=== PATIENT | female | born 1950 | race Caucasian/White ===

== ENCOUNTER → 2016-08-12 | Outpatient (CLI) | payer OTHER, MEDICARE ==
[~2016-08-12] MED LIST: ACET-1138 PO; ADAL40KI; ADVIN25/60 INH; ALBU1AER9 INH; ASPEC325 PO; BECL0.3A INH; CHOL20007 PO; FEXO1TAB49 PO; FLECTOR PATCH TOP; FOLI1TAB7 PO; FRRG PO; GABA-112 PO; HYDR200T5 PO; HYDR25TA5 PO; IPRASOL4 INH; LEVO200T PO; LEVO25TA PO; LISI40TA PO; MELOXICAM PO; MEPO1INJ; METHOTREXATE; MILN50TA PO; MOME50SP5; MULT-506 PO; OLOP0.1S2 OP; PRED-301 PO; SERT-234 PO; SINUS PO; TIOT1AER2 INH; TRAM-10 PO
== END | disposition home or self-care (01) ==
LOC: C.LAB 10:37
PROVIDERS: ATTEND Internal Medicine Endocrinology, Diabetes & Metabolism
DX: E03.9 Hypothyroidism, unspecified (principal)

== ENCOUNTER → 2016-12-19 | Outpatient (CLI) | payer OTHER, MEDICARE ==
[~2016-12-19] MED LIST changes: -ADAL40KI; -BECL0.3A INH; -LEVO25TA PO; -MEPO1INJ; -METHOTREXATE; -MOME50SP5; -SINUS PO
[2016-12-19 12:11] LABS: BASO % 0.2 %; BASO ABS # 0.01 K/uL (0-0.2); COMPLETE YES; EOS % 1.9 %; HEMATOCRIT 39.4 % (37-47); IG% 0.2 %; LYMPH % 32.1 %; LYMPH ABS # 1.56 K/uL (1.2-3.4); MEAN CELL VOLUME 102.6 fL (80-100); MEAN CORPUSCULAR HEMOGLOBIN 32.6 pg (25-34); MEAN CORPUSCULAR HGB CONC 31.7 g/dl (32-36); MEAN PLATELET VOLUME 10.1 fL (7.4-10.4); MONO % 16.9 %; NEUT % 48.7 %; PLATELET COUNT 187 K/uL (130-400); RED BLOOD COUNT 3.84 M/uL (4.2-5.4); WHITE BLOOD COUNT 4.86 K/uL (4.8-10.8)
[2016-12-19 12:23] LABS: ALT/SGPT 19 U/L (12-78); BLOOD UREA NITROGEN 26 mg/dl (7-18); BUN/CREATININE RATIO 23.5 (10-20); CARBON DIOXIDE 28 mmol/L (21-32); CHLORIDE 108 mmol/L (98-107); CHOLESTEROL 221 mg/dl (0-200); GLUCOSE 74 mg/dl (70-99); SODIUM 143 mmol/L (136-145)
[2016-12-19 12:26] LABS: ALB/GLOB RATIO 1.1 (0.9-2); ALKALINE PHOSPHATASE 75 U/L (45-117); AST/SGOT 15 U/L (15-37); CHOLESTEROL/HDL RATIO 2.8; HDL CHOLESTEROL 79 mg/dl; LDL CHOLESTEROL CALCULATED 121 mg/dl; TRIGLYCERIDES 103 mg/dl (0-150); VERY LOW DENSITY LIPOPROT CALC 21 mg/dl
--- NOTE | 2016-12-30 14:16 | CODING QUERY MEDICAL NECESSITY ---
CQSUPPORTING DIAGNOSIS NEEDED A supporting diagnosis is required for the test/procedure performed on this patient in order for us to be reimbursed by the patient's insurance. Please provide a supporting diagnosis for the following test/procedure listed below next to the test name along with your signature. *If there is no additional diagnosis for this patient that would support the following test/procedure please document that below next to the test/procedure. Test(s)/Procedure(s) that require a supporting diagnosis: DOS 12/19/16 VITAMIN D TEST Provider Signature: Date: Thank you Savanna Rocha Health Information Management Once completed, please kindly fax back to [phone] For questions please call [phone]
== END | disposition home or self-care (01) ==
LOC: C.LABBFT 08:54
PROVIDERS: ATTEND Internal Medicine
DX: M06.9 Rheumatoid arthritis, unspecified (principal); Z13.6 Encounter for screening for cardiovascular disorders; I10 Essential (primary) hypertension

== ENCOUNTER → 2017-02-27 | Outpatient (CLI) | payer OTHER, MEDICARE ==
--- NOTE | 2017-02-27 10:28 | DIAGNOSTIC IMAGING REPORT ---
R LOWER EXT JOINT WITHOUT CLINICAL HISTORY: 66 years-old Female presenting with RT HIP PAIN,R/O AVASCULAR NECROSIS. TECHNIQUE: Multisequence, multiplanar MR imaging of the right hip was performed without the use of intravenous contrast. IV contrast: None. COMPARISON: None. FINDINGS: Localizer images: Unremarkable. No bone marrow edema. Normal marrow signal intensity. No evidence of osteonecrosis. Hip joints congruent. No significant effusion. Labrum grossly intact. T2 hyperintensity along the tendinous insertion of the right gluteus medius-minimus complex as well as more proximally at the tendinous junction. Trace fluid in the right trochanteric bursa. Sacroiliac joints and pubic symphysis congruent. Sciatic nerves normal. Moderate fatty atrophy of the gluteus raudel muscles bilaterally. Mild fatty atrophy of the gluteus minimus and medius muscles bilaterally. Large midline ventral hernia containing small and large bowel. No bowel obstruction. No visualized lymphadenopathy in the pelvis. IMPRESSION: 1. Findings suggestive of tendinopathy at the insertion of the right gluteus medius-minimus complex with associated muscle strain at the myotendinous junction. 2. Chronic atrophy of the gluteus muscles bilaterally. Electronically signed by: Julio Cesar Kauffman M.D. 02/27/2017 10:27 AM Dictated Date/Time: 02/27/2017 8:53 AM
== END | disposition home or self-care (01) ==
LOC: C.MRIBC 07:30
PROVIDERS: ATTEND Orthopaedic Surgery Sports Medicine
DX: M25.551 Pain in right hip (principal)

== ENCOUNTER 2018-09-08 15:37 | Inpatient (IN) ==
[2018-09-08] MEDS ORDERED: IMIPENEM/CILASTATIN SODIUM 1,000 MG in DEXTROSE 5% 250 ML IV STA (16:24)
--- NOTE | 2018-09-08 16:52 | XRay Report ---
XR chest 1V portable CLINICAL HISTORY: 67 years-old Female presenting with Dyspnea. TECHNIQUE: Portable upright AP view of the chest was obtained. COMPARISON: CTA chest and chest x-ray from 09/06/2018. FINDINGS: Right upper extremity PICC terminates at the superior cavoatrial junction Atherosclerosis of the aort ic arch. Cardiopericardial silhouette remains enlarged. Bandlike opacity and ill-defined lucency in t he right lung base as on prior exam. Persistent obscuration of the left hemidiaphragm. Suspected trac e bilateral pleural effusions. No pneumothorax. Degenerative changes of the thoracic spine. Upper abd omen normal. IMPRESSION: 1. No significant change in bilateral basilar infiltrates and trace bilateral pleural effusions. 2. Cardiopericardial silhouette enlargement secondary to underlying cardiomegaly and pericardial eff usion. Electronically signed by: Julio Cesar Kauffman M.D. 09/08/2018 4:50 PM
[2018-09-08 16:53] LABS: Basophils # (auto) 0.01 K/uL (0-0.2); Basophils % (auto) 0.2 %; Eosinophils # (auto) 0.04 K/uL (0-0.5); Eosinophils % (auto) 0.8 %; Hematocrit (blood only) 27.9 % (37-47); Hemoglobin 8.9 g/dL (12.0-16.0); Immature Granulocytes # (auto) 0.01 K/uL (0.00-0.02); Immature Granulocytes % (auto) 0.2 %; Lymphocytes # (auto) 0.96 K/uL (1.2-3.4); Lymphocytes % (auto) 19.7 %; Mean Corpuscular Hgb Conc 31.9 g/dL (32-36); Mean Corpuscular Volume 99.6 fL (80-100); Mean Platelet Volume 9.3 fL (7.4-10.4); Monocytes # (auto) 0.82 K/uL (0.11-0.59); Monocytes % (auto) 16.8 %; Neutrophils # (auto) 3.04 K/uL (1.4-6.5); Neutrophils % (auto) 62.3 %; Platelet Count 238 K/uL (130-400); RDW Coefficient of Variation 14.5 % (11.5-14.5); RDW Standard Deviation 51.7 fL (36.4-46.3); White Blood Count 4.88 K/uL (4.8-10.8)
[2018-09-08 17:03] LABS: INR 1.4 (0.9-1.1); Partial Thromboplastin Ratio 1.3; Partial Thromboplastin Time 35.4 Seconds (21.0-31.0); Prothrombin Time 13.9 Seconds (9.0-12.0)
[2018-09-08 17:16] LABS: RBC Morphology Unremarkable
[2018-09-08 17:22] LABS: Albumin Level 2.1 gm/dl (3.4-5.0); BUN Creatinine Ratio 11.5 (10-20); Calcium 8.3 mg/dl (8.5-10.1); Creatinine Clr Calc Pharmacy 88.4 ml/min; Est GFR (African American) 108.5; Est GFR (Non-African American) 93.6; Potassium 3.3 mmol/L (3.5-5.1)
[2018-09-08 17:25] LABS: Albumin Globulin Ratio 0.7 (0.9-2); Bilirubin,Total 0.4 mg/dl (0.2-1); Globulin 3.2 gm/dl (2.5-4.0); Total Protein 5.3 gm/dl (6.4-8.2)
[2018-09-08] MEDS ORDERED: POTASSIUM CHLORIDE 20 MEQ/15 ML UDC PO STA (18:01)
[2018-09-08] MEDS ORDERED: SODIUM CHLORIDE 0.9% 500 ML IV SCH (18:45)
[2018-09-08 18:48] LABS: Magnesium 1.6 mg/dl (1.8-2.4); Troponin I 0.045 ng/ml (0-0.045)
--- NOTE | 2018-09-08 19:31 | History & Physical Report ---
Date of Service September 08, 2018 Assessment & Plan (1) Pericardial effusion: As noted on ECHO Pt seen by Dr. Peterson in the office Recs for IVF and CT surg c/s Uncertain etiology Lyme pending Pt is on xarelto for recent dx PE/DVT, will not hold given dx was 06/12/2018 (2) PNA (pneumonia): Noted on CXR Imipenem started in the ED, will continue (3) Hypokalemia: Replace and monitor (4) Anemia: Monitor (5) Acute pulmonary embolism: Xarelto (6) Rheumatoid arthritis: continue home meds (7) Psoriatic arthritis: continue home meds (8) Hypertension: continue home meds (9) Hypothyroidism: continue home meds (10) Degenerative joint disease: continue home meds (11) Fibromyalgia: continue home meds (12) DVT prophylaxis: Xarelto History of Present Illness Primary Care Provider: Trace Noyola MD 67 y/o F c/o worsening CRESPO. This has been an ongoing issue for the last several days and getting worse. She also noted LE swelling on Friday night which was worse on Friday. Pt was seen in the ED on Friday and found to have a pericardial effusion. It was suggested that she be admitted at that time, however pt stated she preferred to f/u as outpt for this. Pt was seen by cardiology today and had an ECHO which showed worsening effusion. No prior hx of pericardial effusion. No chest pain. Not SOB at rest when sitting, but has SOB with lying flat. Has been tolerating PO without issue. Pt denies fever, abd pain, n/v/c/d, LE pain. Pt was a recent admission to [facility] in June for DVT/PE. She is currently on xa relto and compliant with this. CTA on 09/06 was neg for PE. Allergies Allergy/AdvReac Type Severity Reaction Status Date / Time pollen extracts Allergy Intermediate ASTHMA Verified 09/08/18 16:42 ATTACKS salsalate Allergy Unknown UNKNOWN Verified 09/08/18 16:42 blue dye AdvReac Intermediate SEVERE Verified 09/08/18 16:42 VOMITING doxycycline AdvReac Intermediate VOMITING, Verified 09/08/18 16:42 IMBALANCE duloxetine AdvReac Intermediate SEVERE Verified 09/08/18 16:42 VOMITING leflunomide AdvReac Intermediate SEVERE Verified 09/08/18 16:42 VOMITING tetracycline AdvReac Intermediate CONFUSION,LIGHT Verified 09/08/18 16:42 HEADED, DIZZINESS cefuroxime AdvReac Mild UNCONTROLLED Verified 09/08/18 16:42 DIARRHEA celecoxib AdvReac Mild VOMITING Verified 09/08/18 16:42 clarithromycin AdvReac Mild VOMITING Verified 09/08/18 16:42 pregabalin AdvReac Mild HEADACHE, Verified 09/08/18 16:42 VOMITING Home Medications Home Medications Medication Instructions Recorded Confirmed Type Kiesha-D 24 Hour 1 tab PO QAM PRN 06/09/18 09/08/18 History Qvar RediHaler 2 puff INHALATION BID 06/09/18 09/08/18 History Savella 50 mg PO DAILY 06/09/18 09/08/18 History albuterol sulfate [ProAir HFA] 2 puff INHALATION QID PRN 06/09/18 09/08/18 History cholecalciferol (vitamin D3) 2,000 unit PO DAILY 06/09/18 09/08/18 History [Vitamin D3] fluticasone propion-salmeterol 1 inh INHALATION BID 06/09/18 09/08/18 History [Advair Diskus] folic acid 1 mg PO DAILY 06/09/18 09/08/18 History gabapentin 100 mg PO HS 06/09/18 09/08/18 History hydroxychloroquine 200 mg PO BID 06/09/18 09/08/18 History ipratropium-albuterol 3 ml INHALATION DIRECTED PRN 06/09/18 09/08/18 History levothyroxine [Synthroid] 25 mcg PO DAILY 06/09/18 09/08/18 History mometasone [Nasonex] 2 spray INTRANASAL DAILY PRN 06/09/18 09/08/18 History multivitamin 1 tab PO DAILY 06/09/18 09/08/18 History olopatadine [Patanol] 1 - 2 drp OPHTHALMIC (EYE) 06/09/18 09/08/18 History DIRECTED sertraline 150 mg PO DAILY 06/09/18 09/08/18 History tramadol 100 mg PO QID PRN 06/09/18 09/08/18 History codeine-guaifenesin [Cheratussin 10 ml PO Q6H PRN #120 ml 01/13/19 04/09/19 Rx AC] rivaroxaban [Xarelto] 20 mg PO DAILY #30 tab 06/14/18 09/08/18 Rx tramadol [Ultram] 50 mg PO Q4H PRN #60 tab 06/14/18 09/08/18 Rx Past Med/Surg History Medical History Asthma Fibromyalgia No chronic problems Pneumonia Rheumatoid arthritis Surgical History History of arthroscopy History of section History of gastric bypass History of herniorrhaphy Family History Grandfather (Maternal) Coronary heart disease [place] Grandfather (Paternal) Coronary heart disease [place] Other No significant family history Social History Preferred Language: Amharic Beliefs That Will Affect Care: None Current Living Situation: Spouse Feels Safe at Home: Yes Smoking Status: Never smoker Hx Alcohol Use: No Hx Substance Use: No Review of Systems Pertinent positives and negatives reviewed in HPI--all others negative Physical Exam Vital Signs (Past 24 Hours): Last Vital Signs Temp 37.0 C 09/08/18 15:41 Pulse 88 09/08/18 18:00 Resp 21 09/08/18 18:00 BP 153/109 H 09/08/18 17:30 Pulse Ox 96 09/08/18 18:00 Constitutional: WD/WN, vitals as above Eyes: normal visual [place] by confrontation and + anicteric sclerae Neck: normal visual inspection and trachea midline Respiratory: normal respiratory effort; no respiratory distress Auscultation: + crackles; no wheezes Cardiovascular: Rate/Rhythm: regular rate and regular rhythm Gastrointestinal (Abdomen): Inspection/Auscultation: abdomen not distended Percussion/Palpation: abdomen soft; abdomen nontender Musculoskeletal: Head/Neck/Chest: normocephalic and head atraumatic b/l 2+ LE edema, peripheral pulses intact Skin: no rashes, warm and dry Neurologic: awake; not confused Speech / Cognition: normal speech Psychiatric: A+Ox3, euthymic affect Results & Data Diagnostic Findings CXR: b/l PNA CT chest: 1. No convincing evidence of acute pulmonary emboli. 2. Findings suggest pulmonary arterial hypertension with elevated right heart pressures in the setting of cardiomegaly. 3. Interval development of a moderate pericardial effusion. Correlate clinically to exclude right heart strain. 4. Interval worsening of cavitary changes in the dependent portions of the right lower lobe likely representing evolving necrosis, either from prior infarct or necrotizing pneumonia. 5. Interval development of patchy predominant groundglass opacities in the upper lobes and left lower lobe concerning for an infectious or inflammatory process. Pulmonary hemorrhage is considered less likely. The should be followed to resolution. 6. Persistent trace bilateral pleural effusions. ECG Rhythm: normal sinus Code Status & VTE Plan Code Status Full code VTE Prophylaxis Plan VTE Prophylaxis will be ordered: Yes
[2018-09-08] MEDS ORDERED: ACETAMINOPHEN 325 MG TAB PO PRN (20:26)
[2018-09-08] MEDS ORDERED: ONDANSETRON INJ 2 MG/ML 2 ML VIAL IV PRN (20:26)
[2018-09-08] MEDS ORDERED: MAGNESIUM HYDROXIDE SUSP 30 ML UDC PO PRN (20:26)
[2018-09-08] MEDS ORDERED: FEXOFENADINE 60MG/PSEUDOEPHEDRINE 120MG TAB PO PRN (20:26)
[2018-09-08] MEDS ORDERED: GUAIFENESIN/CODEINE 100MG/10MG 5ML UDC PO PRN (20:26)
[2018-09-08] MEDS ORDERED: TRAMADOL HCL 50 MG TABLET PO PRN ×2 (20:26→20:42)
[2018-09-08] MEDS ORDERED: ALBUTEROL HFA 8 GM INHALER INH PRN (20:26)
[2018-09-08] MEDS ORDERED: FLUTICASONE PROPIONATE NA SPR 16 GM BTL PRN (20:26)
[2018-09-08] MEDS: NSS + 20MEQ KCL 20 MEQ/1,000 ML BAG IV SCH (21:07)
[2018-09-08] MEDS: FLUTICASONE/SALMETEROL 250/50 (ADVAIR) 14 PUFF/1 INHALER INH SCH (21:10)
[2018-09-08] MEDS: GABAPENTIN 100 MG CAP PO SCH (21:11)
[2018-09-08] MEDS: HYDROXYCHLOROQUINE SULFATE 200 MG TAB PO SCH (21:11)
[2018-09-08] MEDS: BECLOMETHASONE DIP HFA 80 MCG 8.7G INH INH SCH (21:12)
[2018-09-08] MEDS ORDERED: Nursing to Pharmacy Communication ONE ×2 (21:58→22:00)
[2018-09-08] MEDS ORDERED: GABAPENTIN 100 MG CAP PO STA (22:19)
[2018-09-08 22:32] LABS: Lyme Ab IgG w/WB Rflx Negative (Negative); Lyme Ab IgM w/WB Rflx Negative (Negative)
[2018-09-08] MEDS: TIOTROPIUM BROMIDE 5 PUFF/90 MCG INH INH SCH (22:47)
--- NOTE | 2018-09-08 23:28 | Emergency Department Note ---
Entered by Geovanny Luna acting as a scribe for Jean Paul Theodore MD History of Present Illness General Chief complaint: Abnormal Labs/Diagnostic Testing Stated complaint: FLUID AROUND HEART, ABNORMAL ECHO Time Seen by Provider: 09/08/18 16:04 Source: patient History of Present Illness Onset (ago): week(s) 3 Location: chest (lungs) Pain Consistency: + other (persistent) Quality: + other (exertional shortness of breath) Exacerbated By: + other (exertion) Associated symptoms: no chest pain and no nausea/vomiting The patient is a 67 year old white female with a history of DVT, PE, HTN, hypothyroidism, fibromyalgia, and RA who presents to the Emergency Room with complaints of persistent exertional shortness of breath for the past three weeks. Per medical records, the patient is currently on Meropenem for cavitary pneumonia. The patient was offered admission two days ago after CTA of the chest showing pericardial effusion, but she declined. The patient reports that she was evaluated by Dr. Peterson [facility] prior to arrival and was sent for an echo, which per nurses showed an EF of 25-20% and fluid around the heart. She notes that this was the first time she has ever been evaluated by cardiology. The patient reports that she is only short of breath when walking, and this has not become worse or better over the past few weeks. She states that she also has a cough productive of yellow/clear phlegm and leg swelling for the past five days. The patient denies chest pain, nausea/vomiting, trauma, recent chest procedures, history of cancer, or history of smoking. She notes that she receives Meropenem infusions every 8 hours at home, and today she missed her 16:00 dose. Home Medications Home Medications Medication Instructions Recorded Confirmed Type Kiesha-D 24 Hour 1 tab PO QAM PRN 06/09/18 09/08/18 History Qvar RediHaler 2 puff INHALATION BID 06/09/18 09/08/18 History Savella 50 mg PO DAILY 06/09/18 09/08/18 History albuterol sulfate [ProAir HFA] 2 puff INHALATION QID PRN 06/09/18 09/08/18 History cholecalciferol (vitamin D3) 2,000 unit PO DAILY 06/09/18 09/08/18 History [Vitamin D3] fluticasone propion-salmeterol 1 inh INHALATION BID 06/09/18 09/08/18 History [Advair Diskus] folic acid 1 mg PO DAILY 06/09/18 09/08/18 History gabapentin 100 mg PO HS 06/09/18 09/08/18 History hydroxychloroquine 200 mg PO BID 06/09/18 09/08/18 History ipratropium-albuterol 3 ml INHALATION DIRECTED PRN 06/09/18 09/08/18 History mometasone [Nasonex] 2 spray INTRANASAL DAILY PRN 06/09/18 09/08/18 History multivitamin 1 tab PO DAILY 06/09/18 09/08/18 History olopatadine [Patanol] 1 - 2 drp OPHTHALMIC (EYE) 06/09/18 09/08/18 History DIRECTED sertraline 150 mg PO DAILY 06/09/18 09/08/18 History tramadol 100 mg PO QID PRN 06/09/18 09/08/18 History codeine-guaifenesin [Cheratussin 10 ml PO Q6H PRN #120 ml 06/14/18 09/08/18 Rx AC] rivaroxaban [Xarelto] 20 mg PO DAILY #30 tab 06/14/18 09/08/18 Rx tramadol [Ultram] 50 mg PO Q4H PRN #60 tab 06/14/18 09/08/18 Rx levothyroxine [Synthroid] 200 mcg PO SUSA@0630 09/08/18 09/08/18 History levothyroxine [Synthroid] 225 mcg PO [id number]@0630 09/08/18 09/08/18 History Allergies Allergy/AdvReac Type Severity Reaction Status Date / Time pollen extracts Allergy Intermediate ASTHMA Verified 09/08/18 16:42 ATTACKS salsalate Allergy Unknown UNKNOWN Verified 09/08/18 16:42 blue dye AdvReac Intermediate SEVERE Verified 09/08/18 16:42 VOMITING doxycycline AdvReac Intermediate VOMITING, Verified 09/08/18 16:42 IMBALANCE duloxetine AdvReac Intermediate SEVERE Verified 09/08/18 16:42 VOMITING leflunomide AdvReac Intermediate SEVERE Verified 09/08/18 16:42 VOMITING tetracycline AdvReac Intermediate CONFUSION,LIGHT Verified 09/08/18 16:42 HEADED, DIZZINESS cefuroxime AdvReac Mild UNCONTROLLED Verified 09/08/18 16:42 DIARRHEA celecoxib AdvReac Mild VOMITING Verified 09/08/18 16:42 clarithromycin AdvReac Mild VOMITING Verified 09/08/18 16:42 pregabalin AdvReac Mild HEADACHE, Verified 09/08/18 16:42 VOMITING Past Med/Surg History Medical History DVT (deep venous thrombosis) Hypothyroid Obesity Pericardial effusion Pneumonia Pulmonary embolism Asthma Fibromyalgia No chronic problems Pneumonia Rheumatoid arthritis Surgical History History of arthroscopy History of section History of gastric bypass History of herniorrhaphy Family History Grandfather (Maternal) Coronary heart disease [place] Grandfather (Paternal) Coronary heart disease [place] Other No significant family history Social History Preferred Language: Indonesian Communication Ability: Effective Beliefs That Will Affect Care: None Current Living Situation: Spouse Other Information That Helps Us Care for You: No Feels Safe at Home: No Safety Concerns: Feels Safe At This Time Smoking Status: Never smoker Hx Alcohol Use: Yes Hx Substance Use: No Review of Systems See HPI for pertinent positives & negatives. and A total of 10 systems reviewed and were otherwise negative Physical Exam Vital Signs Vital Signs - 24 hr 09/08/18 15:41 09/08/18 16:35 09/08/18 17:01 Temperature 37.0 C Temperature Source Oral Sepsis Recent Fever Within 48 Hours No Sepsis New/Unexplained Change in Mental Status No Sepsis Action Taken by Nursing No Action Required Pulse Rate 94 H 88 Pulse Rate [Apical] Pulse Rate from SpO2 Sensor 87 Pulse Rhythm Regular Pulse Rhythm [Apical] Pulse Strength Normal Pulse Strength [Apical] Respiratory Rate 22 15 Respiratory Effort / Characteristics Non-Labored Respiratory Depth Normal Respiratory Pattern Regular Blood Pressure 123/83 Blood Pressure [Left Arm] Blood Pressure Mean 96 131 Blood Pressure Mean [Left Arm] Blood Pressure Position Sitting Blood Pressure Position [Left Arm] Pulse Oximetry 93 92 94 Oxygen Delivery Method Room Air Nasal Cannula Oxygen Flow Rate 2 09/08/18 17:30 09/08/18 18:00 09/08/18 19:37 Temperature Temperature Source Sepsis Recent Fever Within 48 Hours Sepsis New/Unexplained Change in Mental Status Sepsis Action Taken by Nursing Pulse Rate 87 88 Pulse Rate [Apical] 95 H Pulse Rate from SpO2 Sensor 87 87 Pulse Rhythm Pulse Rhythm [Apical] Pulse Strength Pulse Strength [Apical] Respiratory Rate 23 21 18 Respiratory Effort / Characteristics Respiratory Depth Respiratory Pattern Blood Pressure 153/109 H Blood Pressure [Left Arm] 122/99 Blood Pressure Mean 123 Blood Pressure Mean [Left Arm] 106 Blood Pressure Position Blood Pressure Position [Left Arm] Pulse Oximetry 95 96 98 Oxygen Delivery Method Nasal Cannula Oxygen Flow Rate 2 09/08/18 20:26 09/08/18 20:27 09/09/18 00:00 Temperature 36.9 C 36.9 C Temperature Source Oral Oral Sepsis Recent Fever Within 48 Hours Sepsis New/Unexplained Change in Mental Status Sepsis Action Taken by Nursing Pulse Rate 96 H 63 Pulse Rate [Apical] 97 H 85 Pulse Rate from SpO2 Sensor Pulse Rhythm Pulse Rhythm [Apical] Regular Pulse Strength Pulse Strength [Apical] Normal Respiratory Rate Respiratory Effort / Characteristics SOB on Exertion Non-Labored Spontaneous Respiratory Depth Normal Normal Respiratory Pattern Regular Regular Blood Pressure Blood Pressure [Left Arm] 126/96 128/80 Blood Pressure Mean Blood Pressure Mean [Left Arm] 106 96 Blood Pressure Position Blood Pressure Position [Left Arm] Lying Lying Pulse Oximetry 93 97 Oxygen Delivery Method Nasal Cannula Nasal Cannula Oxygen Flow Rate 2 09/09/18 04:58 09/09/18 07:01 09/09/18 08:00 Temperature 37.4 C 37.0 C Temperature Source Oral Oral Sepsis Recent Fever Within 48 Hours Sepsis New/Unexplained Change in Mental Status Sepsis Action Taken by Nursing Pulse Rate Pulse Rate [Apical] 87 84 Pulse Rate from SpO2 Sensor Pulse Rhythm Pulse Rhythm [Apical] Pulse Strength Pulse Strength [Apical] Respiratory Rate 20 19 Respiratory Effort / Characteristics Non-Labored Spontaneous Respiratory Depth Normal Respiratory Pattern Regular Blood Pressure Blood Pressure [Left Arm] 123/72 114/73 Blood Pressure Mean Blood Pressure Mean [Left Arm] 89 86 Blood Pressure Position Blood Pressure Position [Left Arm] Lying Lying Pulse Oximetry 98 97 Oxygen Delivery Method Nasal Cannula Nasal Cannula Nasal Cannula Oxygen Flow Rate 2 2 2 09/09/18 08:47 09/09/18 13:10 Temperature 37 C 36.0 C L Temperature Source Oral Temporal Artery Scan Sepsis Recent Fever Within 48 Hours Sepsis New/Unexplained Change in Mental Status Sepsis Action Taken by Nursing Pulse Rate Pulse Rate [Apical] 87 81 Pulse Rate from SpO2 Sensor Pulse Rhythm Pulse Rhythm [Apical] Regular Regular Pulse Strength Pulse Strength [Apical] Normal Respiratory Rate 20 18 Respiratory Effort / Characteristics Non-Labored Accessory Muscle Use Non-Labored Spontaneous Respiratory Depth Normal Normal Respiratory Pattern Regular Regular Blood Pressure Blood Pressure [Left Arm] 95/81 L 126/79 Blood Pressure Mean Blood Pressure Mean [Left Arm] 85 94 Blood Pressure Position Blood Pressure Position [Left Arm] Sitting Lying Pulse Oximetry 98 95 Oxygen Delivery Method Nasal Cannula Oxymask Oxygen Flow Rate 2 10 GENERAL: Well appearing, well nourished, NAD, non-toxic, wearing glasses. EYE EXAM: Normal conjunctiva. PERRL, no anisocoria and EOM's grossly intact w/o pain. OROPHARYNX: Moist MM. NECK: Supple, no nuchal rigidity, no adenopathy, non-tender. No signs of meningismus. LUNGS: Clear to auscultation. Normal chest wall mechanics. HEART: NSR, no MRG. ABDOMEN: Abdomen soft, non-tender, normo-active bowel sounds, no masses, no rebound or guarding. BACK: No CVA TTP. SKIN: No rashes and no bruising. UPPER EXTREMITIES: Upper extremities are grossly normal. PICC line in the right upper extremity is clean, dry and intact with soft compartments. LOWER EXTREMITIES: 3+ to 4+ bilateral edema. No calf pain. NEURO EXAM: A and O x3. GCS 15. Moves all 4 extremities on command w/o issue. Course 1615: The patient was evaluated in room C11B, and a complete history and physical examination were performed. 1818: I consulted Dr. Tuttle [facility] Hospitalist. The patient will be reev aluated for hospitalization. 1840: I spoke to the patient and updated her on the current plan. I also spoke to Dr. Tuttle again about the patient. Consultations Consultation #1: I consulted Dr. Tuttle [facility] Hospitalist. The patient will be reevaluated for hospitalization. Time: 18:18 Administered Medications Beclomethasone Dipropionate (Qvar 80mcg) 2 puffs INH BID ALEJANDRA Stop: 10/08/18 20:59 Last Admin: 09/08/18 21:12 Dose: Not Given Documented by: [id number] Fentanyl Citrate (Fentanyl Citrate) 25 mcg IV Q5M PRN PRN Reason: PACU Use Only-Pain Stop: 09/09/18 15:06 Last Admin: 09/09/18 13:41 Dose: 25 mcg Documented by: [id number] Admin: 09/09/18 13:36 Dose: 25 mcg Documented by: [id number] Admin: 09/09/18 13:26 Dose: 25 mcg Documented by: [id number] Gabapentin (Neurontin) 100 mg PO HS ALEJANDRA Stop: 10/08/18 20:59 Last Admin: 09/08/18 21:11 Dose: 100 mg Documented by: [id number] Hydroxychloroquine Sulfate (Plaquenil) 200 mg PO BID ALEJANDRA Stop: 10/08/18 20:59 Last Admin: 09/08/18 21:11 Dose: 200 mg Documented by: [id number] Imipenem/Cilastatin Sodium 500 (mg/ Dextrose) 110 mls @ 100 mls/hr IV Q6H ALEJANDRA; Protocol Stop: 09/15/18 17:59 Last Infusion: 09/09/18 07:03 Dose: 0 mls/hr Documented by: [id number] Admin: 09/09/18 05:50 Dose: 100 mls/hr Documented by: [id number] Infusion: 09/09/18 01:24 Dose: 0 mls/hr Documented by: [id number] Admin: 09/08/18 23:43 Dose: 100 mls/hr Documented by: [id number] Potassium Chloride/Sodium Chloride (Normal Saline W/20 Meq Kcl) 20 meq in 1,000 mls @ 80 mls/hr IV .[id number] ALEJANDRA Stop: 10/08/18 20:44 Last Admin: 09/08/18 21:07 Dose: 80 mls/hr Documented by: [id number] Cefazolin Sodium (Ancef 2000mg) 2,000 mg in 15 mls @ 3.75 mls/min IV ONCE ALEJANDRA Stop: 09/09/18 18:00 Last Admin: 09/09/18 10:01 Dose: 3.75 mls/min Documented by: [id number] Levothyroxine Sodium (Synthroid) 225 mcg PO MoTuWeThFr@0630 ALEJANDRA Stop: 10/09/18 06:29 Last Admin: 09/09/18 05:50 Dose: Not Given Documented by: [id number] Miscellaneous (Order Awaiting Action) 1 ea N/A QS ALEJANDRA Stop: 10/09/18 00:00 Last Admin: 09/09/18 09:00 Dose: Not Given Documented by: [id number] Admin: 09/08/18 23:44 Dose: Not Given Documented by: [id number] Miscellaneous (Order Awaiting Action) 1 ea N/A QS [facility] Stop: 10/09/18 00:00 Last Admin: 09/09/18 09:01 Dose: Not Given Documented by: [id number] Admin: 09/08/18 23:44 Dose: Not Given Documented by: [id number] Fluticasone/Salmeterol (Advair Diskus 250/50) 1 puffs INH BID [facility] Stop: 10/08/18 20:59 Last Admin: 09/08/18 21:10 Dose: 1 puffs Documented by: [id number] Tiotropium [place] (Spiriva) 1 puffs INH BID [facility] Stop: 10/08/18 22:14 Last Admin: 09/08/18 22:47 Dose: 1 puffs Documented by: [id number] Tramadol HCl (Ultram) 100 mg PO QID PRN PRN Reason: Pain Stop: 10/08/18 20:41 Last Admin: 09/08/18 22:45 Dose: 100 mg Documented by: [id number] Discontinued Medications Bupivacaine HCl (Marcaine 0.5% Mpf) Confirm Administered Dose 30 ml .ROUTE .STK- MED ONE Stop: 09/09/18 09:04 Last Admin: 09/09/18 12:32 Dose: 30 ml Documented by: [id number] Bupivacaine Liposome (Exparel) Confirm Administered Dose 266 mg .ROUTE .STK-MED ONE Stop: 09/09/18 09:04 Last Admin: 09/09/18 12:31 Dose: 266 mg Documented by: [id number] Gabapentin (Neurontin) 100 mg PO NOW STA Stop: 09/08/18 22:20 Last Admin: 09/08/18 22:46 Dose: 100 mg Documented by: [id number] Imipenem/Cilastatin Sodium 1, (000 mg/ Dextrose) 270 mls @ 250 mls/hr IV NOW STA Stop: 09/08/18 17:28 Last Infusion: 09/08/18 18:53 Dose: 0 mls/hr Documented by: [id number] Admin: 09/08/18 17:55 Dose: 250 mls/hr Documented by: [id number] Potassium Chloride (Aida Ciel Elix) 40 meq PO NOW STA Stop: 09/08/18 18:02 Last Admin: 09/08/18 18:12 Dose: 40 meq Documented by: [id number] Sodium Chloride (Sodium Chloride 0.9% Pf) Confirm Administered Dose 250 ml .ROUTE .STK-MED ONE Stop: 09/09/18 09:04 Last Admin: 09/09/18 12:32 Dose: 250 ml Documented by: [id number] Medical Decision Making Medical Records Attestation: I reviewed the patient's medical records. Home Medications Current Medication List: was personally reviewed by me Laboratory Data Attestation: I reviewed the patient's lab results. Result diagrams: 09/09/18 02:18 09/09/18 02:18 Lab Results 09/08/18 09/08/18 09/08/18 Range/Units 16:35 16:35 16:35 WBC 4.88 (4.8-10.8) K/uL RBC 2.80 L (4.2-5.4) M/uL Hgb 8.9 L (12.0-16.0) g/dL Hct 27.9 L (37-47) % MCV 99.6 (80-100) fL MCH 31.8 (25-34) pg MCHC 31.9 L (32-36) g/dL RDW Std Deviation 51.7 H (36.4-46.3) fL RDW Coeff of Charmaine 14.5 (11.5-14.5) % Plt Count 238 (130-400) K/uL MPV 9.3 (7.4-10.4) fL Immature Gran % (Auto) 0.2 % Neut % (Auto) 62.3 % Lymph % (Auto) 19.7 % Rowan % (Auto) 16.8 % Eos % (Auto) 0.8 % Baso % (Auto) 0.2 % Immature Gran # (Auto) 0.01 (0.00-0.02) K/uL Neut # (Auto) 3.04 (1.4-6.5) K/uL Lymph # (Auto) 0.96 L (1.2-3.4) K/uL Rowan # (Auto) 0.82 H (0.11-0.59) K/uL Eos # (Auto) 0.04 (0-0.5) K/uL Baso # (Auto) 0.01 (0-0.2) K/uL RBC Morphology Unremarkable PT 13.9 H (9.0-12.0) Seconds INR 1.4 H (0.9-1.1) APTT 35.4 H (21.0-31.0) Seconds PTT Ratio 1.3 Sodium 140 (136-145) mmol/L Potassium 3.3 L (3.5-5.1) mmol/L Chloride 106 (98-107) mmol/L Carbon Dioxide 28 (21-32) mmol/L Anion Gap 7.0 (3-11) BUN 7 (7-18) mg/dl Creatinine 0.64 (0.6-1.2) mg/dl Est Cr Clr Drug Dosing 88.4 ml/min Est GFR ( Amer) 108.5 Est GFR (Non-Af Amer) 93.6 BUN/Creatinine Ratio 11.5 (10-20) Glucose 72 (70-99) mg/dl Calcium 8.3 L (8.5-10.1) mg/dl Magnesium (1.8-2.4) mg/dl Total Bilirubin 0.4 (0.2-1) mg/dl AST 23 (15-37) U/L ALT 12 (12-78) U/L Alkaline Phosphatase 87 (45-117) U/L Troponin I (0-0.045) ng/ml Total Protein 5.3 L (6.4-8.2) gm/dl Albumin 2.1 L (3.4-5.0) gm/dl Globulin 3.2 (2.5-4.0) gm/dl Albumin/Globulin Ratio 0.7 L (0.9-2) Urine Color Urine Appearance (Clear) Urine pH (4.5-7.5) Ur Specific Drifting (1.000-1.030) Urine Protein (Negative) Urine Glucose (UA) (Negative) Urine Ketones (Negative) Urine Blood (Negative) Urine Nitrite (Negative) Urine Bilirubin (Negative) Urine Urobilinogen (Negative) Ur Leukocyte Esterase (Negative) Urine WBC (Auto) (0-5) /hpf Urine RBC (Auto) (0-4) /hpf U Hyaline Cast (Auto) (0-5) /lpf U Epithel Cells (Auto) (0-5) /lpf Urine Bacteria (Auto) (Negative) Lyme Disease IgG Ab (Negative) Lyme Disease IgM Ab (Negative) Blood Type Antibody Screen Crossmatch 04/09/19 04/09/19 04/09/19 Range/Units 16:35 20:49 20:49 WBC (4.8-10.8) K/uL RBC (4.2-5.4) M/uL Hgb (12.0-16.0) g/dL Hct (37-47) % MCV (80-100) fL MCH (25-34) pg MCHC (32-36) g/dL RDW Std Deviation (36.4-46.3) fL RDW Coeff of Charmaine (11.5-14.5) % Plt Count (130-400) K/uL MPV (7.4-10.4) fL Immature Gran % (Auto) % Neut % (Auto) % Lymph % (Auto) % Rowan % (Auto) % Eos % (Auto) % Baso % (Auto) % Immature Gran # (Auto) (0.00-0.02) K/uL Neut # (Auto) (1.4-6.5) K/uL Lymph # (Auto) (1.2-3.4) K/uL Rowan # (Auto) (0.11-0.59) K/uL Eos # (Auto) (0-0.5) K/uL Baso # (Auto) (0-0.2) K/uL RBC Morphology PT (9.0-12.0) Seconds INR (0.9-1.1) APTT (21.0-31.0) Seconds PTT Ratio Sodium (136-145) mmol/L Potassium (3.5-5.1) mmol/L Chloride (98-107) mmol/L Carbon Dioxide (21-32) mmol/L Anion Gap (3-11) BUN (7-18) mg/dl Creatinine (0.6-1.2) mg/dl Est Cr Clr Drug Dosing ml/min Est GFR ( Amer) Est GFR (Non-Af Amer) BUN/Creatinine Ratio (10-20) Glucose (70-99) mg/dl Calcium (8.5-10.1) mg/dl Magnesium 1.6 L (1.8-2.4) mg/dl Total Bilirubin (0.2-1) mg/dl AST (15-37) U/L ALT (12-78) U/L Alkaline Phosphatase (45-117) U/L Troponin I 0.045 0.043 (0-0.045) ng/ml Total Protein (6.4-8.2) gm/dl Albumin (3.4-5.0) gm/dl Globulin (2.5-4.0) gm/dl Albumin/Globulin Ratio (0.9-2) Urine Color Urine Appearance (Clear) Urine pH (4.5-7.5) Ur Specific Drifting (1.000-1.030) Urine Protein (Negative) Urine Glucose (UA) (Negative) Urine Ketones (Negative) Urine Blood (Negative) Urine Nitrite (Negative) Urine Bilirubin (Negative) Urine Urobilinogen (Negative) Ur Leukocyte Esterase (Negative) Urine WBC (Auto) (0-5) /hpf Urine RBC (Auto) (0-4) /hpf U Hyaline Cast (Auto) (0-5) /lpf U Epithel Cells (Auto) (0-5) /lpf Urine Bacteria (Auto) (Negative) Lyme Disease IgG Ab Negative (Negative) Lyme Disease IgM Ab Negative (Negative) Blood Type Antibody Screen Crossmatch 09/09/18 09/09/18 09/09/18 Range/Units 02:18 02:18 05:50 WBC 3.65 L (4.8-10.8) K/uL RBC 2.79 L (4.2-5.4) M/uL Hgb 8.7 L (12.0-16.0) g/dL Hct 27.6 L (37-47) % MCV 98.9 (80-100) fL MCH 31.2 (25-34) pg MCHC 31.5 L (32-36) g/dL RDW Std Deviation 52.6 H (36.4-46.3) fL RDW Coeff of Charmaine 14.6 H (11.5-14.5) % Plt Count 232 (130-400) K/uL MPV 9.3 (7.4-10.4) fL Immature Gran % (Auto) 0.0 % Neut % (Auto) 60.4 % Lymph % (Auto) 23.3 % Rowan % (Auto) 15.3 % Eos % (Auto) 0.5 % Baso % (Auto) 0.5 % Immature Gran # (Auto) 0.00 (0.00-0.02) K/uL Neut # (Auto) 2.20 (1.4-6.5) K/uL Lymph # (Auto) 0.85 L (1.2-3.4) K/uL Rowan # (Auto) 0.56 (0.11-0.59) K/uL Eos # (Auto) 0.02 (0-0.5) K/uL Baso # (Auto) 0.02 (0-0.2) K/uL RBC Morphology Unremarkable PT (9.0-12.0) Seconds INR (0.9-1.1) APTT (21.0-31.0) Seconds PTT Ratio Sodium 139 (136-145) mmol/L Potassium 4.0 D (3.5-5.1) mmol/L Chloride 106 (98-107) mmol/L Carbon Dioxide 30 (21-32) mmol/L Anion Gap 3.0 (3-11) BUN 7 (7-18) mg/dl Creatinine 0.62 (0.6-1.2) mg/dl Est Cr Clr Drug Dosing 92.7 ml/min Est GFR ( Amer) 109.7 Est GFR (Non-Af Amer) 94.6 BUN/Creatinine Ratio 10.9 (10-20) Glucose 78 (70-99) mg/dl Calcium 8.0 L (8.5-10.1) mg/dl Magnesium (1.8-2.4) mg/dl Total Bilirubin (0.2-1) mg/dl AST (15-37) U/L ALT (12-78) U/L Alkaline Phosphatase (45-117) U/L Troponin I 0.036 (0-0.045) ng/ml Total Protein (6.4-8.2) gm/dl Albumin (3.4-5.0) gm/dl Globulin (2.5-4.0) gm/dl Albumin/Globulin Ratio (0.9-2) Urine Color [place] Urine Appearance Turbid H (Clear) Urine pH 5.0 (4.5-7.5) Ur Specific Drifting 1.029 (1.000-1.030) Urine Protein Trace H (Negative) Urine Glucose (UA) Negative (Negative) Urine Ketones 1+ H (Negative) Urine Blood Negative (Negative) Urine Nitrite Positive H (Negative) Urine Bilirubin Negative (Negative) Urine Urobilinogen Negative (Negative) Ur Leukocyte Esterase 1+ H (Negative) Urine WBC (Auto) 1-5 (0-5) /hpf Urine RBC (Auto) 0-4 (0-4) /hpf U Hyaline Cast (Auto) 5-10 H (0-5) /lpf U Epithel Cells (Auto) >30 H (0-5) /lpf Urine Bacteria (Auto) Negative (Negative) Lyme Disease IgG Ab (Negative) Lyme Disease IgM Ab (Negative) Blood Type Antibody Screen Crossmatch 09/09/18 Range/Units 09:01 WBC (4.8-10.8) K/uL RBC (4.2-5.4) M/uL Hgb (12.0-16.0) g/dL Hct (37-47) % MCV (80-100) fL MCH (25-34) pg MCHC (32-36) g/dL RDW Std Deviation (36.4-46.3) fL RDW Coeff of Charmaine (11.5-14.5) % Plt Count (130-400) K/uL MPV (7.4-10.4) fL Immature Gran % (Auto) % Neut % (Auto) % Lymph % (Auto) % Rowan % (Auto) % Eos % (Auto) % Baso % (Auto) % Immature Gran # (Auto) (0.00-0.02) K/uL Neut # (Auto) (1.4-6.5) K/uL Lymph # (Auto) (1.2-3.4) K/uL Rowan # (Auto) (0.11-0.59) K/uL Eos # (Auto) (0-0.5) K/uL Baso # (Auto) (0-0.2) K/uL RBC Morphology PT (9.0-12.0) Seconds INR (0.9-1.1) APTT (21.0-31.0) Seconds PTT Ratio Sodium (136-145) mmol/L Potassium (3.5-5.1) mmol/L Chloride (98-107) mmol/L Carbon Dioxide (21-32) mmol/L Anion Gap (3-11) BUN (7-18) mg/dl Creatinine (0.6-1.2) mg/dl Est Cr Clr Drug Dosing ml/min Est GFR ( Amer) Est GFR (Non-Af Amer) BUN/Creatinine Ratio (10-20) Glucose (70-99) mg/dl Calcium (8.5-10.1) mg/dl Magnesium (1.8-2.4) mg/dl Total Bilirubin (0.2-1) mg/dl AST (15-37) U/L ALT (12-78) U/L Alkaline Phosphatase (45-117) U/L Troponin I (0-0.045) ng/ml Total Protein (6.4-8.2) gm/dl Albumin (3.4-5.0) gm/dl Globulin (2.5-4.0) gm/dl Albumin/Globulin Ratio (0.9-2) Urine Color Urine Appearance (Clear) Urine pH (4.5-7.5) Ur Specific Drifting (1.000-1.030) Urine Protein (Negative) Urine Glucose (UA) (Negative) Urine Ketones (Negative) Urine Blood (Negative) Urine Nitrite (Negative) Urine Bilirubin (Negative) Urine Urobilinogen (Negative) Ur Leukocyte Esterase (Negative) Urine WBC (Auto) (0-5) /hpf Urine RBC (Auto) (0-4) /hpf U Hyaline Cast (Auto) (0-5) /lpf U Epithel Cells (Auto) (0-5) /lpf Urine Bacteria (Auto) (Negative) Lyme Disease IgG Ab (Negative) Lyme Disease IgM Ab (Negative) Blood Type O Positive Antibody Screen NEGATIVE Crossmatch See Detail Imaging Data Radiologist's Impression: Radiology results as stated below per my review and the radiologist's interpretation: XR chest 1V portable CLINICAL HISTORY: 67 years-old Female presenting with Dyspnea. TECHNIQUE: Portable upright AP view of the chest was obtained. COMPARISON: CTA chest and chest x-ray from 09/06/2018. FINDINGS: Right upper extremity PICC terminates at the superior cavoatrial junction Atherosclerosis of the aortic arch. Cardiopericardial silhouette remains enlarged. Bandlike opacity and ill-defined lucency in the right lung base as on prior exam. Persistent obscuration of the left hemidiaphragm. Suspected trace bilateral pleural effusions. No pneumothorax. Degenerative changes of the thoracic spine. Upper abdomen normal. IMPRESSION: 1. No significant change in bilateral basilar infiltrates and trace bilateral pleural effusions. 2. Cardiopericardial silhouette enlargement secondary to underlying cardiomegal y and pericardial effusion. Electronically signed by: Julio Cesar Kauffman M.D. 09/08/2018 4:50 PM ECG Data Attestation: I personally reviewed and interpreted this ECG as follows: Indication: SOB/dyspnea Rate (beats per minute): 87 Rhythm: sinus rhythm Findings: + other (normal intervals; right axis deviation) and + T-wave inversion (inferior); no ST depression and no ST elevation Blood Pressure Blood Pressure Findings: Elevated blood pressure Blood Pressure Disposition: further management by hospitalist [facility] Narrative Prior records/ancillary studies reviewed. Triage nursing notes reviewed. The patient is a 67 year old white female with a history of DVT, PE, HTN, hypothyroidism, fibromyalgia, and RA who presents to the Emergency Room with complaints of persistent exertional shortness of breath for the past three weeks. Per medical records, the patient is currently on Meropenem for cavitary pneumonia. The patient was offered admission two days ago after CTA of the chest showing pericardial effusion, but she declined. Differential diagnosis: Etiologies such as infections, reactive airway disease, pneumonia, pneumothorax, COPD, CHF, cardiac ischemia, pulmonary embolism, musculoskeletal, gastrointestinal, as well as others were entertained. Patient was seen and evaluated the bedside. The patient had been referred from the shade hanger who just performed an echocardiogram. There was concern for moderate pericardial effusion but without tamponade. Apparently the patient did have an EF of 20-25%. The patient is undergoing meropenem therapy for cavitary pneumonia. The patient has complaints of shortness of breath as well as some worsening lower extremity edema. Her shortness of breath has been fairly chroni c and unchanged for some time. Patient is not requiring any oxygen at this time. Patient did have blood work completed I did ask the charge nurse to try and obtain the note from today's visit the patient was recently seen and diagnosed with a pericardial effusion. Patient does not have a cancer history. Patient's blood work is fairly unremarkable. Patient is clinically stable anemia. Patient has normal kidney function. Patient's troponin is not elevated. Patient did have a repeat chest film and EKG. I did speak with the on-call hospitalist who agreed to further evaluate treat the patient. I was able to obtain the outpatient cardiology notes that did recommend a thoracic surgery consult as well as continued IV fluids to help maintain intravascular volume to avoid cardiac tamponade. I did give the note to the hospitalist for the review also. Patient was subsequently admitted to the medicine service. Impression & Plan Pericardial effusion, Shortness of breath, Pneumonia Critical Care Time I have personally spent greater than 45 minutes of critical care time in direct management of this patient. This includes bedside care, interpretation of diagnostic studies, and testing, discussion with consultants, patient, and family members, and other require inpatient management activities. This 45 minutes is in excess of all separately billable procedures. Critical Care Time: Yes Total Critical Care Time: 45 Discharge Plan Visit Data *Final* Discharge Date/Time: 09/08/18 19:54 Chief Complaint: Abnormal Labs/Diagnostic Testing Stated Complaint: FLUID AROUND HEART, ABNORMAL ECHO ED Provider: Jean Paul Theodore Discharge Problem: Pericardial effusion, Shortness of breath, Pneumonia Patient Disposition: Admitted As Inpatient Discharge Instructions Interventions: ED Discharge Assessment Last Done: 09/08/18 19:54 The scribe's documentation has been prepared under my direction and personally reviewed by me in its entirety. I confirm that the note above accurately reflects all work, treatment, procedures, and medical decision making performed by me.
[2018-09-08] MEDS: IMIPENEM/CILASTATIN SODIUM 500 MG in DEXTROSE 5% 100 ML IV SCH (23:43)
[2018-09-09] MEDS ORDERED: Nursing to Pharmacy Communication ONE (00:07)
[2018-09-09 02:32] LABS: Basophils # (auto) 0.02 K/uL (0-0.2); Basophils % (auto) 0.5 %; Eosinophils # (auto) 0.02 K/uL (0-0.5); Eosinophils % (auto) 0.5 %; Hematocrit (blood only) 27.6 % (37-47); Hemoglobin 8.7 g/dL (12.0-16.0); Lymphocytes # (auto) 0.85 K/uL (1.2-3.4); Lymphocytes % (auto) 23.3 %; Mean Corpuscular Hgb Conc 31.5 g/dL (32-36); Mean Corpuscular Volume 98.9 fL (80-100); Mean Platelet Volume 9.3 fL (7.4-10.4); Monocytes # (auto) 0.56 K/uL (0.11-0.59); Monocytes % (auto) 15.3 %; Neutrophils % (auto) 60.4 %; Platelet Count 232 K/uL (130-400); RDW Coefficient of Variation 14.6 % (11.5-14.5); RDW Standard Deviation 52.6 fL (36.4-46.3); Red Blood Count 2.79 M/uL (4.2-5.4); White Blood Count 3.65 K/uL (4.8-10.8)
[2018-09-09 02:54] LABS: BUN Creatinine Ratio 10.9 (10-20); Creatinine Clr Calc Pharmacy 92.7 ml/min; Est GFR (African American) 109.7; Est GFR (Non-African American) 94.6; RBC Morphology Unremarkable; Troponin I 0.036 ng/ml (0-0.045)
[2018-09-09] MEDS: LEVOTHYROXINE SODIUM 75 MCG TABLET PO SCH (05:50)
[2018-09-09] MEDS: IMIPENEM/CILASTATIN SODIUM 500 MG in DEXTROSE 5% 100 ML IV SCH ×4 (05:50→23:47)
[2018-09-09] MEDS ORDERED: LEVOTHYROXINE SODIUM 25 MCG TABLET PO SCH (06:30)
[2018-09-09] MEDS ORDERED: LEVOTHYROXINE SODIUM 75 MCG TABLET PO SCH (06:30)
--- NOTE | 2018-09-09 08:25 | Consultation ---
Date of Consultation September 09, 2018 Assessment & Plan (1) Effusion, pericardium: -plan for RVATS with pericardial window -fluid and pericardium will be sent for appropriate analysis (2) Cavitary pneumonia: -pt. is followed by Dr. Lopez: -Dr. Cedeno has been in contact with Dr. Lopez and they plan on performing a wedge biopsy of her right cavitary lesion at the time of pericardial window--specimens will be sent for appropriate analysis History of Present Illness Reason for Consultation: Pericardial Window Attending Physician: Rob Witt History of Present Illness 67 year old female presented to ED last night due to worsening CRESPO. She was seen in ED on 09/06/18 and was noted to have a pericardial effusion. She preferred outpatient evaluation, however over the past several days she noted worsening CERSPO, LE edema, as well as orthopnea. She denies CP or SOB at rest. Currently no fevers, shakes, chills. No hemoptysis or weight loss. Allergies Allergy/AdvReac Type Severity Reaction Status Date / Time pollen extracts Allergy Intermediate ASTHMA Verified 09/08/18 16:42 ATTACKS salsalate Allergy Unknown UNKNOWN Verified 09/08/18 16:42 blue dye AdvReac Intermediate SEVERE Verified 09/08/18 16:42 VOMITING doxycycline AdvReac Intermediate VOMITING, Verified 09/08/18 16:42 IMBALANCE duloxetine AdvReac Intermediate SEVERE Verified 09/08/18 16:42 VOMITING leflunomide AdvReac Intermediate SEVERE Verified 09/08/18 16:42 VOMITING tetracycline AdvReac Intermediate CONFUSION,LIGHT Verified 09/08/18 16:42 HEADED, DIZZINESS cefuroxime AdvReac Mild UNCONTROLLED Verified 09/08/18 16:42 DIARRHEA celecoxib AdvReac Mild VOMITING Verified 09/08/18 16:42 clarithromycin AdvReac Mild VOMITING Verified 09/08/18 16:42 pregabalin AdvReac Mild HEADACHE, Verified 09/08/18 16:42 VOMITING Home Medications Home Medications Medication Instructions Recorded Confirmed Type Kiesha-D 24 Hour 1 tab PO QAM PRN 06/09/18 09/08/18 History Qvar RediHaler 2 puff INHALATION BID 06/09/18 09/08/18 History Savella 50 mg PO DAILY 06/09/18 09/08/18 History albuterol sulfate [ProAir HFA] 2 puff INHALATION QID PRN 06/09/18 09/08/18 History cholecalciferol (vitamin D3) 2,000 unit PO DAILY 06/09/18 09/08/18 History [Vitamin D3] fluticasone propion-salmeterol 1 inh INHALATION BID 06/09/18 09/08/18 History [Advair Diskus] folic acid 1 mg PO DAILY 06/09/18 09/08/18 History gabapentin 100 mg PO HS 06/09/18 09/08/18 History hydroxychloroquine 200 mg PO BID 06/09/18 09/08/18 History ipratropium-albuterol 3 ml INHALATION DIRECTED PRN 06/09/18 09/08/18 History mometasone [Nasonex] 2 spray INTRANASAL DAILY PRN 06/09/18 09/08/18 History multivitamin 1 tab PO DAILY 06/09/18 09/08/18 History olopatadine [Patanol] 1 - 2 drp OPHTHALMIC (EYE) 06/09/18 09/08/18 History DIRECTED sertraline 150 mg PO DAILY 06/09/18 09/08/18 History tramadol 100 mg PO QID PRN 06/09/18 09/08/18 History codeine-guaifenesin [Cheratussin 10 ml PO Q6H PRN #120 ml 06/14/18 09/08/18 Rx AC] rivaroxaban [Xarelto] 20 mg PO DAILY #30 tab 06/14/18 09/08/18 Rx tramadol [Ultram] 50 mg PO Q4H PRN #60 tab 06/14/18 09/08/18 Rx levothyroxine [Synthroid] 200 mcg PO SUSA@0630 09/08/18 09/08/18 History levothyroxine [Synthroid] 225 mcg PO MOTUWETHFR@0630 09/08/18 09/08/18 History Patient History Medical History Asthma Fibromyalgia No chronic problems Pneumonia Rheumatoid arthritis Surgical History History of arthroscopy History of section History of gastric bypass History of herniorrhaphy Family History Grandfather (Maternal) Coronary heart disease [place] Grandfather (Paternal) Coronary heart disease [place] Other No significant family history Social History Preferred Language: Japanese Communication Ability: Effective Beliefs That Will Affect Care: None Current Living Situation: Spouse Other Information That Helps Us Care for You: No Feels Safe at Home: No Safety Concerns: Feels Safe At This Time Smoking Status: Never smoker Hx Alcohol Use: Yes Hx Substance Use: No Review of Systems Constitutional: no fever, no chills and no sweats Eyes: no diplopia Ear, Nose, Mouth, Throat: no ear pain and no tinnitus Respiratory: + dyspnea on exertion Cardiovascular: + orthopnea and + edema; no chest pain with activity and no dyspnea at rest Gastrointestinal: no abdominal pain, no nausea and no vomiting Genitourinary (Female): no dysuria Musculoskeletal: no back pain Integumentary: no rash Neurologic: no falls and no numbness Psychiatric: no depression Endocrine: no fatigue Hematologic / Lymphatic: no easy bruising and no night sweats Allergy / Immunological: no lip swelling Physical Exam Vital Signs (Past 24 Hours): Last Vital Signs Temp 37.0 C 09/09/18 07:01 Pulse 84 09/09/18 07:01 Resp 19 09/09/18 07:01 BP 114/73 09/09/18 07:01 Pulse Ox 97 09/09/18 07:01 Constitutional: well developed and well nourished; no acute distress Eyes: PERRL, conjunctivae normal, anicteric sclerae corrective lenses noted ENMT: external ear and nose normal, oropharynx normal Ears: no hearing impairment and no external ear abnormality Neck: normal visual inspection and trachea midline Respiratory: normal respiratory effort; no respiratory distress and no labored breathing slight decrease of BS noted at bases Cardiovascular: Rate/Rhythm: regular rate and regular rhythm Gastrointestinal (Abdomen): Inspection/Auscultation: abdomen normal to inspection Musculoskeletal: no gross orthopaedic abnormalities noted Skin: normal turgor Neurologic: pt. able to move all extremities and follow commands Psychiatric: normal mood and affect
[2018-09-09] MEDS ORDERED: fentaNYL citrate 100 MCG/2 ML VIAL ONE ×2 (08:27)
[2018-09-09] MEDS ORDERED: MIDAZOLAM HCL 1 MG/ML 2ML VIAL ONE (08:27)
--- NOTE | 2018-09-09 08:40 | Post Operative Brief Note ---
Immediate Post Op Note v1 Date of Surgery September 09, 2018 Pre & Post Diagnosis Operation Date: 09/09/18 08:50 <No data on this case meets the specified criteria> Procedure Operation Date: 09/09/18 08:50 <No data on this case meets the specified criteria> Surgeon Modesto Cedeno MD, FACS Audiovisual Equipment Operator Lorelei Godfrey Clinical Credit Authorizer 3 Estimated Blood Loss 2 Findings Consistent with Post-Op Diagnosis
--- NOTE | 2018-09-09 08:48 | History & Physical Bridge Note ---
Date of Service September 09, 2018 History & Physical Bridge Note I have had a long talk with the patient. I also called Dr. Damian Lopez from [facility] who has been following this patient for last few weeks. Patient has a cavitary lesion in her right lower lobe. There may be a pleural process involved. He has performed a bronchoscopy and has grown out Pseudomonas from this area. There was some mild decrease in size of this cavitary lesion with parenteral antibiotics initially however this has plateaued. Dr. Lopez felt that a wedge resection for biopsy should be offered. We discussed this in detail. I have explained to the patient that she is at risk of a air leak etc. however there are 2 different issues here which may be related. One is the fact that the patient has a hemodynamically significant pericardial effusion which we will address with a pericardial window via a right thoracoscopy. The other is his right lower lobe process. We will perform a wedge resection both for therapy and for diagnosis. The patient is agreeable.
--- NOTE | 2018-09-09 08:53 | Anesthesiology Consultation ---
Date of Service September 09, 2018 Assessment & Plan NPO Date Last Intake of Fluids: 09/09/18 Time Last Intake of Fluids: 23:00 Date Last Intake of Solids: 09/08/18 Time Last Intake of Solids: 16:00 History Surgery Operation Date: 09/09/18 08:50 Proposed Procedures p Right Thoracoscopy with Pericardial Window - Modesto Cedeno MD, FACS Height/Weight Height: 5 ft 1 in Weight: 90.8 kg Allergies Allergy/AdvReac Type Severity Reaction Status Date / Time pollen extracts Allergy Intermediate ASTHMA Verified 09/08/18 16:42 ATTACKS salsalate Allergy Unknown UNKNOWN Verified 09/08/18 16:42 blue dye AdvReac Intermediate SEVERE Verified 09/08/18 16:42 VOMITING doxycycline AdvReac Intermediate VOMITING, Verified 09/08/18 16:42 IMBALANCE duloxetine AdvReac Intermediate SEVERE Verified 09/08/18 16:42 VOMITING leflunomide AdvReac Intermediate SEVERE Verified 09/08/18 16:42 VOMITING tetracycline AdvReac Intermediate CONFUSION,LIGHT Verified 09/08/18 16:42 HEADED, DIZZINESS cefuroxime AdvReac Mild UNCONTROLLED Verified 09/08/18 16:42 DIARRHEA celecoxib AdvReac Mild VOMITING Verified 09/08/18 16:42 clarithromycin AdvReac Mild VOMITING Verified 09/08/18 16:42 pregabalin AdvReac Mild HEADACHE, Verified 09/08/18 16:42 VOMITING Medications Home Medications Medication Instructions Recorded Confirmed Last Taken Kiesha-D 24 Hour 1 tab PO QAM PRN 06/09/18 09/08/18 Unknown Qvar RediHaler 2 puff INHALATION BID 06/09/18 09/08/18 Unknown Savella 50 mg PO DAILY 06/09/18 09/08/18 Unknown albuterol sulfate [ProAir HFA] 2 puff INHALATION QID PRN 06/09/18 09/08/18 Unknown cholecalciferol (vitamin D3) 2,000 unit PO DAILY 06/09/18 09/08/18 Unknown [Vitamin D3] fluticasone propion-salmeterol 1 inh INHALATION BID 06/09/18 09/08/18 Unknown [Advair Diskus] folic acid 1 mg PO DAILY 06/09/18 09/08/18 Unknown gabapentin 100 mg PO HS 06/09/18 09/08/18 Unknown hydroxychloroquine 200 mg PO BID 06/09/18 09/08/18 Unknown ipratropium-albuterol 3 ml INHALATION DIRECTED PRN 06/09/18 09/08/18 Unknown mometasone [Nasonex] 2 spray INTRANASAL DAILY PRN 06/09/18 09/08/18 Unknown multivitamin 1 tab PO DAILY 06/09/18 09/08/18 Unknown olopatadine [Patanol] 1 - 2 drp OPHTHALMIC (EYE) 06/09/18 09/08/18 Unknown DIRECTED sertraline 150 mg PO DAILY 06/09/18 09/08/18 Unknown tramadol 100 mg PO QID PRN 06/09/18 09/08/18 Unknown codeine-guaifenesin [Cheratussin 10 ml PO Q6H PRN #120 ml 06/14/18 09/08/18 Unknown AC] rivaroxaban [Xarelto] 20 mg PO DAILY #30 tab 06/14/18 09/08/18 Unknown tramadol [Ultram] 50 mg PO Q4H PRN #60 tab 06/14/18 09/08/18 Unknown levothyroxine [Synthroid] 200 mcg PO SUSA@0630 09/08/18 09/08/18 Unknown levothyroxine [Synthroid] 225 mcg PO MOTUWETHFR@0630 09/08/18 09/08/18 Unknown Active Medications Generic Name Dose Route Start Last Admin Trade Name Freq PRN Reason Stop Dose Admin Beclomethasone Dipropionate 2 puffs 09/08/18 21:00 09/08/18 21:12 Qvar 80mcg INH 10/08/18 20:59 Not Given BID ALEJANDRA Gabapentin 100 mg 09/08/18 21:00 09/08/18 21:11 Neurontin PO 10/08/18 20:59 100 mg HS ALEJANDRA Administration Hydroxychloroquine Sulfate 200 mg 09/08/18 21:00 09/08/18 21:11 Plaquenil PO 10/08/18 20:59 200 mg BID ALEJANDRA Administration Imipenem/Cilastatin Sodium 500 110 mls @ 100 mls/hr 09/09/18 00:00 09/09/18 07:03 mg/ Dextrose IV 09/15/18 17:59 Infused Q6H ALEJANDRA Infusion Protocol Potassium Chloride/Sodium Chloride 20 meq in 1,000 mls @ 80 mls/hr 09/08/18 20:45 09/08/18 21:07 Normal Saline W/20 Meq Kcl IV 10/08/18 20:44 80 mls/hr .[id number] ALEJANDRA Administration Levothyroxine Sodium 225 mcg 09/09/18 06:30 09/09/18 05:50 Synthroid PO 10/09/18 06:29 Not Given MoTuWeThFr@0630 ALEJANDRA Miscellaneous 1 ea 09/09/18 00:00 09/09/18 09:00 Order Awaiting Action N/A 10/09/18 00:00 Not Given QS ALEJANDRA Miscellaneous 1 ea 09/09/18 00:00 09/09/18 09:01 Order Awaiting Action N/A 10/09/18 00:00 Not Given QS ALEJANDRA Fluticasone/Salmeterol 1 puffs 09/08/18 21:00 09/08/18 21:10 Advair Diskus 250/50 INH 10/08/18 20:59 1 puffs BID ALEJANDRA Administration Tiotropium Melvin 1 puffs 09/08/18 22:15 09/08/18 22:47 Spiriva INH 10/08/18 22:14 1 puffs BID ALEJANDRA Administration Tramadol HCl 100 mg 09/08/18 20:42 09/08/18 22:45 Ultram PO 10/08/18 20:41 100 mg QID PRN Administration Pain Past Medical History Medical History DVT (deep venous thrombosis) Hypothyroid Obesity Pericardial effusion Pneumonia Pulmonary embolism Asthma Fibromyalgia No chronic problems Pneumonia Rheumatoid arthritis Past Family History Family History Grandfather (Maternal) Coronary heart disease [place] Grandfather (Paternal) Coronary heart disease [place] Other No significant family history Past Surgical History Surgical History History of arthroscopy History of section History of gastric bypass History of herniorrhaphy Social History Smoking Status: Never smoker Hx Alcohol Use: Yes alcohol intake frequency: holidays/special occasions only Hx Substance Use: No Physical Exam Vital Signs Last Vital Signs Temp 37 C 09/09/18 08:47 Pulse 87 09/09/18 08:47 Resp 20 09/09/18 08:47 BP 95/81 L 09/09/18 08:47 Pulse Ox 98 04/10/19 08:47 Testing Electrocardiogram Date: 09/08/18 Findings: + NSR @ (87) low voltage QRS, possible anterior [place] Chest X-Ray Date: 09/08/18 XR chest 1V portable CLINICAL HISTORY: 67 years-old Female presenting with Dyspnea. TECHNIQUE: Portable upright AP view of the chest was obtained. COMPARISON: CTA chest and chest x-ray from 09/06/2018. FINDINGS: Right upper extremity PICC terminates at the superior cavoatrial junction Atherosclerosis of the aortic arch. Cardiopericardial silhouette remains enlarged. Bandlike opacity and ill-defined lucency in the right lung base as on prior exam. Persistent obscuration of the left hemidiaphragm. Suspected trace bilateral pleural effusions. No pneumothorax. Degenerative changes of the thoracic spine. Upper abdomen normal. IMPRESSION: 1. No significant change in bilateral basilar infiltrates and trace bilateral pleural effusions. 2. Cardiopericardial silhouette enlargement secondary to underlying car diomegaly and pericardial effusion. Electronically signed by: Julio Cesar Kauffman M.D. 09/08/2018 4:50 PM Echocardiogram Date: 09/08/18 EF: 35-40 LV Function: dysfunctional Other Findings: + pertinent finding (moderate pericardial effusion, incomplete collapse R atrium/ventricle, no tamponade) Valvular Disease: + no significant valvular disease and + pertinent finding Laboratory Results 09/09/18 02:18 09/09/18 02:18 PT 13.9 Seconds (9.0-12.0) H 09/08/18 16:35 INR 1.4 (0.9-1.1) H 09/08/18 16:35 APTT 35.4 Seconds (21.0-31.0) H 09/08/18 16:35
[2018-09-09] MEDS ORDERED: SODIUM CHLORIDE 0.9% 250 ML IV PRN (08:55)
[2018-09-09] MEDS ORDERED: SODIUM CHLORIDE 0.9% PF 50 ML VIAL ONE (09:03)
[2018-09-09] MEDS ORDERED: BUPIVACAINE LIPOSOME 1.3% 266 MG/20 ML VIAL ONE (09:03)
[2018-09-09] MEDS ORDERED: BUPIVACAINE 0.5 % 5 MG/1 ML MPF 30ML VIAL ONE (09:03)
[2018-09-09] MEDS ORDERED: CEFAZOLIN 250 MG/ML 1 GM VIAL ONE (10:00)
[2018-09-09] MEDS ORDERED: ATROPINE SULFATE 0.1 MG/ML 10ML SYR IV PRN (10:06)
[2018-09-09] MEDS ORDERED: ePHEDrine sulfate 50 MG/ML AMP IV PRN (10:06)
[2018-09-09] MEDS ORDERED: ONDANSETRON INJ 2 MG/ML 2 ML VIAL IV PRN (10:06)
[2018-09-09] MEDS ORDERED: HYDROmorphone INJ 1 MG/ML SYRINGE IV PRN (10:06)
[2018-09-09] MEDS ORDERED: PHENYLEPHRINE 100MCG/ML 5ML SYR IV PRN (10:06)
[2018-09-09] MEDS ORDERED: LABETALOL HCL IV 5 MG/ML 20ML IV PRN (10:06)
[2018-09-09] MEDS ORDERED: CEFAZOLIN 2000MG 2,000 MG/15 ML SYR IV SCH (10:45)
[2018-09-09 10:56] LABS: Appearance Urine Turbid (Clear); Bacteria Urine Automated Negative (Negative); Blood Urine Negative (Negative); Color Urine Orange; Epithelial Cell Urine Auto >30 /lpf (0-5); Glucose Urine UA Negative (Negative); Ketones Urine 1+ (Negative); Leukocyte Esterase Urine 1+ (Negative); Nitrite Urine Positive (Negative); Protein Urine Trace (Negative); RBC Urine Automated 0-4 /hpf (0-4); Specific Gravity Urine 1.029 (1.000-1.030); Urobilinogen Urine Negative (Negative)
[2018-09-09 10:59] LABS: Bilirubin Urine Negative (Negative); Ictotest Urine Negative (Negative)
[2018-09-09] MEDS ORDERED: ONDANSETRON INJ 2 MG/ML 2 ML VIAL ONE (11:18)
[2018-09-09] MEDS ORDERED: LIDOCAINE HCL 2% 2 ML VIAL/AMP(20MG/ML) INFIL ONE (11:18)
[2018-09-09] MEDS ORDERED: NEOSTIGMINE METHYLSULFATE 5 MG/5 ML SYR ONE (11:18)
[2018-09-09] MEDS ORDERED: PHENYLEPHRINE 100MCG/ML 5ML SYR ONE (11:18)
[2018-09-09] MEDS ORDERED: ePHEDrine sulfate 50 MG/ML SYR ONE (11:18)
[2018-09-09] MEDS ORDERED: DEXAMETHASONE SOD INJ 4 MG/ML VIAL ONE (11:18)
[2018-09-09] MEDS ORDERED: GLYCOPYRROLATE 0.2 MG/ML VIAL ONE (11:18)
[2018-09-09] MEDS ORDERED: PHENYLEPHRINE HCL 10 MG/ML VIAL ONE (11:45)
[2018-09-09] MEDS ORDERED: ROCURONIUM BROMIDE 10 MG/ML 5 ML VIAL ONE (12:21)
--- NOTE | 2018-09-09 12:36 | Post Operative Brief Note ---
Immediate Post Op Note v1 Date of Surgery September 09, 2018 Pre & Post Diagnosis Operation Date: 09/09/18 08:50 Pre-Op Diagnosis: PERICARDIAL EFFUSION Post-Op Diagnosis: PERICARDIAL EFFUSION Procedure Operation Date: 09/09/18 08:50 Actual Procedures p Right Thoracoscopy with Pericardial Window, Right limited pleurectomy with wed ge resection right lower lobe - Modesto Cedeno MD, FACS Surgeon Modesto Cedeno MD, FACS Stencil Inspector Colt Godfrey Clinical Necktie Stitcher 3 Estimated Blood Loss 150 Findings Consistent with Post-Op Diagnosis Drains Chest Tube and Weston Catheter
[2018-09-09] MEDS ORDERED: SUGAMMADEX SODIUM 200 MG/2 ML VIAL IV ONE (12:58)
[2018-09-09] MEDS ORDERED: METOCLOPRAMIDE HCL INJ 5 MG/ML 2 ML VIAL IV ONE (13:00)
--- NOTE | 2018-09-09 13:24 | XRay Report ---
XR chest 1V portable HISTORY: 67 years-old Female pericardial window follow-up study in a patient with recent thoracic zamora rgery COMPARISON: Chest radiograph 09/08/2018 TECHNIQUE: Portable AP view of the chest FINDINGS: Cardiac silhouette is enlarged, unchanged. Stable positioning of the right-sided PICC. Moderate subcu taneous emphysema about the lateral right chest wall. Right-sided chest tube is noted with distal tip terminating adjacent to the right lung apex. No definite pneumothorax identified. Hypoinflated lungs with bibasilar opacities. No large pleural effusion. Ill-defined linear lucency noted about the righ t lung base. Degenerative changes of the shoulders and spine. IMPRESSION: 1. Right-sided chest tube terminates adjacent to the right lung apex. No definite postsurgical pneumo thorax identified. 2. Ill-defined linear lucency of the right lung base may be projectional. If there is concern for pne umoperitoneum, upright view of the abdomen should be considered. 3. Hypoinflation with bibasilar densities suggestive of atelectasis. The above report was generated using voice recognition software. It may contain grammatical, syntax o r spelling errors. Electronically signed by: Robert Guillermo M.D. 09/09/2018 1:23 PM
[2018-09-09] MEDS: fentaNYL citrate 100 MCG/2 ML VIAL IV PRN ×3 (13:26→13:41)
[2018-09-09] MEDS: NSS + 20MEQ KCL 20 MEQ/1,000 ML BAG IV SCH (14:07)
--- NOTE | 2018-09-09 14:07 | Anesthesiology Progress Note ---
Date of Service September 09, 2018 Anesthesia Post Procedure Vital Signs Vital Signs: Temp Pulse Pulse Resp BP BP Pulse Ox 09/09/18 13:10 36.0 C L 81 18 126/79 95 09/09/18 08:47 37 C 87 20 95/81 L 98 09/09/18 07:01 37.0 C 84 19 114/73 97 09/09/18 04:58 37.4 C 87 20 123/72 98 09/09/18 00:00 36.9 C 63 85 128/80 97 09/08/18 20:27 36.9 C 97 H 126/96 93 09/08/18 20:26 96 H 09/08/18 19:37 95 H 18 122/99 98 09/08/18 18:00 88 21 96 09/08/18 17:30 87 23 153/109 H 95 09/08/18 17:01 88 15 94 09/08/18 16:35 92 09/08/18 15:41 37.0 C 94 H 22 123/83 93 Notes Mental Status: alert / awake / arousable Patient Amnestic to Procedure: Yes Nausea / Vomiting: adequately controlled Pain: adequately controlled Airway Patency, RR, SpO2: stable & adequate BP & HR: stable & adequate Hydration State: stable & adequate Anesthetic Complications: no major complications apparent and Pt Satisfied with anesthetic care Notes: The patient had a starting hgb of 8.7. During the procedure, she was noted to be hypotensive requiring multiple doses of pressor and lost 150 ml of blood. She was given one unit PRBC which improved her blood pressure. The patient was extubated after neostigmine reversal by the INSTRUMENT REPAIRER. Immediately upon extubation she was noted to have shallow breathing with SpO2 90 on 10 L oxygen by facemask. Due to concern for residual paralysis, she was given sugammadex 200 mg IV. The patient's breathing improved and SpO2 simin to 93 on the 10 L FM. She was transferred to PACU where her vitals have been stable. She will go to ICU for overnight monitoring. Dr. Vang was given report.
--- NOTE | 2018-09-09 14:13 | Anesthesiology Progress Note ---
Date of Service September 09, 2018 Anesthesia Post Procedure Vital Signs Vital Signs: Temp Pulse Pulse Resp BP BP Pulse Ox 09/09/18 14:05 36.5 C 95 09/09/18 14:01 86 15 105/58 L 97 09/09/18 14:00 85 19 95 09/09/18 13:56 84 23 114/72 95 09/09/18 13:55 83 19 96 09/09/18 13:51 84 17 121/72 94 09/09/18 13:50 84 19 92 09/09/18 13:46 83 17 122/73 94 09/09/18 13:45 83 17 94 09/09/18 13:41 82 18 120/69 95 09/09/18 13:40 82 19 95 09/09/18 13:35 81 19 117/77 95 09/09/18 13:31 81 25 H 120/64 96 09/09/18 13:30 80 20 95 09/09/18 13:26 96 H 21 127/68 97 09/09/18 13:25 81 21 96 09/09/18 13:21 80 18 121/65 96 09/09/18 13:20 82 17 96 09/09/18 13:16 81 22 128/73 96 09/09/18 13:15 82 21 95 09/09/18 13:12 84 17 126/79 94 09/09/18 13:10 36.0 C L 81 18 126/79 95 09/09/18 08:47 37 C 87 20 95/81 L 98 09/09/18 07:01 37.0 C 84 19 114/73 97 09/09/18 04:58 37.4 C 87 20 123/72 98 09/09/18 00:00 36.9 C 63 85 128/80 97 09/08/18 20:27 36.9 C 97 H 126/96 93 09/08/18 20:26 96 H 09/08/18 19:37 95 H 18 122/99 98 09/08/18 18:00 88 21 96 09/08/18 17:30 87 23 153/109 H 95 09/08/18 17:01 88 15 94 09/08/18 16:35 92 09/08/18 15:41 37.0 C 94 H 22 123/83 93 Pain Intensity Right Chest: Pain Intensity: 3 Notes Mental Status: alert / awake / arousable Patient Amnestic to Procedure: Yes Nausea / Vomiting: adequately controlled Pain: adequately controlled Airway Patency, RR, SpO2: stable & adequate BP & HR: stable & adequate Hydration State: stable & adequate Anesthetic Complications: no major complications apparent and Pt Satisfied with anesthetic care Notes: The patient had a starting hgb of 8.7. During the procedure, she was noted to be hypotensive requiring multiple doses of pressor and lost 150 ml of blood. She was given one unit PRBC which improved her blood pressure. The patient was extubated after neostigmine reversal by the PRODUCTION PLANNING SUPERVISOR. Immediately upon extubation she was noted to have shallow breathing with SpO2 90 on 10 L oxygen by facemask. Due to concern for residual paralysis, she was given sugammadex 200 mg IV. The patient's breathing improved and SpO2 simin to 93 on the 10 L FM. She was transferred to PACU where her vitals have been stable. She will go to ICU for overnight monitoring. Dr. Vang was given report.
[2018-09-09] MEDS ORDERED: MoRPHine SULFATE 2 MG/ML CARP IV PRN (14:46)
--- NOTE | 2018-09-09 15:09 | Infectious Disease Consult ---
Date of Consultation September 09, 2018 Assessment & Plan (1) Effusion, pericardium: continue abx, follow cultures, will check IGRA as well. History of Present Illness Attending Physician: Rob Witt pt admitted with increasing SOB. Was recently in ER on 09/06, found to have pericardial effusion on ct chest, also with cavitary lesions since 06/12/18, felt to be due to pulm infarct/PE. Admission was suggested, pt refused, had followup with cardio in office this week, echo done, effusion noted, admitted to hospital, underwent pericardial window and lung biopsy, chest tube placement this morning, had post op sob and prolonged PACU stay, now in ICU. mask in place, states breathing more comfortable. denies pain but states throbbing at chest tube site. Denies f/c at home, no cough, no cp, but increased cough/sob/ goff. no wt loss, no hemoptysis. H/o RA. on anticoagulation for previous PE. Routine, fungal, afb cultures pending. ct in ER revealed b/l infiltrates, pt started on Imipenem, tolerating well. ID consulted for abx approval. wbc 3.6, lyme screen negative cultures all pending. previous sputum culture from Jun negative. currently states mouth is dry, breathing stable. no abd pain, no n/v/d. lethargic but answers questions. family at bedside. Allergies Allergy/AdvReac Type Severity Reaction Status Date / Time pollen extracts Allergy Intermediate ASTHMA Verified 09/08/18 16:42 ATTACKS salsalate Allergy Unknown UNKNOWN Verified 09/08/18 16:42 blue dye AdvReac Intermediate SEVERE Verified 09/08/18 16:42 VOMITING doxycycline AdvReac Intermediate VOMITING, Verified 09/08/18 16:42 IMBALANCE duloxetine AdvReac Intermediate SEVERE Verified 09/08/18 16:42 VOMITING leflunomide AdvReac Intermediate SEVERE Verified 09/08/18 16:42 VOMITING tetracycline AdvReac Intermediate CONFUSION,LIGHT Verified 09/08/18 16:42 HEADED, DIZZINESS cefuroxime AdvReac Mild UNCONTROLLED Verified 09/08/18 16:42 DIARRHEA celecoxib AdvReac Mild VOMITING Verified 09/08/18 16:42 clarithromycin AdvReac Mild VOMITING Verified 09/08/18 16:42 pregabalin AdvReac Mild HEADACHE, Verified 09/08/18 16:42 VOMITING Home Medications Home Medications Medication Instructions Recorded Confirmed Type Kiesha-D 24 Hour 1 tab PO QAM PRN 06/09/18 09/08/18 History Qvar RediHaler 2 puff INHALATION BID 06/09/18 09/08/18 History Savella 50 mg PO DAILY 06/09/18 09/08/18 History albuterol sulfate [ProAir HFA] 2 puff INHALATION QID PRN 06/09/18 09/08/18 History cholecalciferol (vitamin D3) 2,000 unit PO DAILY 06/09/18 09/08/18 History [Vitamin D3] fluticasone propion-salmeterol 1 inh INHALATION BID 06/09/18 09/08/18 History [Advair Diskus] folic acid 1 mg PO DAILY 06/09/18 09/08/18 History gabapentin 100 mg PO HS 06/09/18 09/08/18 History hydroxychloroquine 200 mg PO BID 06/09/18 09/08/18 History ipratropium-albuterol 3 ml INHALATION DIRECTED PRN 06/09/18 09/08/18 History mometasone [Nasonex] 2 spray INTRANASAL DAILY PRN 06/09/18 09/08/18 History multivitamin 1 tab PO DAILY 06/09/18 09/08/18 History olopatadine [Patanol] 1 - 2 drp OPHTHALMIC (EYE) 06/09/18 09/08/18 History DIRECTED sertraline 150 mg PO DAILY 06/09/18 09/08/18 History tramadol 100 mg PO QID PRN 06/09/18 09/08/18 History codeine-guaifenesin [Cheratussin 10 ml PO Q6H PRN #120 ml 06/14/18 09/08/18 Rx AC] rivaroxaban [Xarelto] 20 mg PO DAILY #30 tab 06/14/18 09/08/18 Rx tramadol [Ultram] 50 mg PO Q4H PRN #60 tab 06/14/18 09/08/18 Rx levothyroxine [Synthroid] 200 mcg PO SUSA@0630 09/08/18 09/08/18 History levothyroxine [Synthroid] 225 mcg PO MOTUWETHFR@0630 09/08/18 09/08/18 History Patient History Medical History DVT (deep venous thrombosis) Hypothyroid Obesity Pericardial effusion Pneumonia Pulmonary embolism Asthma Fibromyalgia No chronic problems Pneumonia Rheumatoid arthritis Surgical History History of arthroscopy History of section History of gastric bypass History of herniorrhaphy Family History Grandfather (Maternal) Coronary heart disease [place] Grandfather (Paternal) Coronary heart disease [place] Other No significant family history Social History Preferred Language: Bahamian Communication Ability: Effective Beliefs That Will Affect Care: None Current Living Situation: Spouse Other Information That Helps Us Care for You: No Feels Safe at Home: No Safety Concerns: Feels Safe At This Time Smoking Status: Never smoker Hx Alcohol Use: Yes Hx Substance Use: No Review of Systems all remaining ros reviewed and are negative Physical Exam 2 Vital Signs (Past 24 Hours): Last Vital Signs Temp 36.4 C L 09/09/18 14:48 Pulse 88 09/09/18 14:48 Resp 20 09/09/18 14:48 BP 117/51 L 09/09/18 14:48 Pulse Ox 96 09/09/18 14:48 Constitutional: WD/WN, vitals as above Eyes: PERRL, conjunctivae normal, anicteric sclerae ENMT: external ear and nose normal, oropharynx normal Neck: normal visual inspection Respiratory: Auscultation: + diminished lung sounds; no rhonchi and no wheezes chest tube in place, blood tinged drainage, decreased breath sounds. Cardiovascular: RRR, no murmur, no edema Gastrointestinal (Abdomen): normal bowel sounds, soft, nontender, no hep atosplenomegaly Musculoskeletal: no cyanosis or clubbing, extremities motor strength 5/5 Skin: no rashes, warm and dry Psychiatric: A+Ox3, euthymic affect
[2018-09-09] MEDS: D5W AND 1/2NSS 1,000 ML IV SCH (15:53)
[2018-09-09] MEDS: ACETAMINOPHEN 1,000 MG/100 ML VIAL IV SCH ×2 (15:56→23:46)
[2018-09-09] MEDS: METOCLOPRAMIDE HCL INJ 5 MG/ML 2 ML VIAL IV SCH ×2 (15:58→23:46)
[2018-09-09] MEDS ORDERED: RIVAROXABAN 20 MG TAB PO SCH (16:30)
[2018-09-09] MEDS: FLUTICASONE/SALMETEROL 250/50 (ADVAIR) 14 PUFF/1 INHALER INH SCH ×2 (16:56→20:44)
[2018-09-09] MEDS: ATORVASTATIN 10 MG TAB PO SCH (16:58)
[2018-09-09] MEDS: BECLOMETHASONE DIP HFA 80 MCG 8.7G INH INH SCH ×2 (16:59→20:44)
[2018-09-09] MEDS: MULTIVITAMIN TAB PO SCH (17:00)
[2018-09-09] MEDS: CHOLECALCIFEROL 1,000 UNITS TAB PO SCH (17:00)
[2018-09-09] MEDS: SERTRALINE HCL 100 MG TABLET PO SCH (17:01)
[2018-09-09] MEDS: HYDROXYCHLOROQUINE SULFATE 200 MG TAB PO SCH ×2 (17:03→20:47)
[2018-09-09] MEDS: TIOTROPIUM BROMIDE 5 PUFF/90 MCG INH INH SCH ×2 (17:03→20:48)
[2018-09-09] MEDS: FOLIC ACID 1 MG TAB PO SCH (17:05)
--- NOTE | 2018-09-09 17:58 | Cardiology Progress Note ---
Date of Service September 09, 2018 Assessment & Plan (1) Pericardial effusion: She underwent pericardial window earlier today. Await evaluation of fluid and pericardium. This was discussed with patient and her . Etiology uncertain at this time. Can repeat limited echo to document improvement in pericardial effusion. (2) Cardiomyopathy: She has wall motion abnormalities as per Dr. Peterson's assessment of outpatient echo. With reduced LV systolic function and wall motion abnormalities, this would raise the concern for possible underlying CAD. Cannot rule out cardiomyopathy from other etiology such as acute illness, or other etiology. With her cavitary lung lesion and other ongoing issues, she is quite ill and therefore would not recommend ischemic evaluation at this time. She had been on lisinopril as an outpatient in the past but it was discontinued secondary to significant hypotension. She is currently mildly hypotensive. If her blood pressure will tolerate in the future, would recommend low-dose beta- beckie in the form of carvedilol or metoprolol succinate and also lisinopril. Unfortunately, her blood pressure will not likely tolerate these medications now. It is difficult to know her volume status. For now, would recommend even fluid balance to mildly negative fluid balance if blood pressure tolerates. (3) Edema: She has edema but difficult to know her true intravascular volume status. Edema could be secondary to hypoalbuminemia (albumin 2.1). Now that she has undergone pericardial window, would try to maintain even to slightly negative fluid balance. (4) Cavitary pneumonia: As per Infectious Disease, primary service, and critical care team. (5) Acute pulmonary embolism: She was diagnosed with left lower extremityDVT and PE in June of 2018. Anticoagulation as per primary service. (6) Anemia: Workup as per primary service. Disposition: She does appear to be quite ill. Guarded prognosis overall however clinically stable at the moment. Please call with any other questions or concerns from a cardiac perspective. In the future, when she is discharged, she should follow up with Dr. Peterson. Subjective Full cardiology consultation was done yesterday by Dr. Peterson in the outpatient setting. His note has been scanned into hospital electronic records. Please see his full consultation for details of her cardiology history. She underwent pericardial window today by Dr. Cedeno. She also underwent wedge biopsy of her lung lesion. She denies shortness of breath but she is using supplemental oxygen via mask. She denies chest pain, syncope, near- syncope, palpitations. She has had lower extremity edema, which continues. She is very sleepy. Her is present at the bedside and did have questions regarding pericardial window and electrolytes. Review of systems: As above. Physical Exam Vital Signs (Past 24 Hours): Last Vital Signs Temp 37.0 C 09/09/18 16:00 Pulse 85 09/09/18 17:19 Resp 20 09/09/18 14:48 BP 94/59 L 09/09/18 17:01 Pulse Ox 96 09/09/18 17:01 Physical Exam: Gen.: No acute distress. Somnolent but easily arousable and able to converse. HEENT: Anicteric sclera. Neck: No JVD. Cardiac: Regular. Normal S1-S2. No murmurs, rubs, or gallops. Pulmonary: Decreased breath sounds at the bases. Abdomen: Soft, nontender, nondistended, with normoactive bowel sounds. No bruits noted. Extremities: 2+ bilateral lower extremity edema to the knees. No cyanosis. Results & Data Laboratory Results Laboratory Results - last 24 hr 09/08/18 09/08/18 09/08/18 16:35 20:49 20:49 WBC RBC Hgb Hct MCV MCH MCHC RDW Std Deviation RDW Coeff of Charmaine Plt Count MPV Immature Gran % (Auto) Neut % (Auto) Lymph % (Auto) [place] % (Auto) Eos % (Auto) Baso % (Auto) Immature Gran # (Auto) Neut # (Auto) Lymph # (Auto) [place] # (Auto) Eos # (Auto) Baso # (Auto) RBC Morphology Sodium Potassium Chloride Carbon Dioxide Anion Gap BUN Creatinine Est Cr Clr Drug Dosing Est GFR ( Amer) Est GFR (Non-Af Amer) BUN/Creatinine Ratio Glucose POC Glucose Calcium Magnesium 1.6 L Troponin I 0.045 0.043 Urine Color Urine Appearance Urine pH Ur Specific [place] Urine Protein Urine Glucose (UA) Urine Ketones Urine Blood Urine Nitrite Urine Bilirubin Urine Urobilinogen Ur Leukocyte Esterase Urine WBC (Auto) Urine RBC (Auto) U Hyaline Cast (Auto) U Epithel Cells (Auto) Urine Bacteria (Auto) Nasal Screen MRSA (PCR) Lyme Disease IgG Ab Negative Lyme Disease IgM Ab Negative Blood Type Antibody Screen Crossmatch 09/09/18 09/09/18 09/09/18 02:18 02:18 05:50 WBC 3.65 L RBC 2.79 L Hgb 8.7 L Hct 27.6 L MCV 98.9 MCH 31.2 MCHC 31.5 L RDW Std Deviation 52.6 H RDW Coeff of Charmaine 14.6 H Plt Count 232 MPV 9.3 Immature Gran % (Auto) 0.0 Neut % (Auto) 60.4 Lymph % (Auto) 23.3 [place] % (Auto) 15.3 Eos % (Auto) 0.5 Baso % (Auto) 0.5 Immature Gran # (Auto) 0.00 Neut # (Auto) 2.20 Lymph # (Auto) 0.85 L [place] # (Auto) 0.56 Eos # (Auto) 0.02 Baso # (Auto) 0.02 RBC Morphology Unremarkable Sodium 139 Potassium 4.0 D Chloride 106 Carbon Dioxide 30 Anion Gap 3.0 BUN 7 Creatinine 0.62 Est Cr Clr Drug Dosing 92.7 Est GFR ( Amer) 109.7 Est GFR (Non-Af Amer) 94.6 BUN/Creatinine Ratio 10.9 Glucose 78 POC Glucose Calcium 8.0 L Magnesium Troponin I 0.036 Urine Color [place] Urine Appearance Turbid H Urine pH 5.0 Ur Specific [place] 1.029 Urine Protein Trace H Urine Glucose (UA) Negative Urine Ketones 1+ H Urine Blood Negative Urine Nitrite Positive H Urine Bilirubin Negative Urine Urobilinogen Negative Ur Leukocyte Esterase 1+ H Urine WBC (Auto) 1-5 Urine RBC (Auto) 0-4 U Hyaline Cast (Auto) 5-10 H U Epithel Cells (Auto) >30 H Urine Bacteria (Auto) Negative Nasal Screen MRSA (PCR) Lyme Disease IgG Ab Lyme Disease IgM Ab Blood Type Antibody Screen Crossmatch 09/09/18 09/09/18 09/09/18 09:01 14:45 15:48 WBC RBC Hgb Hct MCV MCH MCHC RDW Std Deviation RDW Coeff of Charmaine Plt Count MPV Immature Gran % (Auto) Neut % (Auto) Lymph % (Auto) [place] % (Auto) Eos % (Auto) Baso % (Auto) Immature Gran # (Auto) Neut # (Auto) Lymph # (Auto) [place] # (Auto) Eos # (Auto) Baso # (Auto) RBC Morphology Sodium Potassium Chloride Carbon Dioxide Anion Gap BUN Creatinine Est Cr Clr Drug Dosing Est GFR ( Amer) Est GFR (Non-Af Amer) BUN/Creatinine Ratio Glucose POC Glucose 105 H Calcium Magnesium Troponin I Urine Color Urine Appearance Urine pH Ur Specific [place] Urine Protein Urine Glucose (UA) Urine Ketones Urine Blood Urine Nitrite Urine Bilirubin Urine Urobilinogen Ur Leukocyte Esterase Urine WBC (Auto) Urine RBC (Auto) U Hyaline Cast (Auto) U Epithel Cells (Auto) Urine Bacteria (Auto) Nasal Screen MRSA (PCR) Negative Lyme Disease IgG Ab Lyme Disease IgM Ab Blood Type O Positive Antibody Screen NEGATIVE Crossmatch See Detail Diagnostic Findings Telemetry personally reviewed: Sinus rhythm. ECG 09/08/2018 personally reviewed: Sinus rhythm 87 bpm. Possible anterior infarct. Inferior T-wave inversion. Outpatient echo 09/08/[address] Peterson Assessment: Moderate pericardial effusion with incomplete collapse of right atrium and right ventricle. Estimated LV EF 35-40%. Apico- septal and apical akinesis. No significant valvular abnormalities noted. Dilated IVC with reduced inspiratory collapse. Echo 07/31/2018 at [facility] reported LV EF of 50-55% with normal wall motion and small pericardial effusion. Medications Administered Current Inpatient Medications Albuterol (Ventolin Hfa) 2 puffs INH QID PRN PRN Reason: sob Albuterol (Duoneb) 3 ml INH Q6H PRN PRN Reason: sob Stop: 10/08/18 20:25 Atorvastatin Calcium (Lipitor) 10 mg PO QAM [facility] Stop: 10/09/18 08:59 Last Admin: 09/09/18 16:58 Dose: 10 mg Documented by: Beclomethasone Dipropionate (Qvar 80mcg) 2 puffs INH BID ALEJANDRA Stop: 10/08/18 20:59 Last Admin: 09/09/18 16:59 Dose: Not Given Documented by: Docusate Sodium (Colace) 100 mg PO BID [facility] Stop: 10/09/18 20:59 Fexofenadine HCl/Pseudoephedrine (Kiesha-D 12 Hr) 1 tab PO QAM PRN PRN Reason: ALLERGY SYMPTOMS Fluticasone Propionate (Flonase) 2 sprays NA DAILY PRN PRN Reason: dryness Folic Acid (Folvite) 1 mg PO DAILY [facility] Stop: 10/09/18 08:59 Last Admin: 09/09/18 17:05 Dose: 1 mg Documented by: Gabapentin (Neurontin) 100 mg PO HS ALEJANDRA Stop: 10/08/18 20:59 Last Admin: 09/08/18 21:11 Dose: 100 mg Documented by: Guaifenesin/Codeine Phosphate (Robitussin-Ac Sugar Free) 10 ml PO Q6H PRN PRN Reason: cough Stop: 10/08/18 20:25 Heparin Sodium (Beef Lung) (Heparin Sod 10 Unit/Ml Flush) 5 ml FLUSH PRN PRN PRN Reason: Flush Stop: 10/08/18 23:33 Hydroxychloroquine Sulfate (Plaquenil) 200 mg PO BID ALEJANDRA Stop: 10/08/18 20:59 Last Admin: 09/09/18 17:03 Dose: 200 mg Documented by: Imipenem/Cilastatin Sodium 500 (mg/ Dextrose) 110 mls @ 100 mls/hr IV Q6H [facility]; Protocol Stop: 09/15/18 17:59 Last Infusion: 09/09/18 17:00 Dose: Infused Documented by: Sodium Chloride (Nss) 250 mls @ 15 mls/hr IV .[id number] PRN PRN Reason: For Transfusion Stop: 10/09/18 08:54 Cefazolin Sodium (Ancef 2000mg) 2,000 mg in 15 mls @ 3.75 mls/min IV ONCE ALEJANDRA Stop: 09/09/18 18:00 Last Admin: 09/09/18 10:01 Dose: 3.75 mls/min Documented by: Acetaminophen (Ofirmev) 1,000 mg in 100 mls @ 400 mls/hr IV Q8H [facility] Stop: 10/09/18 14:45 Last Infusion: 09/09/18 16:11 Dose: Infused Documented by: Dextrose/Sodium Chloride (D5w And 1/2nss) 1,000 mls @ 100 mls/hr IV .Q10H ALEJANDRA Stop: 10/09/18 14:45 Last Infusion: 09/09/18 17:00 Dose: 100 mls/hr Documented by: Levothyroxine Sodium (Synthroid) 200 mcg PO SuSa@0630 [facility] Stop: 10/12/18 06:29 Levothyroxine Sodium (Synthroid) 225 mcg PO MoTuWeThFr@0630 [facility] Stop: 10/09/18 06:29 Last Admin: 09/09/18 05:50 Dose: Not Given Documented by: Magnesium Hydroxide (Milk Of Magnesia) 30 ml PO Q12H PRN PRN Reason: Constipation Stop: 10/08/18 20:25 Metoclopramide HCl (Reglan) 10 mg IV Q8H ALEJANDRA Stop: 09/10/18 07:01 Last Admin: 09/09/18 15:58 Dose: 10 mg Documented by: Miscellaneous (Order Awaiting Action) 1 ea N/A QS ALEJANDRA Stop: 10/09/18 00:00 Last Admin: 09/09/18 17:04 Dose: Not Given Documented by: Miscellaneous (Order Awaiting Action) 1 ea N/A QS ALEJANDRA Stop: 10/09/18 00:00 Last Admin: 09/09/18 17:04 Dose: Not Given Documented by: Morphine Sulfate (Morphine Sulfate) 1 - 2 mg IV Q1H PRN PRN Reason: Pain Stop: 09/23/18 14:45 Multivitamins (Multivitamin Tab) 1 tab PO DAILY ALEJANDRA Stop: 10/09/18 08:59 Last Admin: 09/09/18 17:00 Dose: 1 tab Documented by: Ondansetron HCl (Zofran) 4 mg IV Q6H PRN PRN Reason: Nausea Stop: 10/08/18 20:25 Oxycodone HCl (Roxicodone Immediate Rel) 5 mg PO Q6H PRN PRN Reason: Pain Stop: 09/23/18 14:45 Fluticasone/Salmeterol (Advair Diskus 250/50) 1 puffs INH BID ALEJANDRA Stop: 10/08/18 20:59 Last Admin: 09/09/18 16:56 Dose: Not Given Documented by: Sertraline HCl (Zoloft) 150 mg PO DAILY ALEJANDRA Stop: 10/09/18 08:59 Last Admin: 09/09/18 17:01 Dose: 150 mg Documented by: Tiotropium [place] (Spiriva) 1 puffs INH BID ALEJANDRA Stop: 10/08/18 22:14 Last Admin: 09/09/18 17:03 Dose: Not Given Documented by: Vitamin D (Vitamin D3) 2,000 units PO DAILY ALEJANDRA Stop: 10/09/18 08:59 Last Admin: 09/09/18 17:00 Dose: 2,000 units Documented by:
[2018-09-09] MEDS: DOCUSATE SODIUM 100 MG CAP PO SCH (20:46)
[2018-09-09] MEDS: GABAPENTIN 100 MG CAP PO SCH (20:47)
--- NOTE | 2018-09-09 21:13 | Critical Care Consultation ---
Date of Consultation September 09, 2018 Assessment & Plan (1) Effusion, pericardium: Reason Critically Ill: 67-year-old female right lower lobe lung cavity lesion/pericardial effusion, now presents postop for right thoracoscopy with pericardial window right colectomy with wedge resection of right lower lobe and chest tube insertion. Neuro CAM ICU: Negative Pain/fibromyalgia: Continue Tylenol, gabapentin, oxygen Cardiac Cardiomyopathy/pericardial effusion: Status post pericardial window, chest tube insertion -Secondary from right lower lobe cavity lesion/pneumonia, see management below -Pericardial fluid cultures and AFB pending -Follow-up echo -Chest tube management per thoracic surgery -Monitor on telemetry -Follow cardiology recs Respiratory Cavity lesionstatus post right lower lobe lung wedge resection and biopsy -Was following a lung specialist in [place], reportedly grew Pseudomonas -On Primaxin, ID following appreciate recommendations -Lung cultures pending, Gram stain negative -Weaning oxygen as tolerated -Encourage early ambulation, pulmonary toileting Asthmacontinue routine nebs and breathing treatment -Weaning oxygen as tolerated, currently on 5 L nasal cannula -Continue Kiesha and Nasonex PEdiagnosed in June, on Xarelto -Currently holding anticoagulation recent surgery, will continue when appropriate GI Heart healthy diet Colace RENAL/LYTES D5 half-normal saline at 100 mL/h Routine BMPs, maximize electrolytes Creatinine stable [place], strict I's and O's ENDO ICU hyperglycemic protocol, no history diabetes Hypothyroidism, continue home dose Synthroid HEME AnemiaH&H stable, continue home dose folic acid ID - ID consult, primaxin LINES/IV ACCESS PICC, chest tube, Weston, A-line DVT PROPHYLAXIS SCDs, holding anticoagulation for surgery, will continue when appropriate (2) Cardiomyopathy: (3) Pneumonia: (4) Left leg DVT: (5) Acute pulmonary embolism: (6) Rheumatoid arthritis: (7) Hypothyroidism: (8) Fibromyalgia: Supervising Physician Co-Signing Physician Notes I have personally evaluated and examined this patient. I agree with assessment and plan of Mike SIFUENTES. History of Present Illness Attending Physician: Rob Witt History of Present Illness Ms. Cleary is a 67-year-old female with past medical history significant for asthma, obesity, RA, DVT/PE (June 20, on Xarelto), and right lower lobe cavitary lesion/PNA with resultant pericardial effusion. Patient was following lung specialist in [place] of which reportedly grew Pseudomonas and was being treated. Patient presented to ED last week with increased shortness of breath for prior few days lower extremity swelling, was found to have pericardial effusion. Patient refused to be admitted and followed up as outpatient cardiology yesterday which she was found to have worsening of pericardial effusion and directly admitted. Thoracics consulted and patient underwent right thoracoscopy with pericardial window, right pleurectomy and wedge resection of lower lobe today, of which she now presents to the ICU postoperatively at her experiencing increased shortness of breath postop prolonged PACU recovery. Presentation to the ICU patient appears drowsy but easily arousable and comfortable at rest on 5 L facemask, only complaint of mild substernal chest pain 4/10. Patient denies syncope/dizziness, palpitations, shortness of breath, wheezing, or other sources of pain. Right chest tube has moderate serosanguineous output. Patient remains hemodynamically stable at this time, will continue to monitor overnight in ICU. Allergies Allergy/AdvReac Type Severity Reaction Status Date / Time pollen extracts Allergy Intermediate ASTHMA Verified 09/08/18 16:42 ATTACKS salsalate Allergy Unknown UNKNOWN Verified 09/08/18 16:42 blue dye AdvReac Intermediate SEVERE Verified 09/08/18 16:42 VOMITING doxycycline AdvReac Intermediate VOMITING, Verified 09/08/18 16:42 IMBALANCE duloxetine AdvReac Intermediate SEVERE Verified 09/08/18 16:42 VOMITING leflunomide AdvReac Intermediate SEVERE Verified 09/08/18 16:42 VOMITING tetracycline AdvReac Intermediate CONFUSION,LIGHT Verified 09/08/18 16:42 HEADED, DIZZINESS cefuroxime AdvReac Mild UNCONTROLLED Verified 09/08/18 16:42 DIARRHEA celecoxib AdvReac Mild VOMITING Verified 09/08/18 16:42 clarithromycin AdvReac Mild VOMITING Verified 09/08/18 16:42 pregabalin AdvReac Mild HEADACHE, Verified 09/08/18 16:42 VOMITING Home Medications Home Medications Medication Instructions Recorded Confirmed Type Kiesha-D 24 Hour 1 tab PO QAM PRN 06/09/18 09/08/18 History Qvar RediHaler 2 puff INHALATION BID 06/09/18 09/08/18 History Savella 50 mg PO DAILY 06/09/18 09/08/18 History albuterol sulfate [ProAir HFA] 2 puff INHALATION QID PRN 06/09/18 09/08/18 History cholecalciferol (vitamin D3) 2,000 unit PO DAILY 06/09/18 09/08/18 History [Vitamin D3] fluticasone propion-salmeterol 1 inh INHALATION BID 06/09/18 09/08/18 History [Advair Diskus] folic acid 1 mg PO DAILY 06/09/18 09/08/18 History gabapentin 100 mg PO HS 06/09/18 09/08/18 History hydroxychloroquine 200 mg PO BID 06/09/18 09/08/18 History ipratropium-albuterol 3 ml INHALATION DIRECTED PRN 06/09/18 09/08/18 History mometasone [Nasonex] 2 spray INTRANASAL DAILY PRN 06/09/18 09/08/18 History multivitamin 1 tab PO DAILY 06/09/18 09/08/18 History olopatadine [Patanol] 1 - 2 drp OPHTHALMIC (EYE) 06/09/18 09/08/18 History DIRECTED sertraline 150 mg PO DAILY 06/09/18 09/08/18 History tramadol 100 mg PO QID PRN 06/09/18 09/08/18 History codeine-guaifenesin [Cheratussin 10 ml PO Q6H PRN #120 ml 06/14/18 09/08/18 Rx AC] rivaroxaban [Xarelto] 20 mg PO DAILY #30 tab 06/14/18 09/08/18 Rx tramadol [Ultram] 50 mg PO Q4H PRN #60 tab 06/14/18 09/08/18 Rx levothyroxine [Synthroid] 200 mcg PO SUSA@0630 09/08/18 09/08/18 History levothyroxine [Synthroid] 225 mcg PO MOTUWETHFR@0630 09/08/18 09/08/18 History Patient History Medical History DVT (deep venous thrombosis) Hypothyroid Obesity Pericardial effusion Pneumonia Pulmonary embolism Asthma Fibromyalgia No chronic problems Pneumonia Rheumatoid arthritis Surgical History History of arthroscopy History of section History of gastric bypass History of herniorrhaphy Family History Grandfather (Maternal) Coronary heart disease NM Grandfather (Paternal) Coronary heart disease NM Other No significant family history Social History Communication Ability: Effective Beliefs That Will Affect Care: None marital status: Current Living Situation: Spouse Other Information That Helps Us Care for You: No Feels Safe at Home: No Safety Concerns: Feels Safe At This Time Smoking Status: Never smoker Hx Alcohol Use: Yes Hx Substance Use: No Review of Systems 12 system ROS negative except for as described in HPI. See above Physical Exam Vital Signs (Past 24 Hours): Last Vital Signs Temp 37.0 C 09/09/18 16:00 Pulse 73 09/09/18 18:30 Resp 20 09/09/18 14:48 BP 94/59 L 09/09/18 17:01 Pulse Ox 99 09/09/18 18:30 Constitutional: WD/WN, vitals as above + morbidly obese and comfortable Eyes: PERRL, conjunctivae normal, anicteric sclerae ENMT: external ear and nose normal, oropharynx normal Neck: trachea midline, no thyromegaly Respiratory: normal respiratory effort and symmetric chest movement Lungs clear to auscultation bilaterally with slight diminished breath sounds in left upper and lower lobes. Chest tube patent with moderate serosanguineous output. Cardiovascular: Rate/Rhythm: regular rate and regular rhythm Muffled heart sounds possibly due to body habitus, no JVD, good peripheral perfusion, peripheral pulses +2 bilaterally and pedal and radial Gastrointestinal (Abdomen): Abdomen obese, nontender, bowel sounds auscultated in all 4 quadrant Neurologic: Patient drowsy but alert and oriented x4, symmetrical movement and strength, normal articulation, PERRLA Genitourinary: Weston inserted Results & Data Laboratory Results Laboratory Results - last 24 hr 09/08/18 09/09/18 09/09/18 20:49 02:18 02:18 WBC 3.65 L RBC 2.79 L Hgb 8.7 L Hct 27.6 L MCV 98.9 MCH 31.2 MCHC 31.5 L RDW Std Deviation 52.6 H RDW Coeff of Charmaine 14.6 H Plt Count 232 MPV 9.3 Immature Gran % (Auto) 0.0 Neut % (Auto) 60.4 Lymph % (Auto) 23.3 [place] % (Auto) 15.3 Eos % (Auto) 0.5 Baso % (Auto) 0.5 Immature Gran # (Auto) 0.00 Neut # (Auto) 2.20 Lymph # (Auto) 0.85 L [place] # (Auto) 0.56 Eos # (Auto) 0.02 Baso # (Auto) 0.02 RBC Morphology Unremarkable Sodium 139 Potassium 4.0 D Chloride 106 Carbon Dioxide 30 Anion Gap 3.0 BUN 7 Creatinine 0.62 Est Cr Clr Drug Dosing 92.7 Est GFR ( Amer) 109.7 Est GFR (Non-Af Amer) 94.6 BUN/Creatinine Ratio 10.9 Glucose 78 POC Glucose Calcium 8.0 L Troponin I 0.036 Urine Color Urine Appearance Urine pH Ur Specific [place] Urine Protein Urine Glucose (UA) Urine Ketones Urine Blood Urine Nitrite Urine Bilirubin Urine Urobilinogen Ur Leukocyte Esterase Urine WBC (Auto) Urine RBC (Auto) U Hyaline Cast (Auto) U Epithel Cells (Auto) Urine Bacteria (Auto) Nasal Screen MRSA (PCR) Lyme Disease IgG Ab Negative Lyme Disease IgM Ab Negative Blood Type Antibody Screen Crossmatch 09/09/18 09/09/18 09/09/18 05:50 09:01 14:45 WBC RBC Hgb Hct MCV MCH MCHC RDW Std Deviation RDW Coeff of Charmaine Plt Count MPV Immature Gran % (Auto) Neut % (Auto) Lymph % (Auto) [place] % (Auto) Eos % (Auto) Baso % (Auto) Immature Gran # (Auto) Neut # (Auto) Lymph # (Auto) [place] # (Auto) Eos # (Auto) Baso # (Auto) RBC Morphology Sodium Potassium Chloride Carbon Dioxide Anion Gap BUN Creatinine Est Cr Clr Drug Dosing Est GFR ( Amer) Est GFR (Non-Af Amer) BUN/Creatinine Ratio Glucose POC Glucose Calcium Troponin I Urine Color [place] Urine Appearance Turbid H Urine pH 5.0 Ur Specific [place] 1.029 Urine Protein Trace H Urine Glucose (UA) Negative Urine Ketones 1+ H Urine Blood Negative Urine Nitrite Positive H Urine Bilirubin Negative Urine Urobilinogen Negative Ur Leukocyte Esterase 1+ H Urine WBC (Auto) 1-5 Urine RBC (Auto) 0-4 U Hyaline Cast (Auto) 5-10 H U Epithel Cells (Auto) >30 H Urine Bacteria (Auto) Negative Nasal Screen MRSA (PCR) Negative Lyme Disease IgG Ab Lyme Disease IgM Ab Blood Type O Positive Antibody Screen NEGATIVE Crossmatch See Detail 09/09/18 09/09/18 15:48 20:41 WBC RBC Hgb Hct MCV MCH MCHC RDW Std Deviation RDW Coeff of Charmaine Plt Count MPV Immature Gran % (Auto) Neut % (Auto) Lymph % (Auto) [place] % (Auto) Eos % (Auto) Baso % (Auto) Immature Gran # (Auto) Neut # (Auto) Lymph # (Auto) [place] # (Auto) Eos # (Auto) Baso # (Auto) RBC Morphology Sodium Potassium Chloride Carbon Dioxide Anion Gap BUN Creatinine Est Cr Clr Drug Dosing Est GFR ( Amer) Est GFR (Non-Af Amer) BUN/Creatinine Ratio Glucose POC Glucose 105 H 122 H Calcium Troponin I Urine Color Urine Appearance Urine pH Ur Specific [place] Urine Protein Urine Glucose (UA) Urine Ketones Urine Blood Urine Nitrite Urine Bilirubin Urine Urobilinogen Ur Leukocyte Esterase Urine WBC (Auto) Urine RBC (Auto) U Hyaline Cast (Auto) U Epithel Cells (Auto) Urine Bacteria (Auto) Nasal Screen MRSA (PCR) Lyme Disease IgG Ab Lyme Disease IgM Ab Blood Type Antibody Screen Crossmatch Medications Administered Home Medications Kiesha-D 24 Hour 1 tab PO QAM PRN 06/09/18 [History Confirmed 09/08/18] Qvar RediHaler 2 puff INHALATION BID 06/09/18 [History Confirmed 09/08/18] Savella 50 mg PO DAILY 06/09/18 [History Confirmed 09/08/18] albuterol sulfate [ProAir HFA] 2 puff INHALATION QID PRN 06/09/18 [History Confirmed 09/08/18] cholecalciferol (vitamin D3) [Vitamin D3] 2,000 unit PO DAILY 06/09/18 [History Confirmed 09/08/18] fluticasone propion-salmeterol [Advair Diskus] 1 inh INHALATION BID 06/09/18 [History Confirmed 09/08/18] folic acid 1 mg PO DAILY 06/09/18 [History Confirmed 09/08/18] gabapentin 100 mg PO HS 06/09/18 [History Confirmed 09/08/18] hydroxychloroquine 200 mg PO BID 06/09/18 [History Confirmed 09/08/18] ipratropium-albuterol 3 ml INHALATION DIRECTED PRN 06/09/18 [History Confirmed 09/08/18] mometasone [Nasonex] 2 spray INTRANASAL DAILY PRN 06/09/18 [History Confirmed 09/08/18] multivitamin 1 tab PO DAILY 06/09/18 [History Confirmed 09/08/18] olopatadine [Patanol] 1 - 2 drp OPHTHALMIC (EYE) DIRECTED 06/09/18 [History Confirmed 09/08/18] sertraline 150 mg PO DAILY 06/09/18 [History Confirmed 09/08/18] tramadol 100 mg PO QID PRN 06/09/18 [History Confirmed 09/08/18] codeine-guaifenesin [Cheratussin AC] 10 ml PO Q6H PRN #120 ml 06/14/18 [Rx Confirmed 09/08/18] rivaroxaban [Xarelto] 20 mg PO DAILY #30 tab 06/14/18 [Rx Confirmed 09/08/18] tramadol [Ultram] 50 mg PO Q4H PRN #60 tab 06/14/18 [Rx Confirmed 09/08/18] levothyroxine [Synthroid] 200 mcg PO SUSA@0630 09/08/18 [History Confirmed 09/08/18] levothyroxine [Synthroid] 225 mcg PO MOTUWETHFR@0630 09/08/18 [History Confirmed 09/08/18] Active Medications Albuterol (Ventolin Hfa) 2 puffs INH QID PRN PRN Reason: sob Albuterol (Duoneb) 3 ml INH Q6H PRN PRN Reason: sob Stop: 10/08/18 20:25 Atorvastatin Calcium (Lipitor) 10 mg PO QAM ALEJANDRA Stop: 10/09/18 08:59 Last Admin: 09/09/18 16:58 Dose: 10 mg Documented by: Beclomethasone Dipropionate (Qvar 80mcg) 2 puffs INH BID ALEJANDRA Stop: 10/08/18 20:59 Last Admin: 09/09/18 20:44 Dose: 2 puffs Documented by: Docusate Sodium (Colace) 100 mg PO BID ALEJANDRA Stop: 10/09/18 20:59 Last Admin: 09/09/18 20:46 Dose: 100 mg Documented by: Fexofenadine HCl/Pseudoephedrine (Kiesha-D 12 Hr) 1 tab PO QAM PRN PRN Reason: ALLERGY SYMPTOMS Fluticasone Propionate (Flonase) 2 sprays NA DAILY PRN PRN Reason: dryness Folic Acid (Folvite) 1 mg PO DAILY [facility] Stop: 10/09/18 08:59 Last Admin: 09/09/18 17:05 Dose: 1 mg Documented by: Gabapentin (Neurontin) 100 mg PO HS ALEJANDRA Stop: 10/08/18 20:59 Last Admin: 09/09/18 20:47 Dose: 100 mg Documented by: Guaifenesin/Codeine Phosphate (Robitussin-Ac Sugar Free) 10 ml PO Q6H PRN PRN Reason: cough Stop: 10/08/18 20:25 Heparin Sodium (Beef Lung) (Heparin Sod 10 Unit/Ml Flush) 5 ml FLUSH PRN PRN PRN Reason: Flush Stop: 10/08/18 23:33 Hydroxychloroquine Sulfate (Plaquenil) 200 mg PO BID [facility] Stop: 10/08/18 20:59 Last Admin: 09/09/18 20:47 Dose: 200 mg Documented by: Imipenem/Cilastatin Sodium 500 (mg/ Dextrose) 110 mls @ 100 mls/hr IV Q6H [facility]; Protocol Stop: 09/15/18 17:59 Last Admin: 09/09/18 20:37 Dose: 100 mls/hr Documented by: Sodium Chloride (Nss) 250 mls @ 15 mls/hr IV .[id number] PRN PRN Reason: For Transfusion Stop: 10/09/18 08:54 Acetaminophen (Ofirmev) 1,000 mg in 100 mls @ 400 mls/hr IV Q8H ALEJANDRA Stop: 10/09/18 14:45 Last Infusion: 09/09/18 16:11 Dose: Infused Documented by: Dextrose/Sodium Chloride (D5w And 1/2nss) 1,000 mls @ 100 mls/hr IV .Q10H ALEJANDRA Stop: 10/09/18 14:45 Last Infusion: 09/09/18 20:37 Dose: 0 mls/hr Documented by: Levothyroxine Sodium (Synthroid) 200 mcg PO SuSa@0630 [facility] Stop: 10/12/18 06:29 Levothyroxine Sodium (Synthroid) 225 mcg PO MoTuWeThFr@0630 [facility] Stop: 10/09/18 06:29 Last Admin: 09/09/18 05:50 Dose: Not Given Documented by: Magnesium Hydroxide (Milk Of Magnesia) 30 ml PO Q12H PRN PRN Reason: Constipation Stop: 10/08/18 20:25 Metoclopramide HCl (Reglan) 10 mg IV Q8H ALEJANDRA Stop: 09/10/18 07:01 Last Admin: 09/09/18 15:58 Dose: 10 mg Documented by: Miscellaneous (Order Awaiting Action) 1 ea N/A QS ALEJANDRA Stop: 10/09/18 00:00 Last Admin: 09/09/18 17:04 Dose: Not Given Documented by: Miscellaneous (Order Awaiting Action) 1 ea N/A QS ALEJANDRA Stop: 10/09/18 00:00 Last Admin: 09/09/18 17:04 Dose: Not Given Documented by: Morphine Sulfate (Morphine Sulfate) 1 - 2 mg IV Q1H PRN PRN Reason: Pain Stop: 09/23/18 14:45 Multivitamins (Multivitamin Tab) 1 tab PO DAILY ALEJANDRA Stop: 10/09/18 08:59 Last Admin: 09/09/18 17:00 Dose: 1 tab Documented by: Ondansetron HCl (Zofran) 4 mg IV Q6H PRN PRN Reason: Nausea Stop: 10/08/18 20:25 Oxycodone HCl (Roxicodone Immediate Rel) 5 mg PO Q6H PRN PRN Reason: Pain Stop: 09/23/18 14:45 Fluticasone/Salmeterol (Advair Diskus 250/50) 1 puffs INH BID ALEJANDRA Stop: 10/08/18 20:59 Last Admin: 09/09/18 20:44 Dose: 1 puffs Documented by: Sertraline HCl (Zoloft) 150 mg PO DAILY ALEJANDRA Stop: 10/09/18 08:59 Last Admin: 09/09/18 17:01 Dose: 150 mg Documented by: Tiotropium [place] (Spiriva) 1 puffs INH BID ALEJANDRA Stop: 10/08/18 22:14 Last Admin: 09/09/18 20:48 Dose: 1 puffs Documented by: Vitamin D (Vitamin D3) 2,000 units PO DAILY ALEJANDRA Stop: 10/09/18 08:59 Last Admin: 09/09/18 17:00 Dose: 2,000 units Documented by: (1) Pneumonia Laterality: unspecified laterality Lung location: unspecified part of lung Pneumonia type: due to unspecified organism Qualified Code(s): J18.9 - Pneumonia, unspecified organism
--- NOTE | 2018-09-09 22:14 | Hospitalist Progress Note ---
Date of Service September 09, 2018 Assessment & Plan (1) Pericardial effusion: As noted on ECHO Pt seen by Dr. Peterson in the office Recs for IVF and CT surg c/s Uncertain etiology Lyme pending: first step is indeterminate, awaiting rule in. Pt is on xarelto for recent dx PE/DVT, will not hold given dx was 06/12/2018. Patient underwent pericardial window today on 410. (2) PNA (pneumonia): Noted on CXR Imipenem started in the ED, will continue Appreciate ID input. (3) Hypokalemia: Replaced and monitor (4) Anemia: Monitor (5) Acute pulmonary embolism: Xarelto (6) Rheumatoid arthritis: continue home meds (7) Psoriatic arthritis: continue home meds (8) Hypertension: continue home meds (9) Hypothyroidism: continue home meds (10) Degenerative joint disease: continue home meds (11) Fibromyalgia: continue home meds (12) DVT prophylaxis: Xarelto Spent 35 minutes in management of patient. This included discussion with consultants. Subjective Patient does not provide much history today. She states today was a busy day with the pericardial window procedure having been performed earlier today. Her is at bedside. Patient states main complaint is the pain from the procedure. Patient does not complain of signifcant SOB today. Physical Exam Vital Signs (Past 24 Hours): Last Vital Signs Temp 36.9 C 09/09/18 21:15 Pulse 71 09/09/18 21:01 Resp 20 09/09/18 14:48 BP 92/58 L 09/09/18 21:01 Pulse Ox 97 09/09/18 21:01 Physical Exam: Constitutional: WD/WN, vitals as above Eyes: normal visual [place] by confrontation and + anicteric sclerae Neck: normal visual inspection and trachea midline Respiratory: normal respiratory effort; no respiratory distress Auscultation: + crackles; no wheezes Cardiovascular: Rate/Rhythm: regular rate and regular rhythm Gastrointestinal (Abdomen): Inspection/Auscultation: abdomen not distended Percussion/Palpation: abdomen soft; abdomen nontender Musculoskeletal: Head/Neck/Chest: normocephalic and head atraumatic b/l 2+ LE edema, peripheral pulses intact Skin: no rashes, warm and dry Neurologic: awake; not confused Speech / Cognition: normal speech Psychiatric: A+Ox3, euthymic affect
--- NOTE | 2018-09-09 22:34 | Operative Report ---
DATE OF OPERATION: 09/09/2018 PREOPERATIVE DIAGNOSES: 1. Hemodynamically significant pericardial effusion. 2. Subacute process in the right lower lobe with apparent abscess which is localized empyema. POSTOPERATIVE DIAGNOSES: 1. Hemodynamically significant pericardial effusion. 2. Subacute process in the right lower lobe with apparent abscess which is localized empyema. PROCEDURE: 1. Right thoracoscopy with limited pleurectomy and wedge resection of right lower lobe process. 2. Lysis of adhesions. 3. Pericardial window. 4. Biopsy of pericardial and pleural implants. SURGEON: Modesto Cedeno MD [employer] E[employer]MENT TENDER: MAGY Rayo and Kamilla prado new order clerk 3. ANESTHESIA: General anesthesia with endotracheal intubation with a double lumen tube. INDICATIONS FOR PROCEDURES AND FINDINGS: Savanna Cleary is a 67-year-old female who I just met this morning; however, she has been followed for the last few months by Dr. Damian Lopez from [facility]. She has a process in her right lower lobe. It should be noted that the patient is on immunosuppressants for her arthritic conditions. She was found to have a significant pericardial effusion. I evaluated her and Dr. Peterson felt that she needed a pericardial window and I agreed. The other issue was this right pleural process. I felt that a lysis of adhesions and a wedge resection of this area be helpful for diagnosis and treatment. It should be noted again that this patient is immunocompromised. On 09/09/2018 the patient underwent an uncomplicated right thoracoscopy. I had to put a total of 4 ports in. There were three 5-mm ports and a single 12 mm port placed. We took down the adhesions bluntly and sharply with a cotton-tipped applicator as well as a Harmonic scalpel. We encountered this abscess and an inflammatory process grossly in the right lower lobe against the posterior lateral chest wall. It was actually closer to the diaphragm than I thought it would be. We took down these adhesions and obviously it was abnormal tissue. I wedged out a generous piece of the lung and sent this off for frozen. I also biopsied some what appeared to be unusual pericardial fat and pleural implants; however, the frozen section of all these did not indicate surgery, although the biopsy of the lung had some squamous cells of unclear origin. I also performed a pericardial window without difficulty. This appeared to be benign with almost clear fluid with a light yellow appearance and the pericardium was glistening. I performed a generous pericardial window. I also biopsied some implants along the pericardial fat and the pleura. She tolerated it well. We did do a wedge resection of this mass the basilar segment of the right lower lobe. She tolerated it well and was extubated in the room. PROCEDURE: The patient brought to operating room and placed in supine position. General anesthesia induced and endotracheal intubation was performed with double lumen tube. The patient was taken to the left lateral decubitus position, right chest prepped and draped in usual sterile fashion. After appropriate timeout was called and antibiotics given. I used a total of 3 ports. There were 2 placed posteriorly and 1 placed anteriorly, they were 5 mm ports. There were adhesions, we were able to get her Kitner in with a 5 mm 30 degree scope to takedown most of these adhesions, although in the right lateral base and near the diaphragm. It was quite hard. I took this down sharply using a Harmonic scalpel as well as bluntly. I did place a 12 mm port more inferiorly above the diaphragm. Through these 4 ports, we were able to work our way around and take down all of the adhesions. It should be noted that her fissures were fairly complete. There were adhesions between the lung and the pericardium we took this down. I did a limited pleurectomy in the area of this mass and also did a limited decortication off of the lower lobe and handed all this tissue off. I then wedged out a sizable segment of this affected area, delivered it off in an Endobag. We had no bleeding and no air leak. I completely freed up the entire lung and I was quite pleased with its appearance. We did use the Aquamantys to control bleeding along the chest wall. I sent this off for culture, we saw no organisms on the Gram stain, although it certainly looked infected. I irrigated out the chest, there was no active bleeding and we cleaned out most of the material we had seen including the limited pleurectomy and decortication in the lung biopsy. I then placed a small hole in the pericardium and there was a large amount of fluid. There was probably 500 mL, which is a bit surprising. We made a generous window and delivered not only pericardial fat that had what appeared to be implants in them, but also a good segment of the pericardium. Pericardium was glistening and there were no adhesions. We suctioned out the pericardium completely. There were a couple of implants on the pleural surface on the chest wall which we removed and delivered off the field. Frozen section showed no evidence of malignancy, although it looked odd. We irrigated out the chest and did not really see much of an air leak. A 24-Congolese chest tube was placed in the inferior tube site, a 12 mm site, and directed towards the apex. It was held in place with heavy silk suture. We also performed a block. We mixed 266 mg of Exparel with 30 mL of 0.5% Marcaine and 250 mL normal saline injected each of the 4 port sites and in addition injected each of the interspaces from the 2nd through the 11th rib. After the chest tube had been sutured in place all ports were removed and 4-0 Monocryl was used in running subcuticular fashion to approximate the wound edges. We really did not have an air leak. Blood loss was negligible. She tolerated it well, was transported to the postanesthesia care unit in stable condition. We are going to watch her in the ICU tonight. I attest to the content of the Intraoperative Record and any orders documented therein. Any exceptions are noted below. JACQUES
[2018-09-10] MEDS: D5W AND 1/2NSS 1,000 ML IV SCH (02:40)
[2018-09-10 04:51] LABS: Basophils # (auto) 0.02 K/uL (0-0.2); Basophils % (auto) 0.3 %; Eosinophils # (auto) 0.01 K/uL (0-0.5); Eosinophils % (auto) 0.2 %; Hemoglobin 8.8 g/dL (12.0-16.0); Immature Granulocytes # (auto) 0.02 K/uL (0.00-0.02); Immature Granulocytes % (auto) 0.3 %; Lymphocytes # (auto) 0.77 K/uL (1.2-3.4); Lymphocytes % (auto) 11.6 %; Mean Corpuscular Hgb Conc 31.4 g/dL (32-36); Mean Corpuscular Volume 96.6 fL (80-100); Mean Platelet Volume 9.5 fL (7.4-10.4); Monocytes # (auto) 0.63 K/uL (0.11-0.59); Monocytes % (auto) 9.5 %; Neutrophils # (auto) 5.16 K/uL (1.4-6.5); Neutrophils % (auto) 78.1 %; Platelet Count 219 K/uL (130-400); RDW Coefficient of Variation 15.9 % (11.5-14.5); RDW Standard Deviation 55.9 fL (36.4-46.3); White Blood Count 6.61 K/uL (4.8-10.8)
[2018-09-10 05:13] LABS: BUN Creatinine Ratio 14.8 (10-20); Calcium 7.4 mg/dl (8.5-10.1); Creatinine Clr Calc Pharmacy 93.1 ml/min; Est GFR (African American) 109.5; Est GFR (Non-African American) 94.5; Potassium 4.4 mmol/L (3.5-5.1)
--- NOTE | 2018-09-10 07:03 | Critical Care Progress Note ---
Date of Service September 10, 2018 Assessment & Plan (1) Effusion, pericardium: Reason Critically Ill: 67-year-old female with hx right lower lobe lung cavity lesion/pericardial effusion, now presents postop for right thoracoscopy with pericardial window, right colectomy, wedge resection of right lower lobe and chest tube insertion. Pmhx significant for DVT, PE, HTN, hypothyroidism, fibromyalgia, and RA Neuro CAM ICU: Negative Pain/fibromyalgia: Continue Tylenol, gabapentin, oxygen Cardiac Cardiomyopathy/pericardial effusion: Status post pericardial window, chest tube insertion -Pericardial fluid cultures and AFB stain negative -Chest tube management per thoracic surgery -Monitor on telemetry -Follow cardiology recs -09/10 ECHO low-normal systolic function EF 50-55%, LVH, Large portion of RV wall that is akinetic, no pericardial effusion Respiratory S/P right lower lobe lung wedge resection, resection of cavitation, and biopsy -previous cx from [place] +ve for Pseudomonas -On Primaxin, ID following appreciate recommendations -Satting 93% on nc, prn o2 as needed to maintain sats >92% -Encourage early ambulation, pulmonary toileting Low Risk For TB -Prior Cavitary lesion noted on CT from June 2018 -Resected yesterday in surgery, AFB smear negative, TB usually inhabits upper, not lower lobes, pt has minimal exposure risk -tb quantiferon admin as this is the gold standard, unlikely to be positive Asthmacontinue routine nebs and breathing treatment -Weaning oxygen as tolerated, currently on 5 L nasal cannula -Continue Kiesha and Nasonex PEdiagnosed in June, on Xarelto -resume per primary team GI Heart healthy diet Colace RENAL/LYTES Routine BMPs, deborah- concerns at present Creatinine stable [place], strict I's and O's ENDO ICU hyperglycemic protocol, no history diabetes Hypothyroidism, continue home dose Synthroid HEME AnemiaH&H stable, continue home dose folic acid ID - ID consult, primaxin see respiratory above L YUE/IV ACCESS PICC, chest tube, [place], A-line DVT PROPHYLAXIS SCDs, resume rivaroxaban per primary team dispo: tx out of ICU today Thank you for allowing us to be part of this patient's care. Please refer to Dr. Vang's documentation for any further recommendations. (2) Cardiomyopathy: (3) Pneumonia: (4) Left leg DVT: (5) Acute pulmonary embolism: (6) Rheumatoid arthritis: (7) Hypothyroidism: (8) Fibromyalgia: Supervising Physician Co-Signing Physician Notes Dr. Clark was resident physician during care of patient. I separately evaluated patient for garner portions of the history and the exam. I was present during the critical portion of medical decision making, and I discussed the case with the resident. I generally agree with the findings and plan. Patient was discussed in multidisciplinary rounds, I discussed the patient with Dr. Cedeno. The cavitary lesion is not of major concern and she does not have major risk factors for TB. She is not in respiratory isolation because of this previously the culture grew out Pseudomonas. Acid-fast stains are negative at this time stable for downgrade out of the ICU. Subjective pt lying in bed this morning in NAD . No complaints overnight notes some pain at surgical site. PT tolerated breakfast, okay UOP per cath, stooling, and sleeping. pt recovering well no complaints at present. Physical Exam Vital Signs (Past 24 Hours): Last Vital Signs Temp 36.8 C 09/10/18 04:00 Pulse 78 09/10/18 04:00 Resp 20 09/09/18 14:48 BP 113/60 09/10/18 04:00 Pulse Ox 97 09/10/18 04:00 Physical Exam: Gen:WD/WN overweight pt in NAD EYES: PERRLA/EOMI Neck: Trache midline, normal to visual inspection, negative JVD Chest: Chest tube sero sang output, CTAB/l, diminished breath sounds L>R CV: RRR, did not appreciate any mrg, Nl S1 S2, good cap refill GI: Soft, Nontender, Nondistended, Nl BS Ext: moves all extremities, 2+ pedal edema Psych: AAOx3 cooperative Results & Data Laboratory Results 09/10/18 04:41 09/10/18 04:41 09/10/18 09/10/18 09/09/18 Range/Units 04:41 04:41 20:41 WBC 6.61 (4.8-10.8) K/uL RBC 2.90 L (4.2-5.4) M/uL Hgb 8.8 L (12.0-16.0) g/dL Hct 28.0 L (37-47) % MCV 96.6 (80-100) fL MCH 30.3 (25-34) pg MCHC 31.4 L (32-36) g/dL RDW Std Deviation 55.9 H (36.4-46.3) fL RDW Coeff of Charmaine 15.9 H (11.5-14.5) % Plt Count 219 (130-400) K/uL MPV 9.5 (7.4-10.4) fL Immature Gran % (Auto) 0.3 % Neut % (Auto) 78.1 % Lymph % (Auto) 11.6 % [place] % (Auto) 9.5 % Eos % (Auto) 0.2 % Baso % (Auto) 0.3 % Immature Gran # (Auto) 0.02 (0.00-0.02) K/uL Neut # (Auto) 5.16 (1.4-6.5) K/uL Lymph # (Auto) 0.77 L (1.2-3.4) K/uL [place] # (Auto) 0.63 H (0.11-0.59) K/uL Eos # (Auto) 0.01 (0-0.5) K/uL Baso # (Auto) 0.02 (0-0.2) K/uL Sodium 137 (136-145) mmol/L Potassium 4.4 (3.5-5.1) mmol/L Chloride 106 (98-107) mmol/L Carbon Dioxide 28 (21-32) mmol/L Anion Gap 3.0 (3-11) BUN 9 (7-18) mg/dl Creatinine 0.61 (0.6-1.2) mg/dl Est Cr Clr Drug Dosing 93.1 ml/min Est GFR ( Amer) 109.5 Est GFR (Non-Af Amer) 94.5 BUN/Creatinine Ratio 14.8 (10-20) Glucose 121 H (70-99) mg/dl POC Glucose 122 H (70-99) Calcium 7.4 L (8.5-10.1) mg/dl Nasal Screen MRSA (PCR) (Negative) TB Test (QFT) Gold Plus TB Test (QFT) Nil TB Test Mitogen - Nil TB Test Ag - Nil 1 TB Test Ag - Nil 2 Blood Type Antibody Screen Crossmatch 09/09/18 09/09/18 09/09/18 Range/Units 15:48 15:46 14:45 WBC (4.8-10.8) K/uL RBC (4.2-5.4) M/uL Hgb (12.0-16.0) g/dL Hct (37-47) % MCV (80-100) fL MCH (25-34) pg MCHC (32-36) g/dL RDW Std Deviation (36.4-46.3) fL RDW Coeff of Charmaine (11.5-14.5) % Plt Count (130-400) K/uL MPV (7.4-10.4) fL Immature Gran % (Auto) % Neut % (Auto) % Lymph % (Auto) % [place] % (Auto) % Eos % (Auto) % Baso % (Auto) % Immature Gran # (Auto) (0.00-0.02) K/uL Neut # (Auto) (1.4-6.5) K/uL Lymph # (Auto) (1.2-3.4) K/uL [place] # (Auto) (0.11-0.59) K/uL Eos # (Auto) (0-0.5) K/uL Baso # (Auto) (0-0.2) K/uL Sodium (136-145) mmol/L Potassium (3.5-5.1) mmol/L Chloride (98-107) mmol/L Carbon Dioxide (21-32) mmol/L Anion Gap (3-11) BUN (7-18) mg/dl Creatinine (0.6-1.2) mg/dl Est Cr Clr Drug Dosing ml/min Est GFR ( Amer) Est GFR (Non-Af Amer) BUN/Creatinine Ratio (10-20) Glucose (70-99) mg/dl POC Glucose 105 H (70-99) Calcium (8.5-10.1) mg/dl Nasal Screen MRSA (PCR) Negative (Negative) TB Test (QFT) Gold Plus Pending TB Test (QFT) Nil Pending TB Test Mitogen - Nil Pending TB Test Ag - Nil 1 Pending TB Test Ag - Nil 2 Pending Blood Type Antibody Screen Crossmatch 09/09/18 Range/Units 09:01 WBC (4.8-10.8) K/uL RBC (4.2-5.4) M/uL Hgb (12.0-16.0) g/dL Hct (37-47) % MCV (80-100) fL MCH (25-34) pg MCHC (32-36) g/dL RDW Std Deviation (36.4-46.3) fL RDW Coeff of Charmaine (11.5-14.5) % Plt Count (130-400) K/uL MPV (7.4-10.4) fL Immature Gran % (Auto) % Neut % (Auto) % Lymph % (Auto) % [place] % (Auto) % Eos % (Auto) % Baso % (Auto) % Immature Gran # (Auto) (0.00-0.02) K/uL Neut # (Auto) (1.4-6.5) K/uL Lymph # (Auto) (1.2-3.4) K/uL [place] # (Auto) (0.11-0.59) K/uL Eos # (Auto) (0-0.5) K/uL Baso # (Auto) (0-0.2) K/uL Sodium (136-145) mmol/L Potassium (3.5-5.1) mmol/L Chloride (98-107) mmol/L Carbon Dioxide (21-32) mmol/L Anion Gap (3-11) BUN (7-18) mg/dl Creatinine (0.6-1.2) mg/dl Est Cr Clr Drug Dosing ml/min Est GFR ( Amer) Est GFR (Non-Af Amer) BUN/Creatinine Ratio (10-20) Glucose (70-99) mg/dl POC Glucose (70-99) Calcium (8.5-10.1) mg/dl Nasal Screen MRSA (PCR) (Negative) TB Test (QFT) Gold Plus TB Test (QFT) Nil TB Test Mitogen - Nil TB Test Ag - Nil 1 TB Test Ag - Nil 2 Blood Type O Positive Antibody Screen NEGATIVE Crossmatch See Detail Medications Administered Current Inpatient Medications Acetaminophen (Tylenol) 650 mg PO Q6H ALEJANDRA Stop: 10/10/18 08:59 Last Admin: 09/10/18 09:00 Dose: Not Given Documented by: Albuterol (Ventolin Hfa) 2 puffs INH QID PRN PRN Reason: sob Albuterol (Duoneb) 3 ml INH Q6H PRN PRN Reason: sob Stop: 10/08/18 20:25 Atorvastatin Calcium (Lipitor) 10 mg PO QAM ALEJANDRA Stop: 10/09/18 08:59 Last Admin: 09/10/18 07:44 Dose: 10 mg Documented by: Beclomethasone Dipropionate (Qvar 80mcg) 2 puffs INH BID ALEJANDRA Stop: 10/08/18 20:59 Last Admin: 09/10/18 07:46 Dose: 2 puffs Documented by: Docusate Sodium (Colace) 100 mg PO BID ALEJANDRA Stop: 10/09/18 20:59 Last Admin: 09/10/18 07:43 Dose: 100 mg Documented by: Fexofenadine HCl/Pseudoephedrine (Kiesha-D 12 Hr) 1 tab PO QAM PRN PRN Reason: ALLERGY SYMPTOMS Fluticasone Propionate (Flonase) 2 sprays NA DAILY PRN PRN Reason: dryness Folic Acid (Folvite) 1 mg PO DAILY ALEJANDRA Stop: 10/09/18 08:59 Last Admin: 09/10/18 07:43 Dose: 1 mg Documented by: Gabapentin (Neurontin) 100 mg PO HS [facility] Stop: 10/08/18 20:59 Last Admin: 09/09/18 20:47 Dose: 100 mg Documented by: Guaifenesin/Codeine Phosphate (Robitussin-Ac Sugar Free) 10 ml PO Q6H PRN PRN Reason: cough Stop: 10/08/18 20:25 Heparin Sodium (Beef Lung) (Heparin Sod 10 Unit/Ml Flush) 5 ml FLUSH PRN PRN PRN Reason: Flush Stop: 10/08/18 23:33 Hydroxychloroquine Sulfate (Plaquenil) 200 mg PO BID ALEJANDRA Stop: 10/08/18 20:59 Last Admin: 09/10/18 07:45 Dose: 200 mg Documented by: Imipenem/Cilastatin Sodium 500 (mg/ Dextrose) 110 mls @ 100 mls/hr IV Q6H [facility]; Protocol Stop: 09/15/18 17:59 Last Infusion: 09/10/18 08:47 Dose: Infused Documented by: Sodium Chloride (Nss) 250 mls @ 15 mls/hr IV .[id number] PRN PRN Reason: For Transfusion Stop: 10/09/18 08:54 Levothyroxine Sodium (Synthroid) 200 mcg PO SuSa@0630 [facility] Stop: 10/12/18 06:29 Levothyroxine Sodium (Synthroid) 225 mcg PO MoTuWeThFr@0630 [facility] Stop: 10/09/18 06:29 Last Admin: 09/10/18 07:10 Dose: 225 mcg Documented by: Magnesium Hydroxide (Milk Of Magnesia) 30 ml PO Q12H PRN PRN Reason: Constipation Stop: 10/08/18 20:25 Miscellaneous (Order Awaiting Action) 1 ea N/A QS ALEJANDRA Stop: 10/09/18 00:00 Last Admin: 09/10/18 07:46 Dose: Not Given Documented by: Miscellaneous (Order Awaiting Action) 1 ea N/A QS [facility] Stop: 10/09/18 00:00 Last Admin: 09/10/18 07:46 Dose: Not Given Documented by: Morphine Sulfate (Morphine Sulfate) 1 - 2 mg IV Q1H PRN PRN Reason: Pain Stop: 09/23/18 14:45 Multivitamins (Multivitamin Tab) 1 tab PO DAILY ALEJANDRA Stop: 10/09/18 08:59 Last Admin: 09/10/18 07:44 Dose: 1 tab Documented by: Nystatin (Mycostatin) 1 appln EXT Q12 ALEJANDRA Stop: 10/10/18 08:59 Ondansetron HCl (Zofran) 4 mg IV Q6H PRN PRN Reason: Nausea Stop: 10/08/18 20:25 Oxycodone HCl (Roxicodone Immediate Rel) 5 mg PO Q6H PRN PRN Reason: Pain Stop: 09/23/18 14:45 Fluticasone/Salmeterol (Advair Diskus 250/50) 1 puffs INH BID ALEJANDRA Stop: 10/08/18 20:59 Last Admin: 09/10/18 07:42 Dose: 1 puffs Documented by: Sertraline HCl (Zoloft) 150 mg PO DAILY [facility] Stop: 10/09/18 08:59 Last Admin: 09/10/18 07:45 Dose: 150 mg Documented by: Tiotropium [place] (Spiriva) 1 puffs INH BID [facility] Stop: 10/08/18 22:14 Last Admin: 09/10/18 07:45 Dose: 1 puffs Documented by: Vitamin D (Vitamin D3) 2,000 units PO DAILY [facility] Stop: 10/09/18 08:59 Last Admin: 09/10/18 07:44 Dose: 2,000 units Documented by: Resident Activity Tracking Resident Involvement: Resident Care Provided Care Provided: Adult Hospital Medicine (ICU) (1) Pneumonia Laterality: unspecified laterality Lung location: unspecified part of lung Pneumonia type: due to unspecified organism Qualified Code(s): J18.9 - Pneumonia, unspecified organism
[2018-09-10] MEDS: LEVOTHYROXINE SODIUM 75 MCG TABLET PO SCH (07:10)
--- NOTE | 2018-09-10 07:13 | XRay Report ---
XR chest 1V portable HISTORY: 68 years-old Female pericardial window follow-up study in a patient with recent thoracic zamora rgery COMPARISON: Chest radiograph 09/09/2018 TECHNIQUE: Portable AP view of the chest FINDINGS: Cardiomediastinal and hilar silhouettes appear unchanged. Stable positioning of the right-sided PICC. Right-sided chest tube appears to have been retracted slightly, distal tip now adjacent to the later al aspect of the right upper lung. Decreased subcutaneous emphysema about the lateral right chest wal l. There is no definite pneumothorax identified. Pulmonary vascular congestion with persistent bibasi lar opacities and probable trace pleural effusions. Degenerative changes of the shoulders and spine. No evidence of pneumoperitoneum. IMPRESSION: 1. Right-sided chest tube has been slightly retracted, distal tip now adjacent to lateral aspect of t he right upper lung. 2. No pneumothorax identified. 3. Persistent bibasilar densities suggestive of probable atelectasis. The above report was generated using voice recognition software. It may contain grammatical, syntax o r spelling errors. Electronically signed by: Robert Guillermo M.D. 09/10/2018 7:12 AM
[2018-09-10] MEDS: ACETAMINOPHEN 1,000 MG/100 ML VIAL IV SCH (07:37)
[2018-09-10] MEDS: IMIPENEM/CILASTATIN SODIUM 500 MG in DEXTROSE 5% 100 ML IV SCH ×4 (07:41→23:45)
[2018-09-10] MEDS: METOCLOPRAMIDE HCL INJ 5 MG/ML 2 ML VIAL IV SCH (07:42)
[2018-09-10] MEDS: FLUTICASONE/SALMETEROL 250/50 (ADVAIR) 14 PUFF/1 INHALER INH SCH ×2 (07:42→20:26)
[2018-09-10] MEDS: FOLIC ACID 1 MG TAB PO SCH (07:43)
[2018-09-10] MEDS: DOCUSATE SODIUM 100 MG CAP PO SCH ×2 (07:43→20:20)
[2018-09-10] MEDS: MULTIVITAMIN TAB PO SCH (07:44)
[2018-09-10] MEDS: ATORVASTATIN 10 MG TAB PO SCH (07:44)
[2018-09-10] MEDS: CHOLECALCIFEROL 1,000 UNITS TAB PO SCH (07:44)
[2018-09-10] MEDS: SERTRALINE HCL 100 MG TABLET PO SCH (07:45)
[2018-09-10] MEDS: HYDROXYCHLOROQUINE SULFATE 200 MG TAB PO SCH ×2 (07:45→20:21)
[2018-09-10] MEDS: TIOTROPIUM BROMIDE 5 PUFF/90 MCG INH INH SCH ×2 (07:45→20:25)
[2018-09-10] MEDS: BECLOMETHASONE DIP HFA 80 MCG 8.7G INH INH SCH ×2 (07:46→20:26)
[2018-09-10] MEDS: ACETAMINOPHEN 325 MG TAB PO SCH ×3 (09:00→20:21)
--- NOTE | 2018-09-10 11:58 | Cardiology Progress Note ---
Date of Service September 10, 2018 Assessment & Plan (1) Pericardial effusion: She underwent pericardial window earlier yesterday, and echocardiogram this morning showed no pericardial effusion. (2) Cardiomyopathy: She had reduced LV systolic function and wall motion abnormalities on outpatient echo. Echo today showed low normal LV systolic function with an EF of 50-55%. The distal portions of the ventricle and apex were not well seen, therefore, wall motion abnormalities could not be excluded in these areas, but otherwise there were no obvious wall motion abnormalities. Will continue to monitor and likely repeat an echo at some point in the future as an outpatient, once she has recovered from her acute illness. No medication changes at this time. It is difficult to know her volume status. For now, would recommend even fluid balance to mildly negative fluid balance if blood pressure tolerates. (3) Edema: She has edema but difficult to know her true intravascular volume status. Edema could be secondary to hypoalbuminemia (albumin 2.1). Now that she has undergone pericardial window, would try to maintain even to slightly negative fluid balance. (4) Cavitary pneumonia: As per Infectious Disease, primary service, and critical care team. (5) Acute pulmonary embolism: Left lower extremity DVT and PE diagnosed in June of 2018; this is likely the reason for her mildy reduced RV systolic function on echo. Anticoagulation as per primary service. (6) Anemia: As per primary service. Disposition: Will continue to follow. In the future, when she is discharged, she should follow up with Dr. Peterson. Subjective Patient states that she his sore in the location of her right chest tube. She denies chest discomfort. She did note some shortness of breath when lying down last evening, but she currently denies shortness of breath sitting upright. She believes that she may have less lower extremity edema. She denies palpitations, lightheadedness, or presyncope. She denies abnormal bleeding such as melena, hem atochezia, or hematuria. She underwent an echocardiogram earlier today which demonstrated normal LV size with grossly normal LV systolic function. EF estimated at 50-55%. The distal portions of the left ventricle and apex were not well seen, therefore, wall motion abnormalities could not be excluded in these areas. Her RV was mildly dilated with visually mildly reduced RV systolic function. There was no obvious pericardial effusion noted. Pleural effusion was noted. Physical Exam Vital Signs (Past 24 Hours): Last Vital Signs Temp 36.5 C 09/10/18 10:42 Pulse 85 09/10/18 10:42 Resp 16 09/10/18 10:42 BP 108/73 09/10/18 10:42 Pulse Ox 93 09/10/18 10:42 Constitutional: Alert, oriented, in no acute distress HEENT: Head is atraumatic and normocephalic. EOMs intact. Sclera anicteric. Face is symmetric. No perioral cyanosis. Mucous membranes moist. Neck: Supple, no JVD Pulmonary: Normal respiratory effort, decreased breath sounds at bases Cardiac: Regular rate and rhythm, normal S1 and S2, no gallops, no rubs, no murmurs Extremities: 1+ lower extremity edema bilaterally. No clubbing or cyanosis. Pulses intact Abdomen: Normal bowel sounds, soft, non-tender, no abdominal mass palpated Skin: Pale appearing. No rash or skin lesions Neurological: Oriented to person, place, and time
[2018-09-10] MEDS: NYSTATIN POWDER 15GM BTL EXT SCH ×2 (12:38→20:20)
--- NOTE | 2018-09-10 13:21 | Infectious Disease Progress Nt ---
Date of Service September 10, 2018 Assessment & Plan (1) Effusion, pericardium: continue imipenem for now, await final sensitivities pt reportedly following with pulm in [place] for treatment of pseduomonas lung infection prior to admission. will likely require prolonged course of abx Subjective pt transferred from ICU. Lung and fluid routine cultures both growing probable pseudomonas species, final pending. tolerating abx, remains on Imipenem. Fungal and AFB cultures pending, smears negative. afebrile. wbc 6. UA negative, repeat cxr with chest tube in place and atelectaisis. Physical Exam Vital Signs (Past 24 Hours): Last Vital Signs Temp 36.5 C 09/10/18 10:42 Pulse 85 09/10/18 10:42 Resp 16 09/10/18 10:42 BP 108/73 09/10/18 10:42 Pulse Ox 93 09/10/18 10:42 Results & Data Laboratory Results Microbiology 09/09/18 11:57 Pericardial Fluid Gram Stain - Final 09/09/18 11:57 Pericardial Fluid Aerobic and Anaerobic Culture - Preliminary Probable Pseudomonas species 09/09/18 10:40 Lung,Right Gram Stain - Final 09/09/18 10:40 Lung,Right Aerobic and Anaerobic Culture - Preliminary Probable Pseudomonas species 09/09/18 10:40 Lung,Right Fungal Smear - Final 09/09/18 10:40 Lung,Right Acid Fast Bacilli Smear - Final 09/09/18 11:57 Tissue,Undefined Fungal Smear - Final
[2018-09-10] MEDS: OXYCODONE HCL IR 5 MG TAB (IMMEDIATE RELEASE) PO PRN (13:42)
--- NOTE | 2018-09-10 16:36 | Progress Note ---
DATE: 09/10/2018 Ms. Cleary was seen today 1 day after we performed a pericardial window with a lung wedge resection. The patient had what appears to be a rather benign-appearing pericardial effusion, but the pericardial fluid surprisingly is growing out pseudomonas species. In addition, her right lung has a pseudomonas species. I discussed this case again with Dr. Damian Lopez, the patient's benefits representative and this pleural process appears to be getting a bit smaller. The cytology of the pericardial effusion just showed reactive mesothelial cells with scattered inflammation, we saw no evidence of malignancy thus far. She really has not drained much today, but she drained a fair amount last night. We are going to keep her chest tube in overnight. Hemoglobin really did not change much overnight. She does not have an elevated white count this morning. I thought her x-ray showed hypoventilation, but quite frankly I think it looks a bit better. ASSESSMENT AND PLAN: Postoperative day #1, status post right thoracoscopy with creation of pericardial window and wedge resection with limited decortication and pleurectomy, right lower lobe. This appears to be inflammatory and infectious. My personal feeling is that the pseudomonas coming from the pericardial fluid may have been contaminated from her chest. It did not appear to have any signs of infection grossly and the pericardium was intact. At any rate, we will follow this up with a CT scan in the next few days to make sure that we had adequately drained the pericardium and had no fluid collections which need to be drained. We will probably pull her chest tube tomorrow.
[2018-09-10] MEDS: ALBUT/IPRATROP 3MG/0.5MG NEB 3 ML VIAL INH PRN (18:58)
[2018-09-10] MEDS: GABAPENTIN 100 MG CAP PO SCH (20:20)
--- NOTE | 2018-09-10 22:35 | Hospitalist Progress Note ---
Date of Service September 10, 2018 Assessment & Plan (1) Effusion, pericardium: As noted on ECHO Pt seen by Dr. Peterson in the office Recs for IVF and CT surg c/s Uncertain etiology Lyme is negative Pt is on xarelto for recent dx PE/DVT, will not hold given dx was 06/12/2018. Patient underwent pericardial window on 09-09. Echo shows no signs of pericardial effusion today on 09-10; EF 50-55%, RV is akinetic (2) Cardiomyopathy: Ischemic workup cannot be done as patient is ill with cavitations. will continue antibiotic as above. Recommend mildly negative fluid balance. (3) Pneumonia: Noted on CXR Imipenem started in the ED, will continue Appreciate ID input. (4) Left leg DVT: (5) Acute pulmonary embolism: Xarelto (6) Rheumatoid arthritis: continue home meds (7) Hypothyroidism: continue home meds (8) Fibromyalgia: continue home meds Spent 25 minutes in management of patient. Subjective Patient reports having SOB at rest at time of examination. Patient is requesting a breathing treatment. Patient denies nausea, vomiting, diarrhea. Physical Exam Vital Signs (Past 24 Hours): Last Vital Signs Temp 36.6 C 09/10/18 15:22 Pulse 89 09/10/18 18:59 Resp 18 09/10/18 18:59 BP 102/72 09/10/18 15:22 Pulse Ox 89 L 09/10/18 18:59 Physical Exam: Constitutional: WD/WN, vitals as above Eyes: normal visual stanton by confrontation and + anicteric sclerae Neck: normal visual inspection and trachea midline Respiratory: normal respiratory effort; no respiratory distress Auscultation: + bilateral wheezing Cardiovascular: Rate/Rhythm: regular rate and regular rhythm Gastrointestinal (Abdomen): Inspection/Auscultation: abdomen not distended Percussion/Palpation: abdomen soft; abdomen nontender Musculoskeletal: Head/Neck/Chest: normocephalic and head atraumatic b/l 2+ LE edema, peripheral pulses intact Skin: no rashes, warm and dry Neurologic: awake; not confused Speech / Cognition: normal speech Psychiatric: A+Ox3, euthymic affect (1) Pneumonia Laterality: unspecified laterality Lung location: unspecified part of lung Pneumonia type: due to unspecified organism Qualified Code(s): J18.9 - Pneumonia, unspecified organism
[2018-09-11] MEDS: ACETAMINOPHEN 325 MG TAB PO SCH ×4 (02:35→21:56)
[2018-09-11] MEDS ORDERED: SODIUM CHLORIDE 0.9% 500 ML IV ONE (02:45)
--- NOTE | 2018-09-11 03:49 | Progress Note ---
Date of Service September 11, 2018 Assessment & Plan (1) SVT (supraventricular tachycardia): Called to assess patientnurse noticed that her heart rate was between 100-130, she was concerned that it was irregular S: She states that she was sleeping and the nurse woke her up to see if she was okay. But otherwise she is not having any new symptoms. She denies chest pain, palpitations.Patient states that at baseline she has some shortness of breath. O: Tachycardic, regular rate Reviewed EKG showed narrow complex tachycardia, SVT with a rate between 110 120 A: SVT in the setting of acute illness P: Transfer the patient to telemetry, give the patient a 500 cc bolus. When I called back the nurse the patient's heart rates were in the 80s. We will put in a follow-up EKG for 7 AM. Physical Exam Vital Signs (Past 24 Hours): Last Vital Signs Temp 36.9 C 09/10/18 23:25 Pulse 110 H 09/11/18 01:00 Resp 14 09/10/18 23:25 BP 124/71 09/11/18 01:00 Pulse Ox 93 09/10/18 23:25
[2018-09-11] MEDS: IMIPENEM/CILASTATIN SODIUM 500 MG in DEXTROSE 5% 100 ML IV SCH (05:45)
[2018-09-11] MEDS: LEVOTHYROXINE SODIUM 75 MCG TABLET PO SCH (05:46)
[2018-09-11 06:46] LABS: Quantiferon Mitogen-NIL 0.74 IU/ML; Quantiferon NIL 0.02 IU/ML; Quantiferon TB Gold Plus NEGATIVE (NEGATIVE); Quantiferon TB1-NIL 0.02 IU/ML; Quantiferon TB2-NIL 0.01 IU/ML
--- NOTE | 2018-09-11 07:01 | XRay Report ---
XR chest 1V portable HISTORY: 68 years-old Female pericardial effusion follow-up study in a patient with history of peric ardial effusion COMPARISON: Chest radiograph 09/10/2018 TECHNIQUE: Portable AP view of the chest FINDINGS: Right-sided chest tube is in stable positioning. Stable positioning of the right-sided PICC. Subcutan eous emphysema about the lateral right chest wall. No definitive pneumothorax identified. Suggestion of bilateral pleural effusions. Mixed opacities throughout the right lung with right lung volume loss . Left basilar densities persist. Unchanged enlargement about the cardiac silhouette. Degenerative ch anges of the shoulders and spine. IMPRESSION: 1. Stable positioning of the right-sided chest tube. No definite pneumothorax identified. 2. Persistent enlargement of the cardiac silhouette. 3. Progressed mixed opacities about the right lung. 4. Suggestion of small bilateral pleural effusions. The above report was generated using voice recognition software. It may contain grammatical, syntax o r spelling errors. Electronically signed by: Robert Guillermo M.D. 09/11/2018 6:59 AM
[2018-09-11] MEDS: FLUTICASONE/SALMETEROL 250/50 (ADVAIR) 14 PUFF/1 INHALER INH SCH ×2 (07:51→21:53)
[2018-09-11] MEDS: BECLOMETHASONE DIP HFA 80 MCG 8.7G INH INH SCH (07:52)
[2018-09-11] MEDS: CHOLECALCIFEROL 1,000 UNITS TAB PO SCH (07:52)
[2018-09-11] MEDS: SERTRALINE HCL 100 MG TABLET PO SCH (07:52)
[2018-09-11] MEDS: MULTIVITAMIN TAB PO SCH (07:52)
--- NOTE | 2018-09-11 07:52 | XRay Report ---
XR chest 1V portable HISTORY: 68 years-old Female tube removal status post removal of right-sided chest tube COMPARISON: Chest radiograph of same day at 09/11/2018 TECHNIQUE: Portable AP view of the chest FINDINGS: Status post removal of the right-sided chest tube. Minimal subcutaneous emphysema about the right lat eral chest wall. No pneumothorax identified. Cardiac mediastinal and hilar silhouettes are unchanged. Mixed opacities throughout the right lung with unchanged right volume loss, unchanged. Suggestion of small bilateral pleural effusions. Degenerative changes of the shoulders and spine. No overt pulmona ry edema. Slightly improved aeration of the bilateral lungs from study earlier today. IMPRESSION: Status post removal of the right-sided chest tube. No pneumothorax identified. The above report was generated using voice recognition software. It may contain grammatical, syntax o r spelling errors. Electronically signed by: Robert Guillermo M.D. 09/11/2018 7:51 AM
[2018-09-11] MEDS: DOCUSATE SODIUM 100 MG CAP PO SCH ×2 (07:53→21:56)
[2018-09-11] MEDS: NYSTATIN POWDER 15GM BTL EXT SCH ×2 (07:53→21:54)
[2018-09-11] MEDS: ATORVASTATIN 10 MG TAB PO SCH (07:53)
[2018-09-11] MEDS: FOLIC ACID 1 MG TAB PO SCH (07:54)
[2018-09-11] MEDS: TIOTROPIUM BROMIDE 5 PUFF/90 MCG INH INH SCH ×2 (07:54→21:53)
[2018-09-11] MEDS: HYDROXYCHLOROQUINE SULFATE 200 MG TAB PO SCH ×2 (07:54→21:52)
--- NOTE | 2018-09-11 09:17 | Infectious Disease Progress Nt ---
Date of Service September 11, 2018 Assessment & Plan (1) Effusion, pericardium: will change to zosyn based on sensititives. no po options available for treatment, will need min 21 days IV abx. AFB and fungal smear negative Subjective pt sitting up in bed. chest tube removed. dressing intact. OR cultures from lung tissue and pericardial fluid growing Pseudomonas, resistant to Imipenem. 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 unclear duration. Unclear if previous pseudomonas cultures were carbapenem sensitive. Denies f/c. States she remains with some sob but overall improved. tolerating abx. no n/v/d/abd pain. no cp, wheeze. all remaining ros reviewed and are negative Physical Exam Vital Signs (Past 24 Hours): Last Vital Signs Temp 36.7 C 09/11/18 07:02 Pulse 98 H 09/11/18 07:02 Resp 24 09/11/18 07:02 BP 124/86 09/11/18 07:02 Pulse Ox 90 09/11/18 07:02 Constitutional: WD/WN, vitals as above Eyes: PERRL, conjunctivae normal, anicteric sclerae ENMT: external ear and nose normal, oropharynx normal Neck: normal visual inspection Respiratory: Auscultation: + diminished lung sounds; no rhonchi and no wheezes Cardiovascular: RRR, no murmur, no edema Gastrointestinal (Abdomen): normal bowel sounds, soft, nontender, no hepatosplenomegaly Musculoskeletal: no cyanosis or clubbing, extremities motor strength 5/5 Skin: no rashes, warm and dry Psychiatric: A+Ox3, euthymic affect Results & Data Laboratory Results Microbiology 09/09/18 11:57 Pericardial Fluid Acid Fast Bacilli Smear - Final 09/09/18 11:57 Pericardial Fluid Gram Stain - Final 09/09/18 11:57 Pericardial Fluid Aerobic and Anaerobic Culture - Preliminary Pseudomonas aeruginosa 09/09/18 10:40 Lung,Right Gram Stain - Final 09/09/18 10:40 Lung,Right Aerobic and Anaerobic Culture - Preliminary Pseudomonas aeruginosa 09/09/18 10:40 Lung,Right Fungal Smear - Final 09/09/18 10:40 Lung,Right Acid Fast Bacilli Smear - Final 09/09/18 11:57 Tissue,Undefined Fungal Smear - Final
[2018-09-11] MEDS ORDERED: PIPERACILL/TAZOBAC CONSULT ACTIVE PRN (09:19)
[2018-09-11] MEDS ORDERED: PIPERACILLIN/TAZOBACTAM 3.375 GM in DEXTROSE 5% 100 ML IV SCH (09:30)
[2018-09-11] MEDS ORDERED: PIPERACILLIN/TAZOBACTAM 4.5 GM in DEXTROSE 5% 100 ML IV ONE (11:00)
[2018-09-11] MEDS: ALBUT/IPRATROP 3MG/0.5MG NEB 3 ML VIAL INH PRN ×2 (11:07→18:51)
[2018-09-11] MEDS ORDERED: Nursing to Pharmacy Communication ONE ×2 (11:53→16:23)
--- NOTE | 2018-09-11 13:03 | Cardiology Progress Note ---
Date of Service September 11, 2018 Assessment & Plan (1) Pericardial effusion: She underwent pericardial window on 09/09/18, and follow-up echocardiogram yesterday showed no pericardial effusion. (2) Cardiomyopathy: She had reduced LV systolic function and wall motion abnormalities on outpatient echo. Echo yesterday showed low normal LV systolic function with an EF of 50-55%. The distal portions of the ventricle and apex were not well seen, therefore, wall motion abnormalities could not be excluded in these areas, but otherwise there were no obvious wall motion abnormalities. Will continue to monitor and likely repeat an echo at some point in the future as an outpatient, once she has recovered from her acute illness. It is difficult to know her volume status, but she does have shortness of breath as well as hand/pedal edema. Will therefore administer a dose of IV Lasix as she will likely feel better if she is on the pulp drier side. (3) Edema: She has edema but difficult to know her true intravascular volume status. Edema could be secondary to hypoalbuminemia (albumin 2.1) vs CHF. Will administer a dose of IV Lasix for diuresis. (4) Cavitary pneumonia: As per Infectious Disease. (5) Acute pulmonary embolism: Left lower extremity DVT and PE diagnosed in June of 2018; this is likely the reason for her mildy reduced RV systolic function on echo. Anticoagulation as per primary service. (6) Atrial arrhythmia: She was noted to have an atrial arrhythmia last evening on ECG. She was not on telemetry monitoring at the time. Repeat ECG showed sinus rhythm, and she has maintained sinus rhythm since being back on telemetry. Recommend continuing to monitor on telemetry during admission, and she could perhaps undergo a monitor in the outpatient setting for further evaluation. Would not make any medication adjustments at this time. Patient discussed with Dr. Rivas. Supervising Physician Co-Signing Physician Notes Patient seen and examined on 09/11/2018. Her breathing has improved but is not yet back to baseline. She feels much better than she did last night. She was short of breath acutely. She notes improved breathing after diuretic therapy this morning. She has diuresed a net negative approximately 2 L thus far. She denies angina. She did have an episode of tachy arrhythmia overnight. When reviewing ECG, it appears to be atrial fibrillation with rapid ventricular response. It was reportedly short- lived that she was not on telemetry at that time. She was then in sinus rhythm on repeat ECG. ECGs were reviewed. Exam notable for: Neck: Thick neck Cardiac: Regular with ectopy. No murmur. Lungs: Decreased breath sounds At the right base, otherwise clear Extremities: 1+ bilateral lower extremity edema. No cyanosis ASSESSMENT/PLAN: 1. Paroxysmal atrial fibrillation: Atrial arrhythmia appears to be atrial fibrillation but there was artifact on ECG. There is no obvious P-wave. This could be postoperative atrial fibrillation. She is already on anticoagulation therapy. Now that her blood pressure has improved, consider low-dose beta- beckie. Will start low-dose metoprolol tomorrow morning. 2. pericardial effusion: She is status post pericardial window on 09/09/2018. 3. Edema: Edema could be secondary to hypoalbuminemia. It is difficult to know her intravascular volume but her breathing has improved with diuresis today. Monitor renal function and electrolytes. Consider another dose of intravenous Lasix tomorrow, if indicated. 4. Cardiomyopathy: LV systolic function appears improved. Follow-up as an outpatient. 5. Disposition: I will be away from the hospital for the next 2 days. Please call on-call supervisor grading, Dr. Longo, for questions or concerns. Subjective Patient states that she was moved up to the 3rd floor yesterday, but she became acutely short of breath last night. She was therefore moved down to the 2nd floor. She states that she has been given some breathing treatments with improvement, but she continues to feel mildly short of breath currently. She also notes swelling of her hands. She denies chest pain or palpitations. She denies syncope or presyncope. Physical Exam Vital Signs (Past 24 Hours): Last Vital Signs Temp 36.5 C 09/11/18 10:58 Pulse 86 09/11/18 11:08 Resp 18 09/11/18 11:08 BP 109/57 L 09/11/18 10:58 Pulse Ox 97 09/11/18 11:08 Constitutional: Alert, oriented, in no acute distress HEENT: Head is atraumatic and normocephalic. EOMs intact. Sclera anicteric. Face is symmetric. No perioral cyanosis. Mucous membranes moist. Neck: Supple, no appreciable JVD Pulmonary: Normal respiratory effort, bilateral wheezing Cardiac: Regular rate and rhythm, normal S1 and S2, no gallops, no rubs, no murmurs Extremities: 1+ lower extremity edema bilaterally and 1+ edema of the hands. No clubbing or cyanosis. Pulses intact Abdomen: Normal bowel sounds, soft, non-tender, no abdominal mass palpated Skin: Normal skin color, turgor, and pigmentation, no rash, no skin lesions Neurological: Oriented to person, place, and time
[2018-09-11] MEDS ORDERED: FUROSEMIDE 20 MG in SYRINGE 0 ML IV ONE (14:00)
[2018-09-11] MEDS: MAGNESIUM OXIDE 400 MG TAB PO SCH ×2 (14:23→21:51)
[2018-09-11] MEDS: PIPERACILLIN/TAZOBACTAM 4.5 GM in DEXTROSE 5% 100 ML IV SCH ×2 (16:03→23:52)
[2018-09-11] MEDS ORDERED: FLUTICASONE/SALMETEROL 250/50 (ADVAIR) 14 PUFF/1 INHALER INH SCH (21:00)
--- NOTE | 2018-09-11 21:42 | Progress Note ---
DATE: 09/11/2018 Ms. Cleary was seen today. She feels better having the chest tube out, but she still states that her breathing "is not what it should be." She has been ambulating, however. She has also been sitting up in the chair. She is on 3 liters with 97% saturation. She has a few rhonchi in her lungs. She has been making very good urine. The pathology on this particular patient was interesting. I went over this with Dr. Julio Cesar Hernandez today. It appears that her pulmonary embolism that she suffered in June has resulted in an infarct that became infected with pseudomonas. I have discussed this with her independent beauty consultant, Dr. Damian Lopez, from [facility]. We are going to continue to follow along, but I think at this point, I was pleased with her x-ray. She will need a CT scan down the road in the future in the next month or so, but I would not do anything different now except continue treating with her antimicrobials.
[2018-09-11] MEDS: GABAPENTIN 100 MG CAP PO SCH (21:52)
--- NOTE | 2018-09-11 22:43 | Hospitalist Progress Note ---
Date of Service September 11, 2018 Assessment & Plan (1) Effusion, pericardium: As noted on ECHO Pt seen by Dr. Peterson in the office Recs for IVF and CT surg c/s Uncertain etiology Lyme is negative Pt is on xarelto for recent dx PE/DVT, will not hold given dx was 06/12/2018. Patient underwent pericardial window on 09-09. Echo shows no signs of pericardial effusion on 09-10; EF 50-55%, RV is akinetic As per thoracic surgery: her P/E likely resulted in a pulmonary infarct which led to a pseudomans infection. Infectious disease has been consulted: Patient requires 21 days worth of antibiotics. Patient has a PICC line. (2) Cardiomyopathy: Ischemic workup cannot be done as patient is ill with cavitations. will continue antibiotic as above. Recommend mildly negative fluid balance. (3) Pneumonia: Noted on CXR Imipenem started in the ED, will continue Appreciate ID input. (4) Left leg DVT: (5) Acute pulmonary embolism: Xarelto (6) Rheumatoid arthritis: continue home meds (7) Hypothyroidism: continue home meds (8) Eosinophilic asthma: Restarted advairm tiotropium, albuterol INH. (9) Fibromyalgia: continue home meds Spent 35 minutes in management of patient. Subjective Patient reports breathing better but she states her breathing has not returned to her baseline. Patient denies fever, chills, nausea, vomiting. Updated . Physical Exam Vital Signs (Past 24 Hours): Last Vital Signs Temp 36.6 C 09/11/18 19:40 Pulse 80 09/11/18 19:40 Resp 18 09/11/18 19:40 BP 123/70 09/11/18 19:40 Pulse Ox 92 09/11/18 19:40 Physical Exam: Constitutional: WD/WN, vitals as above Eyes: normal visual stanton by confrontation and + anicteric sclerae Neck: normal visual inspection and trachea midline Respiratory: normal respiratory effort; no respiratory distress Auscultation: decreased wheezing Cardiovascular: Rate/Rhythm: regular rate and regular rhythm Gastrointestinal (Abdomen): Inspection/Auscultation: abdomen not distended Percussion/Palpation: abdomen soft; abdomen nontender Musculoskeletal: Head/Neck/Chest: normocephalic and head atraumatic b/l 2+ LE edema, peripheral pulses intact Skin: no rashes, warm and dry Neurologic: awake; not confused Speech / Cognition: normal speech Psychiatric: A+Ox3, euthymic affect (1) Pneumonia Laterality: unspecified laterality Lung location: unspecified part of lung Pneumonia type: due to unspecified organism Qualified Code(s): J18.9 - Pneumonia, unspecified organism
--- NOTE | 2018-09-12 02:22 | Progress Note ---
Date of Service September 12, 2018 Approximately 2 am Received a page from the bedside nurse stating that the patient went into A. fib. Apparently the patient was in A. fib briefly earlier this evening, spontaneously converted to normal sinus rhythm, however returned to A. fib with RVR with rates as high as 150s. Saw patient at bedside. She is resting comfortably. She stated that she had no chest pain, shortness of breath, and could not feel her heart going this fast. She had no particular acute concerns. Vitals as below with exception of her heart rate being in the 130's on the butcher or smallgoods maker. +S1S2 irregular irregular tachycardia. CTA (B). EKG noted afib rate 143 without evidence of acute ischemia. Patient is presently in A. fib with RVR on the monitor. Hemodynamic stable otherwise and asymptomatic. - We will start on a Cardizem bolus and drip overnight. - From brief review of the record, patient was scheduled to start metoprolol suad orr morning. If her A. fib is controlled with the Cardizem, could likely stop the Cardizem and give her that metoprolol in the a.m. However, will defer official plan to her day team as well as cardiology. Robert Lobato, PGY2 Overnight call Physical Exam Vital Signs (Past 24 Hours): Last Vital Signs Temp 36.9 C 09/12/18 00:00 Pulse 96 H 09/12/18 00:00 Resp 22 09/12/18 00:00 BP 128/68 09/12/18 00:00 Pulse Ox 91 09/12/18 00:00
[2018-09-12] MEDS: dilTIAZem HCl 5 MG/ML 5 ML VIAL IV STA ×2 (02:24→02:49)
[2018-09-12] MEDS ORDERED: dilTIAZem HCl 125 MG in DEXTROSE 5% 100 ML IV SCH (02:30)
[2018-09-12] MEDS ORDERED: METOPROLOL SUCC 25MG EXT REL TAB PO STA (02:50)
[2018-09-12] MEDS: ACETAMINOPHEN 325 MG TAB PO SCH ×4 (03:09→21:20)
[2018-09-12] MEDS: LEVOTHYROXINE SODIUM 200 MCG TABLET PO SCH (05:55)
[2018-09-12] MEDS: FLUTICASONE/SALMETEROL 250/50 (ADVAIR) 14 PUFF/1 INHALER INH SCH ×2 (08:08→21:19)
[2018-09-12] MEDS: PIPERACILLIN/TAZOBACTAM 4.5 GM in DEXTROSE 5% 100 ML IV SCH ×3 (08:08→23:27)
[2018-09-12] MEDS: MAGNESIUM OXIDE 400 MG TAB PO SCH ×2 (08:09→21:20)
[2018-09-12] MEDS: SERTRALINE HCL 100 MG TABLET PO SCH (08:09)
[2018-09-12] MEDS: CHOLECALCIFEROL 1,000 UNITS TAB PO SCH (08:09)
[2018-09-12] MEDS: FOLIC ACID 1 MG TAB PO SCH (08:09)
[2018-09-12] MEDS: MULTIVITAMIN TAB PO SCH (08:09)
[2018-09-12] MEDS: HYDROXYCHLOROQUINE SULFATE 200 MG TAB PO SCH ×2 (08:09→21:20)
[2018-09-12] MEDS: ATORVASTATIN 10 MG TAB PO SCH (08:09)
[2018-09-12] MEDS: NYSTATIN POWDER 15GM BTL EXT SCH ×2 (08:10→21:21)
[2018-09-12] MEDS ORDERED: METOPROLOL TARTRATE 25 MG TAB PO SCH (09:00)
[2018-09-12 09:07] LABS: Hematocrit (blood only) 28.7 % (37-47); Hemoglobin 9.1 g/dL (12.0-16.0); Mean Corpuscular Hgb Conc 31.7 g/dL (32-36); Mean Corpuscular Volume 96.3 fL (80-100); Mean Platelet Volume 9.3 fL (7.4-10.4); Platelet Count 226 K/uL (130-400); RDW Coefficient of Variation 15.1 % (11.5-14.5); RDW Standard Deviation 53.4 fL (36.4-46.3); Red Blood Count 2.98 M/uL (4.2-5.4); White Blood Count 7.89 K/uL (4.8-10.8)
[2018-09-12] MEDS: DOCUSATE SODIUM 100 MG CAP PO SCH ×2 (09:21→21:19)
[2018-09-12] MEDS: TIOTROPIUM BROMIDE 5 PUFF/90 MCG INH INH SCH ×2 (09:21→21:21)
[2018-09-12 09:28] LABS: BUN Creatinine Ratio 20.6 (10-20); Calcium 8.3 mg/dl (8.5-10.1); Creatinine Clr Calc Pharmacy 113.5 ml/min; Est GFR (African American) 110.7; Est GFR (Non-African American) 95.5; Magnesium 1.7 mg/dl (1.8-2.4); Phosphorus 3.8 mg/dl (2.5-4.9); Potassium 3.7 mmol/L (3.5-5.1)
[2018-09-12] MEDS: RIVAROXABAN 20 MG TAB PO SCH (11:24)
[2018-09-12] MEDS: ALBUT/IPRATROP 3MG/0.5MG NEB 3 ML VIAL INH PRN ×2 (11:46→19:24)
--- NOTE | 2018-09-12 15:07 | Surgery Progress Note ---
Date of Service September 12, 2018 Assessment & Plan (1) Effusion, pericardium: -pt. is s/p RVATS with excision of right lung abscess and pericardial window -lung abscess noted to be pulmonary infarct -cultures have grown Pseudomonas sensitive to selected antibiotics -encourge coughing, deep breathing, and mobilization -ok to resume xarelto Subjective Pt. denies CP. She does not SOB at times. No shakes, or chills. No N/V. Physical Exam Vital Signs (Past 24 Hours): Last Vital Signs Temp 36.8 C 09/12/18 11:53 Pulse 83 09/12/18 11:53 Resp 18 09/12/18 11:53 BP 128/84 09/12/18 11:53 Pulse Ox 97 09/12/18 11:53 Constitutional: no acute distress Respiratory: no respiratory distress and no labored breathing BS are decreased at bases; no wheezing noted
[2018-09-12] MEDS: GABAPENTIN 100 MG CAP PO SCH (21:19)
[2018-09-12] MEDS: METOPROLOL TARTRATE 25 MG TAB PO SCH (21:20)
[2018-09-12] MEDS ORDERED: GABAPENTIN 100 MG CAP PO STA (21:43)
--- NOTE | 2018-09-12 22:37 | Hospitalist Progress Note ---
Date of Service September 12, 2018 Assessment & Plan (1) Effusion, pericardium: As noted on ECHO Pt seen by Dr. Peterson in the office Recs for IVF and CT surg c/s Uncertain etiology Lyme is negative Pt is on xarelto for recent dx PE/DVT, will not hold given dx was 06/12/2018. Patient underwent pericardial window on 09-09. Echo shows no signs of pericardial effusion on 09-10; EF 50-55%, RV is akinetic As per thoracic surgery: her P/E likely resulted in a pulmonary infarct which led to a pseudomans infection. Infectious disease has been consulted: Patient requires 21 days worth of antibiotics. Patient has a PICC line. Patient on zosyn, October 01 will be final day of treatment as previous antibiotics were resistant to the treatment patient was getting initially. had been providing imipenem at home for patient. However due to zosyn, may need either a pump at home. Will need to discuss with pharmacy if patient can have fast infusion or not. And d/w case management in regards to getting an IV pump. (2) Cardiomyopathy: Ischemic workup cannot be done as patient is ill with cavitations. will continue antibiotic as above. Recommend mildly negative fluid balance. (3) Pneumonia: Noted on CXR Imipenem started in the ED, will continue Appreciate ID input. (4) Left leg DVT: (5) Acute pulmonary embolism: Xarelto (6) Rheumatoid arthritis: continue home meds (7) Hypothyroidism: continue home meds (8) Eosinophilic asthma: Restarted advairm tiotropium, albuterol INH. (9) Fibromyalgia: continue home meds Spent 25 minutes in management of patient. Subjective Patient reports breathing much better today. She reports she also has been coughing up brown phlegm. She feels this has been helping her breath. She still does not feel like she is close to baseline. D/W nurse, she has been ambulating well in the room. was interested in possibly having Physical therapy reeval patient to confirm if she can go home for home health. Review of Systems All systems reviewed & are unremarkable except as noted in HPI & below Physical Exam Vital Signs (Past 24 Hours): Last Vital Signs Temp 36.9 C 09/12/18 19:15 Pulse 107 H 09/12/18 21:35 Resp 18 09/12/18 19:24 BP 124/86 09/12/18 21:35 Pulse Ox 94 09/12/18 19:24 Physical Exam: Constitutional: WD/WN, vitals as above Eyes: normal visual stanton by confrontation and + anicteric sclerae Neck: normal visual inspection and trachea midline Respiratory: normal respiratory effort; no respiratory distress Auscultation: mild rhonchi Cardiovascular: Rate/Rhythm: regular rate and regular rhythm Gastrointestinal (Abdomen): Inspection/Auscultation: abdomen not distended Percussion/Palpation: abdomen soft; abdomen nontender Musculoskeletal: Head/Neck/Chest: normocephalic and head atraumatic b/l 2+ LE edema, peripheral pulses intact Skin: no rashes, warm and dry Neurologic: awake; not confused Speech / Cognition: normal speech Psychiatric: A+Ox3, euthymic affect (1) Pneumonia Laterality: unspecified laterality Lung location: unspecified part of lung Pneumonia type: due to unspecified organism Qualified Code(s): J18.9 - Pneumonia, unspecified organism
[2018-09-13] MEDS: ACETAMINOPHEN 325 MG TAB PO SCH ×4 (04:19→21:33)
[2018-09-13] MEDS: LEVOTHYROXINE SODIUM 200 MCG TABLET PO SCH (06:00)
[2018-09-13 06:56] LABS: Creatinine Clr Calc Pharmacy 110.3 ml/min; Est GFR (African American) 116.1; Est GFR (Non-African American) 100.2
--- NOTE | 2018-09-13 07:45 | Surgery Progress Note ---
Date of Service September 13, 2018 Assessment & Plan (1) Effusion, pericardium: -pt. 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 notes fatigue and SOB at times. She has had limited mobility since her hospitalization. Physical Exam Vital Signs (Past 24 Hours): Last Vital Signs Temp 36.7 C 09/13/18 04:29 Pulse 65 09/13/18 04:29 Resp 20 09/13/18 04:29 BP 135/76 09/13/18 04:29 Pulse Ox 94 09/13/18 04:29 Physical Exam: All incisions are C/D/I Constitutional: well developed and well nourished; no acute distress Respiratory: normal respiratory effort; no respiratory distress and no labored breathing BS are decreased at bases Cardiovascular: Rate/Rhythm: regular rate and regular rhythm Skin: normal turgor
[2018-09-13] MEDS: FLUTICASONE/SALMETEROL 250/50 (ADVAIR) 14 PUFF/1 INHALER INH SCH ×2 (08:00→21:33)
[2018-09-13] MEDS: HYDROXYCHLOROQUINE SULFATE 200 MG TAB PO SCH ×2 (08:01→21:33)
[2018-09-13] MEDS: FOLIC ACID 1 MG TAB PO SCH (08:01)
[2018-09-13] MEDS: CHOLECALCIFEROL 1,000 UNITS TAB PO SCH (08:01)
[2018-09-13] MEDS: METOPROLOL TARTRATE 25 MG TAB PO SCH ×2 (08:04→21:35)
[2018-09-13] MEDS: MULTIVITAMIN TAB PO SCH (08:05)
[2018-09-13] MEDS: SERTRALINE HCL 100 MG TABLET PO SCH (08:05)
[2018-09-13] MEDS: MAGNESIUM OXIDE 400 MG TAB PO SCH ×2 (08:05→21:34)
[2018-09-13] MEDS: ATORVASTATIN 10 MG TAB PO SCH (08:06)
[2018-09-13] MEDS: DOCUSATE SODIUM 100 MG CAP PO SCH ×2 (08:06→21:35)
[2018-09-13] MEDS: TIOTROPIUM BROMIDE 5 PUFF/90 MCG INH INH SCH ×2 (08:07→21:35)
[2018-09-13] MEDS: NYSTATIN POWDER 15GM BTL EXT SCH ×2 (08:08→21:35)
[2018-09-13] MEDS: PIPERACILLIN/TAZOBACTAM 4.5 GM in DEXTROSE 5% 100 ML IV SCH ×3 (08:09→16:29)
[2018-09-13] MEDS: ALBUT/IPRATROP 3MG/0.5MG NEB 3 ML VIAL INH PRN ×2 (08:09→19:21)
--- NOTE | 2018-09-13 15:26 | Hospitalist Progress Note ---
Date of Service September 13, 2018 Assessment & Plan (1) Effusion, pericardium: As noted on ECHO Patient underwent pericardial window on 09-09 repeat echo shows no signs of pericardial effusion on 09-10; EF 50-55%, RV is akinetic As per thoracic surgery: her P/E likely resulted in a pulmonary infarct which led to a pseudomonas infection. Infectious disease has been consulted: Patient requires 21 days worth of antibiotics. Patient has a PICC line. Patient on zosyn, October 01 will be final day of treatment as previous antibiotics were resistant to the treatment patient was getting initially. had been providing imipenem at home for patient. However due to zosyn, may need either a pump at home. Will need to discuss with pharmacy if patient can have fast infusion or not. And d/w case management in regards to getting an IV pump. discussed possibly going to rehab with patient, she refuses to consider (2) Cardiomyopathy: Ischemic workup cannot be done as patient is ill with cavitations. will continue antibiotic as above. Recommend mildly negative fluid balance. (3) Pseudomonas pneumonia: Noted on CXR Imipenem started in the ED, will continue Appreciate ID input. (4) Pneumonia: (5) Left leg DVT: continue on Xarelto (6) Acute pulmonary embolism: Xarelto, this was diagnosed in June 2018 was considered unprovoked caused pulmonary infarct (7) Rheumatoid arthritis: continue home meds (8) Hypothyroidism: continue home meds (9) Eosinophilic asthma: Restarted advair tiotropium, albuterol INH. no wheezing on exam, no distress follows with [employer] [facility] in [place] (10) Fibromyalgia: continue home meds will discuss plans for home nursing tomorrow with CM will continue to assess with PT/OT Subjective visited with patient shortly after she ambulated in the hallway she made it about 30 feet and had to turn around she felt very weak and very short of breath at rest she says her breathing is fine, cough is minimal no chest pain appetite is intact discussed possibility of her needing rehab, she refuses to consider it, says she will go home with her reviewed labs reviewed chart Review of Systems All systems reviewed & are unremarkable except as noted in HPI & below Constitutional: + fatigue and + weakness Respiratory: + cough and + dyspnea on exertion Cardiovascular: no chest pain and no edema Physical Exam Vital Signs (Past 24 Hours): Last Vital Signs Temp 36.8 C 04/14/19 11:52 Pulse 63 09/13/18 11:52 Resp 18 09/13/18 11:52 BP 123/75 09/13/18 11:52 Pulse Ox 98 09/13/18 11:52 Constitutional: WD/WN, vitals as above Eyes: PERRL, conjunctivae normal, anicteric sclerae ENMT: external ear and nose normal, oropharynx normal Neck: trachea midline, no thyromegaly Respiratory: normal respiratory effort and + cough; no respiratory distress Auscultation: + diminished lung sounds (bases); no crackles, no rhonchi and no wheezes Cardiovascular: RRR, no murmur, no edema Gastrointestinal (Abdomen): normal bowel sounds, soft, nontender, no hepatosplenomegaly Musculoskeletal: no cyanosis or clubbing, extremities motor strength 5/5 Skin: no rashes, warm and dry Neurologic: patellar DTR's 2+ bilat, sensation intact and PERRL, EOMI, accommodation nl, no face palsy, no dysarthria Psychiatric: A+Ox3, euthymic affect Lymphatic: no cervical or axillary lymphadenopathy Results & Data Laboratory Results Laboratory Results - last 24 hr 09/13/18 05:56 Creatinine 0.51 L Est Cr Clr Drug Dosing 110.3 Est GFR ( Amer) 116.1 Est GFR (Non-Af Amer) 100.2 Medications Administered Current Inpatient Medications Acetaminophen (Tylenol) 650 mg PO Q6H [facility] Stop: 10/10/18 08:59 Last Admin: 09/13/18 08:02 Dose: 650 mg Documented by: Albuterol (Ventolin Hfa) 2 puffs INH QID PRN PRN Reason: sob Albuterol (Duoneb) 3 ml INH Q6H PRN PRN Reason: sob Stop: 10/08/18 20:25 Last Admin: 09/13/18 08:09 Dose: 3 ml Documented by: Atorvastatin Calcium (Lipitor) 10 mg PO QAM [facility] Stop: 10/09/18 08:59 Last Admin: 09/13/18 08:06 Dose: 10 mg Documented by: Docusate Sodium (Colace) 100 mg PO BID [facility] Stop: 10/09/18 20:59 Last Admin: 09/13/18 08:06 Dose: 100 mg Documented by: Fexofenadine HCl/Pseudoephedrine (Kiesha-D 12 Hr) 1 tab PO QAM PRN PRN Reason: ALLERGY SYMPTOMS Fluticasone Propionate (Flonase) 2 sprays NA DAILY PRN PRN Reason: dryness Folic Acid (Folvite) 1 mg PO DAILY [facility] Stop: 10/09/18 08:59 Last Admin: 09/13/18 08:01 Dose: 1 mg Documented by: Gabapentin (Neurontin) 100 mg PO HS [facility] Stop: 10/08/18 20:59 Last Admin: 09/12/18 21:19 Dose: 100 mg Documented by: Guaifenesin/Codeine Phosphate (Robitussin-Ac Sugar Free) 10 ml PO Q6H PRN PRN Reason: cough Stop: 10/08/18 20:25 Heparin Sodium (Beef Lung) (Heparin Sod 10 Unit/Ml Flush) 5 ml FLUSH PRN PRN PRN Reason: Flush Stop: 10/08/18 23:33 Last Admin: 09/13/18 06:00 Dose: 5 ml Documented by: Hydroxychloroquine Sulfate (Plaquenil) 200 mg PO BID [facility] Stop: 10/08/18 20:59 Last Admin: 09/13/18 08:01 Dose: 200 mg Documented by: Sodium Chloride (Nss) 250 mls @ 15 mls/hr IV .[id number] PRN PRN Reason: For Transfusion Stop: 10/09/18 08:54 Piperacillin Sod/Tazobactam (Sod 4.5 gm/ Dextrose) 120 mls @ 30 mls/hr IV Q8H [facility]; Protocol Stop: 10/02/18 15:59 Last Admin: 09/13/18 09:20 Dose: 30 mls/hr Documented by: Diltiazem HCl 125 mg/ Dextrose 125 mls @ 5 mls/hr IV .Q24H [facility]; Protocol Stop: 10/12/18 02:29 Last Admin: 09/12/18 02:49 Dose: Not Given Documented by: Levothyroxine Sodium (Synthroid) 200 mcg PO SuSa@0630 [facility] Stop: 10/12/18 06:29 Last Admin: 09/13/18 06:00 Dose: 200 mcg Documented by: Levothyroxine Sodium (Synthroid) 225 mcg PO MoTuWeThFr@0630 [facility] Stop: 10/09/18 06:29 Last Admin: 09/11/18 05:46 Dose: 225 mcg Documented by: Magnesium Hydroxide (Milk Of Magnesia) 30 ml PO Q12H PRN PRN Reason: Constipation Stop: 10/08/18 20:25 Magnesium Oxide (Mag-Ox) 400 mg PO BID [facility] Stop: 10/11/18 12:44 Last Admin: 09/13/18 08:05 Dose: 400 mg Documented by: Metoprolol Tartrate (Lopressor) 25 mg PO BID [facility] Stop: 10/12/18 20:59 Last Admin: 09/13/18 08:04 Dose: 25 mg Documented by: Miscellaneous Information (Consult) 1 ea N/A UD PRN PRN Reason: Consult Stop: 10/11/18 09:18 Morphine Sulfate (Morphine Sulfate) 1 - 2 mg IV Q1H PRN PRN Reason: Pain Stop: 09/23/18 14:45 Multivitamins (Multivitamin Tab) 1 tab PO DAILY [facility] Stop: 10/09/18 08:59 Last Admin: 09/13/18 08:05 Dose: 1 tab Documented by: Nystatin (Mycostatin) 1 appln EXT Q12 [facility] Stop: 10/10/18 08:59 Last Admin: 09/13/18 08:08 Dose: 1 appln Documented by: Ondansetron HCl (Zofran) 4 mg IV Q6H PRN PRN Reason: Nausea Stop: 10/08/18 20:25 Oxycodone HCl (Roxicodone Immediate Rel) 5 mg PO Q6H PRN PRN Reason: Pain Stop: 09/23/18 14:45 Last Admin: 09/10/18 13:42 Dose: 5 mg Documented by: Rivaroxaban (Xarelto) 20 mg PO QDD [facility] Stop: 10/12/18 09:26 Last Admin: 09/12/18 11:24 Dose: 20 mg Documented by: Fluticasone/Salmeterol (Advair Diskus 250/50) 1 puffs INH BID [facility] Stop: 10/11/18 20:59 Last Admin: 09/13/18 08:00 Dose: 1 puffs Documented by: Sertraline HCl (Zoloft) 150 mg PO DAILY [facility] Stop: 10/09/18 08:59 Last Admin: 09/13/18 08:05 Dose: 150 mg Documented by: Tiotropium [place] (Spiriva) 1 puffs INH BID [facility] Stop: 10/08/18 22:14 Last Admin: 09/13/18 08:07 Dose: 1 puffs Documented by: Vitamin D (Vitamin D3) 2,000 units PO DAILY [facility] Stop: 10/09/18 08:59 Last Admin: 09/13/18 08:01 Dose: 2,000 units Documented by: (1) Pneumonia Laterality: unspecified laterality Lung location: unspecified part of lung Pneumonia type: due to unspecified organism Qualified Code(s): J18.9 - Pneumonia, unspecified organism
[2018-09-13] MEDS: RIVAROXABAN 20 MG TAB PO SCH (16:28)
[2018-09-13] MEDS ORDERED: GABAPENTIN 100 MG CAP PO SCH (21:00)
[2018-09-13] MEDS: OXYCODONE HCL IR 5 MG TAB (IMMEDIATE RELEASE) PO PRN (21:32)
[2018-09-14] MEDS: PIPERACILLIN/TAZOBACTAM 4.5 GM in DEXTROSE 5% 100 ML IV SCH ×3 (00:20→16:01)
[2018-09-14] MEDS: ACETAMINOPHEN 325 MG TAB PO SCH ×3 (04:39→16:01)
[2018-09-14] MEDS: LEVOTHYROXINE SODIUM 75 MCG TABLET PO SCH (06:34)
[2018-09-14 06:58] LABS: Basophils # (auto) 0.01 K/uL (0-0.2); Basophils % (auto) 0.2 %; Eosinophils # (auto) 0.07 K/uL (0-0.5); Eosinophils % (auto) 1.3 %; Hematocrit (blood only) 27.4 % (37-47); Hemoglobin 8.8 g/dL (12.0-16.0); Immature Granulocytes # (auto) 0.01 K/uL (0.00-0.02); Immature Granulocytes % (auto) 0.2 %; Lymphocytes # (auto) 1.07 K/uL (1.2-3.4); Lymphocytes % (auto) 19.4 %; Mean Corpuscular Hgb Conc 32.1 g/dL (32-36); Mean Corpuscular Volume 95.5 fL (80-100); Mean Platelet Volume 9.7 fL (7.4-10.4); Monocytes # (auto) 0.71 K/uL (0.11-0.59); Monocytes % (auto) 12.9 %; Neutrophils # (auto) 3.65 K/uL (1.4-6.5); Platelet Count 223 K/uL (130-400); RDW Coefficient of Variation 14.8 % (11.5-14.5); RDW Standard Deviation 51.7 fL (36.4-46.3); Red Blood Count 2.87 M/uL (4.2-5.4); White Blood Count 5.52 K/uL (4.8-10.8)
[2018-09-14 07:15] LABS: BUN Creatinine Ratio 24.2 (10-20); Calcium 8.2 mg/dl (8.5-10.1); Creatinine Clr Calc Pharmacy 110.1 ml/min; Est GFR (African American) 116.1; Est GFR (Non-African American) 100.2; Potassium 3.7 mmol/L (3.5-5.1)
[2018-09-14] MEDS: FLUTICASONE/SALMETEROL 250/50 (ADVAIR) 14 PUFF/1 INHALER INH SCH (07:57)
[2018-09-14] MEDS: ATORVASTATIN 10 MG TAB PO SCH (07:57)
[2018-09-14] MEDS: CHOLECALCIFEROL 1,000 UNITS TAB PO SCH (07:58)
[2018-09-14] MEDS: TIOTROPIUM BROMIDE 5 PUFF/90 MCG INH INH SCH (07:58)
[2018-09-14] MEDS: FOLIC ACID 1 MG TAB PO SCH (07:59)
[2018-09-14] MEDS: HYDROXYCHLOROQUINE SULFATE 200 MG TAB PO SCH (07:59)
[2018-09-14] MEDS: METOPROLOL TARTRATE 25 MG TAB PO SCH (07:59)
[2018-09-14] MEDS: MAGNESIUM OXIDE 400 MG TAB PO SCH (07:59)
[2018-09-14] MEDS: MULTIVITAMIN TAB PO SCH (07:59)
[2018-09-14] MEDS: SERTRALINE HCL 100 MG TABLET PO SCH (07:59)
[2018-09-14] MEDS: DOCUSATE SODIUM 100 MG CAP PO SCH (08:00)
[2018-09-14] MEDS: NYSTATIN POWDER 15GM BTL EXT SCH (08:00)
--- NOTE | 2018-09-14 10:56 | Progress Note ---
DATE: 09/14/2018 Ms. Cleary was seen today. She "wants to go home." She is still on oxygen. Her sats are very good and she still has some rhonchi and some mild wheezing, but is moving air better and all of her incisions are clean. I would like to take a chest x-ray on her and then we will make a decision about followup. My feeling is she can probably be discharged. She is going to require antibiotics. We will see her back in the office in 2 weeks with an x-ray when she leaves. I believe we can sign off.
--- NOTE | 2018-09-14 15:25 | Discharge Summary ---
Date of Service September 14, 2018 Admission HPI Per Admitting Provider 67 y/o F c/o worsening CRESPO. This has been an ongoing issue for the last several days and getting worse. She also noted LE swelling on Friday night which was worse on Friday. Pt was seen in the ED on Friday and found to have a pericardial effusion. It was suggested that she be admitted at that time, however pt stated she preferred to f/u as outpt for this. Pt was seen by cardiology today and had an ECHO which showed worsening effusion. No prior hx of pericardial effusion. No chest pain. Not SOB at rest when sitting, but has SOB with lying flat. Has been tolerating PO without issue. Pt denies fever, abd pain, n/v/c/d, LE pain. Pt was a recent admission to [facility] in June for DVT/PE. She is currently on xarelto and compliant with this. CTA on 09/06 was neg for PE. Admission Exam Per Admitting Provider Constitutional: WD/WN, vitals as above Eyes: normal visual [place] by confrontation and + anicteric sclerae Neck: normal visual inspection and trachea midline Respiratory: normal respiratory effort; no respiratory distress Auscultation: + crackles; no wheezes Cardiovascular: Rate/Rhythm: regular rate and regular rhythm Gastrointestinal (Abdomen): Inspection/Auscultation: abdomen not distended Percussion/Palpation: abdomen soft; abdomen nontender Musculoskeletal: Head/Neck/Chest: normocephalic and head atraumatic b/l 2+ LE edema, peripheral pulses intact Skin: no rashes, warm and dry Neurologic: awake; not confused Speech / Cognition: normal speech Psychiatric: A+Ox3, euthymic affect Principal Diagnosis Pericardial effusion Discharge Exam Constitutional WD/WN, vitals as above Eyes PERRL, conjunctivae normal, anicteric sclerae ENMT external ear and nose normal, oropharynx normal Neck trachea midline, no thyromegaly Respiratory normal respiratory effort and + cough; no respiratory distress Auscultation: + diminished lung sounds (bases); no crackles, no rhonchi and no wheezes Cardiovascular RRR, no murmur, no edema Gastrointestinal (Abdomen) normal bowel sounds, soft, nontender, no hepatosplenomegaly Musculoskeletal no cyanosis or clubbing, extremities motor strength 5/5 Skin no rashes, warm and dry Neurologic patellar DTR's 2+ bilat, sensation intact and PERRL, EOMI, accommodation nl, no face palsy, no dysarthria Psychiatric A+Ox3, euthymic affect Lymphatic no cervical or axillary lymphadenopathy Discharge Data Allergies Allergy/AdvReac Type Severity Reaction Status Date / Time pollen extracts Allergy Intermediate ASTHMA Verified 09/08/18 16:42 ATTACKS salsalate Allergy Unknown UNKNOWN Verified 09/08/18 16:42 blue dye AdvReac Intermediate SEVERE Verified 09/08/18 16:42 VOMITING doxycycline AdvReac Intermediate VOMITING, Verified 09/08/18 16:42 IMBALANCE duloxetine AdvReac Intermediate SEVERE Verified 09/08/18 16:42 VOMITING leflunomide AdvReac Intermediate SEVERE Verified 09/08/18 16:42 VOMITING tetracycline AdvReac Intermediate CONFUSION,LIGHT Verified 09/08/18 16:42 HEADED, DIZZINESS cefuroxime AdvReac Mild UNCONTROLLED Verified 09/08/18 16:42 DIARRHEA celecoxib AdvReac Mild VOMITING Verified 09/08/18 16:42 clarithromycin AdvReac Mild VOMITING Verified 09/08/18 16:42 pregabalin AdvReac Mild HEADACHE, Verified 09/08/18 16:42 VOMITING Consultations 09/08/18 18:21 ED Decision to Admit Stat 09/08/18 20:26 Consult Cardiology Routine Consult Case Management - Discharge Planning Routine Consult Thoracic Surgery Stat 09/08/18 21:09 Consult Infectious Diseases Routine 09/09/18 14:46 Consult Pad Machine Offbearer Routine Procedures Performed Operation Date: 09/09/18 08:50 Actual Procedures p Right Thoracoscopy with Pericardial Window, Right Decortication(Right) - Modesto Cedeno MD, FACS Hospital Course (1) Acute respiratory failure with hypoxia: due to pneumonia and s/p VATS with resection of infarcted lung still requiring oxygen d/c to home on oxygen, hopefully with time she will be weaned off (2) Effusion, pericardium: As noted on ECHO Patient underwent pericardial window on 09-09 repeat echo shows no signs of pericardial effusion on 09-10; EF 50-55%, RV is akinetic patient will follow up with Dr. Peterson as well as Dr. Cedeno (3) Cardiomyopathy: Ischemic workup cannot be done as patient is ill with cavitations. will continue antibiotic as above. Recommend mildly negative fluid balance. continue on metoprolol that was started while inpatient (4) Pseudomonas pneumonia: As per thoracic surgery: her P/E likely resulted in a pulmonary infarct which led to a pseudomonas infection. Infectious disease has been consulted: Patient requires 21 days worth of antibiotics. Patient has a PICC line. Patient on zosyn, October 01 will be final day of treatment as previous antibiotics were resistant to the treatment patient was getting initially. d/c to home on Zosyn 4.5gm IV q8 x 16 more days no fever, WBC normal, minimal cough at time of discharge follow up with ID in a few weeks (5) Left leg DVT: continue on Xarelto (6) Acute pulmonary embolism: Xarelto, this was diagnosed in June 2018 was considered unprovoked caused pulmonary infarct (7) Rheumatoid arthritis: continue home meds (8) Hypothyroidism: continue home meds (9) Eosinophilic asthma: Restarted advair tiotropium, albuterol INH. no wheezing on exam, no distress follows with substance abuse specialist in [place] (10) Fibromyalgia: continue home meds Total Time Total Time Spent Total Time Spent (In Minutes): 40 minutes Total Time Includes: Examination of the Patient, Discharge Planning, Medication Reconciliation, Communication With Other Providers (coordinating plan with casework specialist) and Other (updated at the bedside) Discharge Plan Discharge Items Patient Disposition: Home - Home Health Services Reason For Visit: PERICARDIAL EFFUSION Discharge Diagnosis: Pericardial effusion, status post pericardial window Right lower lobe pulmonary infarct Right lower lobe pseudomonas pneumonia Condition: Good Discharge Goals: Improve disease control and Improve function Activity: Per 'Additional Instructions' section Lifting: Gradually increase as tolerated Bathing: Keep incision dry Exercise/Sports: Gradually increase as tolerated Non-emergency contact: Primary Care Provider and Surgeon Call non-emergency contact if: you have any medication questions, your symptoms worsen, your pain is not controlled and you have a fever Follow-up/Referrals: Scottie Noyola MD [Primary Care Provider] - Diet: Regular Addtl Provider Instructions: Medications: - ZOSYN: IV antibiotic, take every 8 hours for the next 16 days, last day would be 10/01/18 - OXYCODONE: take every 6 hours as needed for pain - METOPROLOL: started for cardiomyopathy, take 25mg twice a day, your heart rate and blood pressure have been well controlled - ATORVASTATIN: started for cholesterol, take daily - NYSTATIN: continue to use powder twice a day under skin folds Right lower lobe pulmonary infarct with associated pseudomonas infection/pneumonia treated resection of infarct infectious disease recommends 21 total days of Zosyn IV for infection, last day will be October 01, 2018 continue on oxygen as prescribed continue to stay active, hopeful that with time you will require less oxygen as lungs expand follow up with Dr. Lutz, infectious disease, in 2 weeks Pericardial effusion: window placed by thoracic surgery follow up with Dr. Cedeno in 2 weeks, his office should contact you Cardiomyopathy: recommend follow up with Dr. Peterson in the office in 2-3 weeks continue on metoprolol volume status is acceptable currently, no signs of acute heart failure Prescriptions: New oxycodone 5 mg Tablet 5 mg PO Q6H PRN (Reason: pain) 14 Days Qty: 30 RF: 0 piperacillin-tazobactam [Zosyn] 4.5 gram recon soln 4.5 gm IV Q8H 16 Days RF: 0 atorvastatin 10 mg Tablet 10 mg PO QAM 30 Days Qty: 30 RF: 1 nystatin [Nystop] 100,000 unit/gram Powder 1 applic EXT Q12 14 Days Qty: 1 RF: 3 metoprolol tartrate 25 mg Tablet 25 mg PO BID 30 Days Qty: 60 RF: 1 Continued fluticasone propion-salmeterol [Advair Diskus] 250-50 mcg/dose Blister With Device 1 inh INHALATION BID RF: 0 albuterol sulfate [ProAir HFA] 90 mcg/actuation Hfa Aerosol Inhaler 2 puff INHALATION QID PRN (Reason: sob) RF: 0 Qvar RediHaler 80 mcg/actuation Hfa Aerosol Breath Activated 2 puff INHALATION BID RF: 0 olopatadine [Patanol] 0.1 % Drops 1 - 2 drp OPHTHALMIC (EYE) DIRECTED RF: 0 mometasone [Nasonex] 50 mcg/actuation [place],Non-Aerosol 2 spray INTRANASAL DAILY PRN (Reason: dryness) RF: 0 Kiesha-D 24 Hour 180-240 mg Tablet Extended Release 24 Hr 1 tab PO QAM PRN (Reason: Allergy Symptoms) RF: 0 ipratropium-albuterol 0.5 mg-3 mg(2.5 mg base)/3 mL Solution For Nebulization 3 ml INHALATION DIRECTED PRN (Reason: sob) RF: 0 sertraline 100 mg Tablet 150 mg PO DAILY RF: 0 tramadol 100 mg Tablet Extended Release 24 Hr 100 mg PO QID PRN (Reason: Pain) RF: 0 folic acid 1 mg Tablet 1 mg PO DAILY RF: 0 hydroxychloroquine 200 mg Tablet 200 mg PO BID RF: 0 Savella 50 mg Tablet 50 mg PO DAILY RF: 0 gabapentin 100 mg Capsule 100 mg PO HS RF: 0 multivitamin Tablet 1 tab PO DAILY RF: 0 cholecalciferol (vitamin D3) [Vitamin D3] 2,000 unit Tablet 2,000 unit PO DAILY RF: 0 codeine-guaifenesin [Cheratussin AC] 10-100 mg/5 mL Liquid 10 ml PO Q6H PRN (Reason: cough) Qty: 120 RF: 0 Xarelto 20 mg tablet 20 mg PO DAILY Qty: 30 RF: 3 tramadol [Ultram] 50 mg tablet 50 mg PO Q4H PRN (Reason: pain) Qty: 60 RF: 0 levothyroxine [Synthroid] 75 mcg Tablet 225 mcg PO MOTUWETHFR@0630 RF: 0 levothyroxine [Synthroid] 200 mcg Tablet 200 mcg PO SUSA@0630 RF: 0 Stand-Alone Forms: [facility] Orders: Discharge Order (Routine); Ordered 09/14/18 Ordered By: Misha Valladares Admission Data Admit Date/Time: 09/08/18 19:17 Attending Provider: Misha Valladares Admit Provider: Aleida Tuttle Primary Care Provider: Scottie Noyola Other Providers: Aleida Tuttle ; Modesto Cedeno ; Vinnie Peterson Jr ; Tapan Ramírez ; Linden Vang ; Home,Nursing Agency Service: Telemetry
[2018-09-14 15:46] VITALS: BP 124/81; TEMP 98.2; O2SAT 91
[2018-09-14] MEDS: RIVAROXABAN 20 MG TAB PO SCH (16:01)
[2018-09-14 18:51] VITALS: PULSE 107
[2018-09-14 21:03] LABS: Cdiff Antigen Positive; Cdiff Toxin A+B Negative Cdiff Toxin (Negative)
== END 2018-09-14 19:13 | disposition home health service (06) | DRG 270 ==
LOC: ED 15:37 → 2E 19:17 → SUATTDRO 19:17 → 2E 19:54 → 1E 09-09 12:38 → 3W 09-10 08:07 → 2E 09-11 02:44
DX: J15.1 Pneumonia due to Pseudomonas; Z16.29 Resistance to other single specified antibiotic; Z79.899 Other long term (current) drug therapy; M79.7 Fibromyalgia; J98.4 Other disorders of lung; Z91.048 Other nonmedicinal substance allergy status; E87.6 Hypokalemia; Z88.8 Allergy status to other drugs, medicaments and biological substances; E66.9 Obesity, unspecified; Z86.718 Personal history of other venous thrombosis and embolism; I26.90 Septic pulmonary embolism without acute cor pulmonale; I48.0 Paroxysmal atrial fibrillation; I47.1 Supraventricular tachycardia; L40.50 Arthropathic psoriasis, unspecified; J86.9 Pyothorax without fistula; B96.5 Pseudomonas (aeruginosa) (mallei) (pseudomallei) as the cause of diseases classified elsewhere; I31.8 Other specified diseases of pericardium; I10 Essential (primary) hypertension; Z82.49 Family history of ischemic heart disease and other diseases of the circulatory system; J96.01 Acute respiratory failure with hypoxia; I31.3 Pericardial effusion (noninflammatory); Z88.1 Allergy status to other antibiotic agents; J82 Pulmonary eosinophilia, not elsewhere classified; I42.9 Cardiomyopathy, unspecified; Z86.711 Personal history of pulmonary embolism; I95.9 Hypotension, unspecified; Z51.81 Encounter for therapeutic drug level monitoring; E03.9 Hypothyroidism, unspecified; Z45.2 Encounter for adjustment and management of vascular access device; B95.2 Enterococcus as the cause of diseases classified elsewhere; Z68.37 Body mass index [BMI] 37.0-37.9, adult; N39.0 Urinary tract infection, site not specified; Z79.01 Long term (current) use of anticoagulants; M06.9 Rheumatoid arthritis, unspecified

== ENCOUNTER 2018-09-17 10:35 | Inpatient (IN) ==
[2018-09-17] MEDS ORDERED: ALBUT/IPRATROP 3MG/0.5MG NEB 3 ML VIAL ONE (10:49)
--- NOTE | 2018-09-17 11:05 | Emergency Department Note ---
Entered by Elzbieta Butler acting as a scribe for Dane Shelton DO History of Present Illness General Chief complaint: Shortness of Breath/Dyspnea Stated complaint: sob Source: patient and EMS History of Present Illness Onset (ago): day(s) 2 Location: chest Pain Consistency: + other (persistent) Quality: + other (shortness of breath) Associated symptoms: no chest pain The patient is a 68 year old female that is presenting to the Emergency Room with complaints of persistent shortness of breath that has worsened over the past two days. The patient reports that she had surgery 8 days ago for a pericardial window and a pneumonectomy and was discharged 2 days ago. She states that she was fine when she returned home but then was unable to stand on her own. She notes that the surgical incisions were all on her back with no incisions on her chest. The patients O2 Sat was at 57% on room air upon arrival. The EMS notes that it was in the 70% range when they arrived at her [facility]. The patient states that she still takes Xarelto but did not take any of her medications except Synthroid this morning. She denies having anything to eat. She states she does not have any chest pain. Home Medications Home Medications Medication Instructions Recorded Confirmed Type Kiesha-D 24 Hour 1 tab PO QAM PRN 06/09/18 09/17/18 History albuterol sulfate [ProAir HFA] 2 puff INHALATION QID PRN 06/09/18 09/17/18 Histo ry cholecalciferol (vitamin D3) 2,000 unit PO DAILY 06/09/18 09/17/18 History [Vitamin D3] fluticasone propion-salmeterol 1 inh INHALATION BID 06/09/18 09/17/18 History [Advair Diskus] folic acid 1 mg PO DAILY 06/09/18 09/17/18 History gabapentin 100 mg PO HS PRN 06/09/18 09/17/18 History hydroxychloroquine 200 mg PO BID 06/09/18 09/17/18 History ipratropium-albuterol 3 ml INHALATION DIRECTED PRN 06/09/18 09/17/18 History mometasone [Nasonex] 2 spray INTRANASAL DAILY PRN 06/09/18 09/17/18 History multivitamin 1 tab PO DAILY 06/09/18 09/17/18 History sertraline 150 mg PO DAILY 06/09/18 09/17/18 History tramadol 50 - 100 mg PO QID 06/09/18 09/17/18 History Xarelto 20 mg PO DAILY #30 tab 06/14/18 09/17/18 Rx levothyroxine [Synthroid] 200 mcg PO SUSA@0630 09/08/18 09/17/18 History levothyroxine [Synthroid] 225 mcg PO MOTUWETHFR@0630 09/08/18 09/17/18 History piperacillin-tazobactam [Zosyn] 4.5 gm IV Q8H 16 Days ea 09/14/18 09/17/18 Rx acetaminophen [Tylenol] 325 mg PO QID PRN 09/17/18 09/17/18 History atorvastatin 10 mg PO HS 09/17/18 09/17/18 History ferrous sulfate [iron] 325 mg PO DAILY 09/17/18 09/17/18 History meloxicam 7.5 mg PO DAILY 09/17/18 09/17/18 History Allergies Allergy/AdvReac Type Severity Reaction Status Date / Time pollen extracts Allergy Intermediate ASTHMA Verified 09/17/18 11:43 ATTACKS salsalate Allergy Unknown UNKNOWN Verified 09/17/18 11:43 blue dye AdvReac Intermediate SEVERE Verified 09/17/18 11:43 VOMITING doxycycline AdvReac Intermediate VOMITING, Verified 09/17/18 11:43 IMBALANCE duloxetine AdvReac Intermediate SEVERE Verified 09/17/18 11:43 VOMITING leflunomide AdvReac Intermediate SEVERE Verified 09/17/18 11:43 VOMITING tetracycline AdvReac Intermediate CONFUSION,LIGHT Verified 09/17/18 11:43 HEADED, DIZZINESS cefuroxime AdvReac Mild UNCONTROLLED Verified 09/17/18 11:43 DIARRHEA celecoxib AdvReac Mild VOMITING Verified 09/17/18 11:43 clarithromycin AdvReac Mild VOMITING Verified 09/17/18 11:43 pregabalin AdvReac Mild HEADACHE, Verified 09/17/18 11:43 VOMITING Past Med/Surg History Medical History Asthma DVT (deep venous thrombosis) Fibromyalgia Hypothyroid No chronic problems Obesity Pericardial effusion Pneumonia Pneumonia Pulmonary embolism Rheumatoid arthritis Surgical History History of arthroscopy History of section History of gastric bypass History of herniorrhaphy Family History Grandfather (Maternal) Coronary heart disease [place] Grandfather (Paternal) Coronary heart disease [place] Other No significant family history Social History Preferred Language: Serbian Communication Ability: Effective Beliefs That Will Affect Care: None marital status: Current Living Situation: Spouse Feels Safe at Home: Yes Smoking Status: Never smoker Second Hand Exposure: No Hx Alcohol Use: Yes Hx Substance Use: No Review of Systems See HPI for pertinent positives & negatives. and A total of 10 systems reviewed and were otherwise negative Physical Exam Vital Signs Vital Signs - 24 hr 09/17/18 10:49 09/17/18 10:58 09/17/18 10:59 Temperature 36.8 C Temperature Source Oral Sepsis Recent Fever Within 48 Hours No Sepsis New/Unexplained Change in Mental Status No Sepsis Action Taken by Nursing No Action Required Pulse Rate 62 Pulse Rate [Apical] 58 L Pulse Rate from SpO2 Sensor Respiratory Rate 28 H 24 Respiratory Effort / Characteristics Respiratory Depth Respiratory Pattern Blood Pressure 120/73 Blood Pressure [Left Arm] 158/87 H Blood Pressure Mean 88 Blood Pressure Mean [Left Arm] 110 Pulse Oximetry 68 L 98 98 Oxygen Delivery Method Oxymask Nebulizer Nebulizer Oxygen Flow Rate 0 8 Fraction of Inspired Oxygen 09/17/18 11:01 09/17/18 11:09 09/17/18 11:10 Temperature Temperature Source Sepsis Recent Fever Within 48 Hours Sepsis New/Unexplained Change in Mental Status Sepsis Action Taken by Nursing Pulse Rate 58 L 59 L Pulse Rate [Apical] 59 L Pulse Rate from SpO2 Sensor 59 L Respiratory Rate 22 21 21 Respiratory Effort / Characteristics Spontaneous Spontaneous Respiratory Depth Shallow Respiratory Pattern Regular Blood Pressure 161/98 H Blood Pressure [Left Arm] Blood Pressure Mean 119 Blood Pressure Mean [Left Arm] Pulse Oximetry 98 99 99 Oxygen Delivery Method BiPAP Oxygen Flow Rate Fraction of Inspired Oxygen 50 50 09/17/18 11:15 09/17/18 11:37 09/17/18 12:00 Temperature Temperature Source Sepsis Recent Fever Within 48 Hours Sepsis New/Unexplained Change in Mental Status Sepsis Action Taken by Nursing Pulse Rate 61 59 L Pulse Rate [Apical] Pulse Rate from SpO2 Sensor 59 L 61 59 L Respiratory Rate 21 20 20 Respiratory Effort / Characteristics Respiratory Depth Respiratory Pattern Blood Pressure 161/98 H 131/80 145/82 H Blood Pressure [Left Arm] Blood Pressure Mean 119 97 103 Blood Pressure Mean [Left Arm] Pulse Oximetry 100 96 100 Oxygen Delivery Method Oxygen Flow Rate Fraction of Inspired Oxygen 09/17/18 12:30 09/17/18 13:00 09/17/18 13:30 Temperature Temperature Source Sepsis Recent Fever Within 48 Hours Sepsis New/Unexplained Change in Mental Status Sepsis Action Taken by Nursing Pulse Rate 72 60 60 Pulse Rate [Apical] Pulse Rate from SpO2 Sensor 60 61 60 Respiratory Rate 19 21 18 Respiratory Effort / Characteristics Respiratory Depth Respiratory Pattern Blood Pressure 149/88 H 147/86 H 148/83 H Blood Pressure [Left Arm] Blood Pressure Mean 108 106 104 Blood Pressure Mean [Left Arm] Pulse Oximetry 100 100 98 Oxygen Delivery Method Oxygen Flow Rate Fraction of Inspired Oxygen 09/17/18 14:00 09/17/18 14:20 09/17/18 14:30 Temperature Temperature Source Sepsis Recent Fever Within 48 Hours Sepsis New/Unexplained Change in Mental Status Sepsis Action Taken by Nursing Pulse Rate 59 L 60 60 Pulse Rate [Apical] Pulse Rate from SpO2 Sensor 59 L 63 61 Respiratory Rate 20 20 18 Respiratory Effort / Characteristics Respiratory Depth Respiratory Pattern Blood Pressure 127/75 Blood Pressure [Left Arm] Blood Pressure Mean 92 Blood Pressure Mean [Left Arm] Pulse Oximetry 100 97 99 Oxygen Delivery Method Oxygen Flow Rate Fraction of Inspired Oxygen 09/17/18 14:31 09/17/18 14:40 09/17/18 14:50 Temperature Temperature Source Sepsis Recent Fever Within 48 Hours Sepsis New/Unexplained Change in Mental Status Sepsis Action Taken by Nursing Pulse Rate 61 60 66 Pulse Rate [Apical] Pulse Rate from SpO2 Sensor 61 60 59 L Respiratory Rate 22 20 22 Respiratory Effort / Characteristics Respiratory Depth Respiratory Pattern Blood Pressure 144/93 H Blood Pressure [Left Arm] Blood Pressure Mean 110 Blood Pressure Mean [Left Arm] Pulse Oximetry 98 98 Oxygen Delivery Method Oxygen Flow Rate Fraction of Inspired Oxygen 09/17/18 15:00 09/17/18 15:01 09/17/18 15:10 Temperature Temperature Source Sepsis Recent Fever Within 48 Hours Sepsis New/Unexplained Change in Mental Status Sepsis Action Taken by Nursing Pulse Rate 61 61 62 Pulse Rate [Apical] Pulse Rate from SpO2 Sensor 61 61 62 Respiratory Rate 19 21 19 Respiratory Effort / Characteristics Respiratory Depth Respiratory Pattern Blood Pressure 121/67 Blood Pressure [Left Arm] Blood Pressure Mean 85 Blood Pressure Mean [Left Arm] Pulse Oximetry 96 97 82 L Oxygen Delivery Method Oxygen Flow Rate Fraction of Inspired Oxygen 09/17/18 15:20 09/17/18 15:30 09/17/18 15:40 Temperature Temperature Source Sepsis Recent Fever Within 48 Hours Sepsis New/Unexplained Change in Mental Status Sepsis Action Taken by Nursing Pulse Rate 61 61 61 Pulse Rate [Apical] Pulse Rate from SpO2 Sensor 61 184 H Respiratory Rate 19 20 21 Respiratory Effort / Characteristics Respiratory Depth Respiratory Pattern Blood Pressure 128/73 Blood Pressure [Left Arm] Blood Pressure Mean 91 Blood Pressure Mean [Left Arm] Pulse Oximetry 100 78 L Oxygen Delivery Method Oxygen Flow Rate Fraction of Inspired Oxygen 09/17/18 15:50 Temperature Temperature Source Sepsis Recent Fever Within 48 Hours Sepsis New/Unexplained Change in Mental Status Sepsis Action Taken by Nursing Pulse Rate 61 Pulse Rate [Apical] Pulse Rate from SpO2 Sensor Respiratory Rate 20 Respiratory Effort / Characteristics Respiratory Depth Respiratory Pattern Blood Pressure Blood Pressure [Left Arm] Blood Pressure Mean Blood Pressure Mean [Left Arm] Pulse Oximetry Oxygen Delivery Method Oxygen Flow Rate Fraction of Inspired Oxygen GENERAL: The patient is awake and alert. She is very anxious appearing and appears to be uncomfortable. EYES: The conjunctivae are pale. The pupils are round and reactive. EARS, NOSE, MOUTH AND THROAT: The nose is without any evidence of any deformity. Mucous membranes are moist tongue is midline NECK: The neck is nontender and supple. RESPIRATORY: Diminished breath sounds were noted throughout. There are absent breath sounds at the right base. Faint expiratory wheezing is noted in both upper lung [place]. Significant conversational dyspnea was noted. CARDIOVASCULAR: Regular rate and rhythm noted there no murmurs rubs or gallops normal S1 normal S2 GASTROINTESTINAL: The abdomen is soft. Bowel sounds are present in all quadrants. Abdomen is nontender MUSCULOSKELETAL/EXTREMITIES: There is no evidence of gross deformity full range of motion is noted in the hips and shoulders SKIN: There is ecchymosis noted in the right breast. There are surgical sites noted in the right posterior chest wall. There is no signs of drainage or erythema. Pedal edema was noted bilaterally. Pulses were symmetric in both feet. NEUROLOGIC: Patient is awake alert and oriented x3. Course 1046:The patient was evaluated in room B7. A complete history and physical examination was performed. 1243: I attempted to contact Dr. Modesto Cedeno, cardiothoracic surgeon, to discuss the patient's case but he was unavailable at this time. 1340: I discussed the patient's case with Dr. Valladares [facility] [place], [place], who will evaluate the patient for further management and care. 1345: Upon reevaluation, the patient is resting comfortably. I discussed la boratory and radiographic results with the patient. She verbalized agreement of the treatment plan. The patient will be evaluated for further management and care. Administered Medications Discontinued Medications Albuterol (Duoneb) Confirm Administered Dose 3 ml .ROUTE .STK-MED ONE Stop: 09/17/18 10:50 Last Admin: 09/17/18 10:51 Dose: 3 ml Documented by: [id number] Furosemide (Lasix) 40 mg IV 1430 ALEJANDRA Stop: 09/17/18 14:31 Last Admin: 09/17/18 15:04 Dose: 40 mg Documented by: [id number] Magnesium Sulfate/Dextrose (Magnesium Sulfate / D5w) 1 gm in 100 mls @ 100 mls/hr IV Q1H ALEJANDRA Stop: 09/17/18 14:29 Last Infusion: 09/17/18 15:51 Dose: 0 mls/hr Documented by: [id number] Admin: 09/17/18 14:16 Dose: 100 mls/hr Documented by: [id number] Infusion: 09/17/18 14:07 Dose: 100 mls/hr Documented by: [id number] Admin: 09/17/18 13:07 Dose: 100 mls/hr Documented by: [id number] Medical Decision Making Differential Diagnosis Differential diagnosis: Etiologies such as infections, reactive airway disease, pneumonia, pneumothorax, COPD, CHF, cardiac ischemia, pulmonary embolism, musculoskeletal, gastrointestinal, as well as others were entertained. Medical Records Attestation: I reviewed the patient's medical records. Home Medications Current Medication List: was personally reviewed by me Laboratory Data Attestation: I reviewed the patient's lab results. Result diagrams: 09/17/18 11:20 09/17/18 11:20 Lab Results 09/17/18 09/17/18 09/17/18 Range/Units 11:18 11:20 11:20 WBC 6.32 (4.8-10.8) K/uL RBC 2.86 L (4.2-5.4) M/uL Hgb 9.0 L (12.0-16.0) g/dL Hct 28.1 L (37-47) % MCV 98.3 (80-100) fL MCH 31.5 (25-34) pg MCHC 32.0 (32-36) g/dL RDW Std Deviation 52.9 H (36.4-46.3) fL RDW Coeff of Charmaine 15.0 H (11.5-14.5) % Plt Count 236 (130-400) K/uL MPV 9.7 (7.4-10.4) fL Immature Gran % (Auto) 0.5 % Neut % (Auto) 76.5 % Lymph % (Auto) 13.6 % [place] % (Auto) 7.3 % Eos % (Auto) 1.6 % Baso % (Auto) 0.5 % Immature Gran # (Auto) 0.03 H (0.00-0.02) K/uL Neut # (Auto) 4.84 (1.4-6.5) K/uL Lymph # (Auto) 0.86 L (1.2-3.4) K/uL [place] # (Auto) 0.46 (0.11-0.59) K/uL Eos # (Auto) 0.10 (0-0.5) K/uL Baso # (Auto) 0.03 (0-0.2) K/uL PT 14.8 H (9.0-12.0) Seconds INR 1.5 H (0.9-1.1) APTT 37.3 H (21.0-31.0) Seconds PTT Ratio 1.4 VBG pH 7.37 (7.36-7.41) VBG pCO2 53 H (38-50) mmHg VBG pO2 36 mmHg VBG HCO3 30 mmol/L VBG O2 Saturation 62.8 % VBG Base Excess 3.8 mEq/L Barometric Pressure 730.1 mm/Hg Sodium (136-145) mmol/L Potassium (3.5-5.1) mmol/L Chloride (98-107) mmol/L Carbon Dioxide (21-32) mmol/L Anion Gap (3-11) BUN (7-18) mg/dl Creatinine (0.6-1.2) mg/dl Est Cr Clr Drug Dosing ml/min Est GFR ( Amer) Est GFR (Non-Af Amer) BUN/Creatinine Ratio (10-20) Glucose (70-99) mg/dl POC Glucose (70-99) Calcium (8.5-10.1) mg/dl Magnesium (1.8-2.4) mg/dl Total Bilirubin (0.2-1) mg/dl AST (15-37) U/L ALT (12-78) U/L Alkaline Phosphatase (45-117) U/L Troponin I (0-0.045) ng/ml Total Protein (6.4-8.2) gm/dl Albumin (3.4-5.0) gm/dl Globulin (2.5-4.0) gm/dl Albumin/Globulin Ratio (0.9-2) Urine Color Urine Appearance (Clear) Urine pH (4.5-7.5) Ur Specific [place] (1.000-1.030) Urine Protein (Negative) Urine Glucose (UA) (Negative) Urine Ketones (Negative) Urine Blood (Negative) Urine Nitrite (Negative) Urine Bilirubin (Negative) Urine Urobilinogen (Negative) Ur Leukocyte Esterase (Negative) Urine WBC (Auto) (0-5) /hpf Urine RBC (Auto) (0-4) /hpf U Hyaline Cast (Auto) (0-5) /lpf U Epithel Cells (Auto) (0-5) /lpf Urine Bacteria (Auto) (Negative) Ur Renal Epithelial Cell (0-5) /lpf Granular Casts (0) /lpf 09/17/18 09/17/18 09/17/18 Range/Units 11:20 14:57 15:07 WBC (4.8-10.8) K/uL RBC (4.2-5.4) M/uL Hgb (12.0-16.0) g/dL Hct (37-47) % MCV (80-100) fL MCH (25-34) pg MCHC (32-36) g/dL RDW Std Deviation (36.4-46.3) fL RDW Coeff of Charmaine (11.5-14.5) % Plt Count (130-400) K/uL MPV (7.4-10.4) fL Immature Gran % (Auto) % Neut % (Auto) % Lymph % (Auto) % [place] % (Auto) % Eos % (Auto) % Baso % (Auto) % Immature Gran # (Auto) (0.00-0.02) K/uL Neut # (Auto) (1.4-6.5) K/uL Lymph # (Auto) (1.2-3.4) K/uL [place] # (Auto) (0.11-0.59) K/uL Eos # (Auto) (0-0.5) K/uL Baso # (Auto) (0-0.2) K/uL PT (9.0-12.0) Seconds INR (0.9-1.1) APTT (21.0-31.0) Seconds PTT Ratio VBG pH (7.36-7.41) VBG pCO2 (38-50) mmHg VBG pO2 mmHg VBG HCO3 mmol/L VBG O2 Saturation % VBG Base Excess mEq/L Barometric Pressure mm/Hg Sodium 139 (136-145) mmol/L Potassium 3.4 L (3.5-5.1) mmol/L Chloride 105 (98-107) mmol/L Carbon Dioxide 30 (21-32) mmol/L Anion Gap 4.0 (3-11) BUN 9 (7-18) mg/dl Creatinine 0.46 L (0.6-1.2) mg/dl Est Cr Clr Drug Dosing 126.9 ml/min Est GFR ( Amer) 120.1 Est GFR (Non-Af Amer) 103.7 BUN/Creatinine Ratio 19.1 (10-20) Glucose 56 L (70-99) mg/dl POC Glucose 55 L* (70-99) Calcium 7.9 L (8.5-10.1) mg/dl Magnesium 1.6 L (1.8-2.4) mg/dl Total Bilirubin 0.4 (0.2-1) mg/dl AST 36 (15-37) U/L ALT 11 L (12-78) U/L Alkaline Phosphatase 95 (45-117) U/L Troponin I 0.019 (0-0.045) ng/ml Total Protein 5.0 L (6.4-8.2) gm/dl Albumin 1.6 L (3.4-5.0) gm/dl Globulin 3.4 (2.5-4.0) gm/dl Albumin/Globulin Ratio 0.5 L (0.9-2) Urine Color Dark Yellow Urine Appearance Clear (Clear) Urine pH 5.5 (4.5-7.5) Ur Specific [place] 1.039 H (1.000-1.030) Urine Protein 1+ H (Negative) Urine Glucose (UA) Negative (Negative) Urine Ketones 1+ H (Negative) Urine Blood Negative (Negative) Urine Nitrite Negative (Negative) Urine Bilirubin Negative (Negative) Urine Urobilinogen Negative (Negative) Ur Leukocyte Esterase Negative (Negative) Urine WBC (Auto) 1-5 (0-5) /hpf Urine RBC (Auto) 5-10 H (0-4) /hpf U Hyaline Cast (Auto) 10-30 H (0-5) /lpf U Epithel Cells (Auto) >30 H (0-5) /lpf Urine Bacteria (Auto) Negative (Negative) Ur Renal Epithelial Cell 0-5 (0-5) /lpf Granular Casts 1-5 H (0) /lpf 09/17/18 Range/Units 15:36 WBC (4.8-10.8) K/uL RBC (4.2-5.4) M/uL Hgb (12.0-16.0) g/dL Hct (37-47) % MCV (80-100) fL MCH (25-34) pg MCHC (32-36) g/dL RDW Std Deviation (36.4-46.3) fL RDW Coeff of Charmaine (11.5-14.5) % Plt Count (130-400) K/uL MPV (7.4-10.4) fL Immature Gran % (Auto) % Neut % (Auto) % Lymph % (Auto) % [place] % (Auto) % Eos % (Auto) % Baso % (Auto) % Immature Gran # (Auto) (0.00-0.02) K/uL Neut # (Auto) (1.4-6.5) K/uL Lymph # (Auto) (1.2-3.4) K/uL [place] # (Auto) (0.11-0.59) K/uL Eos # (Auto) (0-0.5) K/uL Baso # (Auto) (0-0.2) K/uL PT (9.0-12.0) Seconds INR (0.9-1.1) APTT (21.0-31.0) Seconds PTT Ratio VBG pH (7.36-7.41) VBG pCO2 (38-50) mmHg VBG pO2 mmHg VBG HCO3 mmol/L VBG O2 Saturation % VBG Base Excess mEq/L Barometric Pressure mm/Hg Sodium (136-145) mmol/L Potassium (3.5-5.1) mmol/L Chloride (98-107) mmol/L Carbon Dioxide (21-32) mmol/L Anion Gap (3-11) BUN (7-18) mg/dl Creatinine (0.6-1.2) mg/dl Est Cr Clr Drug Dosing ml/min Est GFR ( Amer) Est GFR (Non-Af Amer) BUN/Creatinine Ratio (10-20) Glucose (70-99) mg/dl POC Glucose 70 (70-99) Calcium (8.5-10.1) mg/dl Magnesium (1.8-2.4) mg/dl Total Bilirubin (0.2-1) mg/dl AST (15-37) U/L ALT (12-78) U/L Alkaline Phosphatase (45-117) U/L Troponin I (0-0.045) ng/ml Total Protein (6.4-8.2) gm/dl Albumin (3.4-5.0) gm/dl Globulin (2.5-4.0) gm/dl Albumin/Globulin Ratio (0.9-2) Urine Color Urine Appearance (Clear) Urine pH (4.5-7.5) Ur Specific [place] (1.000-1.030) Urine Protein (Negative) Urine Glucose (UA) (Negative) Urine Ketones (Negative) Urine Blood (Negative) Urine Nitrite (Negative) Urine Bilirubin (Negative) Urine Urobilinogen (Negative) Ur Leukocyte Esterase (Negative) Urine WBC (Auto) (0-5) /hpf Urine RBC (Auto) (0-4) /hpf U Hyaline Cast (Auto) (0-5) /lpf U Epithel Cells (Auto) (0-5) /lpf Urine Bacteria (Auto) (Negative) Ur Renal Epithelial Cell (0-5) /lpf Granular Casts (0) /lpf Imaging Data Radiologist's Impression: Radiology results as stated below per my review and the radiologist's interpretation: XR chest 1V portable HISTORY: Dyspnea COMPARISON: Chest 09/11/2018. FINDINGS: No definite pneumothorax. Small bilateral pleural effusions and card iomegaly persist. The right PICC terminates at the distal SVC, unchanged. Bilateral 09/16/2018airspace opacities, right greater the left hip progressed. IMPRESSION: 1. Interval progression of the bilateral patchy airspace opacities, right greater than left. This could represent worsening pulmonary edema or infectious process. 2. Small bilateral pleural effusions and cardiomegaly persist. Electronically signed by: De Brito M.D. 09/17/2018 11:14 AM ECG Data Attestation: I personally reviewed and interpreted this ECG as follows: Indication: SOB/dyspnea Rate (beats per minute): 54 Rhythm: sinus bradycardia Findings: + other (poor R-wave progression) and + T-wave inversion (anterior); no PAC, no PVC and no ectopy Comparison ECG Date: from (09/11/18) Change: no significant change Blood Pressure Blood Pressure Findings: Elevated blood pressure Blood Pressure Disposition: Referred to patients primary care provider MDM Narrative The patient is a 68-year-old female who presented to the emergency department for an evaluation of shortness of breath. I am familiar with this patient. I have taken care of this patient in the past. She was recently diagnosed with a pulmonary infection as well as a pericardial effusion. She was recently at our facility and had a pericardial window as well as a partial lung resection for the abnormality on the right side of the lung. I discussed patient's laboratory and radiographic studies with her. She was very hypoxic and was placed on BiPAP. She is also anemic but her anemia appears to be chronic for her. Because of her condition I discussed her case with the on-call [facility] hospitalist. I also made the patient's condition known to the cardiothoracic surgeon who saw the patient recently. At this time the patient's oxygen saturation was acceptable. She is feeling much better. She was reevaluated multiple times. Impression & Plan Respiratory failure, Anemia, Hypoxia Discharge Plan Visit Data Chief Complaint: Shortness of Breath/Dyspnea Stated Complaint: sob ED Provider: Dane Shelton Discharge Problem: Respiratory failure, Anemia, Hypoxia Patient Disposition: Being Evaluated by Hospitalist Discharge Instructions Interventions: ED Discharge Assessment Last Done: 09/17/18 15:54 Discharge Problem: Respiratory failure Qualifiers: Chronicity: unspecified Respiratory failure complication: hypoxia Qualified Code(s): J96.91 - Respiratory failure, unspecified with hypoxia Anemia Qualifiers: Anemia type: unspecified type Qualified Code(s): D64.9 - Anemia, unspecified The scribe's documentation has been prepared under my direction and personally reviewed by me in its entirety. I confirm that the note above accurately reflects all work, treatment, procedures, and medical decision making performed by me.
[2018-09-17] MEDS ORDERED: ALBUT/IPRATROP 3MG/0.5MG NEB 3 ML VIAL NEB ONE (11:06)
--- NOTE | 2018-09-17 11:16 | XRay Report ---
XR chest 1V portable HISTORY: Dyspnea COMPARISON: Chest 09/11/2018. FINDINGS: No definite pneumothorax. Small bilateral pleural effusions and cardiomegaly persist. The r ight PICC terminates at the distal SVC, unchanged. Bilateral 09/16/2018airspace opacities, right great er the left hip progressed. IMPRESSION: 1. Interval progression of the bilateral patchy airspace opacities, right greater than left. This cou ld represent worsening pulmonary edema or infectious process. 2. Small bilateral pleural effusions and cardiomegaly persist. Electronically signed by: De Brito M.D. 09/17/2018 11:14 AM
[2018-09-17 11:27] LABS: Base Excess VBG 3.8 mEq/L; Oxygen Saturation VBG 62.8 %; pH VBG 7.37 (7.36-7.41)
[2018-09-17 11:33] LABS: Basophils # (auto) 0.03 K/uL (0-0.2); Basophils % (auto) 0.5 %; Eosinophils % (auto) 1.6 %; Hematocrit (blood only) 28.1 % (37-47); Immature Granulocytes # (auto) 0.03 K/uL (0.00-0.02); Immature Granulocytes % (auto) 0.5 %; Lymphocytes # (auto) 0.86 K/uL (1.2-3.4); Lymphocytes % (auto) 13.6 %; Mean Corpuscular Volume 98.3 fL (80-100); Mean Platelet Volume 9.7 fL (7.4-10.4); Monocytes # (auto) 0.46 K/uL (0.11-0.59); Monocytes % (auto) 7.3 %; Neutrophils # (auto) 4.84 K/uL (1.4-6.5); Neutrophils % (auto) 76.5 %; Platelet Count 236 K/uL (130-400); RDW Standard Deviation 52.9 fL (36.4-46.3); Red Blood Count 2.86 M/uL (4.2-5.4); White Blood Count 6.32 K/uL (4.8-10.8)
[2018-09-17 11:43] LABS: INR 1.5 (0.9-1.1); Partial Thromboplastin Ratio 1.4; Partial Thromboplastin Time 37.3 Seconds (21.0-31.0); Prothrombin Time 14.8 Seconds (9.0-12.0)
[2018-09-17 11:51] LABS: Albumin Level 1.6 gm/dl (3.4-5.0); BUN Creatinine Ratio 19.1 (10-20); Calcium 7.9 mg/dl (8.5-10.1); Creatinine Clr Calc Pharmacy 126.9 ml/min; Est GFR (African American) 120.1; Est GFR (Non-African American) 103.7; Magnesium 1.6 mg/dl (1.8-2.4); Potassium 3.4 mmol/L (3.5-5.1)
[2018-09-17 11:56] LABS: Albumin Globulin Ratio 0.5 (0.9-2); Bilirubin,Total 0.4 mg/dl (0.2-1); Globulin 3.4 gm/dl (2.5-4.0); Troponin I 0.019 ng/ml (0-0.045)
[2018-09-17] MEDS: MAGNESIUM SULFATE / D5W 1 GM/100 ML BAG IV SCH ×2 (13:07→14:16)
[2018-09-17] MEDS ORDERED: FUROSEMIDE 40 MG in SYRINGE 0 ML IV ONE ×2 (14:30→21:00)
[2018-09-17] MEDS ORDERED: FUROSEMIDE 40 MG/4 ML VIAL IV SCH (14:30)
[2018-09-17 15:36] LABS: Appearance Urine Clear (Clear); Bacteria Urine Automated Negative (Negative); Bilirubin Urine Negative (Negative); Blood Urine Negative (Negative); Color Urine Dark Yellow; Epithelial Cell Urine Auto >30 /lpf (0-5); Glucose Urine UA Negative (Negative); Ketones Urine 1+ (Negative); Leukocyte Esterase Urine Negative (Negative); Nitrite Urine Negative (Negative); Protein Urine 1+ (Negative); Specific Gravity Urine 1.039 (1.000-1.030); Urobilinogen Urine Negative (Negative); pH Urine 5.5 (4.5-7.5)
[2018-09-17 16:04] LABS: Renal Epithelial Cells Urine 0-5 /lpf (0-5)
[2018-09-17] MEDS ORDERED: FEXOFENADINE 60MG/PSEUDOEPHEDRINE 120MG TAB PO PRN (16:45)
[2018-09-17] MEDS ORDERED: PIPERACILL/TAZOBAC CONSULT ACTIVE PRN (16:45)
[2018-09-17] MEDS ORDERED: ALBUT/IPRATROP 3MG/0.5MG NEB 3 ML VIAL INH PRN (16:45)
[2018-09-17] MEDS ORDERED: PIPERACILLIN/TAZOBACTAM SOD 4.5 GM VIAL IV SCH (16:45)
[2018-09-17] MEDS ORDERED: GABAPENTIN 100 MG CAP PO PRN (16:45)
[2018-09-17] MEDS ORDERED: ONDANSETRON INJ 2 MG/ML 2 ML VIAL IV PRN (16:45)
[2018-09-17] MEDS ORDERED: ALBUTEROL HFA 8 GM INHALER INH PRN (16:45)
--- NOTE | 2018-09-17 17:17 | History & Physical Report ---
Date of Service September 17, 2018 Assessment & Plan (1) Acute on chronic diastolic (congestive) heart failure: CXR with evidence of volume overload and rales in the bases bilaterally would be most logical explanation for dyspnea and hypoxia responded well to Lasix 40mg IV x 1, repeat 40mg IV at [address] place becker, keep on BIPAP follow I/O and daily weights she has peripheral edema that has worsened as well on 09/10 she had echo that showed EF of 55%, no plans to repeat for now had recent pericardial window for effusion she is being treated appropriately for Pseudomonas pneumonia with Zosyn IV she is anticoagulated on Xarelto for prior PE and infarction no wheezing, doubt asthma exacerbation (2) Acute respiratory failure with hypoxia: see above most logical explanation is volume overload causing acute heart failure treat with Lasix, try to titrate off of BIPAP as tolerated (3) Pseudomonas pneumonia: continue on Zosyn until October 01, 2018 WBC normal, no fever infection should be adequately controlled (4) Eosinophilic asthma: no wheezing continue inhaled treatments (5) Cardiomyopathy: low normal EF of 55%, had some diastolic dysfunction continue on metoprolol will likely need daily Lasix on discharge (6) Anemia: Hb is 9.0, no signs of bleeding, not low enough to cause dysnea (7) Effusion, pericardium: had window placed by thoracic surgery last visit will consult them routinely to follow up with patient while here (8) Hypomagnesemia: low at 1.7, 2gm IV ordered in the ED (9) Hypoglycemia: no h/o DM but has experienced low sugars in the past treat as needed with oral glucose (10) Pulmonary embolism: chronic on Xarelto 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 She says that her dyspnea started shortly after returning home. Her said that there was 20 ft for her to walk from her chair to the bathroom and she was having a difficulty time walking due to dyspnea. She was profoundly weak, her was having to help her up and practically pick her up out of the chair. We discussed that prior to discharge the therapists had recommended going to rehab but she refused. Discussed that she was likely deconditioned which was contributing to her dyspnea. Her said that they will definitely want rehab this time. Her dyspnea continued to progress to the point that she was short of breath at rest today. The home nurses listened to her lungs and heart rales in her bases. Her oxygen requirements were greatly increased to the point that she was actually hypoxic on nasal canula so EMS was called. She was brought quickly to the ED for evaluation. In addition to the worsening dyspnea, her said she was more edematous in her legs. She had an echo on last admission that showed EF of 55% with diastolic dysfunction. She never required Lasix while she was admitted. In the ED she required BIPAP to maintain saturations in the 90s. She was breathing more comfortably. CXR showed increased pulmonary edema suggesting acute CHF. No fever, WBC normal and BMP normal. Becker was placed and Lasix 40mg IV was ordered at the time of admission, she started to diurese well. Allergies Allergy/AdvReac Type Severity Reaction Status Date / Time pollen extracts Allergy Intermediate ASTHMA Verified 09/17/18 11:43 ATTACKS salsalate Allergy Unknown UNKNOWN Verified 09/17/18 11:43 blue dye AdvReac Intermediate SEVERE Verified 09/17/18 11:43 VOMITING doxycycline AdvReac Intermediate VOMITING, Verified 09/17/18 11:43 IMBALANCE duloxetine AdvReac Intermediate SEVERE Verified 09/17/18 11:43 VOMITING leflunomide AdvReac Intermediate SEVERE Verified 09/17/18 11:43 VOMITING tetracycline AdvReac Intermediate CONFUSION,LIGHT Verified 09/17/18 11:43 HEADED, DIZZINESS cefuroxime AdvReac Mild UNCONTROLLED Verified 09/17/18 11:43 DIARRHEA celecoxib AdvReac Mild VOMITING Verified 09/17/18 11:43 clarithromycin AdvReac Mild VOMITING Verified 09/17/18 11:43 pregabalin AdvReac Mild HEADACHE, Verified 09/17/18 11:43 VOMITING Home Medications Home Medications Medication Instructions Recorded Confirmed Type Kiesha-D 24 Hour 1 tab PO QAM PRN 06/09/18 09/17/18 History albuterol sulfate [ProAir HFA] 2 puff INHALATION QID PRN 06/09/18 09/17/18 History cholecalciferol (vitamin D3) 2,000 unit PO DAILY 06/09/18 09/17/18 History [Vitamin D3] fluticasone propion-salmeterol 1 inh INHALATION BID 06/09/18 09/17/18 History [Advair Diskus] folic acid 1 mg PO DAILY 06/09/18 09/17/18 History gabapentin 100 mg PO HS PRN 06/09/18 09/17/18 History hydroxychloroquine 200 mg PO BID 06/09/18 09/17/18 History ipratropium-albuterol 3 ml INHALATION DIRECTED PRN 06/09/18 09/17/18 History mometasone [Nasonex] 2 spray INTRANASAL DAILY PRN 06/09/18 09/17/18 History multivitamin 1 tab PO DAILY 06/09/18 09/17/18 History sertraline 150 mg PO DAILY 06/09/18 09/17/18 History tramadol 50 - 100 mg PO QID 06/09/18 09/17/18 History Xarelto 20 mg PO DAILY #30 tab 06/14/18 09/17/18 Rx levothyroxine [Synthroid] 200 mcg PO SUSA@0630 09/08/18 09/17/18 History levothyroxine [Synthroid] 225 mcg PO MOTUWETHFR@0630 09/08/18 09/17/18 History piperacillin-tazobactam [Zosyn] 4.5 gm IV Q8H 16 Days ea 09/14/18 09/17/18 Rx acetaminophen [Tylenol] 325 mg PO QID PRN 09/17/18 09/17/18 History atorvastatin 10 mg PO HS 09/17/18 09/17/18 History ferrous sulfate [iron] 325 mg PO DAILY 09/17/18 09/17/18 History meloxicam 7.5 mg PO DAILY 09/17/18 09/17/18 History Past Med/Surg History Medical History Asthma DVT (deep venous thrombosis) Fibromyalgia Hypothyroid No chronic problems Obesity Pericardial effusion Pneumonia Pneumonia Pulmonary embolism Rheumatoid arthritis Surgical History History of arthroscopy History of section History of gastric bypass History of herniorrhaphy Family History Grandfather (Maternal) Coronary heart disease [place] Grandfather (Paternal) Coronary heart disease [place] Other No significant family history Social History Preferred Language: [place] Communication Ability: Effective Director Of Industrial Relations Required: No Beliefs That Will Affect Care: None marital status: Current Living Situation: Spouse Other Information That Helps Us Care for You: No Feels Safe at Home: Yes Safety Concerns: Feels Safe At This Time Smoking Status: Never smoker Second Hand Exposure: No Hx Alcohol Use: No Hx Substance Use: No Review of Systems Review of Systems: All systems reviewed & are unremarkable except as noted in HPI & below Constitutional: + fatigue and + weakness Respiratory: + dyspnea and + dyspnea on exertion; no cough, no pain with cough, no snoring, no sputum production and no wheezing Cardiovascular: + edema; no chest pain, no dyspnea and no palpitations Physical Exam Constitutional: WD/WN, vitals as above + acute distress and + ill appearing Eyes: PERRL, conjunctivae normal, anicteric sclerae ENMT: external ear and nose normal, oropharynx normal Neck: trachea midline, no thyromegaly Respiratory: + respiratory distress and + labored breathing Auscultation: + diminished lung sounds, + crackles (left side), + rales (bibasilar) and + rhonchi (right side); no wheezes Cardiovascular: Rate/Rhythm: regular rate and regular rhythm Heart Sounds: normal S1 and normal S2; no murmur Vessels: + JVD Extremities: normal capillary refill and + edema (pitting to mid saldana bilaterally) Gastrointestinal (Abdomen): normal bowel sounds, soft, nontender, no hepatosplenomegaly Musculoskeletal: no cyanosis or clubbing, extremities motor strength 5/5 Skin: no rashes, warm and dry Neurologic: patellar DTR's 2+ bilat, sensation intact and PERRL, EOMI, accommodation nl, no face palsy, no dysarthria Psychiatric: A+Ox3, euthymic affect Lymphatic: no cervical or axillary lymphadenopathy Results & Data Vital Signs (Past 12 Hours) Vital Signs Temp Pulse Pulse Resp BP BP Pulse Ox 09/17/18 16:48 36.5 C 63 22 116/66 87 L 09/17/18 16:45 36.5 C 63 116/66 04/18/19 15:50 61 20 09/17/18 15:40 61 21 09/17/18 15:30 61 20 128/73 78 L 09/17/18 15:20 61 19 100 09/17/18 15:10 62 19 82 L 09/17/18 15:01 61 21 121/67 97 09/17/18 15:00 61 19 96 09/17/18 14:50 66 22 09/17/18 14:40 60 20 98 09/17/18 14:31 61 22 144/93 H 98 09/17/18 14:30 60 18 99 09/17/18 14:20 60 20 97 09/17/18 14:00 59 L 20 127/75 100 09/17/18 13:30 60 18 148/83 H 98 09/17/18 13:00 60 21 147/86 H 100 09/17/18 12:30 72 19 149/88 H 100 09/17/18 12:00 59 L 20 145/82 H 100 09/17/18 11:37 61 20 131/80 96 09/17/18 11:15 21 161/98 H 100 09/17/18 11:10 59 L 21 99 09/17/18 11:09 59 L 21 99 09/17/18 11:01 58 L 22 161/98 H 98 09/17/18 10:59 98 09/17/18 10:58 58 L 24 158/87 H 98 09/17/18 10:49 36.8 C 62 28 H 120/73 68 L Pulse Ox 09/17/18 16:48 09/17/18 16:45 87 L 09/17/18 15:50 09/17/18 15:40 09/17/18 15:30 09/17/18 15:20 09/17/18 15:10 09/17/18 15:01 09/17/18 15:00 09/17/18 14:50 09/17/18 14:40 09/17/18 14:31 09/17/18 14:30 09/17/18 14:20 09/17/18 14:00 09/17/18 13:30 09/17/18 13:00 09/17/18 12:30 09/17/18 12:00 09/17/18 11:37 09/17/18 11:15 09/17/18 11:10 09/17/18 11:09 09/17/18 11:01 09/17/18 10:59 09/17/18 10:58 09/17/18 10:49 Laboratory Results Laboratory Results - last 24 hr 09/17/18 09/17/18 09/17/18 11:18 11:20 11:20 WBC 6.32 RBC 2.86 L Hgb 9.0 L Hct 28.1 L MCV 98.3 MCH 31.5 MCHC 32.0 RDW Std Deviation 52.9 H RDW Coeff of Charmaine 15.0 H Plt Count 236 MPV 9.7 Immature Gran % (Auto) 0.5 Neut % (Auto) 76.5 Lymph % (Auto) 13.6 [place] % (Auto) 7.3 Eos % (Auto) 1.6 Baso % (Auto) 0.5 Immature Gran # (Auto) 0.03 H Neut # (Auto) 4.84 Lymph # (Auto) 0.86 L [place] # (Auto) 0.46 Eos # (Auto) 0.10 Baso # (Auto) 0.03 PT 14.8 H INR 1.5 H APTT 37.3 H PTT Ratio 1.4 VBG pH 7.37 VBG pCO2 53 H VBG pO2 36 VBG HCO3 30 VBG O2 Saturation 62.8 VBG Base Excess 3.8 Barometric Pressure 730.1 Sodium Potassium Chloride Carbon Dioxide Anion Gap BUN Creatinine Est Cr Clr Drug Dosing Est GFR ( Amer) Est GFR (Non-Af Amer) BUN/Creatinine Ratio Glucose POC Glucose Calcium Magnesium Total Bilirubin AST ALT Alkaline Phosphatase Troponin I Total Protein Albumin Globulin Albumin/Globulin Ratio Urine Color Urine Appearance Urine pH Ur Specific [place] Urine Protein Urine Glucose (UA) Urine Ketones Urine Blood Urine Nitrite Urine Bilirubin Urine Urobilinogen Ur Leukocyte Esterase Urine WBC (Auto) Urine RBC (Auto) U Hyaline Cast (Auto) U Epithel Cells (Auto) Urine Bacteria (Auto) Ur Renal Epithelial Cell Granular Casts 09/17/18 09/17/18 09/17/18 11:20 14:57 15:07 WBC RBC Hgb Hct MCV MCH MCHC RDW Std Deviation RDW Coeff of Charmaine Plt Count MPV Immature Gran % (Auto) Neut % (Auto) Lymph % (Auto) [place] % (Auto) Eos % (Auto) Baso % (Auto) Immature Gran # (Auto) Neut # (Auto) Lymph # (Auto) [place] # (Auto) Eos # (Auto) Baso # (Auto) PT INR APTT PTT Ratio VBG pH VBG pCO2 VBG pO2 VBG HCO3 VBG O2 Saturation VBG Base Excess Barometric Pressure Sodium 139 Potassium 3.4 L Chloride 105 Carbon Dioxide 30 Anion Gap 4.0 BUN 9 Creatinine 0.46 L Est Cr Clr Drug Dosing 126.9 Est GFR ( Amer) 120.1 Est GFR (Non-Af Amer) 103.7 BUN/Creatinine Ratio 19.1 Glucose 56 L POC Glucose 55 L* Calcium 7.9 L Magnesium 1.6 L Total Bilirubin 0.4 AST 36 ALT 11 L Alkaline Phosphatase 95 Troponin I 0.019 Total Protein 5.0 L Albumin 1.6 L Globulin 3.4 Albumin/Globulin Ratio 0.5 L Urine Color Dark Yellow Urine Appearance Clear Urine pH 5.5 Ur Specific [place] 1.039 H Urine Protein 1+ H Urine Glucose (UA) Negative Urine Ketones 1+ H Urine Blood Negative Urine Nitrite Negative Urine Bilirubin Negative Urine Urobilinogen Negative Ur Leukocyte Esterase Negative Urine WBC (Auto) 1-5 Urine RBC (Auto) 5-10 H U Hyaline Cast (Auto) 10-30 H U Epithel Cells (Auto) >30 H Urine Bacteria (Auto) Negative Ur Renal Epithelial Cell 0-5 Granular Casts 1-5 H 09/17/18 15:36 WBC RBC Hgb Hct MCV MCH MCHC RDW Std Deviation RDW Coeff of Charmaine Plt Count MPV Immature Gran % (Auto) Neut % (Auto) Lymph % (Auto) [place] % (Auto) Eos % (Auto) Baso % (Auto) Immature Gran # (Auto) Neut # (Auto) Lymph # (Auto) [place] # (Auto) Eos # (Auto) Baso # (Auto) PT INR APTT PTT Ratio VBG pH VBG pCO2 VBG pO2 VBG HCO3 VBG O2 Saturation VBG Base Excess Barometric Pressure Sodium Potassium Chloride Carbon Dioxide Anion Gap BUN Creatinine Est Cr Clr Drug Dosing Est GFR ( Amer) Est GFR (Non-Af Amer) BUN/Creatinine Ratio Glucose POC Glucose 70 Calcium Magnesium Total Bilirubin AST ALT Alkaline Phosphatase Troponin I Total Protein Albumin Globulin Albumin/Globulin Ratio Urine Color Urine Appearance Urine pH Ur Specific [place] Urine Protein Urine Glucose (UA) Urine Ketones Urine Blood Urine Nitrite Urine Bilirubin Urine Urobilinogen Ur Leukocyte Esterase Urine WBC (Auto) Urine RBC (Auto) U Hyaline Cast (Auto) U Epithel Cells (Auto) Urine Bacteria (Auto) Ur Renal Epithelial Cell Granular Casts Diagnostic Findings XR chest 1V portable HISTORY: Dyspnea COMPARISON: Chest 09/11/2018. FINDINGS: No definite pneumothorax. Small bilateral pleural effusions and cardiomegaly persist. The right PICC terminates at the distal SVC, unchanged. Bilateral 09/16/2018airspace opacities, right greater the left hip progressed. IMPRESSION: 1. Interval progression of the bilateral patchy airspace opacities, right greater than left. This could represent worsening pulmonary edema or infectious process. 2. Small bilateral pleural effusions and cardiomegaly persist. Medications Administered Current Inpatient Medications Acetaminophen (Tylenol) 650 mg PO Q4H PRN PRN Reason: Pain or Fever Stop: 10/17/18 16:44 Albuterol (Ventolin Hfa) 2 puffs INH QID PRN PRN Reason: sob Stop: 10/17/18 16:44 Albuterol (Duoneb) 3 ml INH QID PRN PRN Reason: sob Stop: 10/17/18 16:44 Atorvastatin Calcium (Lipitor) 10 mg PO HS ALEJANDRA Stop: 10/17/18 20:59 Ferrous Sulfate (Feosol) 325 mg PO DAILY ALEJANDRA Stop: 10/18/18 08:59 Folic Acid (Folvite) 1 mg PO DAILY ALEJANDRA Stop: 10/18/18 08:59 Gabapentin (Neurontin) 100 mg PO HS PRN PRN Reason: nerve pain Stop: 10/17/18 16:44 Hydroxychloroquine Sulfate (Plaquenil) 200 mg PO BID ALEJANDRA Stop: 10/17/18 20:59 Levothyroxine Sodium (Synthroid) 200 mcg PO SUSA@0630 [facility] Stop: 10/19/18 06:29 Levothyroxine Sodium (Synthroid) 225 mcg PO MOTUWETHFR@0630 [facility] Stop: 10/18/18 06:29 Meloxicam (Mobic) 7.5 mg PO DAILY [facility] Stop: 10/18/18 08:59 Miscellaneous Information (Consult) 1 ea N/A UD PRN PRN Reason: Consult Stop: 10/17/18 16:44 Non-Formulary Medication (Tramadol) 50 mg PO QID ALEJANDRA Stop: 10/17/18 16:59 Non-Formulary Medication (Fexofenadine-Pseudoephedrine [Kiesha-D 24 Hour]) 1 tab PO QAM PRN PRN Reason: Allergy Symptoms Non-Formulary Medication (Cholecalciferol (Vitamin D3) [Vitamin D3]) 2,000 units PO DAILY ALEJANDRA Stop: 10/18/18 08:59 Ondansetron HCl (Zofran) 4 mg IV Q6H PRN PRN Reason: Nausea Stop: 10/17/18 16:44 Piperacillin Sod/Tazobactam Sod (Zosyn) 4.5 gm IV Q8H ALEJANDRA Stop: 09/24/18 16:44 Rivaroxaban (Xarelto) 20 mg PO DAILY ALEJANDRA Stop: 10/18/18 08:59 Fluticasone/Salmeterol (Advair Diskus 250/50) 2 puffs INH BID ALEJANDRA Stop: 10/17/18 20:59 Code Status & VTE Plan Code Status full code VTE Prophylaxis Plan VTE Prophylaxis will be ordered: Yes
[2018-09-17] MEDS ORDERED: PIPERACILLIN/TAZOBACTAM 4.5 GM in DEXTROSE 5% 100 ML IV ONE (17:30)
[2018-09-17] MEDS: TRAMADOL HCL 50 MG TABLET PO PRN ×2 (17:59→18:05)
[2018-09-17] MEDS: RIVAROXABAN 20 MG TAB PO SCH (18:00)
[2018-09-17] MEDS: FLUTICASONE/SALMETEROL 250/50 (ADVAIR) 14 PUFF/1 INHALER INH SCH (20:15)
[2018-09-17] MEDS: HYDROXYCHLOROQUINE SULFATE 200 MG TAB PO SCH (20:15)
[2018-09-17] MEDS: ATORVASTATIN 10 MG TAB PO SCH (20:15)
[2018-09-18] MEDS: PIPERACILLIN/TAZOBACTAM 4.5 GM in DEXTROSE 5% 100 ML IV SCH ×4 (00:06→23:21)
[2018-09-18] MEDS: LEVOTHYROXINE SODIUM 75 MCG TABLET PO SCH (06:14)
--- NOTE | 2018-09-18 08:01 | Hospitalist Progress Note ---
Date of Service September 18, 2018 Assessment & Plan (1) Acute on chronic diastolic (congestive) heart failure: CXR with evidence of volume overload and rales in the bases bilaterally would be most logical explanation for dyspnea and hypoxia responded well to Lasix 40mg IV x 1, repeat 40mg IV at [address] place becker follow I/O and daily weights negative over 4 liters over night, weight down 8kg, likely not accurate give Lasix 40mg IV again today, still with some edema but greatly improved on 09/10 she had echo that showed EF of 55%, no plans to repeat for now cardiology following, will give recommendations (2) Acute respiratory failure with hypoxia: down to 3L NC today, breathing comfortably most logical explanation is volume overload causing acute heart failure this was confirmed with her marked improvement with her breathing and oxygenatio n with diuresis other causes of dyspnea and hypoxia seem unlikely... had recent pericardial window for effusion she is being treated appropriately for Pseudomonas pneumonia with Zosyn IV she is anticoagulated on Xarelto for prior PE and infarction no wheezing, doubt asthma exacerbation (3) Hypokalemia: low due to diuresis, 2.9 this morning will give 40mEq PO now and start 20mEq PO TID at 1400 repeat K this afternoon (4) Pseudomonas pneumonia: continue on Zosyn until October 01, 2018 WBC normal, no fever infection should be adequately controlled (5) Eosinophilic asthma: no wheezing continue inhaled treatments (6) Cardiomyopathy: low normal EF of 55%, had some diastolic dysfunction continue on metoprolol will likely need daily Lasix on discharge (7) Anemia: Hb is 9.1, no signs of bleeding, not low enough to cause dysnea (8) Effusion, pericardium: had window placed by thoracic surgery last visit will consult them routinely to follow up with patient while here (9) Hypomagnesemia: low at 1.7, 2gm IV ordered in the ED (10) Hypoglycemia: no h/o DM but has experienced low sugars in the past treat as needed with oral glucose no issues today (11) Pulmonary embolism: chronic on Xarelto 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 Subjective patient is breathing much easier diuresed over 4 liters, still with edema, rales are nearly gone in lungs eating okay this morning no cough, no chest pain BMP shows that Cr is stable, K low at 2.9, will replace PO she says she used to be on a daily diuretic but it was stopped in June due to low blood pressures in hindsight the low blood pressures may have been related to PE that she had at that time discussed cardiology consult with patient, she agrees discussed with cardiology, will give additional dose of Lasix this morning Review of Systems Review of Systems: All systems reviewed & are unremarkable except as noted in HPI & below Constitutional: + fatigue and + weakness Respiratory: + dyspnea and + dyspnea on exertion; no cough, no pain with cough, no snoring, no sputum production and no wheezing Cardiovascular: + edema; no chest pain, no dyspnea and no palpitations Physical Exam Constitutional: WD/WN, vitals as above Eyes: PERRL, conjunctivae normal, anicteric sclerae ENMT: external ear and nose normal, oropharynx normal Neck: trachea midline, no thyromegaly Respiratory: normal respiratory effort; no respiratory distress Auscultation: + crackles (left side) and + rales (bibasilar, diminished compared to yesterday); no wheezes Cardiovascular: Rate/Rhythm: regular rate and regular rhythm Heart Sounds: normal S1 and normal S2; no murmur Vessels: + JVD Extremities: normal capillary refill and + edema (pitting to mid [place] bilaterally) Gastrointestinal (Abdomen): normal bowel sounds, soft, nontender, no hepatosplenomegaly Musculoskeletal: no cyanosis or clubbing, extremities motor strength 5/5 Skin: no rashes, warm and dry Neurologic: patellar DTR's 2+ bilat, sensation intact and PERRL, EOMI, accommodation nl, no face palsy, no dysarthria Psychiatric: A+Ox3, euthymic affect Lymphatic: no cervical or axillary lymphadenopathy Results & Data Vital Signs (Past 12 Hours) Vital Signs Temp Pulse Pulse Pulse Resp BP Pulse Ox 09/18/18 07:21 36.8 C 64 18 132/76 90 09/18/18 04:53 65 21 96 09/18/18 03:00 96 09/18/18 02:57 36.7 C 68 18 138/83 84 L 09/18/18 01:46 64 22 97 09/17/18 23:16 66 22 92 09/17/18 23:10 37.1 C 67 16 121/85 94 Laboratory Results Laboratory Results - last 24 hr 04/09/17/18 09/17/18 11:18 11:20 14:57 Hgb Hct VBG pH 7.37 VBG pCO2 53 H VBG pO2 36 VBG HCO3 30 VBG O2 Saturation 62.8 VBG Base Excess 3.8 Barometric Pressure 730.1 Sodium Potassium Chloride Carbon Dioxide Anion Gap BUN Creatinine Est Cr Clr Drug Dosing Est GFR ( Amer) Est GFR (Non-Af Amer) BUN/Creatinine Ratio Glucose POC Glucose 55 L* Calcium Total Bilirubin 0.4 Alkaline Phosphatase 95 Troponin I 0.019 Total Protein 5.0 L Globulin 3.4 Albumin/Globulin Ratio 0.5 L Urine Color Urine Appearance Urine pH Ur Specific [place] Urine Protein Urine Glucose (UA) Urine Ketones Urine Blood Urine Nitrite Urine Bilirubin Urine Urobilinogen Ur Leukocyte Esterase Urine WBC (Auto) Urine RBC (Auto) U Hyaline Cast (Auto) U Epithel Cells (Auto) Urine Bacteria (Auto) Ur Renal Epithelial Cell Granular Casts 09/17/18 09/17/18 09/17/18 15:07 15:36 17:54 Hgb Hct VBG pH VBG pCO2 VBG pO2 VBG HCO3 VBG O2 Saturation VBG Base Excess Barometric Pressure Sodium Potassium Chloride Carbon Dioxide Anion Gap BUN Creatinine Est Cr Clr Drug Dosing Est GFR ( Amer) Est GFR (Non-Af Amer) BUN/Creatinine Ratio Glucose POC Glucose 70 70 Calcium Total Bilirubin Alkaline Phosphatase Troponin I Total Protein Globulin Albumin/Globulin Ratio Urine Color Dark Yellow Urine Appearance Clear Urine pH 5.5 Ur Specific [place] 1.039 H Urine Protein 1+ H Urine Glucose (UA) Negative Urine Ketones 1+ H Urine Blood Negative Urine Nitrite Negative Urine Bilirubin Negative Urine Urobilinogen Negative Ur Leukocyte Esterase Negative Urine WBC (Auto) 1-5 Urine RBC (Auto) 5-10 H U Hyaline Cast (Auto) 10-30 H U Epithel Cells (Auto) >30 H Urine Bacteria (Auto) Negative Ur Renal Epithelial Cell 0-5 Granular Casts 1-5 H 09/18/18 09/18/18 07:57 07:57 Hgb 9.1 L Hct 28.2 L VBG pH VBG pCO2 VBG pO2 VBG HCO3 VBG O2 Saturation VBG Base Excess Barometric Pressure Sodium 139 Potassium 2.9 L Chloride 100 Carbon Dioxide 33 H Anion Gap 6.0 BUN 6 L Creatinine 0.51 L Est Cr Clr Drug Dosing 108.7 Est GFR ( Amer) 116.1 Est GFR (Non-Af Amer) 100.2 BUN/Creatinine Ratio 12.1 Glucose 77 POC Glucose Calcium 8.0 L Total Bilirubin Alkaline Phosphatase Troponin I Total Protein Globulin Albumin/Globulin Ratio Urine Color Urine Appearance Urine pH Ur Specific [place] Urine Protein Urine Glucose (UA) Urine Ketones Urine Blood Urine Nitrite Urine Bilirubin Urine Urobilinogen Ur Leukocyte Esterase Urine WBC (Auto) Urine RBC (Auto) U Hyaline Cast (Auto) U Epithel Cells (Auto) Urine Bacteria (Auto) Ur Renal Epithelial Cell Granular Casts Medications Administered Current Inpatient Medications Acetaminophen (Tylenol) 650 mg PO Q4H PRN PRN Reason: Pain or Fever Stop: 10/17/18 16:44 Albuterol (Ventolin Hfa) 2 puffs INH QID PRN PRN Reason: sob Stop: 10/17/18 16:44 Albuterol (Duoneb) 3 ml INH QID PRN PRN Reason: sob Stop: 10/17/18 16:44 Atorvastatin Calcium (Lipitor) 10 mg PO HS ALEJANDRA Stop: 10/17/18 20:59 Last Admin: 09/17/18 20:15 Dose: 10 mg Documented by: Ferrous Sulfate (Feosol) 325 mg PO DAILY ALEJANDRA Stop: 10/18/18 08:59 Last Admin: 09/18/18 08:03 Dose: 325 mg Documented by: Fexofenadine HCl/Pseudoephedrine (Kiesha-D 12 Hr) 1 tab PO QAM PRN PRN Reason: Seasonal Allergies Stop: 10/17/18 16:44 Folic Acid (Folvite) 1 mg PO DAILY [facility] Stop: 10/18/18 08:59 Last Admin: 09/18/18 08:03 Dose: 1 mg Documented by: Gabapentin (Neurontin) 100 mg PO HS PRN PRN Reason: nerve pain Stop: 10/17/18 16:44 Hydroxychloroquine Sulfate (Plaquenil) 200 mg PO BID [facility] Stop: 10/17/18 20:59 Last Admin: 09/18/18 08:02 Dose: 200 mg Documented by: Piperacillin Sod/Tazobactam (Sod 4.5 gm/ Dextrose) 120 mls @ 30 mls/hr IV Q8H [facility]; Protocol Stop: 09/25/18 00:00 Last Admin: 09/18/18 07:54 Dose: 30 mls/hr Documented by: Levothyroxine Sodium (Synthroid) 200 mcg PO SUSA@0630 [facility] Stop: 10/19/18 06:29 Levothyroxine Sodium (Synthroid) 225 mcg PO MOTUWETHFR@0630 [facility] Stop: 10/18/18 06:29 Last Admin: 09/18/18 06:14 Dose: 225 mcg Documented by: Meloxicam (Mobic) 7.5 mg PO DAILY [facility] Stop: 10/18/18 08:59 Last Admin: 09/18/18 08:03 Dose: Not Given Documented by: Miscellaneous Information (Consult) 1 ea N/A UD PRN PRN Reason: Consult Stop: 10/17/18 16:44 Ondansetron HCl (Zofran) 4 mg IV Q6H PRN PRN Reason: Nausea Stop: 10/17/18 16:44 Rivaroxaban (Xarelto) 20 mg PO QDD [facility] Stop: 10/17/18 17:29 Last Admin: 09/17/18 18:00 Dose: 20 mg Documented by: Fluticasone/Salmeterol (Advair Diskus 250/50) 2 puffs INH BID [facility] Stop: 10/17/18 20:59 Last Admin: 09/18/18 08:02 Dose: 2 puffs Documented by: Tramadol HCl (Ultram) 50 - 100 mg PO QID PRN PRN Reason: Pain Stop: 10/17/18 16:59 Last Admin: 09/17/18 18:05 Dose: 100 mg Documented by: Vitamin D (Vitamin D3) 2,000 units PO DAILY [facility] Stop: 10/18/18 08:59 Last Admin: 09/18/18 08:03 Dose: 2,000 units Documented by:
[2018-09-18] MEDS: FLUTICASONE/SALMETEROL 250/50 (ADVAIR) 14 PUFF/1 INHALER INH SCH ×2 (08:02→19:47)
[2018-09-18] MEDS: HYDROXYCHLOROQUINE SULFATE 200 MG TAB PO SCH ×2 (08:02→19:48)
[2018-09-18] MEDS: CHOLECALCIFEROL 1,000 UNITS TAB PO SCH (08:03)
[2018-09-18] MEDS: FOLIC ACID 1 MG TAB PO SCH (08:03)
[2018-09-18] MEDS: FERROUS SULFATE 325 MG TAB PO SCH (08:03)
[2018-09-18 08:24] LABS: Hematocrit (blood only) 28.2 % (37-47); Hemoglobin 9.1 g/dL (12.0-16.0)
[2018-09-18 08:52] LABS: BUN Creatinine Ratio 12.1 (10-20); Creatinine Clr Calc Pharmacy 108.7 ml/min; Est GFR (African American) 116.1; Est GFR (Non-African American) 100.2; Potassium 2.9 mmol/L (3.5-5.1)
[2018-09-18] MEDS ORDERED: MELOXICAM 7.5 MG TAB PO SCH (09:00)
--- NOTE | 2018-09-18 09:46 | Cardiology Progress Note ---
Date of Service September 18, 2018 Results & Data Vital Signs (Past 12 Hours) Vital Signs Temp Pulse Pulse Pulse Resp BP Pulse Ox 09/18/18 08:00 66 09/18/18 07:21 36.8 C 64 18 132/76 90 09/18/18 04:53 65 21 96 09/18/18 03:00 96 09/18/18 02:57 36.7 C 68 18 138/83 84 L 09/18/18 01:46 64 22 97 09/17/18 23:16 66 22 92 09/17/18 23:10 37.1 C 67 16 121/85 94
[2018-09-18] MEDS: SERTRALINE HCL 100 MG TABLET PO SCH (09:55)
[2018-09-18] MEDS: METOPROLOL TARTRATE 25 MG TAB PO SCH ×2 (09:55→19:48)
--- NOTE | 2018-09-18 10:00 | Cardiology Progress Note ---
Date of Service September 18, 2018 Assessment & Plan (1) Acute on chronic diastolic (congestive) heart failure: CXR on arrival yesterday showed progression of bilateral patchy airspace opacities, representing worsening pulmonary edema or infectious process. She has been administered 2 doses IV Lasix thus far and has noted an improvement in her breathing. She continues to have a significant amount of edema on examination and will continue with diuresis. She will be administered another dose of IV Lasix 40 mg this morning. Document I's&O's and daily weights. Monitor PRP closely. Replete potassium. Low sodium diet, <2,000 mg daily. She will likely require daily PO diuretic therapy once discharged home. (2) Pericardial effusion: She underwent pericardial window on 09/09/18, and follow-up echocardiogram 09/10/18 showed no pericardial effusion. Limited echo ordered for reevaluation. (3) Cardiomyopathy: She had reduced LV systolic function and wall motion abnormalities on outpatient echo earlier this month. Echo on 09/10/18, during her last hospitalization, showed low normal LV systolic function with an EF of 50-55%. The distal portions of the ventricle and apex were not well seen, therefore, wall motion abnormalities could not be excluded in these areas, but otherwise there were no obvious wall motion abnormalities. Limited echo ordered for reevaluation, especially given her presentation consistent with CHF. (4) Atrial arrhythmia: She was noted to have an atrial arrhythmia on ECG during her last hospitalization. ECG this admission is unremarkable, and telemetry monitoring has shown sinus rhythm with PACs only. Continue to monitor on telemetry. Patient discussed with Dr. Longo, who will also be in to see the patient today. Supervising Physician Co-Signing Physician Notes Patient seen and examined. She says that she does not drink a lot of excess fluid, and she feels that she has been going to the bathroom quite a bit at home yet she admits that she retained a lot of fluid. The reason is not clear. Her echocardiogram shows some degree of global left ventricular dysfunction, not dramatically lower than before. She probably should be on heart failure medications however such as beta-blockade and SIMONE inhibitors. She is on low- dose metoprolol tartrate, I am going to discontinue that after this evening's dose and switch her to metoprolol succinate starting tomorrow morning for treatment of her cardiomyopathy. This should probably be titrated up, possibly switch to carvedilol. I have not added an SIMONE inhibitor but we should do that if her blood pressure holds and her renal function does not deteriorate with diuresis. Subjective Patient was just recently hospitalized from 09/08/2018 through 09/14/2018 with acute respiratory failure with hypoxia secondary to pseudomonas pneumonia and infarcted lung. She had been diagnosed with a DVT/PE in June 2018, and it was felt that the PE likely resulted in the pulmonary infarct and resultant pseudomonas infection. She underwent VATS with resection of the infarcted lung tissue, and will require 21 days of antibiotic therapy for the infection. She was also noted to have a pericardial effusion and underwent a pericardial window on 09/09/2018. In addition, patient had reduced LV systolic function and wall motion abnormalities on an outpatient echo on 09/08/2018. A repeat echo performed during her hospitalization showed low normal LV systolic function with an EF of 50-55%. The distal portions fo the ventricle and apex were not well seen, therefore, wall motion abnormalities could not be excluded in these areas, but otherwise there were no obvious wall motion abnormalities. She appeared hypervolemic during admission with increased lower extremity edema, and was administered IV diuretic therapy for diuresis. She was not discharged home on an y diuretic therapy. She states that she felt well upon discharge home, however, she noted progressive shortness of breath, increased lower extremity edema, and generalized weakness. She noted shortness of breath while at rest, which was worsened with minimal exertion. She also noted wheezing. She admits to chronic orthopnea over the last several years. She does not have scales at home and has therefore been unable to weigh herself. She was brought to the ED yesterday morning due to the shortness of breath and weakness. Her CXR showed worsening pulmonary edema vs infectious process. She was noted to have small pleural effusions and cardiomegaly. She was felt to be in acute CHF and has been administered 2 doses IV Lasix 40 mg thus far. She has noted an improvement in her breathing with the diuretic therapy. She denies chest pain or palpitations. She denies lightheadedness, syncope, or presyncope. She denies abnormal bleeding such as melena, hematochezia, or hematuria. She denies cerebrovascular symptoms. She admits to a cough with production of yellow sputum. She states that she does follow a low sodium diet at home. ROS: As noted in HPI. All other ROS reviewed and otherwise negative at this time. Physical Exam Physical Exam: Constitutional: Alert, oriented, in no acute distress HEENT: Head is atraumatic and normocephalic. EOMs intact. Sclera anicteric. Face is symmetric. No perioral cyanosis. Mucous membranes moist. Neck: Supple, difficult to assess JVP Pulmonary: Normal respiratory effort, decreased breath sounds throughout and bibasilar crackles Cardiac: Regular rate and rhythm, normal S1 and S2, no gallops, no rubs, no murmurs Extremities: 2+ edema of bilateral lower extremities, which extends above the knees. No clubbing or cyanosis. Pulses intact Abdomen: Normal bowel sounds, soft, non-tender, no abdominal mass palpated Skin: Patient is pale appearing. No rash or skin lesions. Neurological: Oriented to person, place, and time Results & Data Vital Signs (Past 12 Hours) Vital Signs Temp Pulse Pulse Pulse Resp BP Pulse Ox 09/18/18 08:00 66 09/18/18 07:21 36.8 C 64 18 132/76 90 09/18/18 04:53 65 21 96 09/18/18 03:00 96 09/18/18 02:57 36.7 C 68 18 138/83 84 L 09/18/18 01:46 64 22 97 09/17/18 23:16 66 22 92 09/17/18 23:10 37.1 C 67 16 121/85 94 Laboratory Results Laboratory Results WBC 6.32 K/uL (4.8-10.8) 09/17/18 11:20 RBC 2.86 M/uL (4.2-5.4) L 09/17/18 11:20 Hgb 9.1 g/dL (12.0-16.0) L 09/18/18 07:57 Hct 28.2 % (37-47) L 09/18/18 07:57 MCV 98.3 fL (80-100) 09/17/18 11:20 MCH 31.5 pg (25-34) 09/17/18 11:20 MCHC 32.0 g/dL (32-36) 09/17/18 11:20 RDW Std Deviation 52.9 fL (36.4-46.3) H 09/17/18 11:20 RDW Coeff of Charm[place] 15.0 % (11.5-14.5) H 09/17/18 11:20 Plt Count 236 K/uL (130-400) 09/17/18 11:20 MPV 9.7 fL (7.4-10.4) 09/17/18 11:20 Immature Gran % (Auto) 0.5 % 09/17/18 11:20 Neut % (Auto) 76.5 % 09/17/18 11:20 Lymph % (Auto) 13.6 % 09/17/18 11:20 [place] % (Auto) 7.3 % 09/17/18 11:20 Eos % (Auto) 1.6 % 09/17/18 11:20 Baso % (Auto) 0.5 % 09/17/18 11:20 Immature Gran # (Auto) 0.03 K/uL (0.00-0.02) H 09/17/18 11:20 Neut # (Auto) 4.84 K/uL (1.4-6.5) 09/17/18 11:20 Lymph # (Auto) 0.86 K/uL (1.2-3.4) L 09/17/18 11:20 [place] # (Auto) 0.46 K/uL (0.11-0.59) 09/17/18 11:20 Eos # (Auto) 0.10 K/uL (0-0.5) 09/17/18 11:20 Baso # (Auto) 0.03 K/uL (0-0.2) 09/17/18 11:20 PT 14.8 Seconds (9.0-12.0) H 09/17/18 11:20 INR 1.5 (0.9-1.1) H 09/17/18 11:20 APTT 37.3 Seconds (21.0-31.0) H 09/17/18 11:20 PTT Ratio 1.4 09/17/18 11:20 VBG pH 7.37 (7.36-7.41) 09/17/18 11:18 VBG pCO2 53 mmHg (38-50) H 09/17/18 11:18 VBG pO2 36 mmHg 09/17/18 11:18 VBG HCO3 30 mmol/L 09/17/18 11:18 VBG O2 Saturation 62.8 % 09/17/18 11:18 VBG Base Excess 3.8 mEq/L 09/17/18 11:18 Barometric Pressure 730.1 mm/Hg 09/17/18 11:18 Sodium 139 mmol/L (136-145) 09/18/18 07:57 Potassium 2.9 mmol/L (3.5-5.1) L 09/18/18 07:57 Chloride 100 mmol/L (98-107) 09/18/18 07:57 Carbon Dioxide 33 mmol/L (21-32) H 09/18/18 07:57 Anion Gap 6.0 (3-11) 09/18/18 07:57 BUN 6 mg/dl (7-18) L 09/18/18 07:57 Creatinine 0.51 mg/dl (0.6-1.2) L 09/18/18 07:57 Est Cr Clr Drug Dosing 108.7 ml/min 09/18/18 07:57 Est GFR ( Amer) 116.1 09/18/18 07:57 Est GFR (Non-Af Amer) 100.2 09/18/18 07:57 BUN/Creatinine Ratio 12.1 (10-20) 09/18/18 07:57 Glucose 77 mg/dl (70-99) 09/18/18 07:57 POC Glucose 70 (70-99) 09/17/18 17:54 Calcium 8.0 mg/dl (8.5-10.1) L 09/18/18 07:57 Magnesium 1.6 mg/dl (1.8-2.4) L 09/17/18 11:20 Total Bilirubin 0.4 mg/dl (0.2-1) 09/17/18 11:20 AST 36 U/L (15-37) 09/17/18 11:20 ALT 11 U/L (12-78) L 09/17/18 11:20 Alkaline Phosphatase 95 U/L (45-117) 09/17/18 11:20 Troponin I 0.019 ng/ml (0-0.045) 09/17/18 11:20 Total Protein 5.0 gm/dl (6.4-8.2) L 09/17/18 11:20 Albumin 1.6 gm/dl (3.4-5.0) L 09/17/18 11:20 Globulin 3.4 gm/dl (2.5-4.0) 09/17/18 11:20 Albumin/Globulin Ratio 0.5 (0.9-2) L 09/17/18 11:20 Urine Color Dark Yellow 09/17/18 15:07 Urine Appearance Clear (Clear) 09/17/18 15:07 Urine pH 5.5 (4.5-7.5) 09/17/18 15:07 Ur Specific [place] 1.039 (1.000-1.030) H 09/17/18 15:07 Urine Protein 1+ (Negative) H 09/17/18 15:07 Urine Glucose (UA) Negative (Negative) 09/17/18 15:07 Urine Ketones 1+ (Negative) H 09/17/18 15:07 Urine Blood Negative (Negative) 09/17/18 15:07 Urine Nitrite Negative (Negative) 09/17/18 15:07 Urine Bilirubin Negative (Negative) 09/17/18 15:07 Urine Urobilinogen Negative (Negative) 09/17/18 15:07 Ur Leukocyte Esterase Negative (Negative) 09/17/18 15:07 Urine WBC (Auto) 1-5 /hpf (0-5) 09/17/18 15:07 Urine RBC (Auto) 5-10 /hpf (0-4) H 09/17/18 15:07 U Hyaline Cast (Auto) 10-30 /lpf (0-5) H 09/17/18 15:07 U Epithel Cells (Auto) >30 /lpf (0-5) H 09/17/18 15:07 Urine Bacteria (Auto) Negative (Negative) 09/17/18 15:07 Ur Renal Epithelial Cell 0-5 /lpf (0-5) 09/17/18 15:07 Granular Casts 1-5 /lpf (0) H 09/17/18 15:07 Diagnostic Findings ECG: Sinus bradycardia at 58 bpm. Left axis deviation. Possible anterior infarct.
[2018-09-18] MEDS ORDERED: FUROSEMIDE 40 MG/4 ML VIAL IV STA (11:19)
[2018-09-18] MEDS ORDERED: POTASSIUM CHLORIDE 20 MEQ TABCR PO STA (11:49)
[2018-09-18] MEDS ORDERED: PERFLUTREN LIPID MICROSPHERE (DEFINITY) IV ONE (13:04)
[2018-09-18] MEDS ORDERED: CALCIUM CARBONATE 500 MG CHEWABLE TAB PO PRN (14:18)
[2018-09-18] MEDS: POTASSIUM CHLORIDE 20 MEQ TABCR PO SCH ×2 (15:03→19:47)
[2018-09-18 16:06] LABS: BUN Creatinine Ratio 12.6 (10-20); Creatinine Clr Calc Pharmacy 110.9 ml/min; Est GFR (African American) 116.9; Est GFR (Non-African American) 100.9; Potassium 3.2 mmol/L (3.5-5.1)
[2018-09-18] MEDS: RIVAROXABAN 20 MG TAB PO SCH (17:01)
[2018-09-18] MEDS: ATORVASTATIN 10 MG TAB PO SCH (19:48)
[2018-09-19 05:52] LABS: Hematocrit (blood only) 28.8 % (37-47); Hemoglobin 9.1 g/dL (12.0-16.0)
[2018-09-19] MEDS: LEVOTHYROXINE SODIUM 200 MCG TABLET PO SCH (06:16)
[2018-09-19 06:22] LABS: BUN Creatinine Ratio 15.6 (10-20); Calcium 8.2 mg/dl (8.5-10.1); Creatinine Clr Calc Pharmacy 120.6 ml/min; Est GFR (African American) 120.1; Est GFR (Non-African American) 103.7; Potassium 3.4 mmol/L (3.5-5.1)
[2018-09-19] MEDS ORDERED: CARBOHYDRATES FOR HYPOGLYCEMIA PO PRN (06:35)
[2018-09-19] MEDS: FLUTICASONE/SALMETEROL 250/50 (ADVAIR) 14 PUFF/1 INHALER INH SCH ×2 (07:41→20:48)
[2018-09-19] MEDS: PIPERACILLIN/TAZOBACTAM 4.5 GM in DEXTROSE 5% 100 ML IV SCH ×3 (07:41→23:55)
[2018-09-19] MEDS: METOPROLOL TARTRATE 25 MG TAB PO SCH ×2 (07:42→20:49)
[2018-09-19] MEDS: FOLIC ACID 1 MG TAB PO SCH (07:42)
[2018-09-19] MEDS: POTASSIUM CHLORIDE 20 MEQ TABCR PO SCH ×3 (07:42→20:48)
[2018-09-19] MEDS: SERTRALINE HCL 100 MG TABLET PO SCH (07:42)
[2018-09-19] MEDS: HYDROXYCHLOROQUINE SULFATE 200 MG TAB PO SCH ×2 (07:42→20:48)
[2018-09-19] MEDS: CHOLECALCIFEROL 1,000 UNITS TAB PO SCH (07:43)
[2018-09-19] MEDS: FERROUS SULFATE 325 MG TAB PO SCH (07:43)
[2018-09-19] MEDS: ACETAMINOPHEN 325 MG TAB PO PRN (07:46)
[2018-09-19] MEDS ORDERED: FUROSEMIDE 40 MG in SYRINGE 0 ML IV ONE (10:00)
--- NOTE | 2018-09-19 11:03 | Cardiology Progress Note ---
Date of Service September 19, 2018 Assessment & Plan (1) Acute on chronic diastolic (congestive) heart failure: She continues to improve with intravenous diuretics. Will receive a dose of 40 mg of Lasix this morning. (2) Pericardial effusion: She underwent pericardial window on 09/09/18. Echocardiograms on 09/10 and 09/19 show no evidence of a pericardial effusion. (3) Cardiomyopathy: Echocardiogram performed yesterday notes mild left ventricular systolic dysfunction with an ejection fraction of 40-45%. There is mild global hypokinesis. (4) Atrial arrhythmia: The patient carries a history of paroxysmal atrial fibrillation. Fortunately, she remains in sinus rhythm on the monitor currently. Subjective The patient is resting comfortably in the bedside chair without complaints chest pain or dyspnea. Physical Exam Physical Exam: In general is an obese white female seated bedside chair without complaints. HEENT exam is negative. Neck is supple with full carotid upstrokes. No obvious carotid bruits. Jugular venous pressure is flat 90. There is no thyromegaly. Cardiovascular exam reveals a regular rhythm with distant heart sounds. No obvious murmurs. Lungs note decreased breath sounds at the bases but no rales, rhonchi, or wheezes. Abdomen is obese without bruits. Extremities reveal intact radial artery pulses bilaterally. Trace to 1+ pretibial edema is noted. Results & Data Vital Signs (Past 12 Hours) Vital Signs Temp Pulse Pulse Resp BP Pulse Ox 09/19/18 08:00 61 09/19/18 07:37 36.7 C 63 18 146/85 H 90 09/19/18 03:59 36.9 C 63 19 141/82 H 91 09/18/18 23:47 64 23 95 09/18/18 23:19 36.8 C 63 19 126/76 93 Laboratory Results CBC notes a hemoglobin of 9.1 and hematocrit of 28.8. Electrolytes noted sodium of 140, potassium 3.4, chloride 99, bicarb 35, BUN 7, creatinine 0.46, glucose of 69. Diagnostic Findings employment director notes sinus rhythm with an occasional PAC.
--- NOTE | 2018-09-19 14:04 | Hospitalist Progress Note ---
Date of Service September 19, 2018 Assessment & Plan (1) Acute on chronic combined systolic and diastolic CHF (congestive heart failure): CXR with evidence of volume overload and rales in the bases bilaterally would be most logical explanation for dyspnea and hypoxia responded well to Lasix 40mg IV x 1, repeat 40mg IV at [address] place becker follow I/O and daily weights further Lasix 40mg IV today, start Lasix 40mg PO daily tomorrow AM negative over 7.5 liters through today on 09/10 she had echo that showed EF of 55%, EF is now down to 45% on echo this admission thus she has systolic heart failure cardiology following approaching euvolemic state, now needs to concentrate on getting stronger continue daily Lasix on discharge will need CHF discharge instructions anticipate her needing rehab her is on board but patient may be reluctant PT/OT ordered (2) Acute respiratory failure with hypoxia: down to 3L NC today, breathing comfortably most logical explanation is volume overload causing acute heart failure this was confirmed with her marked improvement with her breathing and oxygenation with diuresis other causes of dyspnea and hypoxia seem unlikely... had recent pericardial window for effusion she is being treated appropriately for Pseudomonas pneumonia with Zosyn IV she is anticoagulated on Xarelto for prior PE and infarction no wheezing, doubt asthma exacerbation still on 5L today, give additional Lac (3) Hypokalemia: low due to diuresis, 2.9 this morning K is 3.4, continue to monitor (4) Pseudomonas pneumonia: continue on Zosyn until October 01, 2018 WBC normal, no fever infection should be adequately controlled (5) Eosinophilic asthma: no wheezing continue inhaled treatments (6) Cardiomyopathy: EF low on most recent echo shows EF of 45%, had some diastolic dysfunction continue on metoprolol will likely need daily Lasix on discharge (7) Anemia: Hb is 9.1, no signs of bleeding, not low enough to cause dysnea (8) Effusion, pericardium: had window placed by thoracic surgery last visit no effusion on repeat echo (9) Hypomagnesemia: low at 1.7, 2gm IV ordered in the ED (10) Hypoglycemia: no h/o DM but has experienced low sugars in the past treat as needed with oral glucose no issues today (11) Pulmonary embolism: chronic on Xarelto 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 Noland Review of Systems Review of Systems: All systems reviewed & are unremarkable except as noted in HPI & below Respiratory: + cough, + dyspnea and + dyspnea on exertion; no pain with cough, no sputum production and no wheezing Cardiovascular: + dyspnea, + orthopnea and + edema; no chest pain Musculoskeletal: + muscle weakness (generalized) Physical Exam Constitutional: WD/WN, vitals as above Eyes: PERRL, conjunctivae normal, anicteric sclerae ENMT: external ear and nose normal, oropharynx normal Neck: trachea midline, no thyromegaly Respiratory: normal respiratory effort; no respiratory distress Auscultation: lungs clear to auscultation bilaterally; no wheezes Cardiovascular: Rate/Rhythm: regular rate and regular rhythm Heart Sounds: normal S1 and normal S2; no murmur Extremities: normal capillary refill and + edema (improved since admission) Gastrointestinal (Abdomen): normal bowel sounds, soft, nontender, no hepatosplenomegaly Musculoskeletal: no cyanosis or clubbing, extremities motor strength 5/5 Skin: no rashes, warm and dry Neurologic: patellar DTR's 2+ bilat, sensation intact and PERRL, EOMI, accommodation nl, no face palsy, no dysarthria Psychiatric: A+Ox3, euthymic affect Lymphatic: no cervical or axillary lymphadenopathy Results & Data Vital Signs (Past 12 Hours) Vital Signs Temp Pulse Pulse Resp BP Pulse Ox 09/19/18 11:27 36.6 C 59 L 18 110/75 95 09/19/18 08:00 61 09/19/18 07:37 36.7 C 63 18 146/85 H 90 09/19/18 03:59 36.9 C 63 19 141/82 H 91 Laboratory Results Laboratory Results - last 24 hr 09/19/18 09/19/18 09/19/18 05:30 05:30 06:30 Hgb 9.1 L Hct 28.8 L Sodium 140 Potassium 3.4 L Chloride 99 Carbon Dioxide 35 H Anion Gap 7.0 BUN 7 Creatinine 0.46 L Est Cr Clr Drug Dosing 120.6 Est GFR ( Amer) 120.1 Est GFR (Non-Af Amer) 103.7 BUN/Creatinine Ratio 15.6 Glucose 69 L POC Glucose 66 L* Calcium 8.2 L 09/19/18 09/19/18 06:32 06:59 Hgb Hct Sodium Potassium Chloride Carbon Dioxide Anion Gap BUN Creatinine Est Cr Clr Drug Dosing Est GFR ( Amer) Est GFR (Non-Af Amer) BUN/Creatinine Ratio Glucose POC Glucose 69 L* 95 Calcium Medications Administered Current Inpatient Medications Acetaminophen (Tylenol) 650 mg PO Q4H PRN PRN Reason: Pain or Fever Stop: 10/17/18 16:44 Last Admin: 09/19/18 07:46 Dose: 650 mg Documented by: Albuterol (Ventolin Hfa) 2 puffs INH QID PRN PRN Reason: sob Stop: 10/17/18 16:44 Albuterol (Duoneb) 3 ml INH QID PRN PRN Reason: sob Stop: 10/17/18 16:44 Atorvastatin Calcium (Lipitor) 10 mg PO HS ALEJANDRA Stop: 10/17/18 20:59 Last Admin: 09/18/18 19:48 Dose: 10 mg Documented by: Calcium Carbonate (Tums) 500 mg PO Q6 PRN PRN Reason: Indigestion Stop: 10/18/18 14:17 Last Admin: 09/18/18 15:03 Dose: 500 mg Documented by: Ferrous Sulfate (Feosol) 325 mg PO DAILY [facility] Stop: 10/18/18 08:59 Last Admin: 09/19/18 07:43 Dose: 325 mg Documented by: Fexofenadine HCl/Pseudoephedrine (Kiesha-D 12 Hr) 1 tab PO QAM PRN PRN Reason: Seasonal Allergies Stop: 10/17/18 16:44 Folic Acid (Folvite) 1 mg PO DAILY ALEJANDRA Stop: 10/18/18 08:59 Last Admin: 09/19/18 07:42 Dose: 1 mg Documented by: Gabapentin (Neurontin) 100 mg PO HS PRN PRN Reason: nerve pain Stop: 10/17/18 16:44 Heparin Sodium (Beef Lung) (Heparin Sod 10 Unit/Ml Flush) 5 ml FLUSH PRN PRN PRN Reason: Flush Stop: 10/19/18 01:16 Hydroxychloroquine Sulfate (Plaquenil) 200 mg PO BID ALEJANDRA Stop: 10/17/18 20:59 Last Admin: 09/19/18 07:42 Dose: 200 mg Documented by: Piperacillin Sod/Tazobactam (Sod 4.5 gm/ Dextrose) 120 mls @ 30 mls/hr IV Q8H [facility]; Protocol Stop: 09/25/18 00:00 Last Admin: 09/19/18 16:42 Dose: 30 mls/hr Documented by: Levothyroxine Sodium (Synthroid) 200 mcg PO SUSA@0630 [facility] Stop: 10/19/18 06:29 Last Admin: 09/19/18 06:16 Dose: 200 mcg Documented by: Levothyroxine Sodium (Synthroid) 225 mcg PO MOTUWETHFR@0630 [facility] Stop: 10/18/18 06:29 Last Admin: 09/18/18 06:14 Dose: 225 mcg Documented by: Metoprolol Tartrate (Lopressor) 25 mg PO BID [facility] Stop: 10/18/18 08:59 Last Admin: 09/19/18 07:42 Dose: 25 mg Documented by: Miscellaneous (Carbohydrates For Hypoglycemia) 15 gm PO ONCE PRN PRN Reason: Hypoglycemia Treatment Stop: 10/19/18 06:34 Last Admin: 09/19/18 06:35 Dose: 15 gm Documented by: Miscellaneous Information (Consult) 1 ea N/A UD PRN PRN Reason: Consult Stop: 10/17/18 16:44 Ondansetron HCl (Zofran) 4 mg IV Q6H PRN PRN Reason: Nausea Stop: 10/17/18 16:44 Potassium Chloride (Klor-Con M20) 20 meq PO TID [facility] Stop: 10/18/18 13:59 Last Admin: 09/19/18 13:00 Dose: 20 meq Documented by: Rivaroxaban (Xarelto) 20 mg PO QDD [facility] Stop: 10/17/18 17:29 Last Admin: 09/19/18 16:43 Dose: 20 mg Documented by: Fluticasone/Salmeterol (Advair Diskus 250/50) 2 puffs INH BID [facility] Stop: 10/17/18 20:59 Last Admin: 09/19/18 07:41 Dose: 2 puffs Documented by: Sertraline HCl (Zoloft) 150 mg PO QAM [facility] Stop: 10/18/18 08:59 Last Admin: 09/19/18 07:42 Dose: 150 mg Documented by: Tramadol HCl (Ultram) 50 - 100 mg PO QID PRN PRN Reason: Pain Stop: 10/17/18 16:59 Last Admin: 09/19/18 19:46 Dose: 100 mg Documented by: Vitamin D (Vitamin D3) 2,000 units PO DAILY ALEJANDRA Stop: 10/18/18 08:59 Last Admin: 09/19/18 07:43 Dose: 2,000 units Documented by:
[2018-09-19] MEDS: RIVAROXABAN 20 MG TAB PO SCH (16:43)
[2018-09-19] MEDS: TRAMADOL HCL 50 MG TABLET PO PRN (19:46)
[2018-09-19] MEDS: ATORVASTATIN 10 MG TAB PO SCH (20:47)
[2018-09-20] MEDS: LEVOTHYROXINE SODIUM 200 MCG TABLET PO SCH (06:06)
[2018-09-20] MEDS: PIPERACILLIN/TAZOBACTAM 4.5 GM in DEXTROSE 5% 100 ML IV SCH (07:55)
[2018-09-20 08:07] LABS: Basophils # (auto) 0.01 K/uL (0-0.2); Basophils % (auto) 0.1 %; Eosinophils # (auto) 0.22 K/uL (0-0.5); Eosinophils % (auto) 3.1 %; Hematocrit (blood only) 28.7 % (37-47); Hemoglobin 9.2 g/dL (12.0-16.0); Immature Granulocytes # (auto) 0.01 K/uL (0.00-0.02); Immature Granulocytes % (auto) 0.1 %; Lymphocytes # (auto) 0.92 K/uL (1.2-3.4); Lymphocytes % (auto) 13.1 %; Mean Corpuscular Hgb Conc 32.1 g/dL (32-36); Mean Platelet Volume 9.6 fL (7.4-10.4); Monocytes # (auto) 0.74 K/uL (0.11-0.59); Monocytes % (auto) 10.5 %; Neutrophils # (auto) 5.13 K/uL (1.4-6.5); Neutrophils % (auto) 73.1 %; Platelet Count 261 K/uL (130-400); RDW Standard Deviation 53.9 fL (36.4-46.3); Red Blood Count 2.99 M/uL (4.2-5.4); White Blood Count 7.03 K/uL (4.8-10.8)
[2018-09-20 08:33] LABS: BUN Creatinine Ratio 14.2 (10-20); Calcium 8.1 mg/dl (8.5-10.1); Creatinine Clr Calc Pharmacy 97.1 ml/min; Est GFR (African American) 113.3; Est GFR (Non-African American) 97.7; Magnesium 1.4 mg/dl (1.8-2.4); Potassium 3.9 mmol/L (3.5-5.1)
[2018-09-20] MEDS: FOLIC ACID 1 MG TAB PO SCH (08:33)
[2018-09-20] MEDS: METOPROLOL TARTRATE 25 MG TAB PO SCH ×2 (08:33→20:53)
[2018-09-20] MEDS: FERROUS SULFATE 325 MG TAB PO SCH (08:33)
[2018-09-20] MEDS: SERTRALINE HCL 100 MG TABLET PO SCH (08:33)
[2018-09-20] MEDS: CHOLECALCIFEROL 1,000 UNITS TAB PO SCH (08:34)
[2018-09-20] MEDS: HYDROXYCHLOROQUINE SULFATE 200 MG TAB PO SCH ×2 (08:34→20:53)
[2018-09-20] MEDS: FLUTICASONE/SALMETEROL 250/50 (ADVAIR) 14 PUFF/1 INHALER INH SCH ×2 (08:34→20:53)
[2018-09-20] MEDS: POTASSIUM CHLORIDE 20 MEQ TABCR PO SCH ×3 (08:34→20:53)
[2018-09-20] MEDS ORDERED: FUROSEMIDE 40 MG TAB PO SCH (09:00)
[2018-09-20] MEDS: MAGNESIUM SULFATE / D5W 1 GM/100 ML BAG IV SCH ×2 (09:57→10:45)
--- NOTE | 2018-09-20 10:55 | Cardiology Progress Note ---
Date of Service September 20, 2018 Assessment & Plan (1) Acute on chronic diastolic (congestive) heart failure: The patient is diuresed well losing 14.2 kg since admission. Was converted to oral Lasix this morning. (2) Pericardial effusion: Pericardial window on 09/09/18. Echocardiograms on 09/10 and 09/19 show no evidence of an effusion. (3) Cardiomyopathy: Current echocardiogram notes mild left ventricular systolic dysfunction with an ejection fraction of 40-45%. There is mild global hypokinesis. (4) Atrial arrhythmia: The patient carries a history of paroxysmal atrial fibrillation. Remains in sinus rhythm. Subjective The patient is resting comfortably in bed without complaints of chest pain or dyspnea. Physical Exam Physical Exam: In general is an obese white female seated bedside chair without complaints. HEENT exam is negative. Neck is supple with full carotid upstrokes. No obvious carotid bruits. Jugular venous pressure is flat 90. There is no thyromegaly. Cardiovascular exam reveals a regular rhythm with distant heart sounds. No obvious murmurs. Lungs note decreased breath sounds at the bases but no rales, rhonchi, or wheezes. Abdomen is obese without bruits. Extremities reveal intact radial artery pulses bilaterally. Trace pretibial edema is noted. Results & Data Vital Signs (Past 12 Hours) Vital Signs Temp Pulse Pulse Resp BP Pulse Ox 09/20/18 10:32 36.7 C 61 18 110/68 94 09/20/18 08:00 59 L 09/20/18 07:06 36.5 C 60 19 132/83 94 09/20/18 03:27 36.7 C 61 18 107/69 96 09/19/18 23:55 36.5 C 67 19 115/69 95 Diagnostic Findings hall monitor notes sinus rhythm in the 60s.
--- NOTE | 2018-09-20 12:22 | XRay Report ---
XR chest 2V routine HISTORY: recent CHF , interval change COMPARISON: Chest 09/17/2018. FINDINGS: Interval progression of the interstitial thickening and patchy airspace opacities seen thro ughout the lungs. This is consistent with worsening pulmonary edema. There are small bilateral pleura l effusions, unchanged. The heart remains enlarged. A right PICC terminates in the distal SVC. IMPRESSION: Slight progression of the pulmonary edema and bilateral pleural effusions. Electronically signed by: De Brito M.D. 09/20/2018 12:21 PM
[2018-09-20] MEDS: CEROVITE ADV FORMULA TAB PO SCH (12:56)
[2018-09-20] MEDS: PIPERACILLIN/TAZOBACTAM 3.375 GM in DEXTROSE 5% 100 ML IV SCH ×2 (15:38→23:43)
[2018-09-20] MEDS: RIVAROXABAN 20 MG TAB PO SCH (15:39)
--- NOTE | 2018-09-20 16:44 | Hospitalist Progress Note ---
Date of Service September 20, 2018 Assessment & Plan (1) Acute on chronic combined systolic and diastolic CHF (congestive heart failure): Patient has been diuresed during this stay. Most recent echo with EF 45% 2nd to nonischemic cardiomyopathy. CXR today with worsening infiltrates -- this is despite the recent diuresis. BUN and Cr remain stable. Received PO lasix this am. Will give additional dose of IV lasix at 1700 today. K/mag supplementation. Cont BB - at some point we should change this to metoprolol succinate. If BP will allow she will also need low-dose SIMONE. Present on Admission?: Yes (2) Acute respiratory failure with hypoxia: Multifactorial -- acute/chronic CHF, pseudomonas pneumonia, prior PE w/ infarction, etc. Remains on 4 L NC O2. Diurese. Zosyn for pseudomonas pneumonia. Xarelto for prior RLL PEs. etc. I am concerned by the appearance of her chest x-rays (worsening infiltrates) despite aggressive diuresis and aggressive treatment of the pseudomonas since July. For that reason I have asked Dr. Maria to see in consult. Continue supportive care, wean O2 as tolerated, etc. Present on Admission?: Yes (3) Pseudomonas pneumonia: s/p bronch at [facility] in with pseudomonas growing from that bronch. Received at least 3 weeks of IV meropenem, possibly up to 5 weeks, based on pt's account. Despite such she had pseudomonas grow from her right chest from 09/09/18 thoracic procedure performed by Dr. Cedeno. It also grew from pericardial fluid. Current plan is continuing on Zosyn until October 01, 2018. However, again I am concerned about worsening chest films. See above. Reason for not clearing the pseudomonas? immunocompromised state from her RA/psoriatic arthritis/eosinophilic asthma and the immunosuppresants she has to take? other reason? Pulmonary consult requested with Dr. Maria. Present on Admission?: Yes (4) Eosinophilic asthma: [facility] in [place]. Has been steroid-dependent per records - was taking 5mg/day prior - currently not getting any steroid therapy in the hospital. Will need to clarify with patient if she has been weaned off. However, I suspect she SHOULD be on steroids - outpatient records from [place], as of July, indicate 5mg/day of prednisone was being taken by the patient. Prednisone 40mg x 1 now while clarifying her meds as the hypoglycemia may indicate adrenal insufficiency in the setting of chronic prednisone usage. Previously was also on Nucala. Continue inhalers, etc. Formal pulmonary consult with Dr. Maria requested. Present on Admission?: Yes (5) Pulmonary embolism: RLL PE with resulting infarction - 06/2018. Treated w/ xarelto. Pathology report from 09/09 c/w RLL infarction. Cause of PE? Also had DVT at time of PE diagnosis in June. Present on Admission?: Yes (6) Hypoglycemia: Frequent AM episodes of hypoglycemia. This is either due to relative adrenal insufficiency in setting of chronic steroid use or poor hepatic gluconeogenesis. Suspect former. Clarify prednisone dosing with patient. Give prednisone 40mg today now. (7) Effusion, pericardium: s/p pericardial window by Dr. Cedeno on 09/09/18. Cultures with MDR pseudomonas. Now on zosyn. no effusion on repeat echos since the window. no rub on exam or signs of reaccumulation clinically. Present on Admission?: Yes (8) Hypokalemia: cont supplementation (9) Cardiomyopathy: EF 45% with diastolic dysfunction. continue on metoprolol. will likely need daily Lasix on discharge. (10) Anemia: H/H low but stable in the 9's. follow. (11) Hypomagnesemia: 2 grams IV of mag sulfate today. repeat level am. (12) Candidiasis of mouth and esophagus: start nystatin 5ml ac/hs - swish/swallow (13) Hypothyroidism: most recent TSH wnl cont synthroid (14) Rheumatoid arthritis: chronically on prednisone 5mg/day and plaquenil previously on methotrexate as well no issues at this time (15) DVT prophylaxis: xarelto cont PT, OT Subjective tele stable overnight patient with ongoing orthopnea and CRESPO cough is mild and productive of yellow sputum no chest pain continues with becker in place records from office reviewed - was admitted to [facility] sometime in late July/early July for 1 week underwent bronch due to cavitary lesion in RLL pseudomonas grew from bronch initially placed on 21-day course of IV meropenem then this was extended out to 5 weeks of Rx (per 's recollection) she follows with [facility] in [place] for her eosinophilic asthma she feels very tired Review of Systems Constitutional: + fatigue; no fever and no chills Respiratory: + cough, + dyspnea and + dyspnea on exertion; no hemoptysis and no wheezing Cardiovascular: + orthopnea; no chest pain and no edema Gastrointestinal: no abdominal pain and no diarrhea/loose stools Physical Exam Constitutional: + ill appearing and + obese; no acute distress tired appearing ENMT: Mouth: + oral mucosal abnormality (thrush plaques) Respiratory: no respiratory distress and no labored breathing Auscultation: + crackles (fine b/l bases as well as anteriorly on chest); no wheezes Cardiovascular: Rate/Rhythm: regular rate and regular rhythm Heart Sounds: normal S1 and normal S2; no murmur and no cardiac rub Vessels: posterior tibial pulses present and dorsalis pedis pulses present; no JVD Extremities: no edema Gastrointestinal (Abdomen): normal bowel sounds, soft, nontender, no hepatosplenomegaly Skin: no rashes, warm and dry Psychiatric: A+Ox3, euthymic affect Results & Data Vital Signs (Past 12 Hours) Vital Signs Temp Pulse Pulse Resp BP Pulse Ox 09/20/18 15:05 36.7 C 63 16 115/74 92 09/20/18 10:32 36.7 C 61 18 110/68 94 09/20/18 08:00 59 L 09/20/18 07:06 36.5 C 60 19 132/83 94 Laboratory Results Laboratory Results - last 24 hr 09/20/18 09/20/18 09/20/18 07:51 07:51 07:51 WBC 7.03 RBC 2.99 L Hgb 9.2 L Hct 28.7 L MCV 96.0 MCH 30.8 MCHC 32.1 RDW Std Deviation 53.9 H RDW Coeff of Charmaine 16.0 H Plt Count 261 MPV 9.6 Immature Gran % (Auto) 0.1 Neut % (Auto) 73.1 Lymph % (Auto) 13.1 Harney % (Auto) 10.5 Eos % (Auto) 3.1 Baso % (Auto) 0.1 Immature Gran # (Auto) 0.01 Neut # (Auto) 5.13 Lymph # (Auto) 0.92 L Harney # (Auto) 0.74 H Eos # (Auto) 0.22 Baso # (Auto) 0.01 Sodium 138 Potassium 3.9 Chloride 97 L Carbon Dioxide 35 H Anion Gap 6.0 BUN 8 Creatinine 0.55 L Est Cr Clr Drug Dosing 97.1 Est GFR ( Amer) 113.3 Est GFR (Non-Af Amer) 97.7 BUN/Creatinine Ratio 14.2 Glucose 62 L POC Glucose Calcium 8.1 L Magnesium 1.4 L Cortisol AM Sample 15.04 09/20/18 09:09 WBC RBC Hgb Hct MCV MCH MCHC RDW Std Deviation RDW Coeff of Charmaine Plt Count MPV Immature Gran % (Auto) Neut % (Auto) Lymph % (Auto) Harney % (Auto) Eos % (Auto) Baso % (Auto) Immature Gran # (Auto) Neut # (Auto) Lymph # (Auto) Harney # (Auto) Eos # (Auto) Baso # (Auto) Sodium Potassium Chloride Carbon Dioxide Anion Gap BUN Creatinine Est Cr Clr Drug Dosing Est GFR ( Amer) Est GFR (Non-Af Amer) BUN/Creatinine Ratio Glucose POC Glucose 98 Calcium Magnesium Cortisol AM Sample Diagnostic Findings cxr - IMPRESSION: Slight progression of the pulmonary edema and bilateral pleural effusions. (1) Rheumatoid arthritis Rheumatoid arthritis location: unspecified site Rheumatoid factor presence: unspecified presence Qualified Code(s): M06.9 - Rheumatoid arthritis, unspecified (2) Anemia Anemia type: unspecified type Qualified Code(s): D64.9 - Anemia, unspecified (3) Pseudomonas pneumonia Laterality: bilateral Lung location: unspecified part of lung Qualified Code(s): J15.1 - Pneumonia due to Pseudomonas (4) Hypothyroidism Hypothyroidism type: acquired Qualified Code(s): E03.9 - Hypothyroidism, unspecified (5) Pulmonary embolism Acute cor pulmonale presence: without acute cor pulmonale Chronicity: chronic Pulmonary embolism type: unspecified Qualified Code(s): I27.82 - Chronic pulmonary embolism (6) Cardiomyopathy Cardiomyopathy type: other Qualified Code(s): I42.8 - Other cardiomyopathies
[2018-09-20] MEDS ORDERED: FUROSEMIDE 20 MG in SYRINGE 0 ML IV SCH (16:45)
[2018-09-20] MEDS ORDERED: predniSONE 20 MG TAB PO STA (17:02)
[2018-09-20] MEDS: NYSTATIN SUSP 500,000 U/5 ML UDC PO SCH ×2 (17:29→20:53)
--- NOTE | 2018-09-20 20:39 | Consultation Report ---
DATE OF CONSULTATION: 09/20/2018 PULMONARY CONSULTATION TIME: 5:15 p.m. REPORT OF CONSULTATION: The patient was seen in room 219. She is a 68-year-old female with a complex history. She has underlying known asthma with eosinophilia. She has had asthma since age 5. In the late fall or early winter, she had developed a severe cough. She was hospitalized at [facility] from 06/09/2018 until 06/14/2018 with a pulmonary embolism involving right lower lobe and DVT of the left leg in the popliteal vein. She was treated with Xarelto. Subsequently, she was evaluated in [place] and I believe admitted. She had bronchoscopy there that showed pseudomonas from a cavitary lesion in the right lung base. She was given meropenem reportedly for almost 6 weeks. She was in the ER on September 06 with shortness of breath. She also had swelling. Subsequently, an echocardiogram was done that showed a significant pericardial effusion. She was readmitted on September 08 until the . During that hospital stay, she had a pericardial window done by Dr. Cedeno. At the same setting, she had a wedge resection of a portion of the right lower lobe. Both the pericardial window and right lower lobe wedge resection showed pseudomonas. I find this quite intriguing after almost 6 weeks of meropenem. The patient's cough has improved only slightly. She was readmitted with severe weakness on September 17 and she is still hospitalized. Her x-rays have gotten progressively worse. Her current x-ray shows progression of patchy airspace opacities seen throughout the lungs bilaterally which could suggest pulmonary edema with an inability to exclude infection. Pleural effusions were noted to be small. The x-ray on the showed significant progression compared with a prior chest x-ray done on the . The patient states she is still having coughing spells, although they are less than they were a month ago. She still expectorates sputum most mornings. It is brown in color. She has not coughed up blood. She feels very weak. She is winded with any exertion. She has now been on Zosyn for more than 10 days. Her appetite remains fairly good. Energy level is low; however. She is not having any bowel problems. Her peripheral edema has improved. PAST SURGICAL HISTORY: 1. . 2. Gastropexy and banding procedure. 3. Hernia repair x3. 4. Bilateral total knee replacement. PAST MEDICAL HISTORY: 1. Pulmonary embolism. 2. Deep venous thrombosis. 3. Asthma. 4. Psoriatic arthritis. 5. Rheumatoid arthritis. 6. Hypothyroidism. 7. Obesity. 8. Degenerative joint disease. 9. Fibromyalgia. SOCIAL HISTORY: Tobacco never. ETOH -- rare. 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 She did not have any industrial exposure to dust, fumes or chemicals. ALLERGIES: 1. DOXYCYCLINE. 2. DULOXETINE. 3. LEFLUNOMIDE. 4. TETRACYCLINES. 5. CEFUROXIME. 6. CELECOXIB. 7. CLARITHROMYCIN. 8. PREGABALIN. 9. SALICYLATE. FAMILY HISTORY: Positive for coronary artery disease. MEDICATIONS: As an outpatient: 1. Tylenol. 2. ProAir HFA p.r.n. 3. Kiesha-D. 4. Atorvastatin 10 mg at bedtime. 5. Vitamin D3. 6. Ferrous sulfate. 7. Advair 250/50 one puff b.i.d. 8. Folic acid 1 mg daily. 9. Gabapentin at bedtime 100 mg. 10. Hydroxychloroquine 200 mg b.i.d. 11. DuoNeb p.r.n. 12. Levothyroxine 425 mcg 1 daily. 13. Meloxicam 7.5 mg daily. 14. Nasonex p.r.n. 15. Zosyn. 16. Sertraline. 17. Tramadol. 18. Xarelto 20 mg daily. REVIEW OF SYSTEMS: Negative except as noted above. Ten systems reviewed. PHYSICAL EXAMINATION: GENERAL: The patient is a 68-year-old female who was cooperative, alert and oriented. She was in no distress. She looked better than expected considering how her x-ray looks. Weight is listed as 81.2 kilograms. I am not sure this is reliable as there have been a variety of weight listed throughout her hospital stay. HEENT: Pupils were reactive. Nasal cannula is in place. Mouth exam revealed dry membranes. NECK: Palpation of the neck reveals no lymph nodes. HEART: Cardiac rate 63 per minute. Rhythm regular. Blood pressure 115/74. LUNGS: Auscultation of the lung st[place] revealed mild rales posteriorly bilaterally. Respiratory rate 16. Saturation 92% on 4 liter nasal cannula. ABDOMEN: Obese. Scars noted from prior surgery. Bowel sounds were active. No tenderness to palpation. EXTREMITIES: Showed mild edema of both lower extremities. She had scars from prior knee surgeries. The cumulative output since this most recent admission is 12,500 mL with the assistance of a catheter. Intake for the same period of time was about 4500 mL, thus she has had a significant diuresis. LABORATORY DATA: White count today 7.03. Hemoglobin 9.2. Platelets 261,000. Electrolytes show sodium 138, potassium 3.9, chloride 97, bicarbonate 35. BUN was 8 with a creatinine of 0.55. Blood sugar this morning 62. C. diff was reportedly positive on September 14. Acid fast smear from pericardial fluid is negative. Pericardial fluid is growing Pseudomonas aeruginosa as noted. Fungal smear was negative. From lung tissue fungal was negative and AFB was negative with pseudomonas being cultured as well. The pathology from the right lower lobe wedge resection showed pulmonary infarction with associated squamous metaplasia and nonspecific organizing pneumonia. No malignancy was seen. IMPRESSIONS: 1. Respiratory failure -- acute -- with hypoxia. 2. Diffuse lung infiltrates -- questionable congestive heart failure versus others. 3. Pseudomonas infection involving lung and pericardium. 4. Asthma. 5. Oral candidiasis. COMMENTS AND RECOMMENDATIONS: Case discussed with Dr. Kennedy extensively. The thrush does need treating. Would suggest holding the Advair for 3 or 4 days while the treatment goes on. Consider checking immunoglobulins, IgG, IgA, and IgM. It seems unusual that she has had persistent pseudomonas infection. She has had some immunosuppression from her rheumatologic medications. Consider checking ProBNP. She will need serial x-rays. The pulmonary team will continue to follow with you.
[2018-09-20] MEDS: MAGNESIUM OXIDE 400 MG TAB PO SCH (20:53)
[2018-09-20] MEDS: ATORVASTATIN 10 MG TAB PO SCH (20:53)
[2018-09-21] MEDS: LEVOTHYROXINE SODIUM 75 MCG TABLET PO SCH (05:19)
[2018-09-21] MEDS: PIPERACILLIN/TAZOBACTAM 3.375 GM in DEXTROSE 5% 100 ML IV SCH ×3 (07:42→23:58)
[2018-09-21] MEDS: NYSTATIN SUSP 500,000 U/5 ML UDC PO SCH ×4 (07:43→20:32)
[2018-09-21 07:56] LABS: BUN Creatinine Ratio 17.3 (10-20); Calcium 8.4 mg/dl (8.5-10.1); Creatinine Clr Calc Pharmacy 89.6 ml/min; Est GFR (African American) 110.7; Est GFR (Non-African American) 95.5; Magnesium 1.9 mg/dl (1.8-2.4); Potassium 4.3 mmol/L (3.5-5.1)
[2018-09-21] MEDS ORDERED: predniSONE 10 MG TABLET PO SCH (08:15)
[2018-09-21] MEDS: FUROSEMIDE 40 MG in SYRINGE 0 ML IV SCH (08:37)
[2018-09-21] MEDS: FLUTICASONE/SALMETEROL 250/50 (ADVAIR) 14 PUFF/1 INHALER INH SCH ×2 (08:38→20:32)
[2018-09-21] MEDS: CHOLECALCIFEROL 1,000 UNITS TAB PO SCH (08:38)
[2018-09-21] MEDS: METOPROLOL TARTRATE 25 MG TAB PO SCH ×2 (08:38→20:32)
[2018-09-21] MEDS: MAGNESIUM OXIDE 400 MG TAB PO SCH ×2 (08:38→20:33)
[2018-09-21] MEDS: POTASSIUM CHLORIDE 20 MEQ TABCR PO SCH ×2 (08:38→20:33)
[2018-09-21] MEDS: FOLIC ACID 1 MG TAB PO SCH (08:39)
[2018-09-21] MEDS: HYDROXYCHLOROQUINE SULFATE 200 MG TAB PO SCH ×2 (08:39→20:33)
[2018-09-21] MEDS: SERTRALINE HCL 100 MG TABLET PO SCH (08:39)
[2018-09-21] MEDS: FERROUS SULFATE 325 MG TAB PO SCH (08:39)
[2018-09-21] MEDS: CEROVITE ADV FORMULA TAB PO SCH (08:39)
--- NOTE | 2018-09-21 09:35 | Cardiology Progress Note ---
Date of Service September 21, 2018 Assessment & Plan (1) Acute on chronic combined systolic and diastolic CHF (congestive heart failure): She has diuresed well and appears euvolemic on examination. Her breathing has also greatly improved. Recommend switching to PO Lasix tomorrow and continuing PO diuretic therapy upon discharge home. Document I's&O's and daily weights. Continue to monitor PRP. Low sodium diet, <2,000 mg daily. (2) Cardiomyopathy: Her most recent echo noted an EF of 40-45%. The etiology of the cardiomyopathy is unclear. She has not undergone an ischemic evaluation and will consider performing an ischemic evaluation in the outpatient setting. For now, recommend medical management. Her metoprolol tartrate should be switched to metoprolol succinate upon discharge. Would also consider adding low dose lisinopril if blood pressure will allow. (3) Pericardial effusion: Pericardial window on 09/09/18. Echocardiograms on 09/10 and 09/19 show no evidence of an effusion. (4) Atrial arrhythmia: She was noted to have an atrial arrhythmia on ECG during her last hospitalization. She has remained in sinus rhythm on telemetry this admission. No additional treatment/evaluation recommended in this regard. Could consider monitoring in the outpatient setting. Patient discussed with Dr. Noland who was also in to see the patient today. Subjective The patient states that she is feeling well this morning. Her breathing has improved, and she has been able to ambulate about her room with no significant s hortness of breath. She chronically sleeps with the head of her bed elevated at night. She denies any significant lower extremity edema currently, and she denies abdominal bloating. She notes some discomfort in her chest in association with coughing, but she denies any other chest discomfort. She denies lightheadedness or palpitations. Physical Exam Physical Exam: Constitutional: Alert, oriented, in no acute distress HEENT: Head is atraumatic and normocephalic. EOMs intact. Sclera anicteric. Face is symmetric. No perioral cyanosis. Mucous membranes moist. Neck: Supple, no appreciable JVD Pulmonary: Normal respiratory effort, some crackles in right lower lung field but otherwise clear to auscultation Cardiac: Regular rate and rhythm, normal S1 and S2, no gallops, no rubs, no murmurs Extremities: No edema. No clubbing or cyanosis. Pulses intact Abdomen: Normal bowel sounds, soft, non-tender, no abdominal mass palpated Skin: Patient is pale appearing. No rash or skin lesions. Neurological: Oriented to person, place, and time Results & Data Vital Signs (Past 12 Hours) Vital Signs Temp Pulse Pulse Resp BP Pulse Ox 09/21/18 07:33 36.8 C 57 L 19 120/76 90 09/21/18 03:29 36.6 C 55 L 18 126/81 96 09/21/18 02:22 56 L 20 97 09/20/18 23:33 36.6 C 62 18 121/81 97 09/20/18 22:13 65 16 96 Laboratory Results Laboratory Results WBC 7.03 K/uL (4.8-10.8) 09/20/18 07:51 RBC 2.99 M/uL (4.2-5.4) L 09/20/18 07:51 Hgb 9.2 g/dL (12.0-16.0) L 09/20/18 07:51 Hct 28.7 % (37-47) L 09/20/18 07:51 MCV 96.0 fL (80-100) 09/20/18 07:51 MCH 30.8 pg (25-34) 09/20/18 07:51 MCHC 32.1 g/dL (32-36) 09/20/18 07:51 RDW Std Deviation 53.9 fL (36.4-46.3) H 09/20/18 07:51 RDW Coeff of Charmaine 16.0 % (11.5-14.5) H 09/20/18 07:51 Plt Count 261 K/uL (130-400) 09/20/18 07:51 MPV 9.6 fL (7.4-10.4) 09/20/18 07:51 Immature Gran % (Auto) 0.1 % 09/20/18 07:51 Neut % (Auto) 73.1 % 09/20/18 07:51 Lymph % (Auto) 13.1 % 09/20/18 07:51 [place] % (Auto) 10.5 % 09/20/18 07:51 Eos % (Auto) 3.1 % 09/20/18 07:51 Baso % (Auto) 0.1 % 09/20/18 07:51 Immature Gran # (Auto) 0.01 K/uL (0.00-0.02) 09/20/18 07:51 Neut # (Auto) 5.13 K/uL (1.4-6.5) 09/20/18 07:51 Lymph # (Auto) 0.92 K/uL (1.2-3.4) L 09/20/18 07:51 [place] # (Auto) 0.74 K/uL (0.11-0.59) H 09/20/18 07:51 Eos # (Auto) 0.22 K/uL (0-0.5) 09/20/18 07:51 Baso # (Auto) 0.01 K/uL (0-0.2) 09/20/18 07:51 PT 14.8 Seconds (9.0-12.0) H 09/17/18 11:20 INR 1.5 (0.9-1.1) H 09/17/18 11:20 APTT 37.3 Seconds (21.0-31.0) H 09/17/18 11:20 PTT Ratio 1.4 09/17/18 11:20 VBG pH 7.37 (7.36-7.41) 09/17/18 11:18 VBG pCO2 53 mmHg (38-50) H 09/17/18 11:18 VBG pO2 36 mmHg 09/17/18 11:18 VBG HCO3 30 mmol/L 09/17/18 11:18 VBG O2 Saturation 62.8 % 09/17/18 11:18 VBG Base Excess 3.8 mEq/L 09/17/18 11:18 Barometric Pressure 730.1 mm/Hg 09/17/18 11:18 Sodium 137 mmol/L (136-145) 09/21/18 07:20 Potassium 4.3 mmol/L (3.5-5.1) 09/21/18 07:20 Chloride 97 mmol/L (98-107) L 09/21/18 07:20 Carbon Dioxide 35 mmol/L (21-32) H 09/21/18 07:20 Anion Gap 5.0 (3-11) 09/21/18 07:20 BUN 10 mg/dl (7-18) 09/21/18 07:20 Creatinine 0.59 mg/dl (0.6-1.2) L 09/21/18 07:20 Est Cr Clr Drug Dosing 89.6 ml/min 09/21/18 07:20 Est GFR ( Amer) 110.7 09/21/18 07:20 Est GFR (Non-Af Amer) 95.5 09/21/18 07:20 BUN/Creatinine Ratio 17.3 (10-20) 09/21/18 07:20 Glucose 118 mg/dl (70-99) H 09/21/18 07:20 POC Glucose 98 (70-99) 09/20/18 09:09 Calcium 8.4 mg/dl (8.5-10.1) L 09/21/18 07:20 Magnesium 1.9 mg/dl (1.8-2.4) 09/21/18 07:20 Total Bilirubin 0.4 mg/dl (0.2-1) 09/17/18 11:20 AST 36 U/L (15-37) 09/17/18 11:20 ALT 11 U/L (12-78) L 09/17/18 11:20 Alkaline Phosphatase 95 U/L (45-117) 09/17/18 11:20 Troponin I 0.019 ng/ml (0-0.045) 09/17/18 11:20 Total Protein 5.0 gm/dl (6.4-8.2) L 09/17/18 11:20 Albumin 1.6 gm/dl (3.4-5.0) L 09/17/18 11:20 Globulin 3.4 gm/dl (2.5-4.0) 09/17/18 11:20 Albumin/Globulin Ratio 0.5 (0.9-2) L 09/17/18 11:20 Cortisol AM Sample 15.04 mcg/dl (4.3-22.4) 09/20/18 07:51 Urine Color Dark Yellow 09/17/18 15:07 Urine Appearance Clear (Clear) 09/17/18 15:07 Urine pH 5.5 (4.5-7.5) 09/17/18 15:07 Ur Specific [place] 1.039 (1.000-1.030) H 09/17/18 15:07 Urine Protein 1+ (Negative) H 09/17/18 15:07 Urine Glucose (UA) Negative (Negative) 09/17/18 15:07 Urine Ketones 1+ (Negative) H 09/17/18 15:07 Urine Blood Negative (Negative) 09/17/18 15:07 Urine Nitrite Negative (Negative) 09/17/18 15:07 Urine Bilirubin Negative (Negative) 09/17/18 15:07 Urine Urobilinogen Negative (Negative) 09/17/18 15:07 Ur Leukocyte Esterase Negative (Negative) 09/17/18 15:07 Urine WBC (Auto) 1-5 /hpf (0-5) 09/17/18 15:07 Urine RBC (Auto) 5-10 /hpf (0-4) H 09/17/18 15:07 U Hyaline Cast (Auto) 10-30 /lpf (0-5) H 09/17/18 15:07 U Epithel Cells (Auto) >30 /lpf (0-5) H 09/17/18 15:07 Urine Bacteria (Auto) Negative (Negative) 09/17/18 15:07 Ur Renal Epithelial Cell 0-5 /lpf (0-5) 09/17/18 15:07 Granular Casts 1-5 /lpf (0) H 09/17/18 15:07 Diagnostic Findings Telemetry: Sinus rhythm in the 50-60s (1) Cardiomyopathy Cardiomyopathy type: other Qualified Code(s): I42.8 - Other cardiomyopathies
--- NOTE | 2018-09-21 12:07 | Medical Student Progress Note ---
Date of Service September 21, 2018 Assessment & Plan (1) Acute on chronic combined systolic and diastolic CHF (congestive heart failure): Most recent ECHO illustrated 45% EF that is secondary to nonischemic cardiomyopathy. Her Cxr yesterday did not appear to be improving in light of her breath sounds seemingly improving. She has diuresed very well and appears euvolemic on examination. Her breathing has also greatly improved. Recommend switching to PO Lasix tomorrow and continuing PO diuretic therapy upon discharge home. BUN/Cr remains wnl. Her I's, O's, and her balance are appropriate as she is expected to be in negative balance with the diuretic regimen she is on. Document I's&O's and daily weights. Continue to monitor PRP. Low sodium diet, <2,000 mg daily. Continue Lasix 40mg Her Weston catheter is currently being used, in the light of her improving ambulation along with resolving LE edema and improving pleural effusion, goal is to remove catheter tomorrow and allow her to urinate on her own accord in her restroom. Continue K supplementation. Mag levels were sufficient. Continue current beta beckie- consider changing to metoprolol succinate. Blood pressures have remained stable, may allow use of SIMONE. (2) Cardiomyopathy: Her most recent echo noted an EF of 40-45%. The etiology of the cardiomyopathy is unclear. She has not undergone an ischemic evaluation and will consider performing an ischemic evaluation in the outpatient setting. For now, recommend medical management. Her metoprolol tartrate should be switched to metoprolol succinate upon discharge. Would also consider adding low dose lisinopril if blood pressure will allow. Cardiomyopathy type: other Qualified Code(s): I42.8 - Other cardiomyopathies (3) Pericardial effusion: Pericardial window on 09/09/18. Echocardiograms on 09/10 and 09/19 show no evidence of an effusion. (4) Atrial arrhythmia: She was noted to have an atrial arrhythmia on ECG during her last hospitalization. She has remained in sinus rhythm on telemetry this admission. No additional treatment/evaluation recommended in this regard. May be beneficial to consider monitoring in the outpatient setting. Patient discussed with cardiology, Dr. Noland, who saw her. (5) Acute respiratory failure with hypoxia: There are numerous factors contributing to her presentation: acute on chr onic CHF, pseudomonas pneumonia, a h/o of previous Pulmonary Embolism w/ infarction, etc. Continue on 4 L NC O2 until sats improve with response to physical activity, her orthopnea resides. Wean O2 as tolerated, etc. Cont diurese as her Sx improve. Continue Zosyn for pseudomonas pneumonia. Xarelto for prior RLL PEs. etc. Appreciate Pulmonology's suggestion of holding the Advair for 3 or 4 days while the treatment of oral thrush is ongoing. Consider checking immunoglobulins (IgG, IgA, and IgM). It seems unusual that she has had persistent pseudomonas infection, which is concerning in light of her RA medications which would cause some immunosuppression. Also, Consider checking ProBNP and obtaining serial x- rays. Present on Admission?: Yes (6) Pseudomonas pneumonia: Pseudomonas pneumonia: s/p bronch at [facility] in with pseudomonas growing from that bronch. Received at least 3 weeks of IV meropenem, possibly up to 5 weeks, based on pt's account. Despite such she had pseudomonas grow from her right chest from 09/09/18 thoracic procedure performed by Dr. Cedeno. It also grew from pericardial fluid. Continue Zosyn until October 01, 2018. Dependent on chest film progression as well as clinical progression. Laterality: bilateral Lung location: unspecified part of lung Qualified Code(s): J15.1 - Pneumonia due to Pseudomonas (7) Eosinophilic asthma: [facility] [place]. Has been steroid-dependent per records - was taking 5mg/day prior - currently not getting any steroid therapy in the hospital. Pt was started on 40mg of Prednisone and goal is to wean back to 5mg. Starting with a 30mg dose then possibly 20 then 10 then 5. Prednisone 40mg x 1 now while clarifying her meds as the hypoglycemia may indicate adrenal insufficiency in the setting of chronic prednisone usage. Previously was also on Nucala. Appreciate Dr. Maria's note. In light of note, continue Advair as it is her maintenance rx and holding it for her thrush may be detrimental in the setting of her current Pleural Effusion. My concern is potential asthma exacerbation with her current V/Q mismatch. (8) Hypoglycemia: H/o frequent AM episodes of hypoglycemia. This is either due to relative adrenal insufficiency in setting of chronic steroid use or poor hepatic gluconeogenesis. Given prednisone 40mg yesterday. Today's reading was elevated at 118 post. Adrenal insufficiency seems more likely with favorable increase in BGS overnight. It is of question if pt d/c her steroids "cold turkey" and placed her adrenals in shock after chronic suppression. (9) Anemia: H/H continues to remain in 9's (9.2), however this has remained stable throughout the course of her stay. Anemia type: unspecified type Qualified Code(s): D64.9 - Anemia, unspecified (10) Hypomagnesemia: 2 gIV of mag sulfate was administered yesterday, today's levels were wnl. No need for another bolus. (11) Candidiasis of mouth and esophagus: Candidiasis of mouth and esophagus, continue nystatin 5ml ac/hs - swish/swallow, moderate improvement noticed on exam today. (12) Hypothyroidism: Most recent TSH wnl cont synthroid as prescribed (13) Rheumatoid arthritis: Chronically on prednisone 5mg/day and plaquenil, previously on methotrexate as well, no issues at this time. See "Eosinophilic Asthma Plan" Above (14) Psoriatic arthritis: (15) Hypokalemia: Cont supplements (16) DVT prophylaxis: -xarelto cont PT, OT (17) Pulmonary embolism: Pulmonary embolism: RLL PE with resulting infarction - 06/2018. Continue w/ xarelto. Pathology report from 09/09 c/w RLL infarction. Also had DVT at time of PE diagnosis in June. Source of DVT not yet known. Acute cor pulmonale presence: without acute cor pulmonale Chronicity: chronic Pulmonary embolism type: unspecified Qualified Code(s): I27.82 - Chronic pulmonary embolism Subjective Review of Systems All systems reviewed & are unremarkable except as noted in HPI & below Nurse reported stable sinus bradycardia in the mid-high 50s. No acute overnight ev.ents. Remains afebrile The patient states that she is feeling better this morning than she did yesterday. She states that her breathing continues to improve, and she has been able to intermittently ambulate in her room without any significant CRESPO.When I met with her she was in the hallway, working with PT, and was using her walker to assist with ambulation. Her orthopnea has improved as she has been able to sleep with the bed mostly flat, with occasional elevation of the head of her bed. She remains on 4L NCo2, and required a BiPaP while sleeping. She states that the Lasix she received has cleared her LE edema and that she has been adequately filling her Weston catheter. She still reports some chest discomfort that she associates with her productive cough, but does not endorse any other episodes of discomfort. She reports her appetite beginning to return completing 50% of her meals. She denies lightheadedness or palpitations, N/V, bloating, abdominal pain, diarrhea, or hemoptysis. Constitutional: + fatigue and + weight loss (due to diuresis); no fever and no chills Respiratory: + cough, + dyspnea and + dy spnea on exertion; no hemoptysis and no wheezing Cardiovascular: + orthopnea; no chest pain and no edema Physical Exam Vital Signs (Past 24 Hours): Last Vital Signs Temp 36.8 C 09/21/18 07:33 Pulse 56 L 09/21/18 08:00 Resp 19 09/21/18 07:33 BP 120/76 09/21/18 07:33 Pulse Ox 90 09/21/18 07:33 Constitutional: WD/WN, vitals as above + obese; no acute distress Eyes: PERRL, conjunctivae normal, anicteric sclerae ENMT: external ear and nose normal, oropharynx normal Mouth: + oral mucosal abnormality (thrush plaques) Neck: trachea midline, no thyromegaly Respiratory: normal respiratory effort; no respiratory distress and no labored breathing Auscultation: + diminished lung sounds, + crackles (fine b/l bases as well as anteriorly on chest) and + rhonchi (right side) Cardiovascular: Rate/Rhythm: regular rate, regular rhythm and + bradycardic Heart Sounds: normal S1 and normal S2; no gallop, no murmur and no cardiac rub Palpation: normal PMI Vessels: posterior tibial pulses present, dorsalis pedis pulses present and radial pulses present; no JVD Extremities: normal capillary refill; no edema Gastrointestinal (Abdomen): normal bowel sounds, soft, nontender, no hepatosplenomegaly Musculoskeletal: no cyanosis or clubbing, extremities motor strength 5/5 Skin: no rashes, warm and dry Neurologic: patellar DTR's 2+ bilat, sensation intact and PERRL, EOMI, accommodation nl, no face palsy, no dysarthria Psychiatric: A+Ox3, euthymic affect Lymphatic: no cervical or axillary lymphadenopathy Results & Data ECG Indication: SOB/dyspnea Rhythm: sinus bradycardia Medications Administered Acetaminophen (Tylenol) 650 mg PO Q4H PRN PRN Reason: Pain or Fever Stop: 10/17/18 16:44 Last Admin: 09/19/18 07:46 Dose: 650 mg Documented by: [id number] Atorvastatin Calcium (Lipitor) 10 mg PO HS [facility] Stop: 10/17/18 20:59 Last Admin: 09/20/18 20:53 Dose: 10 mg Documented by: [id number] Admin: 09/19/18 20:47 Dose: 10 mg Documented by: [id number] Admin: 09/18/18 19:48 Dose: 10 mg Documented by: [id number] Admin: 09/17/18 20:15 Dose: 10 mg Documented by: [id number] Calcium Carbonate (Tums) 500 mg PO Q6 PRN PRN Reason: Indigestion Stop: 10/18/18 14:17 Last Admin: 09/18/18 15:03 Dose: 500 mg Documented by: [id number] Ferrous Sulfate (Feosol) 325 mg PO DAILY [facility] Stop: 10/18/18 08:59 Last Admin: 09/21/18 08:39 Dose: 325 mg Documented by: [id number] Admin: 09/20/18 08:33 Dose: 325 mg Documented by: [id number] Admin: 09/19/18 07:43 Dose: 325 mg Documented by: [id number] Admin: 09/18/18 08:03 Dose: 325 mg Documented by: [id number] Folic Acid (Folvite) 1 mg PO DAILY [facility] Stop: 10/18/18 08:59 Last Admin: 09/21/18 08:39 Dose: 1 mg Documented by: [id number] Admin: 09/20/18 08:33 Dose: 1 mg Documented by: [id number] Admin: 09/19/18 07:42 Dose: 1 mg Documented by: [id number] Admin: 09/18/18 08:03 Dose: 1 mg Documented by: [id number] Furosemide (Lasix) 40 mg PO QAM [facility] Stop: 10/20/18 08:59 Last Admin: 09/20/18 08:33 Dose: 40 mg Documented by: [id number] Gabapentin (Neurontin) 100 mg PO HS PRN PRN Reason: nerve pain Stop: 10/17/18 16:44 Last Admin: 09/19/18 20:47 Dose: 100 mg Documented by: [id number] Hydroxychloroquine Sulfate (Plaquenil) 200 mg PO BID ALEJANDRA Stop: 10/17/18 20:59 Last Admin: 09/21/18 08:39 Dose: 200 mg Documented by: [id number] Admin: 09/20/18 20:53 Dose: 200 mg Documented by: [id number] Admin: 09/20/18 08:34 Dose: 200 mg Documented by: [id number] Admin: 09/19/18 20:48 Dose: 200 mg Documented by: [id number] Admin: 09/19/18 07:42 Dose: 200 mg Documented by: [id number] Admin: 09/18/18 19:48 Dose: 200 mg Documented by: [id number] Admin: 09/18/18 08:02 Dose: 200 mg Documented by: [id number] Admin: 09/17/18 20:15 Dose: 200 mg Documented by: [id number] Piperacillin Sod/Tazobactam (Sod 3.375 gm/ Dextrose) 115 mls @ 28.75 mls/hr IV Q8H [facility]; Protocol Stop: 09/24/18 15:59 Last Admin: 09/21/18 07:42 Dose: 28.8 mls/hr Documented by: [id number] Infusion: 09/21/18 03:53 Dose: 0 mls/hr Documented by: [id number] Admin: 09/20/18 23:43 Dose: 28.8 mls/hr Documented by: [id number] Infusion: 09/20/18 19:40 Dose: 0 mls/hr Documented by: [id number] Admin: 09/20/18 15:38 Dose: 28.8 mls/hr Documented by: [id number] Furosemide 40 mg/ Syringe 4 mls @ 4 mls/min IV QAM ALEJANDRA Stop: 10/21/18 08:59 Last Admin: 09/21/18 08:37 Dose: 4 mls/min Documented by: [id number] Levothyroxine Sodium (Synthroid) 200 mcg PO SUSA@0630 [facility] Stop: 10/19/18 06:29 Last Admin: 09/20/18 06:06 Dose: 200 mcg Documented by: [id number] Admin: 09/19/18 06:16 Dose: 200 mcg Documented by: [id number] Levothyroxine Sodium (Synthroid) 225 mcg PO MOTUWETHFR@0630 [facility] Stop: 10/18/18 06:29 Last Admin: 09/21/18 05:19 Dose: 225 mcg Documented by: [id number] Admin: 09/18/18 06:14 Dose: 225 mcg Documented by: [id number] Magnesium Oxide (Mag-Ox) 400 mg PO BID ALEJANDRA Stop: 10/20/18 20:59 Last Admin: 09/21/18 08:38 Dose: 400 mg Documented by: [id number] Admin: 09/20/18 20:53 Dose: 400 mg Documented by: [id number] Metoprolol Tartrate (Lopressor) 25 mg PO BID ALEJANDRA Stop: 10/18/18 08:59 Last Admin: 09/21/18 08:38 Dose: 25 mg Documented by: [id number] Admin: 09/20/18 20:53 Dose: 25 mg Documented by: [id number] Admin: 09/20/18 08:33 Dose: 25 mg Documented by: [id number] Admin: 09/19/18 20:49 Dose: 25 mg Documented by: [id number] Admin: 09/19/18 07:42 Dose: 25 mg Documented by: [id number] Admin: 09/18/18 19:48 Dose: 25 mg Documented by: [id number] Admin: 09/18/18 09:55 Dose: 25 mg Documented by: [id number] Miscellaneous (Carbohydrates For Hypoglycemia) 15 gm PO ONCE PRN PRN Reason: Hypoglycemia Treatment Stop: 10/19/18 06:34 Last Admin: 09/19/18 06:35 Dose: 15 gm Documented by: [id number] Multivitamins/Minerals (Multivitamin W/ Minerals Tab) 1 tab PO QAM ALJEANDRA Stop: 10/20/18 11:29 Last Admin: 09/21/18 08:39 Dose: 1 tab Documented by: [id number] Admin: 09/20/18 12:56 Dose: 1 tab Documented by: [id number] Nystatin (Mycostatin) 5 ml PO ACHS ALEJANDRA Stop: 09/30/18 16:44 Last Admin: 09/21/18 07:43 Dose: 5 ml Documented by: [id number] Admin: 09/20/18 20:53 Dose: 5 ml Documented by: [id number] Admin: 09/20/18 17:29 Dose: 5 ml Documented by: [id number] Potassium Chloride (Klor-Con M20) 20 meq PO BID ALEJANDRA Stop: 10/20/18 20:59 Last Admin: 09/21/18 08:38 Dose: 20 meq Documented by: [id number] Admin: 09/20/18 20:53 Dose: 20 meq Documented by: [id number] Rivaroxaban (Xarelto) 20 mg PO QDD [facility] Stop: 10/17/18 17:29 Last Admin: 09/20/18 15:39 Dose: 20 mg Documented by: [id number] Admin: 09/19/18 16:43 Dose: 20 mg Documented by: [id number] Admin: 09/18/18 17:01 Dose: 20 mg Documented by: [id number] Admin: 09/17/18 18:00 Dose: 20 mg Documented by: [id number] Fluticasone/Salmeterol (Advair Diskus 250/50) 1 puffs INH BID ALEJANDRA Stop: 10/20/18 20:59 Last Admin: 09/21/18 08:38 Dose: 1 puffs Documented by: [id number] Admin: 09/20/18 20:53 Dose: 1 puffs Documented by: [id number] Sertraline HCl (Zoloft) 150 mg PO QAM ALEJANDRA Stop: 10/18/18 08:59 Last Admin: 09/21/18 08:39 Dose: 150 mg Documented by: [id number] Admin: 09/20/18 08:33 Dose: 150 mg Documented by: [id number] Admin: 09/19/18 07:42 Dose: 150 mg Documented by: [id number] Admin: 09/18/18 09:55 Dose: 150 mg Documented by: [id number] Tramadol HCl (Ultram) 50 - 100 mg PO QID PRN PRN Reason: Pain Stop: 10/17/18 16:59 Last Admin: 09/19/18 19:46 Dose: 100 mg Documented by: [id number] Admin: 09/17/18 18:05 Dose: 100 mg Documented by: [id number] Vitamin D (Vitamin D3) 2,000 units PO DAILY ALEJANDRA Stop: 10/18/18 08:59 Last Admin: 09/21/18 08:38 Dose: 2,000 units Documented by: [id number] Admin: 09/20/18 08:34 Dose: 2,000 units Documented by: [id number] Admin: 09/19/18 07:43 Dose: 2,000 units Documented by: [id number] Admin: 09/18/18 08:03 Dose: 2,000 units Documented by: [id number] Labs CBC & Chem 7: 09/20/18 07:51 09/21/18 07:20 Labs: BMP 09/21/18 07:20 Sodium 137 Potassium 4.3 Chloride 97 L Carbon Dioxide 35 H BUN 10 Creatinine 0.59 L Glucose 118 H Calcium 8.4 L
[2018-09-21] MEDS: RIVAROXABAN 20 MG TAB PO SCH (15:44)
--- NOTE | 2018-09-21 16:31 | Pulmonology Progress Note ---
Date of Service September 21, 2018 Assessment & Plan (1) Acute on chronic combined systolic and diastolic CHF (congestive heart failure): Impression: 1. Bacterial pericarditis, Pseudomonas, on antibiotic. 2. Bilateral pleural effusion, related to congestive heart failure and global hypokinesis. As noted by the echocardiogram. 3. History of asthma. 4. History of PE diagnosed 4 months ago. 5. History of rheumatoid arthritis and psoriasis. Plan: 1. Continue antibiotics per infectious disease. 2. I would review her chest using ultrasound at the bedside for evaluation of pleural effusion. The patient is already on Xarelto and if the patient diuresed well without the need for thoracentesis we will hold off. She is already 12 L negative since admission. 3. Agree with the rest of your management. Thank you. Subjective Patient is clinically improving, she denies any chills, fever, chest pain, she is less short of breath, ambulatory with the nursing staff. Denies any increased swelling in her lower extremities. She continues to use oxygen via nasal cannula. Review of Systems Review of Systems: Review of systems including 10 systems otherwise was unremarkable. Physical Exam Physical Exam: Vital signs are stable, S1-S2 regular rate and rhythm, distant breath sounds mainly in the right base, abdomen is benign, no edema. Neurologically she is intact. No rash. Results & Data Vital Signs (Past 12 Hours) Vital Signs Temp Pulse Pulse Resp BP Pulse Ox 09/21/18 15:18 36.7 C 59 L 22 118/72 99 09/21/18 12:22 37.2 C 63 19 110/61 97 09/21/18 11:16 94 09/21/18 08:00 56 L 09/21/18 07:33 36.8 C 57 L 19 120/76 90 Laboratory Results Labs were reviewed personally which showed stable BMP, and microbiology profile was reviewed. Personally. Diagnostic Findings Chest x-ray showed bilateral pleural effusion right greater than left.
[2018-09-21] MEDS: ATORVASTATIN 10 MG TAB PO SCH (20:32)
--- NOTE | 2018-09-21 23:17 | Hospitalist Progress Note ---
Date of Service September 21, 2018 Assessment & Plan (1) Acute on chronic combined systolic and diastolic CHF (congestive heart failure): Most recent echo with EF 45% 2nd to nonischemic cardiomyopathy. Has had copious diuresis this stay and 10+ kg weight loss. Despite such BUN and Cr remain stable. Cont IV lasix 40mg daily. Repeat labs am. Cont BB - at some point we should change this to metoprolol succinate. If BP will allow she will also need low-dose SIMONE. (2) Cardiomyopathy: EF 45% with diastolic dysfunction. continue on metoprolol. will likely need daily Lasix on discharge. (3) Pericardial effusion: s/p pericardial window 09/[address] Cedeno. cultures grew MDR pseudomonas. remains on zosyn. repeat echos post window w/o reaccumulation of fluid. no rub on exam. (4) Acute respiratory failure with hypoxia: Multifactorial -- acute/chronic CHF, pseudomonas pneumonia, prior PE w/ infarction, etc. Remains on 4 L NC O2. Cont Diuresis. Zosyn for pseudomonas pneumonia. Xarelto for prior RLL PEs. Appreciate pulmonary consultation. Wean O2 as tolerated. Repeat cxr in 1-2 days. (5) Pseudomonas pneumonia: s/p bronch at [facility] in with pseudomonas growing from that bronch. Received at least 3 weeks of IV meropenem, possibly up to 5 weeks, based on pt's account. Despite such she had pseudomonas grow from her right chest from 09/09/18 thoracic procedure performed by Dr. Cedeno. It also grew from pericardial fluid. Current plan is continuing on Zosyn until October 01, 2018. Pulmonary consult appreciated. Consider immunoglobulins in light of refractory pseudomonas?? (6) Eosinophilic asthma: [facility] [place]. Has been steroid-dependent per records - was taking 5mg/day prior. Previously was also on Nucala. Continue inhalers, etc. Pt reports her prednisone was abruptly stopped this July, unknown reasons. Had taken prednisone for 10-15 years. I placed her on 40mg of prednisone yesterday due to daily episodes of hypoglycemia likely due to adrenal insufficiency in setting of being off prednisone. 30mg today. 20mg tomorrow. and so forth. (7) Hypoglycemia: suspect 2nd to adrenal insufficiency. was on prednisone for 10-15 years up until 07/2018 then abruptly stopped. steroids resumed yesterday. today's AM glucose NORMAL. (8) Anemia: H/H low but stable in the 9's. follow. (9) Hypomagnesemia: resolved today cont PO supplementation (10) Candidiasis of mouth and esophagus: cont nystatin 5ml ac/hs - swish/swallow (11) Hypothyroidism: TSH compensated 07/2018 cont synthroid (12) Rheumatoid arthritis: previously on methotrexate and prednisone former stopped latter stopped as well but resumed yesterday -- see above no current symptoms (13) Psoriatic arthritis: see above in "rheumatoid arthritis" (14) Hypokalemia: cont supplementation level stable today (15) Pulmonary embolism: RLL PE with resulting infarction - 06/2018. Treated w/ xarelto. Pathology report from 09/09 c/w RLL infarction. Cause of PE? Also had DVT at time of PE diagnosis in June. (16) DVT prophylaxis: carri will need inpatient rehab at d/c Subjective no significant changes overnight tele stable has a little more energy today mild cough no change in dyspnea very weak when she worked with PT today still agreeable to rehab referral; prefers [facility] Review of Systems Respiratory: + cough and + dyspnea; no hemoptysis Cardiovascular: no chest pain Gastrointestinal: no abdominal pain Physical Exam Constitutional: + ill appearing and + obese; no acute distress ENMT: Mouth: + oral mucosal abnormality (thrush plaques but improving) Respiratory: no respiratory distress and no labored breathing Auscultation: + diminished lung sounds (bases); no rales and no wheezes Cardiovascular: Rate/Rhythm: regular rate and regular rhythm Heart Sounds: normal S1 and normal S2; no murmur and no cardiac rub Vessels: posterior tibial pulses present and dorsalis pedis pulses present; no JVD Extremities: + edema (trace b/l) Gastrointestinal (Abdomen): normal bowel sounds, soft, nontender, no hepatosplenomegaly Skin: no rashes, warm and dry Psychiatric: A+Ox3, euthymic affect Results & Data Vital Signs (Past 12 Hours) Vital Signs Temp Pulse Resp BP Pulse Ox 09/21/18 21:24 36.6 C 58 L 18 102/62 97 09/21/18 15:18 36.7 C 59 L 22 118/72 99 09/21/18 12:22 37.2 C 63 19 110/61 97 09/21/18 11:16 94 Laboratory Results Laboratory Results - last 24 hr 09/21/18 07:20 Sodium 137 Potassium 4.3 Chloride 97 L Carbon Dioxide 35 H Anion Gap 5.0 BUN 10 Creatinine 0.59 L Est Cr Clr Drug Dosing 89.6 Est GFR ( Amer) 110.7 Est GFR (Non-Af Amer) 95.5 BUN/Creatinine Ratio 17.3 Glucose 118 H Calcium 8.4 L Magnesium 1.9 (1) Cardiomyopathy Cardiomyopathy type: other Qualified Code(s): I42.8 - Other cardiomyopathies (2) Pseudomonas pneumonia Laterality: bilateral Lung location: unspecified part of lung Qualified Code(s): J15.1 - Pneumonia due to Pseudomonas (3) Anemia Anemia type: unspecified type Qualified Code(s): D64.9 - Anemia, unspecified (4) Hypothyroidism Hypothyroidism type: acquired Qualified Code(s): E03.9 - Hypothyroidism, unspecified (5) Rheumatoid arthritis Rheumatoid arthritis location: unspecified site Rheumatoid factor presence: unspecified presence Qualified Code(s): M06.9 - Rheumatoid arthritis, unspecified (6) Pulmonary embolism Pulmonary embolism type: unspecified Chronicity: chronic Acute cor pulmonale presence: without acute cor pulmonale Qualified Code(s): I27.82 - Chronic pulmonary embolism
[2018-09-22] MEDS: LEVOTHYROXINE SODIUM 75 MCG TABLET PO SCH (05:57)
[2018-09-22 07:44] LABS: BUN Creatinine Ratio 23.8 (10-20); Calcium 8.3 mg/dl (8.5-10.1); Creatinine Clr Calc Pharmacy 75.3 ml/min; Est GFR (African American) 104.6; Est GFR (Non-African American) 90.3; Potassium 4.1 mmol/L (3.5-5.1)
[2018-09-22] MEDS: PIPERACILLIN/TAZOBACTAM 3.375 GM in DEXTROSE 5% 100 ML IV SCH ×3 (08:04→23:57)
[2018-09-22] MEDS: SERTRALINE HCL 100 MG TABLET PO SCH (08:04)
[2018-09-22] MEDS: HYDROXYCHLOROQUINE SULFATE 200 MG TAB PO SCH ×2 (08:05→20:10)
[2018-09-22] MEDS: FERROUS SULFATE 325 MG TAB PO SCH (08:05)
[2018-09-22] MEDS: MAGNESIUM OXIDE 400 MG TAB PO SCH ×2 (08:05→20:10)
[2018-09-22] MEDS: CHOLECALCIFEROL 1,000 UNITS TAB PO SCH (08:05)
[2018-09-22] MEDS: CEROVITE ADV FORMULA TAB PO SCH (08:05)
[2018-09-22] MEDS: METOPROLOL TARTRATE 25 MG TAB PO SCH ×3 (08:05→20:17)
[2018-09-22] MEDS: POTASSIUM CHLORIDE 20 MEQ TABCR PO SCH ×2 (08:05→20:08)
[2018-09-22] MEDS: FLUTICASONE/SALMETEROL 250/50 (ADVAIR) 14 PUFF/1 INHALER INH SCH ×2 (08:06→22:22)
[2018-09-22] MEDS: FOLIC ACID 1 MG TAB PO SCH (08:06)
[2018-09-22] MEDS: FUROSEMIDE 40 MG in SYRINGE 0 ML IV SCH (08:06)
[2018-09-22] MEDS: NYSTATIN SUSP 500,000 U/5 ML UDC PO SCH ×4 (08:06→20:11)
--- NOTE | 2018-09-22 08:31 | Medical Student Progress Note ---
Date of Service September 22, 2018 Assessment & Plan (1) Acute on chronic combined systolic and diastolic CHF (congestive heart failure): Most recent ECHO illustrated 45% EF that is secondary to nonischemic cardiomyopathy. Repeat Cxr performed today and demonstrates marked improvement in Pleural Effusion. Her breathing has also greatly improved,, he goal us Recommend switching to PO Lasix tomorrow and continuing PO diuretic therapy upon discharge home. Her I's, O's, and her balance are appropriate as she is expected to be in negative balance with the diuretic regimen she was on. Her balance is negative, but trending toward upwards (today -600, yesterday -800). She has diuresed very well and currently appears euvolemic on examination, has decreased UO in her Weston and Her BUN:Cr is elevated at 23.8. I would discontinue diuresis as she is losing much less weight and her Cxr has shown g reat improvement, remove her Weston to permit her to urinate on own accord, and mildly loosen her fluid restrictions while maintaining her salt restriction. Document I's&O's and daily weights. Continue to monitor PRP. Low sodium diet, <2,000 mg daily. Continue K supplementation. Mag wnl, continue supp Continue current beta beckie- consider changing to metoprolol succinate. Blood pressures have remained stable, but low. I would not introduce an SIMONE at this current moment. Overall improving. (2) Cardiomyopathy: Her most recent echo noted an EF of 40-45%. The etiology of the cardiomyopathy is unclear. She has not undergone an ischemic evaluation and will consider performing an ischemic evaluation in the outpatient setting. For now, recommend medical management. Her metoprolol tartrate should be switched to metoprolol succinate upon discharge. Would also consider adding low dose lisinopril if blood pressure will allow. Cardiomyopathy type: other Qualified Code(s): I42.8 - Other cardiomyopathies (3) Pericardial effusion: Pericardial window on 09/09/18. Echocardiograms on 09/10 and 09/19 show no evidence of an effusion. (4) Atrial arrhythmia: She was noted to have an atrial arrhythmia on ECG during her last hospitalization. She has remained in sinus rhythm on telemetry this admission. No additional treatment/evaluation recommended in this regard. May be beneficial to consider monitoring in the outpatient setting. Patient discussed with cardiology, Dr. Noland, who saw her. (5) Acute respiratory failure with hypoxia: There are numerous factors contributing to her presentation: acute on chronic CHF, pseudomonas pneumonia, a h/o of previous Pulmonary Embolism w/ infarction, etc. Wean off from 4 L NC O2 as tolerated. In light of her presentation, and improvement, goal is to have sats 90+, 88 not too terrible. Hold Lasix Continue Zosyn for pseudomonas pneumonia. Xarelto for prior RLL PEs.. (6) Pseudomonas pneumonia: Pseudomonas pneumonia: s/p bronch at [facility] in with pseudomonas growing from that bronch. Received at least 3 weeks of IV meropenem, possibly up to 5 weeks, based on pt's account. Despite such she had pseudomonas grow from her right chest from 09/09/18 thoracic procedure performed by Dr. Cedeno. It also grew from pericardial fluid. Continue Zosyn until October 01, 2018. Dependent on chest film progression as well as clinical progression. Laterality: bilateral Lung location: unspecified part of lung Qualified Code(s): J15.1 - Pneumonia due to Pseudomonas (7) Eosinophilic asthma: [facility] [place]. Has been steroid-dependent per records - was taking 5mg/day prior - currently not getting any steroid therapy in the hospital. Pt was started on 40mg of Prednisone and goal is to wean back to 5mg. Starting with a 30mg dose then possibly 20 then 10 then 5. Prednisone 40mg x 1 now while clarifying her meds as the hypoglycemia may indicate adrenal insufficiency in the setting of chronic prednisone usage. Previously was also on Nucala. Appreciate Dr. Maria's note. In light of note, continue Advair as it is her maintenance rx and holding it for her thrush may be detrimental in the setting of her current Pleural Effusion. My concern is potential asthma exacerbation with her current V/Q mismatch. (8) Hypoglycemia: H/o frequent AM episodes of hypoglycemia. This is either due to relative adrenal insufficiency in setting of chronic steroid use or poor hepatic gluconeogenesis. Given prednisone 30mg yesterday. Today's reading wnl at 73. Given 20 mg. continue to taper down to 5mg. Adrenal insufficiency seems more likely. It is of question if pt d/c her steroids "cold turkey" and placed her adrenals in shock after chronic suppression. Review BGS levels in AM. (9) Anemia: H/H continues to remain in 9's (9.2), however this has remained stable throughout the course of her stay. Anemia type: unspecified type Qualified Code(s): D64.9 - Anemia, unspecified (10) Hypomagnesemia: 2 gIV of mag sulfate was administered yesterday, today's levels were wnl. Continue supplements as tolerated. (11) Candidiasis of mouth and esophagus: Candidiasis of mouth and esophagus, continue nystatin 5ml ac/hs - swish/swallow, great improvement as the thrush was not visible on exam and oral mucous membranes appeared normal. Improving. (12) Hypothyroidism: Most recent TSH wnl cont synthroid as prescribed Hypothyroidism type: acquired Qualified Code(s): E03.9 - Hypothyroidism, unspecified (13) Rheumatoid arthritis: Chronically on prednisone 5mg/day and plaquenil, previously on methotrexate as well, no issues at this time. See "Eosinophilic Asthma Plan" Above Rheumatoid arthritis location: unspecified site Rheumatoid factor presence: unspecified presence Qualified Code(s): M06.9 - Rheumatoid arthritis, unspecified (14) Psoriatic arthritis: (15) Hypokalemia: Cont supplements (16) DVT prophylaxis: -xarelto cont PT, OT (17) Pulmonary embolism: Pulmonary embolism: RLL PE with resulting infarction - 06/2018. Continue w/ xarelto. Pathology report from 09/09 c/w RLL infarction. Also had DVT at time of PE diagnosis in June. Source of DVT not yet known. Status: Tele Code: Full Access: Peripheral IV, L. Arm Disposition: Remain for observation and obtain BMP, CBC, electrolytes and BGS in AM. Also inquire of acceptance into [facility] Acute cor pulmonale presence: without acute cor pulmonale Chronicity: chronic Pulmonary embolism type: unspecified Qualified Code(s): I27.82 - Chronic pulmonary embolism Subjective Nurse reported stable sinus bradycardia in the mid-high 50s. No acute overnight events. Remains afebrile The patient states that she is feeling better overall, but tired due to not sleeping well last night. She slept without her BiPAP last night, remaining on 4L NCO2 and sats were 88- low 90s. She was able to wean down to 2L early this morning, however was placed back on 4L NCO2 when sats were in the 80s and she endorsed difficulty breathing. Weston catheter was still in and she reports not putting out as much urine as the day before and her urine is becoming slightly darker than the pale yellow it was, prior. She still reports some chest discomfort that she associates with her productive cough, but does not endorse any other episodes of discomfort. Appetite has restored, completing almost all of her meals. She denies lightheadedness or palpitations, N/V, bloating, abdominal pain, diarrhea, or hemoptysis. Constitutional: + fatigue and + weight loss (due to diuresis); no fever and no chills Respiratory: + cough, + dyspnea and + dyspnea on exertion; no hemoptysis and no wheezing Cardiovascular: + orthopnea (states that this occured when she was off her BiPAP and needed to be "propped up some"); no chest pain and no edema Physical Exam Vital Signs (Past 24 Hours): Last Vital Signs Temp 36.5 C 09/22/18 04:04 Pulse 57 L 09/22/18 04:04 Resp 18 09/22/18 04:04 BP 107/67 09/22/18 04:04 Pulse Ox 94 09/22/18 04:04 Constitutional: WD/WN, vitals as above + ill appearing and + obese; no acute distress Eyes: PERRL, conjunctivae normal, anicteric sclerae ENMT: external ear and nose normal, oropharynx normal Mouth: no oral mucosal abnormality (thrush plaques have improved and I was unable to visualize on exam) Neck: trachea midline, no thyromegaly Respiratory: normal respiratory effort; no respiratory distress and no labored breathing Auscultation: lungs clear to auscultation bilaterally and + diminished lung sounds (still slightly diminished at bases, but much improved than yesterday); no crackles (fine b/l bases as well as anteriorly on chest), no rales, no rhonchi and no wheezes Cardiovascular: Rate/Rhythm: regular rate, regular rhythm and + bradycardic Heart Sounds: normal S1 and normal S2; no gallop, no murmur and no cardiac rub Palpation: normal PMI Vessels: posterior tibial pulses present, dorsalis pedis pulses present and radial pulses present; no JVD Extremities: normal capillary refill; no edema (trace b/l) Gastrointestinal (Abdomen): normal bowel sounds, soft, nontender, no hepatosplenomegaly Musculoskeletal: no cyanosis or clubbing, extremities motor strength 5/5 Skin: no rashes, warm and dry Neurologic: patellar DTR's 2+ bilat, sensation intact and PERRL, EOMI, accommodation nl, no face palsy, no dysarthria Psychiatric: A+Ox3, euthymic affect
[2018-09-22] MEDS ORDERED: predniSONE 20 MG TAB PO ONE (09:00)
--- NOTE | 2018-09-22 14:10 | XRay Report ---
XR chest 2V routine CLINICAL HISTORY: b/l infiltrates, interval change dyspnea COMPARISON STUDY: 09/20/2018 FINDINGS: Mild improvement of the findings procedure described as pulmonary edema. Greatest improveme nt is at the right hemithorax. There continues to be residual pleural parenchymal prominence left hem ithorax. There are small bilateral pleural effusions. These is slightly diminished in the prior study. PICC ca theter remains in the right atrium. IMPRESSION: 1. Improving pulmonary edema. 2. Small bilateral pleural effusions slightly improved from the prior exam. The above report was generated using voice recognition software. It may contain grammatical, syntax or spelling errors. Electronically signed by: Frankie Matias M.D. 09/22/2018 2:08 PM
--- NOTE | 2018-09-22 15:01 | Cardiology Progress Note ---
Date of Service September 22, 2018 Assessment & Plan (1) Acute on chronic combined systolic and diastolic CHF (congestive heart failure): She has diuresed well and appears euvolemic on examination. She is more than net negative 11 L this admission. Her weight is down 10 kg. Her weight is currently lower than any of her recent outpatient documented weights. Her breathing has also greatly improved. She continues to adequately diuresis with IV Lasix without an increase in creatinine. I suspect she is near euvolemic based on her exam. Recommend switching to PO Lasix tomorrow and continuing PO diuretic therapy upon discharge home. Document I's&O's and daily weights. Continue to monitor PRP. Low sodium diet, <2,000 mg daily. (2) Cardiomyopathy: Her most recent echo noted an EF of 40-45%. The etiology of the cardiomyopathy is unclear. She has not undergone an ischemic evaluation and will consider performing an ischemic evaluation in the outpatient setting. For now, recommend medical management. Her metoprolol tartrate should be switched to me toprolol succinate upon discharge. Would also consider adding low dose lisinopril if blood pressure will allow. (3) Pericardial effusion: Pericardial window on 09/09/18. Echocardiograms on 09/10 and 09/19 show no evidence of an effusion. (4) Atrial arrhythmia: She was noted to have an atrial arrhythmia on ECG during her last hospitalization. She has remained in sinus rhythm on telemetry this admission. No additional treatment/evaluation recommended in this regard. Could consider monitoring in the outpatient setting. Case was discussed with the primary service. Plan on transfer to [facility] when medically stable for discharge. Subjective The patient states that she is feeling more improved each day. She is currently sitting up at the bedside. Her breathing has improved, and she has been able to ambulate about her room with no significant shortness of breath. She chronically sleeps with the head of her bed elevated at night. She notes improvement in her lower extremity edema, and she denies abdominal bloating. She notes some discomfort in her chest in association with coughing, but she denies any other chest discomfort. She denies lightheadedness or palpitations. Physical Exam Physical Exam: Constitutional: Alert, oriented, in no acute distress HEENT: Head is atraumatic and normocephalic. EOMs intact. Sclera anicteric. Face is symmetric. No perioral cyanosis. Mucous membranes moist. Neck: Supple, no appreciable JVD Pulmonary: Normal respiratory effort, some crackles in right lower lung field but otherwise clear to auscultation Cardiac: Regular rate and rhythm, normal S1 and S2, no gallops, no rubs, no murmurs Extremities: Trace edema. No clubbing or cyanosis. Pulses intact Abdomen: Normal bowel sounds, soft, non-tender, no abdominal mass palpated Skin: Patient is pale appearing. No rash or skin lesions. Neurological: Oriented to person, place, and time Results & Data Vital Signs (Past 12 Hours) Vital Signs Temp Pulse Pulse Resp BP Pulse Ox 09/22/18 12:32 36.5 C 57 L 18 115/72 09/22/18 08:06 36.5 C 62 18 108/71 93 09/22/18 08:00 55 L 09/22/18 04:04 36.5 C 57 L 18 107/67 94 (1) Cardiomyopathy Cardiomyopathy type: other Qualified Code(s): I42.8 - Other cardiomyopathies
--- NOTE | 2018-09-22 15:45 | Pulmonology Progress Note ---
Date of Service September 22, 2018 Assessment & Plan (1) Acute on chronic combined systolic and diastolic CHF (congestive heart failure): Impression: 1. Bacterial pericarditis, Pseudomonas, on antibiotic. 2. Bilateral pleural effusion, related to congestive heart failure and global hypokinesis. As noted by the echocardiogram. 3. History of asthma. 4. History of PE diagnosed 4 months ago. 5. History of rheumatoid arthritis and psoriasis. Plan: 1. Continue antibiotics per infectious disease. 2. Improvement in pulmonary vascular congestion and pleural effusion noted after diuresis. 3. Patient is on home O2 at 2 L, reduce the oxygen to 2 L as well. 4. Ambulate the patient. 5. No further recommendations from pulmonary standpoint. Thank you, will follow as needed. Subjective The patient is feeling better, denies any chest pain, shortness of breath has subsided, she did not ambulate today except around the bed, denies any need for higher dose of oxygen. Review of Systems Review of Systems: Review of system otherwise was unremarkable. Physical Exam Physical Exam: Vital signs are stable, O2 saturation 99% on 4 L, she uses 2 L at home. S1-S2 regular rate and rhythm, distant breath sounds bilaterally, abdomen is benign, no edema. Results & Data Vital Signs (Past 12 Hours) Vital Signs Temp Pulse Pulse Resp BP Pulse Ox 09/22/18 15:18 36.5 C 57 L 16 105/71 99 09/22/18 12:32 36.5 C 57 L 18 115/72 09/22/18 08:06 36.5 C 62 18 108/71 93 09/22/18 08:00 55 L 09/22/18 04:04 36.5 C 57 L 18 107/67 94 Laboratory Results Labs were reviewed which are acceptable. Diagnostic Findings Chest x-ray was reviewed which showed improvement in pulmonary vascular congestion and bilateral pleural effusion. Which appears to be smaller.
[2018-09-22] MEDS: RIVAROXABAN 20 MG TAB PO SCH (16:45)
[2018-09-22] MEDS: ATORVASTATIN 10 MG TAB PO SCH (20:09)
--- NOTE | 2018-09-22 20:09 | Hospitalist Progress Note ---
Date of Service September 22, 2018 Assessment & Plan (1) Acute on chronic combined systolic and diastolic CHF (congestive heart failure): Most recent echo with EF 45% 2nd to nonischemic cardiomyopathy. Has had copious diuresis this stay and 10+ kg weight loss. Despite such BUN and Cr remain stable. Cont IV lasix 40mg daily. CXR obtained today - infiltrates/edema are improved. I looked at her outpatient record - her weight today is minimum 10 pounds below any weight listed in the outpatient EMR over the last 6 months. I do suspect we are approaching euvolemia. Repeat labs am. Cont BB - at some point we should change this to metoprolol succinate. If BP will allow she will also need low-dose SIMONE. Cardiology continues to follow. (2) Cardiomyopathy: EF 45% with diastolic dysfunction. continue on metoprolol. will likely need daily Lasix on discharge. (3) Pericardial effusion: s/p pericardial window 09/[address] Cedeno. cultures grew MDR pseudomonas. remains on zosyn. repeat echos post window w/o reaccumulation of fluid. no rub on exam. (4) Acute respiratory failure with hypoxia: Multifactorial -- acute/chronic CHF, pseudomonas pneumonia, prior PE w/ infarction, etc. Remains on 4 L NC O2. Attempts to wean today not succesful. Cont Diuresis. Zosyn for pseudomonas pneumonia. Xarelto for prior RLL PEs. Appreciate pulmonary consultation. Repeat cxr today IS improved. (5) Pseudomonas pneumonia: s/p bronch at [facility] in with pseudomonas growing from that bronch. Received at least 3 weeks of IV meropenem, possibly up to 5 weeks, based on pt's account. Despite such she had pseudomonas grow from her right chest from 09/09/18 thoracic procedure performed by Dr. Cedeno. It also grew from pericardial fluid. Current plan is continuing on Zosyn until October 01, 2018 at minimum via RUE PICC ID is following Pulmonary consult appreciated. Consider immunoglobulins in light of refractory pseudomonas?? (6) Eosinophilic asthma: [facility] [place]. Has been steroid-dependent per records - was taking 5mg/day prior. Previously was also on Nucala but this has been stopped. Continue inhalers, etc. Pt reports her prednisone was abruptly stopped this July, unknown reasons. Had taken prednisone for 10-15 years prior. I placed her on 40mg of prednisone over the weekend due to daily episodes of hypoglycemia likely due to adrenal insufficiency in setting of being off prednisone. Continue weaning - plan 10mg tomorrow, then 5mg daily thereafter. 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 (7) Hypoglycemia: suspect 2nd to adrenal insufficiency. was on prednisone for 10-15 years up until 07/2018 then abruptly stopped. steroids resumed a few days ago and hypoglycemia resolved. (8) Anemia: H/H low but stable in the 9's. follow. CBC tomorrow for stability. (9) Hypomagnesemia: resolved cont PO supplementation (10) Candidiasis of mouth and esophagus: cont nystatin 5ml ac/hs - swish/swallow but it appears resolved on exam today (11) Hypothyroidism: TSH compensated 07/2018 cont synthroid (12) Rheumatoid arthritis: previously on methotrexate and prednisone former stopped latter stopped as well but resumed this admission no current symptoms also on hydroxychloroquine BID (13) Psoriatic arthritis: see above in "rheumatoid arthritis" (14) Hypokalemia: cont supplementation level stable today (15) Pulmonary embolism: RLL PE with resulting infarction - 06/2018. Treated w/ xarelto. Pathology report from 09/09/18 c/w RLL infarction. Cause of PE? Also had DVT at time of PE diagnosis in June. (16) DVT prophylaxis: carri will need inpatient rehab at d/c accepted to [facility] updated d/c to rehab next 48 hours once off IV lasix?? Subjective patient feeling "better each day" again voices she is very willing to attend Rehab post-discharge cough persists - still some sputum - but not as severe as previous tele stable overnight at bedside during my 2nd visit to her room in afternoon - he was updated eating better ambulating Review of Systems 2 Constitutional: no fever and no chills Respiratory: + cough and + dyspnea on exertion; no hemoptysis and no wheezing Cardiovascular: no chest pain Gastrointestinal: no abdominal pain Physical Exam Constitutional: + obese; no acute distress ENMT: Mouth: + oral mucosal abnormality (thrush plaques resolved) Respiratory: no respiratory distress and no labored breathing Auscultation: + diminished lung sounds (bases); no rales and no wheezes Cardiovascular: Rate/Rhythm: regular rate and regular rhythm Heart Sounds: normal S1 and normal S2; no murmur and no cardiac rub Vessels: posterior tibial pulses present and dorsalis pedis pulses present; no JVD Extremities: no edema Gastrointestinal (Abdomen): normal bowel sounds, soft, nontender, no hepatosplenomegaly Skin: no rashes, warm and dry PICC line RUE clean/dry Psychiatric: A+Ox3, euthymic affect Results & Data Vital Signs (Past 12 Hours) Vital Signs Temp Pulse Pulse Resp BP Pulse Ox 09/22/18 19:44 36.6 C 58 L 18 98/66 L 99 09/22/18 16:00 58 L 09/22/18 15:18 36.5 C 57 L 16 105/71 99 09/22/18 12:32 36.5 C 57 L 18 115/72 Laboratory Results Laboratory Results - last 24 hr 09/22/18 05:56 Sodium 137 Potassium 4.1 Chloride 98 Carbon Dioxide 35 H Anion Gap 4.0 BUN 17 D Creatinine 0.70 Est Cr Clr Drug Dosing 75.3 Est GFR ( Amer) 104.6 Est GFR (Non-Af Amer) 90.3 BUN/Creatinine Ratio 23.8 H Glucose 73 Calcium 8.3 L Magnesium 2.0 (1) Rheumatoid arthritis Rheumatoid arthritis location: unspecified site Rheumatoid factor presence: unspecified presence Qualified Code(s): M06.9 - Rheumatoid arthritis, unspecified (2) Anemia Anemia type: unspecified type Qualified Code(s): D64.9 - Anemia, unspecified (3) Pseudomonas pneumonia Laterality: bilateral Lung location: unspecified part of lung Qualified Code(s): J15.1 - Pneumonia due to Pseudomonas (4) Hypothyroidism Hypothyroidism type: acquired Qualified Code(s): E03.9 - Hypothyroidism, unspecified (5) Pulmonary embolism Acute cor pulmonale presence: without acute cor pulmonale Chronicity: chronic Pulmonary embolism type: unspecified Qualified Code(s): I27.82 - Chronic pulmonary embolism (6) Cardiomyopathy Cardiomyopathy type: other Qualified Code(s): I42.8 - Other cardiomyopathies
[2018-09-22] MEDS: ACETAMINOPHEN 325 MG TAB PO PRN (20:51)
[2018-09-23] MEDS: LEVOTHYROXINE SODIUM 75 MCG TABLET PO SCH (06:49)
--- NOTE | 2018-09-23 07:25 | Medical Student Progress Note ---
Date of Service September 23, 2018 Assessment & Plan (1) Acute on chronic combined systolic and diastolic CHF (congestive heart failure): 68 WF presents on Day 17 of a workup for CRESPO. PMH significant for Acute on Chronic combined systolic diastolic CHF, Cardiomyopathy, Pleural Effusion and Pericardial Effusion- s/p pericardial window 09/09- growing MDR pseudomonias tx w/ zosyn, Pulmonary DM2 with episodes of AM hypoglycemia during her admission, Obesity, RA, Psoriatic Candidiasis, HTN, who is clinically improving on Lasix and O2 wean. Most recent echo with EF 45% 2nd to nonischemic cardiomyopathy. Has had copious diuresis this stay and 10+ kg weight loss. Had 1.2kg wt gain since yesterday. Labs this morning show elevated BUN (inc to 20 from yesterday's 17), but overall improvement in her BUN:Cr. Transition to PO Lasix, consider 20mg PO BID? CXR obtained yesterday - infiltrates/edema are improved. Approaching euvolemia. She has had less UO than the previous days and the urine appearance is returning to baseline/normal. Cont Beta Allyssa Consider low-dose SIMONE, but her BPs have not been permissible yet. Cardiology continues to follow. (2) Cardiomyopathy: EF 45% with diastolic dysfunction. continue on metoprolol, switch from IV to 50mg succinate PO daily will likely need daily Lasix on discharge. Cardiomyopathy type: other Qualified Code(s): I42.8 - Other cardiomyopathies (3) Pericardial effusion: s/p pericardial window 09/[address] Cedeno. cultures grew MDR pseudomonas. remains on zosyn. repeat echos post window w/o reaccumulation of fluid. no rub on exam. (4) Acute respiratory failure with hypoxia: Multifactorial -- acute/chronic CHF, pseudomonas pneumonia, prior PE w/ infarction, etc. Down to 2L NC O2. Wean is proving successful. Cont Diuresis but switch from 40mg IV to 80mg PO Zosyn for pseudomonas pneumonia. Xarelto for prior RLL PEs. Appreciate pulmonary consultation. Repeat Cxr taken yesterday shows improvement. (5) Pseudomonas pneumonia: s/p bronch at [facility] in with pseudomonas growing from that bronch. Received at least 3 weeks of IV meropenem, possibly up to 5 weeks, based on pt's account. Despite such she had pseudomonas grow from her right chest from 09/09/18 thoracic procedure performed by Dr. Cedeno. It also grew from pericardial fluid. Current plan is continuing on Zosyn until October 01, 2018 at minimum via RUE PICC ID is following Pulmonary consult appreciated. Laterality: bilateral Lung location: unspecified part of lung Qualified Code(s): J15.1 - Pneumonia due to Pseudomonas (6) Eosinophilic asthma: [facility] [place]. Has been steroid-dependent per records - was taking 5mg/day prior. Previously was also on Nucala but this has been stopped. Continue inhalers, etc. Pt reports her prednisone was abruptly stopped this July, unknown reasons. Had taken prednisone for 10-15 years prior. She was placed 40mg of prednisone over the weekend due to daily episodes of hypoglycemia likely due to adrenal insufficiency in setting of being off prednisone. Her BGS decreased again. I am wondering where the balance may lay and if we should prolong the duration of the taper. I suggest keep her at 10mg for another day before decreasing to 5mg as her BGS have not been stable. Would keep her on steroids until she follows up with the entry processor and prize coordinator in [place] - they had been managing the steroids. (7) Hypoglycemia: suspect 2nd to adrenal insufficiency. was on prednisone for 10-15 years up until 07/2018 then abruptly stopped. steroids resumed a few days ago see"Eosinophilic Asthma" for details regarding taper. (8) Anemia: H/H low but stable in the 9's. follow CBC CBC has remained unremarkabley stable. Iron Studies reviewed from earlier this year. Most likely anemia of chronic disease as she is currently being supplemented with ferrous sulfate Anemia type: unspecified type Qualified Code(s): D64.9 - Anemia, unspecified (9) Hypomagnesemia: resolved d/c PO supplementation (10) Candidiasis of mouth and esophagus: continue nystatin 5ml ac/hs - swish/swallow for another week to ensure adequate clearance of the fungus resolved on exam (11) Hypothyroidism: TSH compensated 07/2018 cont synthroid Hypothyroidism type: acquired Qualified Code(s): E03.9 - Hypothyroidism, unspecified (12) Rheumatoid arthritis: previously on methotrexate and prednisone former MTX was stopped prior to admission Prednisone stopped as well but resumed this admission follow taper adjustments no current symptoms also on hydroxychloroquine BID Rheumatoid arthritis location: unspecified site Rheumatoid factor presence: unspecified presence Qualified Code(s): M06.9 - Rheumatoid arthritis, unspecified (13) Psoriatic arthritis: see above in "rheumatoid arthritis" (14) Hypokalemia: d/c supplementation levels remain stable. We are also switching to PO lasix and want be mindful of fluid retention. (15) Pulmonary embolism: RLL PE with resulting infarction - 06/2018. Treated w/ xarelto. Pathology report from 09/09/18 c/w RLL infarction. Cause of PE still unknown. Pt alludes to LLE involvement at the time of her DVT. Also had DVT at time of PE diagnosis in June. Acute cor pulmonale presence: without acute cor pulmonale Chronicity: chronic Pulmonary embolism type: unspecified Qualified Code(s): I27.82 - Chronic pulmonary embolism (16) DVT prophylaxis: Wiliam will need inpatient rehab at d/c accepted to [facility]: she has been doing well on 2L NC O2, she says that she has an O2 tank at home, she could use PRN. Wean as she is improving well, d/c to rehab facility to continue to manage care within next 24 hours as travel arrangements are being finalized. Subjective patient feeling well today, energy is better she is awaiting information regarding rehab, post-discharge cough persists - still some sputum - but not as severe as previous tele stable overnight at sinus w[facility], she was able to get HR in low 70's briefl y. eating better ambulating better around room,-but not in the hallways on her own, awaiting PT to visit urinating well, not sure how the output is compare to when Weston was in. orthopnea is still present, not as severe Required BIPap for a short period overnight. Down to consistent 2L NCO2 No light headedness, SOB, N/V, Respiratory: + cough and + dyspnea on exertion; no hemoptysis and no wheezing Musculoskeletal: + muscle weakness (generalized) Physical Exam Vital Signs (Past 24 Hours): Last Vital Signs Temp 36.6 C 09/23/18 04:25 Pulse 53 L 09/23/18 04:25 Resp 18 09/23/18 04:25 BP 118/74 09/23/18 04:25 Pulse Ox 100 09/23/18 04:25 Constitutional: WD/WN, vitals as above + ill appearing (she looks better than the past few days.) and + obese; no acute distress Eyes: PERRL, conjunctivae normal, anicteric sclerae ENMT: external ear and nose normal, oropharynx normal Neck: trachea midline, no thyromegaly Respiratory: normal respiratory effort; no respiratory distress and no labored breathing Auscultation: lungs clear to auscultation bilaterally and + diminished lung sounds (bibasilar, but improved); no crackles, no rales, no rhon chi and no wheezes Cardiovascular: Rate/Rhythm: regular rate, regular rhythm and + bradycardic Heart Sounds: normal S1 and normal S2; no gallop, no murmur and no cardiac rub Palpation: normal PMI Vessels: posterior tibial pulses present, dorsalis pedis pulses present and radial pulses present; no JVD Extremities: normal capillary refill; no edema Gastrointestinal (Abdomen): normal bowel sounds, soft, nontender, no hepatosplenomegaly Musculoskeletal: no cyanosis or clubbing, extremities motor strength 5/5 Skin: no rashes, warm and dry Neurologic: patellar DTR's 2+ bilat, sensation intact and PERRL, EOMI, accommodation nl, no face palsy, no dysarthria Psychiatric: A+Ox3, euthymic affect Lymphatic: no cervical or axillary lymphadenopathy Results & Data Labs CBC & Chem 7: 09/23/18 07:23 09/23/18 07:23 Labs: Short CBC 09/23/18 Range/Units 07:23 WBC 8.55 (4.8-10.8) K/uL Hgb 9.7 L (12.0-16.0) g/dL Hct 30.5 L (37-47) % Plt Count 364 (130-400) K/uL BMP 09/23/18 07:23 Sodium 139 Potassium 4.5 Chloride 102 Carbon Dioxide 32 BUN 20 H Creatinine 0.88 Glucose 68 L Calcium 9.1
[2018-09-23 07:32] LABS: Hematocrit (blood only) 30.5 % (37-47); Hemoglobin 9.7 g/dL (12.0-16.0); Mean Corpuscular Hgb Conc 31.8 g/dL (32-36); Mean Corpuscular Volume 96.2 fL (80-100); Mean Platelet Volume 9.4 fL (7.4-10.4); Platelet Count 364 K/uL (130-400); RDW Standard Deviation 55.4 fL (36.4-46.3); Red Blood Count 3.17 M/uL (4.2-5.4); White Blood Count 8.55 K/uL (4.8-10.8)
[2018-09-23 08:03] LABS: BUN Creatinine Ratio 22.2 (10-20); Calcium 9.1 mg/dl (8.5-10.1); Creatinine Clr Calc Pharmacy 60.5 ml/min; Est GFR (African American) 79.4; Est GFR (Non-African American) 68.5; Potassium 4.5 mmol/L (3.5-5.1)
[2018-09-23] MEDS: PIPERACILLIN/TAZOBACTAM 3.375 GM in DEXTROSE 5% 100 ML IV SCH ×2 (08:23→16:15)
[2018-09-23] MEDS: FUROSEMIDE 40 MG in SYRINGE 0 ML IV SCH (08:24)
[2018-09-23] MEDS: CHOLECALCIFEROL 1,000 UNITS TAB PO SCH (08:24)
[2018-09-23] MEDS: CEROVITE ADV FORMULA TAB PO SCH (08:25)
[2018-09-23] MEDS: SERTRALINE HCL 100 MG TABLET PO SCH (08:25)
[2018-09-23] MEDS: FLUTICASONE/SALMETEROL 250/50 (ADVAIR) 14 PUFF/1 INHALER INH SCH ×2 (08:25→20:45)
[2018-09-23] MEDS: METOPROLOL TARTRATE 25 MG TAB PO SCH (08:25)
[2018-09-23] MEDS: HYDROXYCHLOROQUINE SULFATE 200 MG TAB PO SCH ×2 (08:25→20:46)
[2018-09-23] MEDS: NYSTATIN SUSP 500,000 U/5 ML UDC PO SCH ×4 (08:26→20:46)
[2018-09-23] MEDS: POTASSIUM CHLORIDE 20 MEQ TABCR PO SCH (08:26)
[2018-09-23] MEDS: FOLIC ACID 1 MG TAB PO SCH (08:26)
[2018-09-23] MEDS: predniSONE 10 MG TABLET PO SCH (08:26)
[2018-09-23] MEDS: FERROUS SULFATE 325 MG TAB PO SCH (08:26)
[2018-09-23] MEDS: MAGNESIUM OXIDE 400 MG TAB PO SCH ×2 (08:26→20:46)
--- NOTE | 2018-09-23 12:53 | XRay Report ---
XR chest 2V routine CLINICAL HISTORY: PICC line adjustment. Lateral view per Dr. Rodriguez COMPARISON STUDY: 09/22/2018 FINDINGS: PICC line has been pulled back and is now the junction of the superior vena cava and right atrium. No evidence pneumothorax. All remaining components of the study are unchanged. IMPRESSION: PICC line has been pulled back and is now at the juncture of the superior vena cava and right atrium. No evidence pneumothorax. The above report was generated using voice recognition software. It may contain grammatical, syntax or spelling errors. Electronically signed by: Frankie Matias M.D. 09/23/2018 12:52 PM
--- NOTE | 2018-09-23 15:10 | Hospitalist Progress Note ---
Date of Service September 23, 2018 Assessment & Plan (1) Acute on chronic combined systolic and diastolic CHF (congestive heart failure): Most recent echo with EF 45% 2nd to nonischemic cardiomyopathy. Has had copious diuresis this stay and 10+ kg weight loss. Diuresis is starting to slow down but remains with a negative fluid balance each day BUN and Cr remain stable. Convert from IV Lasix to Lasix 40 mg p.o. once daily CXR on 09/22 shows infiltrates/edema are improved. -Follow BMP in the morning -will change her metoprolol tartrate to metoprolol succinate 25 mg p.o. nightly -Will add on low-dose SIMONE inhibitor in the morning-previously she was on 40 mg of lisinopril daily, but blood pressures here have been on the low end of normal -Appreciate cardiology consultation -will need follow-up in the heart failure clinic after discharge -Continue daily weights, strict I's and O's, low-sodium diet (2) Cardiomyopathy: EF 45% with diastolic dysfunction. Plan outlined as above (3) Pericardial effusion: s/p pericardial window 09/[address] Cedeno. cultures grew MDR pseudomonas. remains on zosyn through October 01. repeat echos post window w/o reaccumulation of fluid. no rub on exam. -Continue to keep follow-up appointment previously scheduled with thoracic surgery as an outpatient for next week (4) Acute respiratory failure with hypoxia: Multifactorial -- acute/chronic CHF, pseudomonas pneumonia, prior PE w/ infarction, etc. Is now weaned down to 2 L NC O2. Chest x-ray on 09/22 is improved -Continue to wean O2 down as tolerated -Remains on BiPAP nightly -Continue diuresis -Continue Zosyn for pseudomonas pneumonia. -Continue Xarelto for prior RLL PEs. Appreciate pulmonary consultation. (5) Pseudomonas pneumonia: s/p bronch at [facility] in with pseudomonas growing from that bronch. Received at least 3 weeks of IV meropenem, possibly up to 5 weeks, based on pt's account. Despite such she had pseudomonas grow from her right chest from 09/09/18 thoracic procedure performed by Dr. Cedeno. It also grew from the pericardial fluid. Current plan is continuing on Zosyn until October 01, 2018 at minimum via RUE PICC ID is following Pulmonary consult appreciated. (6) Eosinophilic asthma: [facility] [place]. Has been steroid-dependent per records - was taking 5mg/day prior. Previously was also on Nucala but this has been stopped. Continue inhalers, etc. Pt reports her prednisone was abruptly stopped this July, unknown reasons. Had taken prednisone for 10-15 years prior. Here, she was placed on 40mg of prednisone over the weekend due to daily episodes of hypoglycemia likely due to adrenal insufficiency in setting of being off prednisone. Remains with some mild hypoglycemia this morning at 68 Continue weaning -continue with 10mg tomorrow, then 5mg daily thereafter. Would keep her on steroids until she follows up with the color control operator and wood grainer in [place] - they had been managing the steroids. (7) Hypoglycemia: suspect 2nd to adrenal insufficiency. Improved but persists today with a.m. glucose fasting of 68 was on prednisone for 10-15 years up until 07/2018 then abruptly stopped. steroids resumed a few days ago and hypoglycemia is improved -Start Accu-Cheks q. before meals and at bedtime -Continue prednisone 10 mg daily as above (8) Anemia: Previously microcytic but now normocytic and iron studies performed here a few weeks ago show anemia of chronic disease Could also have been side effect from her previous methotrexate use Previous folate level was low but then was improved on repeat check more recently H/H low but stable in the 's. -Follow CBC periodically as an outpatient (9) Hypomagnesemia: resolved cont PO supplementation (10) Candidiasis of mouth and esophagus: cont nystatin 5ml ac/hs - swish/swallow-continue for 1 more week but it appears resolved on exam today (11) Hypothyroidism: TSH compensated 07/2018 cont synthroid (12) Rheumatoid arthritis: previously on methotrexate and prednisone Methotrexate and prednisone were both stopped approximately 2 months ago -prednisone resumed as above -Remains on hydroxychloroquine BID (13) Psoriatic arthritis: see above in "rheumatoid arthritis" (14) Hypokalemia: cont supplementation level stable today (15) Pulmonary embolism: RLL PE with resulting infarction - 06/2018. Treated w/ xarelto. Pathology report from 09/09/18 c/w RLL infarction. Cause of PE? Also had DVT at time of PE diagnosis in June. -Continue Xarelto 20 mg daily for minimum of 6 months (16) DVT prophylaxis: xarelto Disposition-will need inpatient rehab at d/c. Patient and do not feel that she is ready to go there yet today-they are worried that she is not quite ready and will have to return to the hospital -She is accepted to [facility] health when ready -Hopeful for discharge to rehab tomorrow Subjective Patient feeling better. She is nervous about leaving the hospital as she has been readmitted multiple times the last few months. Her is also co ncerned. She reports her shortness of breath is improving but she still has dyspnea with minimal exertion. She has pain in the central chest with coughing, but otherwise no chest pain. Her PICC line was pulled back a few centimeters today as it was in her right atrium and she tolerated this well. Review of Systems Review of Systems: All systems reviewed & are unremarkable except as noted in HPI & below Physical Exam Constitutional: WD/WN, vitals as above + obese Eyes: PERRL, conjunctivae normal, anicteric sclerae Neck: trachea midline, no thyromegaly Respiratory: normal respiratory effort; no respiratory distress Auscultation: + diminished lung sounds (At the right base, otherwise clear) Cardiovascular: RRR, no murmur, no edema Gastrointestinal (Abdomen): normal bowel sounds, soft, nontender, no hepatosplenomegaly Musculoskeletal: Extremities: extremities normal to inspection; no cyanosis and no clubbing Skin: no rashes, warm and dry Neurologic: moves all extremities and awake; no focal motor deficits Psychiatric: A+Ox3, euthymic affect Results & Data Vital Signs (Past 12 Hours) Vital Signs Temp Pulse Pulse Resp BP Pulse Ox 09/23/18 11:38 36.7 C 63 18 112/70 92 09/23/18 08:00 58 L 09/23/18 07:44 36.4 C L 62 19 123/80 98 09/23/18 04:25 36.6 C 53 L 18 118/74 100 Laboratory Results 09/23/18 09/23/18 09/23/18 Range/Units 16:19 11:13 08:21 WBC (4.8-10.8) K/uL RBC (4.2-5.4) M/uL Hgb (12.0-16.0) g/dL Hct (37-47) % MCV (80-100) fL MCH (25-34) pg MCHC (32-36) g/dL RDW Std Deviation (36.4-46.3) fL RDW Coeff of Charmaine (11.5-14.5) % Plt Count (130-400) K/uL MPV (7.4-10.4) fL Sodium (136-145) mmol/L Potassium (3.5-5.1) mmol/L Chloride (98-107) mmol/L Carbon Dioxide (21-32) mmol/L Anion Gap (3-11) BUN (7-18) mg/dl Creatinine (0.6-1.2) mg/dl Est Cr Clr Drug Dosing ml/min Est GFR ( Amer) Est GFR (Non-Af Amer) BUN/Creatinine Ratio (10-20) Glucose (70-99) mg/dl POC Glucose 109 H 90 83 (70-99) Calcium (8.5-10.1) mg/dl 09/23/18 09/23/18 Range/Units 07:23 07:23 WBC 8.55 (4.8-10.8) K/uL RBC 3.17 L (4.2-5.4) M/uL Hgb 9.7 L (12.0-16.0) g/dL Hct 30.5 L (37-47) % MCV 96.2 (80-100) fL MCH 30.6 (25-34) pg MCHC 31.8 L (32-36) g/dL RDW Std Deviation 55.4 H (36.4-46.3) fL RDW Coeff of Charmaine 16.0 H (11.5-14.5) % Plt Count 364 (130-400) K/uL MPV 9.4 (7.4-10.4) fL Sodium 139 (136-145) mmol/L Potassium 4.5 (3.5-5.1) mmol/L Chloride 102 (98-107) mmol/L Carbon Dioxide 32 (21-32) mmol/L Anion Gap 6.0 (3-11) BUN 20 H (7-18) mg/dl Creatinine 0.88 (0.6-1.2) mg/dl Est Cr Clr Drug Dosing 60.5 ml/min Est GFR ( Amer) 79.4 Est GFR (Non-Af Amer) 68.5 BUN/Creatinine Ratio 22.2 H (10-20) Glucose 68 L (70-99) mg/dl POC Glucose (70-99) Calcium 9.1 (8.5-10.1) mg/dl (1) Rheumatoid arthritis Rheumatoid arthritis location: unspecified site Rheumatoid factor presence: unspecified presence Qualified Code(s): M06.9 - Rheumatoid arthritis, unspecified (2) Anemia Anemia type: unspecified type Qualified Code(s): D64.9 - Anemia, unspecified (3) Pseudomonas pneumonia Laterality: bilateral Lung location: unspecified part of lung Qualified Code(s): J15.1 - Pneumonia due to Pseudomonas (4) Hypothyroidism Hypothyroidism type: acquired Qualified Code(s): E03.9 - Hypothyroidism, unspecified (5) Pulmonary embolism Acute cor pulmonale presence: without acute cor pulmonale Chronicity: chronic Pulmonary embolism type: unspecified Qualified Code(s): I27.82 - Chronic pulmonary embolism (6) Cardiomyopathy Cardiomyopathy type: other Qualified Code(s): I42.8 - Other cardiomyopathies
[2018-09-23] MEDS: RIVAROXABAN 20 MG TAB PO SCH (17:05)
[2018-09-23] MEDS ORDERED: GABAPENTIN 100 MG CAP PO PRN (20:02)
[2018-09-23] MEDS: ATORVASTATIN 10 MG TAB PO SCH (20:46)
[2018-09-23] MEDS ORDERED: METOPROLOL SUCC 25MG EXT REL TAB PO SCH (21:00)
[2018-09-24] MEDS: PIPERACILLIN/TAZOBACTAM 3.375 GM in DEXTROSE 5% 100 ML IV SCH ×2 (00:37→08:41)
[2018-09-24] MEDS: LEVOTHYROXINE SODIUM 75 MCG TABLET PO SCH (06:09)
[2018-09-24 07:02] LABS: BUN Creatinine Ratio 20.1 (10-20); Calcium 8.3 mg/dl (8.5-10.1); Creatinine Clr Calc Pharmacy 58.7 ml/min; Est GFR (African American) 77.2; Est GFR (Non-African American) 66.6; Magnesium 2.5 mg/dl (1.8-2.4); Potassium 3.9 mmol/L (3.5-5.1)
--- NOTE | 2018-09-24 08:21 | Medical Student Progress Note ---
Date of Service September 24, 2018 Assessment & Plan (1) Acute on chronic combined systolic and diastolic CHF (congestive heart failure): 68 WF presents on Day 10 of admission of a workup for CRESPO. PMH significant for Acute on Chronic combined systolic diastolic CHF, Cardiomyopathy, Pleural Effusion and Pericardial Effusion- s/p pericardial window 09/09- growing MDR pseudomonias tx w/ zosyn, Pulmonary DM2 with episodes of AM hypoglycemia during her admission, Obesity, RA, Psoriatic Candidiasis, HTN, who is clinically improving on Lasix and O2 wean. Her most recent Echo displayed EF 45% She was aggressively diuresed during her stay. Diuresis retarding. She remains in negative balance, lost another 1.2kg. most recent CXR on 09/22 shows improvement regarding infiltrates and edema BMP has overall improved from yesterday: BUN and Cr remain stable. BUN:Cr ratio is favorably dec. Her anion gap decreased from 6 to 3, low end of normal, but not concerning as she does not have hypoalbuminemia. Her IV Lasix was converted to Lasix 40mg PO once daily, diuresis is still favorably working. She had her metoprolol tartrate changed to metoprolol succinate 25mg PO nightly We added 5mg Lisinopril this morning. She was previously on 40mg, but during her stay she has had low BP readings making us hesitant to resume that dosage. She has responded well to this change. Her BP is still on the lower side of nml, but she is overal improving. She should continue to follow a strict sodium diet. Upon d/c she will need to have an outpt cardio f/u scheduled. (2) Cardiomyopathy: See "CHF" plan above in regards to cardiac status Cardiomyopathy type: other Qualified Code(s): I42.8 - Other cardiomyopathies (3) Pericardial effusion: s/p pericardial window 09/[address] Cedeno. Her cultures grew MDR pseudomonas and the plan has been to remain on zosyn through October 01. she has 1wk remaining. There is no evidence of recurrence (confirmed with imaging and no rubs on exam) Her wound appears to be healing well. No infection or seroma evident, well defined scarred tissue appreciated, denied any ttp of the sight. She received a lidocaine patch this am, PRN. Continue PRN She has an appt with thoracic surgery clinic for next week. (4) Acute respiratory failure with hypoxia: There are a few components of this presentation that we are assessing. She has this in the setting of acute/chronic CHF, pseudomonas pneumonia, h/o prior PE w/ infarction, and pleural effusion. Please refer to plans for "CHF" above, as well as "Pseudomonas Pneumonia" and "Pulmonary Embolism" below No BIPAP required last night which is a marked improvement. Appreciate pulmonary consultation. (5) Pseudomonas pneumonia: s/p bronch at [facility] in . That exam displayed pseudomonas growing. At that time she received 3+ wks of IV meropenem without much improvement. 09/09/18 thoracic procedure performed by Dr. Cedeno displayed much pseudomonas persisting in pleural space as well as in the pericardial fluid. Current plan is to continue on Zosyn until 10/01/18, 1 wk remaining, via RUE PICC line. Her PICC was readjusted, pulled back 3cm, into the R. atrium and confirmed w/ CXR. She has Both ID and Pulm following her care and will need outpt f/u scheduled upon d/c, appreciate their consults. Laterality: bilateral Lung location: unspecified part of lung Qualified Code(s): J15.1 - Pneumonia due to Pseudomonas (6) Eosinophilic asthma: [facility] [place]. Has an outstanding h/o taking prednisone for 10-15 years prior to admission. She discontinue this "cold turkey" in 07/21. . Here, she was placed on 40mg of prednisone over the weekend due to daily episodes of hypoglycemia likely due to adrenal insufficiency in setting of being off prednisone. Remains with some mild hypoglycemia this morning at 68 Proceed with taper. Instead of maintaining at 10mg, I would taper to 5mg and encourage a nightly snack to assist with low sugars. Continue Allbuterol/ Controller inhaler. she should stay on low dose prednisone until she f/u with her pulm provider who was previously managing this. She should schedule an appt with them within 1-2 wks, or earliest date possible, of discharge. (7) Hypoglycemia: This is suspected to be secondary to adrenal insufficiency. She has been stable in light of low AM BGS. Today was 68 with postprandial sugars responding favorably, and subsequent accu-checks being adequate. See "Eosinophilic Asthma" plan above (8) Anemia: She was previously microcytic but now is normocytic. Her iron studies performed at [facility] a few weeks ago showed a CBC with a pattern matching most consistently with anemia of chronic disease Other source of anemia may be side effect from her previous mtx use. Even though it was d/c over a month ago. She used it in chronically. Her previous folate level was low but then was improved when we checked recently. H/H has been low throughout her stay, but she has remained stable in the 9's. Follow CBC periodically as an outpatient Anemia type: unspecified type Qualified Code(s): D64.9 - Anemia, unspecified (9) Hypomagnesemia: resolved d/c PO supplementation (10) Candidiasis of mouth and esophagus: Continue nystatin 5ml ac/hs - swish/swallow-continue for 1 more week but it appears resolved on exam (11) Hypothyroidism: TSH levels from 08/18 were wnl continue synthroid Hypothyroidism type: acquired Qualified Code(s): E03.9 - Hypothyroidism, unspecified (12) Rheumatoid arthritis: ASx See "Eosinophilic Asthma" above continue hydroxychloroquine BID Rheumatoid arthritis location: unspecified site Rheumatoid factor presence: unspecified presence Qualified Code(s): M06.9 - Rheumatoid arthritis, unspecified (13) Psoriatic arthritis: see above in "rheumatoid arthritis" (14) Hypokalemia: d/c supplementation levels remain stable. We switched her to PO lasix, monitor for fluid retention. (15) Pulmonary embolism: She has a hx of RLL PE w/ infarction in setting of a DVT in 06/20. This was confirmed with her pathology report on 09/09/18 Currently treated with Xeralto 20 mg; we discussed that she should not be on this for retirement in the setting of her first PE/DVT, however she should continue this for a min of 6mo Cause of PE still unknown. Acute cor pulmonale presence: without acute cor pulmonale Chronicity: chronic Pulmonary embolism type: unspecified Qualified Code(s): I27.82 - Chronic pulmonary embolism (16) DVT prophylaxis: Using Xeralto 20 mg Status: telemetry Code: Full Access: PICC line, RUE Disposition: VS stable, afebrile. Her CRESPO is favorably resolving as her work of breathing is much better, coughing is resolving, she has not required BIPap overnight in the setting of remaining on 2L O2, appetite fully restored, she is ambulating better, she has responded well to medication changes. Her current [facility] is stable to where she can be managed in inpatient rehabilitation at [facility]. She does not currently warrant inpt hospitalization. Pt feels better about leaving today and is in agreement with plan for inpt rehab. I would discharge with intent to be released to [facility]. Encourage O2 wean as tolerated, adherence to specialist consultations and recommendations, outpt f/u with PCP and specialists involved, as well as medication regimens. I would also continue to encourage a night time snack to assist with issues of hyperglycemia. Continue to wean steroids to 5mg and maintain until next pulm and rheum f/u. Subjective Review of Systems All systems reviewed & are unremarkable except as noted in HPI & below tele stable overnight at [facility] Mrs. Cleary reports "feeling pretty good" Accepted to [facility] upon discharge, states that she feels better about beginning rehab there. Reports that cough has significantly gotten better. "Only coughed once today" No pain associated with it or sputum production. ambulating well around the room. States that yesterday's PT session went well as she was able to walk the hallways. [place] less CRSEPO. urinating well w/ nml bowel movt orthopnea minimal. She states that she usually doesn't sleep completely supine at baseline. No BIPAP needed overnight. 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 Pain is 7/10 at worst, aches/soar more than stabbing. Tylenol has brought seldom relief. Reported episode of "gagging" before breakfast. Ate all of breakfast and felt be tter No light headedness, headache, SOB Respiratory: + cough and + dyspnea on exertion ("the best it has been in a few days"); no hemoptysis and no wheezing Physical Exam Vital Signs (Past 24 Hours): Last Vital Signs Temp 36.4 C L 09/24/18 07:28 Pulse 61 09/24/18 07:28 Resp 18 09/24/18 07:28 BP 125/78 09/24/18 07:28 Pulse Ox 99 09/24/18 07:28 Eyes: PERRL, conjunctivae normal, anicteric sclerae ENMT: external ear and nose normal, oropharynx normal Neck: trachea midline, no thyromegaly Respiratory: normal respiratory effort, lungs clear to auscultation normal respiratory effort; no respiratory distress Auscultation: + diminished lung sounds (At the right base, but improved); no crackles, no rales, no rhonchi and no wheezes Cardiovascular: Rate/Rhythm: regular rhythm and + bradycardic Heart Sounds: normal S1 and normal S2; no gallop, no murmur and no cardiac rub Palpation: normal PMI Vessels: posterior tibial pulses present, dorsalis pedis pulses present and radial pulses present; no JVD Extremities: normal capillary refill; no edema Gastrointestinal (Abdomen): normal bowel sounds, soft, nontender, no hepatosplenomegaly Musculoskeletal: no cyanosis or clubbing, extremities motor strength 5/5 Head/Neck/Chest: normocephalic, head atraumatic, + abnormal inspection of chest wall (posetior incision is noticed from pericaridal window on 09/09/18) and + abnormal palpation of chest wall (incision site at RLL has scarred tissue; 1X1.5cm; non errythematous) Skin: no rashes, warm and dry Neurologic: patellar DTR's 2+ bilat, sensation intact and PERRL, EOMI, accommodation nl, no face palsy, no dysarthria moves all extremities and awake; no focal motor deficits Psychiatric: A+Ox3, euthymic affect Orientation: cooperative Apperance: appropriately dressed and appeared stated age Eye Contact: good eye contact Lymphatic: no cervical or axillary lymphadenopathy Results & Data Labs CBC & Chem 7: 09/23/18 07:23 09/24/18 06:09 Labs: BMP 09/24/18 06:09 Sodium 138 Potassium 3.9 Chloride 103 Carbon Dioxide 33 H BUN 18 Creatinine 0.90 Glucose 67 L Calcium 8.3 L
[2018-09-24] MEDS: SERTRALINE HCL 100 MG TABLET PO SCH (08:41)
[2018-09-24] MEDS: FLUTICASONE/SALMETEROL 250/50 (ADVAIR) 14 PUFF/1 INHALER INH SCH (08:41)
[2018-09-24] MEDS: CEROVITE ADV FORMULA TAB PO SCH (08:41)
[2018-09-24] MEDS: predniSONE 10 MG TABLET PO SCH (08:41)
[2018-09-24] MEDS: CHOLECALCIFEROL 1,000 UNITS TAB PO SCH (08:41)
[2018-09-24] MEDS: HYDROXYCHLOROQUINE SULFATE 200 MG TAB PO SCH (08:42)
[2018-09-24] MEDS: FOLIC ACID 1 MG TAB PO SCH (08:42)
[2018-09-24] MEDS: NYSTATIN SUSP 500,000 U/5 ML UDC PO SCH ×2 (08:42→11:43)
[2018-09-24] MEDS: FERROUS SULFATE 325 MG TAB PO SCH (08:42)
[2018-09-24] MEDS: MAGNESIUM OXIDE 400 MG TAB PO SCH (08:42)
[2018-09-24] MEDS ORDERED: LISINOPRIL 5 MG TAB PO SCH (09:00)
[2018-09-24] MEDS ORDERED: FUROSEMIDE 40 MG TAB PO SCH (09:00)
[2018-09-24] MEDS ORDERED: LIDOCAINE 5% 1 PATCH TD SCH (10:15)
--- NOTE | 2018-09-24 12:49 | Discharge Summary ---
Date of Service September 24, 2018 Admission HPI Per Admitting Provider 68 yo female with history of asthma, pulmonary embolism, recent right lower lobe pulmonary infarct with Pseudomonas infection as well as pericardial effusion with pericardial window, returned to the ED today after being discharged 3 days ago. She says that her dyspnea started shortly after returning home. Her said that there was 20 ft for her to walk from her chair to the bathroom and she was having a difficulty time walking due to dyspnea. She was profoundly weak, her was having to help her up and practically pick her up out of the chair. We discussed that prior to discharge the therapists had recommended going to rehab but she refused. Discussed that she was likely deconditioned which was contributing to her dyspnea. Her said that they will definitely want rehab this time. Her dyspnea continued to progress to the point that she was short of breath at rest today. The home nurses listened to her lungs and heart rales in her bases. Her oxygen requirements were greatly increased to the point that she was actually hypoxic on nasal canula so EMS was called. She was brought quickly to the ED for evaluation. In addition to the worsening dyspnea, her said she was more edematous in her legs. She had an echo on last admission that showed EF of 55% with diastolic dysfunction. She never required Lasix while she was admitted. In the ED she required BIPAP to maintain saturations in the 90s. She was breathing more comfortably. CXR showed increased pulmonary edema suggesting acute CHF. No fever, WBC normal and BMP normal. Weston was placed and Lasix 40mg IV was ordered at the time of admission, she started to diurese well. Principal Diagnosis Acute on chronic combined systolic and diastolic CHF Discharge Exam Constitutional WD/WN, vitals as above + obese Eyes PERRL, conjunctivae normal, anicteric sclerae Neck trachea midline, no thyromegaly Respiratory normal respiratory effort; no respiratory distress Auscultation: + diminished lung sounds (At the right base, otherwise clear) Cardiovascular RRR, no murmur, no edema Gastrointestinal (Abdomen) normal bowel sounds, soft, nontender, no hepatosplenomegaly Musculoskeletal Extremities: extremities normal to inspection; no cyanosis and no clubbing Skin no rashes, warm and dry Neurologic moves all extremities and awake; no focal motor deficits Psychiatric A+Ox3, euthymic affect Discharge Data Allergies Allergy/AdvReac Type Severity Reaction Status Date / Time pollen extracts Allergy Intermediate ASTHMA Verified 09/17/18 11:43 ATTACKS salsalate Allergy Unknown UNKNOWN Verified 09/17/18 11:43 blue dye AdvReac Intermediate SEVERE Verified 09/17/18 11:43 VOMITING doxycycline AdvReac Intermediate VOMITING, Verified 09/17/18 11:43 IMBALANCE duloxetine AdvReac Intermediate SEVERE Verified 09/17/18 11:43 VOMITING leflunomide AdvReac Intermediate SEVERE Verified 09/17/18 11:43 VOMITING tetracycline AdvReac Intermediate CONFUSION,LIGHT Verified 09/17/18 11:43 HEADED, DIZZINESS cefuroxime AdvReac Mild UNCONTROLLED Verified 09/17/18 11:43 DIARRHEA celecoxib AdvReac Mild VOMITING Verified 09/17/18 11:43 clarithromycin AdvReac Mild VOMITING Verified 09/17/18 11:43 pregabalin AdvReac Mild HEADACHE, Verified 09/17/18 11:43 VOMITING Consultations Cardiology Pulmonology Procedures Performed Echocardiogram Ordered Studies Chest x-ray x4 Hospital Course (1) Acute on chronic combined systolic and diastolic CHF (congestive heart failure): Most recent echo with EF 45% secondary to nonischemic cardiomyopathy. She had a significant amount of diuresis this stay and 10+ kg weight loss. Her renal function has remained stable CXR on 09/22 shows infiltrates/edema are improved. -Continue on Lasix 40 mg p.o. once daily -Follow BMP periodically as an outpatient -metoprolol tartrate was changed to metoprolol succinate 25 mg p.o. nightly - add on low-dose SIMONE inhibitor with lisinopril 5 mg daily -Appreciate cardiology consultation -will need follow-up in the heart failure clinic after discharge-this has been scheduled -Continue daily weights, strict I's and O's, fluid restrict to 1500 mL's per day, low-sodium diet less than 2000 mg daily (2) Cardiomyopathy: EF 45% with diastolic dysfunction. Plan outlined as above (3) Pericardial effusion: s/p pericardial window 09/[address] Cedeno. cultures grew MDR Pseudomonas. -Continue on Zosyn through at least October 01 which would complete a 3-week course-she should follow with infectious disease prior to discontinuing the IV antibiotics. Her repeat echocardiogram status post pericardial window was without reac cumulation of fluid. -Continue to keep follow-up appointment previously scheduled with thoracic surgery as an outpatient for next week (4) Acute respiratory failure with hypoxia: Multifactorial --secondary to acute/chronic CHF,Ppseudomonas pneumonia, prior PE w/ infarction, etc. Is now weaned down to 2 L NC O2. Chest x-ray on 09/22 is improved -Continue to wean O2 down as tolerated -Was on BiPAP nightly but now not needing this -Continue diuresis with p.o. Lasix as above -Continue Zosyn for Pseudomonas pneumonia. -Continue Xarelto for prior RLL PEs. Appreciate pulmonary consultation. (5) Pseudomonas pneumonia: Status post a bronchoscopy at [facility] in with Pseudomonas growing from that bronch. She received at least 3 weeks of IV meropenem, possibly up to 5 weeks, based on pt's account. However, her Pseudomonas here was resistant to imipenem and was likely resistant to meropenem She also had Pseudomonas grow from her right chest one biopsy from 09/09/[address] thoracic procedure performed [address] Dr[address] Cedeno. It also grew from the pericardial fluid. Current plan is continuing on Zosyn until October 01, 2018 at minimum via RUE PICC ID is following Pulmonary consult appreciated. (6) Eosinophilic asthma: [facility] [place]. Has been steroid-dependent per records - was taking 5mg/day prior. Previously was also on Nucala but this has been stopped. Continue inhalers, etc. Pt reports her prednisone was abruptly stopped this July, unknown reasons. Had taken prednisone for 10-15 years prior. Here, she was placed on 40mg of prednisone here for several days due to daily episodes of hypoglycemia likely due to adrenal insufficiency in setting of being off prednisone. Remains with some mild hypoglycemia each morning in the mid to upper 60s, however improves throughout the day -Would continue prednisone 10 mg daily and slowly taper by 1 mg every 7 days until completely off -Would continue Accu-Cheks at least in the morning and would recommend a snack nightly -She should follow-up with her customs compliance specialist after discharge (7) Hypoglycemia: suspect 2nd to adrenal insufficiency-plan as above (8) Anemia: Previously microcytic but now normocytic and iron studies performed here a few weeks ago show anemia of chronic disease Could also have been side effect from her previous methotrexate use Previous folate level was low but then was improved on repeat check more recently H/H low but stable in the 9's. -Follow CBC periodically as an outpatient -Can continue p.o. iron and folate, but may not need to continue these indefinitely (9) Hypomagnesemia: resolved cont PO supplementation (10) Candidiasis of mouth and esophagus: cont nystatin 5ml ac/hs - swish/swallow-continue for 1 more week but it appears resolved on exam now (11) Hypothyroidism: TSH compensated 07/2018 cont synthroid (12) Rheumatoid arthritis: previously on methotrexate and prednisone Methotrexate and prednisone were both stopped approximately 2 months ago -prednisone resumed as above for hypoglycemia and mild adrenal insufficiency -Remains on hydroxychloroquine BID -She should follow-up with her fbi special agent after discharge (13) Psoriatic arthritis: see above in "rheumatoid arthritis" (14) Hypokalemia: Resolved -Discontinue daily supplementation (15) Pulmonary embolism: RLL PE with resulting infarction - 06/2018. Treated w/ Xarelto 20 mg once daily. Pathology report from 09/09/18 c/w RLL infarction. Unclear etiology of pulmonary embolism Also had DVT at time of PE diagnosis in June. -Continue Xarelto 20 mg daily for minimum of 6 months which would be through October 2018 (16) DVT prophylaxis: Xarelto Disposition-stable for discharge to inpatient rehab today Total Time Total Time Spent Total Time Spent (In Minutes): Greater than 30 minutes Total Time Includes: Examination of the Patient, Discharge Planning and Medication Reconciliation Discharge Plan Discharge Items Patient Disposition: Transfer Inpatient Rehab Fac Reason For Visit: ACUTE HYPOXIC RESPIRATORY FAILURE Discharge Diagnosis: Acute on chronic diastolic CHF, acute hypoxic respiratory failure Condition: Good Discharge Goals: Diagnostic testing, Improve disease control, Learn about illness and Therapeutic intervention Activity: As commented below Lifting: Gradually increase as tolerated Bathing: No limitations Exercise/Sports: Gradually increase as tolerated Non-emergency contact: Primary Care Provider, Surgeon and Shift Foreman Call non-emergency contact if: you have any medication questions, your symptoms worsen, your pain is not controlled, your pain is worsening, your pain is unusual for you, your pain is concerning for you, you have a fever, your temperature is above 101, your wound has increased redness, your wound has increased drainage and your wound pain has increased Follow-up/Referrals: Scottie Noyola MD [Primary Care Provider] - Lorelei Lutz DO [Physician] - (Please follow-up with Dr. Lutz of infectious disease prior to the end of your IV antibiotics on October 01) Modesto Cedeno MD, FACS [Surgeon] - (Follow-up next week as scheduled) Lorelei Solomon PA-C [Physician Director Instructional Material] - 10/01/18 2:00 pm () Diet: Low Sodium (2gm) Fluids: 1500ml (6 cups) Addtl Provider Instructions: Mrs. Cleary was admitted with acute on chronic combined systolic and diastolic congestive heart failure. She was diuresed with IV Lasix and transition to oral Lasix. She needs close follow-up with cardiology as scheduled for her after discharge. She needs to continue on her IV Zosyn for her multidrug-resistant Pseudomonas lung and pericardial infections through at least October 01. She should follow-up with infectious disease prior to the end date of her antibiotics to determine if she will need a further extended course. She should also follow-up with the thoracic surgeon as scheduled due to her recent pericardial window and wedge resection biopsy of the lung. She continues to require 2 L of oxygen via nasal cannula and this can be weaned as tolerated. Call your Primary Care doctor if any of the following symptoms or problems start or get worse: * Shortness of breath or difficulty breathing * Wake up at night short of breath * Chest pain * Cough * Swelling of your hands, feet, or legs * More fatigued or tired with your normal activity * Palpitations - sudden fast heart beats WEIGHT * Weigh yourself every morning after using the bathroom. * Use the same scale. * Wear the same amount of clothing. * Write your weight down on a chart. * Call your Primary Care doctor if you gain more than 2-3 pounds in 1-2 days. MEDICATIONS * Use this discharge instruction sheet for medication instructions. * Take your medications at the time your doctor ordered. * Do not skip a dose of your medicines. * If you miss a dose of medicine, take it as soon as possible, but DO NOT DOUBLE A DOSE. * Read your medicine information when you get home. * Know all of the side effects of your medicine. If in doubt, ask your pharmacist * Call your Primary Care doctor's office if you have any side effects. * Be sure all of your doctors know what medicine and herbs you take (including cold, flu, and herbal medicine). Take the following with you to your follow-up doctor appointments: * Weight Chart * Medication List * List of questions Do not drink excessive alcohol, beer or wine. Congestive Heart Failure Program Appointment Information Early follow up is essential to managing your heart failure. An appointment has been scheduled for you with the [facility] within 7 days of discharge. Anticipate this visit to be 30-60 minutes long. Please expect a global head [employer] phone call from one of our nurses approximately 48 hours from discharge. They will also be placing an order for lab work to be completed 1-2 days prior to your heart failure follow up appointment. Please be sure to have this done so we can go over the results when you come in. Office Location The cardiology office building is located in front of the hospital at [address] Bring the following with you to your follow-up doctor appointments: * Please bring your daily weight log * any discharge paperwork * all of your medication bottles with you to this visit. Prescriptions: New nystatin 100,000 unit/mL Suspension 5 ml PO ACHS 7 Days Qty: 250 RF: 0 lisinopril [Zestril] 5 mg Tablet 5 mg PO QAM Qty: 30 RF: 0 metoprolol succinate 25 mg Tablet Extended Release 24 Hr 25 mg PO HS Qty: 30 RF: 0 furosemide 40 mg Tablet 40 mg PO QAM Qty: 30 RF: 0 prednisone 10 mg Tablet 10 mg PO QAM Qty: 30 RF: 0 magnesium oxide 400 mg (241.3 mg magnesium) Tablet 400 mg PO BID Qty: 60 RF: 0 lidocaine 5 % Adhesive Patch,Medicated 1 patch transdermal QAM Qty: 30 RF: 0 Continued fluticasone propion-salmeterol [Advair Diskus] 250-50 mcg/dose Blister With Device 1 inh INHALATION BID RF: 0 albuterol sulfate [ProAir HFA] 90 mcg/actuation Hfa Aerosol Inhaler 2 puff INHALATION QID PRN (Reason: sob) RF: 0 mometasone [Nasonex] 50 mcg/actuation [place],Non-Aerosol 2 spray INTRANASAL DAILY PRN (Reason: dryness) RF: 0 Kiesha-D 24 Hour 180-240 mg Tablet Extended Release 24 Hr 1 tab PO QAM PRN (Reason: Allergy Symptoms) RF: 0 ipratropium-albuterol 0.5 mg-3 mg(2.5 mg base)/3 mL Solution For Nebulization 3 ml INHALATION DIRECTED PRN (Reason: sob) RF: 0 sertraline 100 mg Tablet 150 mg PO DAILY RF: 0 folic acid 1 mg Tablet 1 mg PO DAILY RF: 0 hydroxychloroquine 200 mg Tablet 200 mg PO BID RF: 0 multivitamin Tablet 1 tab PO DAILY RF: 0 cholecalciferol (vitamin D3) [Vitamin D3] 2,000 unit Tablet 2,000 unit PO DAILY RF: 0 Xarelto 20 mg tablet 20 mg PO DAILY Qty: 30 RF: 3 levothyroxine [Synthroid] 75 mcg Tablet 225 mcg PO MOTUWETHFR@0630 RF: 0 levothyroxine [Synthroid] 200 mcg Tablet 200 mcg PO SUSA@0630 RF: 0 piperacillin-tazobactam [Zosyn] 4.5 gram recon soln 4.5 gm IV Q8H 16 Days RF: 0 ferrous sulfate [iron] 325 mg (65 mg iron) Tablet 325 mg PO DAILY RF: 0 atorvastatin 10 mg tablet 10 mg PO HS RF: 0 acetaminophen [Tylenol] 325 mg Tablet 325 mg PO QID PRN (Reason: Pain) RF: 0 Changed tramadol 100 mg Tablet Extended Release 24 Hr 100 mg PO QID PRN (Reason: pain) Qty: 10 RF: 0 gabapentin 100 mg Capsule 100 - 200 mg PO HS PRN (Reason: restless legs) Qty: 0 RF: 0 Discontinued meloxicam 7.5 mg tablet 7.5 mg PO DAILY RF: 0 Stand-Alone Forms: [facility] Discharge Orders: Discharge Order (Routine); Ordered 09/24/18 Ordered By: Jayashree Rodriguez Skilled Items Patient informed of condition?: Yes DNR: No Discharge Level of Care: Acute rehab Communicable Disease: No Discharge Prognosis: Improving Admission Data Admit Date/Time: 09/17/18 14:15 Attending Provider: Jayashree Rodriguez Admit Provider: Misha Valladares Primary Care Provider: Scottie Noyola Other Providers: Misha Valladares ; Jean Carlos Rivas ; Modesto Maria ; Home,Nursing Agency Service: Telemetry Other Pending Studies at Discharge: Yes Studies:: Final fungal cultures from lung
== END 2018-09-24 15:16 | DRG 291 ==
LOC: ED 10:35 → SUATTDRO 14:15 → 2S 14:15
DX: Z98.84 Bariatric surgery status; Z88.6 Allergy status to analgesic agent; D64.9 Anemia, unspecified; E27.40 Unspecified adrenocortical insufficiency; Z86.79 Personal history of other diseases of the circulatory system; Z16.29 Resistance to other single specified antibiotic; I42.8 Other cardiomyopathies; I50.43 Acute on chronic combined systolic (congestive) and diastolic (congestive) heart failure; B37.0 Candidal stomatitis; Z86.718 Personal history of other venous thrombosis and embolism; L40.50 Arthropathic psoriasis, unspecified; Z91.048 Other nonmedicinal substance allergy status; E03.9 Hypothyroidism, unspecified; Z68.39 Body mass index [BMI] 39.0-39.9, adult; Z88.1 Allergy status to other antibiotic agents; Z82.49 Family history of ischemic heart disease and other diseases of the circulatory system; I27.82 Chronic pulmonary embolism; I30.1 Infective pericarditis; Z79.891 Long term (current) use of opiate analgesic; Z98.890 Other specified postprocedural states; J82 Pulmonary eosinophilia, not elsewhere classified; Z88.8 Allergy status to other drugs, medicaments and biological substances; Z79.01 Long term (current) use of anticoagulants; J15.1 Pneumonia due to Pseudomonas; B96.5 Pseudomonas (aeruginosa) (mallei) (pseudomallei) as the cause of diseases classified elsewhere; Z79.899 Other long term (current) drug therapy; M06.9 Rheumatoid arthritis, unspecified; J96.01 Acute respiratory failure with hypoxia; Z79.1 Long term (current) use of non-steroidal anti-inflammatories (NSAID); E83.42 Hypomagnesemia; E87.6 Hypokalemia; B37.81 Candidal esophagitis; E66.9 Obesity, unspecified; E16.2 Hypoglycemia, unspecified

== ENCOUNTER 2019-01-12 14:43 | Inpatient (IN) ==
[2019-01-12] MEDS ORDERED: ASPIRIN CHEW 324 MG PO STA (14:59)
[2019-01-12] MEDS ORDERED: dilTIAZem HCl 5 MG/ML 5 ML VIAL IV STA (15:06)
[2019-01-12] MEDS ORDERED: SODIUM CHLORIDE 0.9% 1000ML 1,000 ML IV SCH ×2 (15:15→17:00)
[2019-01-12] MEDS ORDERED: dilTIAZem HCl 125 MG in DEXTROSE 5% 100 ML IV SCH (15:15)
[2019-01-12 16:05] LABS: Basophils # (auto) 0.02 K/uL (0-0.2); Basophils % (auto) 0.4 %; Eosinophils # (auto) 0.38 K/uL (0-0.5); Eosinophils % (auto) 8.2 %; Hematocrit (blood only) 31.1 % (37-47); Hemoglobin 9.7 g/dL (12.0-16.0); Immature Granulocytes # (auto) 0.01 K/uL (0.00-0.02); Immature Granulocytes % (auto) 0.2 %; Lymphocytes # (auto) 1.06 K/uL (1.2-3.4); Lymphocytes % (auto) 22.8 %; Mean Corpuscular Hgb Conc 31.2 g/dL (32-36); Mean Platelet Volume 9.5 fL (7.4-10.4); Monocytes # (auto) 0.53 K/uL (0.11-0.59); Monocytes % (auto) 11.4 %; Neutrophils # (auto) 2.65 K/uL (1.4-6.5); Platelet Count 278 K/uL (130-400); RDW Coefficient of Variation 13.3 % (11.5-14.5); RDW Standard Deviation 46.6 fL (36.4-46.3); Red Blood Count 3.24 M/uL (4.2-5.4); White Blood Count 4.65 K/uL (4.8-10.8)
[2019-01-12 16:06] LABS: iSTAT Creatinine 0.9 mg/dl (0.6-1.3); iSTAT Hemoglobin 9.9 g/dl (12.0-16.0); iSTAT Ionized Calcium 1.18 mmol/l (1.12-1.32); iSTAT Potassium 3.8 mEq/L (3.3-5.0)
[2019-01-12 16:22] LABS: BUN Creatinine Ratio 14.6 (10-20); Blood Urea Nitrogen 13 mg/dl (7-18); Calcium 9.1 mg/dl (8.5-10.1); Carbon Dioxide 29 mmol/L (21-32); Chloride 108 mmol/L (98-107); Creatinine Clr Calc Pharmacy 54.8 ml/min; Est GFR (African American) 76.2; Est GFR (Non-African American) 65.7; Glucose 82 mg/dl (70-99); Magnesium 2.3 mg/dl (1.8-2.4); Potassium 3.9 mmol/L (3.5-5.1); Sodium 144 mmol/L (136-145)
[2019-01-12 16:28] LABS: Troponin I < 0.015 ng/ml (0-0.045)
--- NOTE | 2019-01-12 17:15 | History & Physical Report ---
Date of Service January 12, 2019 Assessment & Plan (1) Atrial fibrillation with RVR: Patient with new onset afib / flutter with RVR rate 150 on EKG cxr negative, trop neg x 1 - admit to telemetry - already on xarelto for PE and will continue - continue cardizem drip with parameters - continue metoprolol succinate ER 50mg HS - will trend trop x 2 - cardiology consult Present on Admission?: Yes (2) Sinusitis, acute maxillary: patient complaining of symptoms for 2 weeks maxillary sinus tenderness amoxicillin 500 tid Present on Admission?: Yes (3) Chronic respiratory failure with hypoxia: Patient on 3LNC at home and will continue continue inhaled therapies Present on Admission?: Yes (4) Asthma: (5) Rheumatoid arthritis: chronic continue on home hydroxychloroquine and prednisone (6) Hypothyroid: chronic continue synthroid (7) Pulmonary embolism: chronic continue xarelto history of rll pulmonary infarct History of Present Illness Chief Complaint: palpitations Primary Care Provider: Trace Noyola MD This is a 68 year old female with a history of PE on xarelto, history of pericardial effusion s/p pericardial window, chronic hypoxic respiratory failure on 02, rheumatoid arthritis, eosinophilic asthma, 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 cardiomyopathy, psoriatic arthritis, hypothyroidism, morbid obesity and fibromyalgia who was sent in with atrial fibrilation with rvr. Patient states for the last two weeks she has had head congestion. Yesterday the congestion began to settle in her chest. On exam, her pcp noticed she was tachycardic and did an EKG. EKG showed that she was in afib with rvr and she was sent to the ER. In ER EKG showed afib / flutter with rvr at rate of 150. Patient was bolused and started on cardizem drip. She is responding to the cardizem drip. Allergies Allergy/AdvReac Type Severity Reaction Status Date / Time pollen extracts Allergy Intermediate ASTHMA Verified 01/12/19 16:48 ATTACKS salsalate Allergy Unknown UNKNOWN Verified 01/12/19 16:48 blue dye AdvReac Intermediate SEVERE Verified 01/12/19 16:48 VOMITING doxycycline AdvReac Intermediate VOMITING, Verified 01/12/19 16:48 IMBALANCE duloxetine AdvReac Intermediate SEVERE Verified 01/12/19 16:48 VOMITING leflunomide AdvReac Intermediate SEVERE Verified 01/12/19 16:48 VOMITING tetracycline AdvReac Intermediate CONFUSION,LIGHT Verified 01/12/19 16:48 HEADED, DIZZINESS cefuroxime AdvReac Mild UNCONTROLLED Verified 01/12/19 16:48 DIARRHEA celecoxib AdvReac Mild VOMITING Verified 01/12/19 16:48 clarithromycin AdvReac Mild VOMITING Verified 01/12/19 16:48 pregabalin AdvReac Mild HEADACHE, Verified 12/07/18 10:57 VOMITING Home Medications Home Medications Medication Instructions Recorded Confirmed Type cholecalciferol (vitamin D3) 2,000 unit PO DAILY 06/09/18 01/12/19 History [Vitamin D3] fluticasone propion-salmeterol 1 inh INHALATION BID 06/09/18 01/12/19 History [Advair Diskus] folic acid 1 mg PO DAILY 06/09/18 01/12/19 History hydroxychloroquine 200 mg PO BID 06/09/18 01/12/19 History multivitamin 1 tab PO DAILY 06/09/18 01/12/19 History sertraline 150 mg PO DAILY 06/09/18 01/12/19 History ferrous sulfate [iron] 325 mg PO DAILY 09/17/18 01/12/19 History gabapentin 100 - 200 mg PO HS PRN #0 cap 09/24/18 01/12/19 Rx magnesium oxide 400 mg PO BID #60 tab 09/24/18 01/12/19 Rx metoprolol succinate 25 mg PO HS #30 tab 09/24/18 01/12/19 Rx tramadol 100 mg PO QID PRN #10 tab 09/24/18 01/12/19 Rx atorvastatin 10 mg tablet 10 mg PO HS #30 tab 12/07/18 01/12/19 Rx furosemide 20 mg tablet 20 mg PO DAILY PRN #30 tab 12/07/18 01/12/19 Rx ipratropium-albuterol 0.5 mg-3 3 ml INH Q4H PRN #15 ml 12/07/18 01/12/19 Rx mg(2.5 mg base)/3 mL nebulization soln rivaroxaban 20 mg tablet 20 mg PO DAILY #30 tab 12/07/18 01/12/19 Rx lisinopril 5 mg tablet 5 mg PO QAM #30 tab 07/16/19 08/13/19 Rx levothyroxine 25 mcg PO 2XWK 01/12/19 01/12/19 History levothyroxine [Synthroid] 200 mcg PO DAILY 01/12/19 01/12/19 History prednisone 1 mg tablet 1 mg PO QAM tab 01/12/19 01/12/19 History Past Med/Surg History Medical History Chronic respiratory failure with hypoxia Asthma DVT (deep venous thrombosis) Fibromyalgia Hypothyroid Obesity Pericardial effusion Pneumonia Pneumonia Pulmonary embolism Rheumatoid arthritis Surgical History History of arthroscopy History of section History of dilation and curettage History of gastric bypass History of herniorrhaphy Family History Grandfather (Maternal) Coronary heart disease AR Grandfather (Paternal) Coronary heart disease AR Mother Anxiety Hypertension Myocardial infarction Father Diabetes Hypertension Grandmother Kidney tumor Social History Preferred Language: Bulgarian Communication Ability: Effective Quantitative Consultant Required: No Beliefs That Will Affect Care: None marital status: Current Living Situation: Alone current occupational status: retired Other Information That Helps Us Care for You: No Feels Safe at Home: Yes Safety Concerns: Feels Safe At This Time Smoking Status: Never smoker Do You Dip or Chew Tobacco: No ; Second Hand Exposure: No ; Hx Alcohol Use: Yes Alcohol type: wine Hx Substance Use: No Review of Systems Constitutional: + chills and + fatigue; no fever Eyes: no diplopia and no eye pain Ear, Nose, Mouth, Throat: + nasal congestion and + sinus pain/pressure Respiratory: + cough and + chest congestion Cardiovascular: no chest pain and no chest pain with activity Gastrointestinal: no abdominal pain, no bloating, no nausea, no vomiting, no constipation and no diarrhea/loose stools Genitourinary: no dysuria, no urinary frequency and no urinary hesitancy Musculoskeletal: no body aches Integumentary: no rash and no dry skin Neurologic: no gait abnormality, no unsteadiness and no falls Psychiatric: no behavioral changes, no hallucinations and no auditory hallucinations Endocrine: no polydipsia, no polyphagia and no polyuria Hematologic / Lymphatic: no unexplained weight loss Physical Exam Constitutional: WD/WN, vitals as above + ill appearing and + morbidly obese Eyes: PERRL, conjunctivae normal, anicteric sclerae ENMT: external ear and nose normal, oropharynx normal Ears: no TM abnormality Nose: + sinus tenderness (maxillary) Neck: trachea midline, no thyromegaly Respiratory: normal respiratory effort Auscultation: lungs clear to auscultation bilaterally Cardiovascular: Rate/Rhythm: + irregularly irregular Vessels: no JVD Extremities: normal capillary refill; no calf tenderness and no pedal edema Gastrointestinal (Abdomen): normal bowel sounds, soft, nontender, no hepatosplenomegaly Musculoskeletal: no cyanosis or clubbing, extremities motor strength 5/5 Skin: no rashes, warm and dry Neurologic: patellar DTR's 2+ bilat, sensation intact and PERRL, EOMI, accommodation nl, no face palsy, no dysarthria Psychiatric: A+Ox3, euthymic affect Results & Data Vital Signs (Past 12 Hours) Vital Signs Temp Pulse Resp BP Pulse Ox 01/12/19 16:15 123 H 17 01/12/19 16:10 126 H 21 01/12/19 16:05 128 H 15 01/12/19 16:00 127 H 16 123/83 01/12/19 15:56 22 123/86 01/12/19 15:55 126 H 20 01/12/19 15:50 120 H 15 124/97 01/12/19 15:45 127 H 17 115/89 01/12/19 15:40 110 H 14 01/12/19 15:36 132 H 16 118/91 01/12/19 15:35 121 H 11 L 01/12/19 15:31 108 H 13 90/73 L 01/12/19 15:30 104 H 15 01/12/19 15:25 105 H 19 01/12/19 15:20 134 H 15 115/81 01/12/19 15:18 133 H 15 119/73 01/12/19 15:17 132 H 21 01/12/19 15:15 135 H 18 119/90 01/12/19 15:00 96 01/12/19 14:47 36.5 C 90 20 109/78 94 Laboratory Results 01/12/19 01/12/19 01/12/19 Range/Units 15:51 15:00 15:00 WBC 4.65 L (4.8-10.8) K/uL RBC 3.24 L (4.2-5.4) M/uL Hgb 9.7 L (12.0-16.0) g/dL POC Hgb 9.9 L (12.0-16.0) g/dl Hct 31.1 L (37-47) % POC Hct 29 L (37-47) % MCV 96.0 (80-100) fL MCH 29.9 (25-34) pg MCHC 31.2 L (32-36) g/dL RDW Std Deviation 46.6 H (36.4-46.3) fL RDW Coeff of Charmaine 13.3 (11.5-14.5) % Plt Count 278 (130-400) K/uL MPV 9.5 (7.4-10.4) fL Immature Gran % (Auto) 0.2 % Neut % (Auto) 57.0 % Lymph % (Auto) 22.8 % Preble % (Auto) 11.4 % Eos % (Auto) 8.2 % Baso % (Auto) 0.4 % Immature Gran # (Auto) 0.01 (0.00-0.02) K/uL Neut # (Auto) 2.65 (1.4-6.5) K/uL Lymph # (Auto) 1.06 L (1.2-3.4) K/uL Preble # (Auto) 0.53 (0.11-0.59) K/uL Eos # (Auto) 0.38 (0-0.5) K/uL Baso # (Auto) 0.02 (0-0.2) K/uL POC Sodium 142 (135-144) mEq/L Sodium 144 (136-145) mmol/L POC Potassium 3.8 (3.3-5.0) mEq/L Potassium 3.9 (3.5-5.1) mmol/L POC Chloride 105 (101-112) mEq/L Chloride 108 H (98-107) mmol/L Carbon Dioxide 29 (21-32) mmol/L POC Total CO2 24 (24-31) mEq/l Anion Gap 7.0 (3-11) POC Anion Gap 17.0 (16-25) mmol/L POC BUN 12 (7-18) mg/dl BUN 13 (7-18) mg/dl Creatinine 0.91 (0.6-1.2) mg/dl POC Creatinine 0.9 (0.6-1.3) mg/dl Est Cr Clr Drug Dosing 54.8 ml/min Est GFR ( Amer) 76.2 Est GFR (Non-Af Amer) 65.7 BUN/Creatinine Ratio 14.6 (10-20) Glucose 82 (70-99) mg/dl POC Glucose (other) 85 (70-99) mg/dl Calcium 9.1 (8.5-10.1) mg/dl POC Ioniz Calcium Johnie 1.18 (1.12-1.32) mmol/l Magnesium 2.3 (1.8-2.4) mg/dl Troponin I < 0.015 (0-0.045) ng/ml Lipase 305 (73-393) U/L Code Status & VTE Plan Code Status Discussed with patient and she wishes to be Full Code VTE Prophylaxis Plan VTE Prophylaxis will be ordered: Yes Supervising Physician Co-Signing Physician Notes Patient seen/examined, chart reviewed, admission care plan discussed with Dr John Garza. I agree w/ the garner components of his admission documentation. 68yo female with chronic hypoxic respiratory failure, eosinophilic asthma, prior PE with pulmonary infarction, and steroid dependent rheumatoid arthritis - well known to me from previous hospital stay in early 2019 - who presents with acute onset of rapid a.fib/flutter. Went to see her PCP today for 2+ weeks of URI symptoms and was discovered to have rapid a.fib. Was referred to ER for management. While in ER was placed on diltiazem drip with improved rates to low 100s. PMH, PSH, allergies, meds, sochx, famhx, ros - reviewed VSS, tachycardic gen - NAD, a/o x 3 neck - no JVD heart - irregular, tachy, s1, s2, no murmur lungs - CTA b/l abd - soft NT ND ext - no edema A/P: New onset rapid a.fib/flutter. Already on chronic xarelto for prior PE. Cont diltiazem drip - titrate for HRs <100. Long-term this is not an ideal medication given her depressed LV function. Cont beta beckie. Check TSH. Serial troponins. Telemetry. Cardiology consult for additional recommendations. Last echo was 08/2018 showing EF 40-45%. Hopefully she converts back to NSR while hospitalized as she will not tolerate fast rates in the setting of her significant lung disease and chronic systolic CHF. If she doesn't spontaneously convert - elective cardioversion ? Reasonable to treat for sinusitis given 2+ weeks of URI symptoms. Low threshold for stress-dose steroids. Wesley Kennedy MD PG Care Time/CCT Total # of Minutes Spent Total Time Spent with Patient: Total time spent is greater than 50% in coordination of care (as documented) at patient's floor/unit and/or counseling patient:70 min (1) Rheumatoid arthritis Rheumatoid arthritis location: multiple sites Rheumatoid factor presence: unspecified presence Qualified Code(s): M06.9 - Rheumatoid arthritis, unspecified (2) Sinusitis, acute maxillary Recurrence: non-recurrent Qualified Code(s): J01.00 - Acute maxillary sinusitis, unspecified (3) Hypothyroid Hypothyroidism type: unspecified Qualified Code(s): E03.9 - Hypothyroidism, unspecified (4) Asthma Asthma complication type: unspecified Asthma persistence: intermittent Asthma severity: unspecified severity Qualified Code(s): J45.20 - Mild intermittent asthma, uncomplicated
--- NOTE | 2019-01-12 17:16 | XRay Report ---
SINGLE VIEW CHEST CLINICAL HISTORY: Palpitations. FINDINGS: An AP, portable, upright chest radiograph is compared to study dated 09/29/2018 and correlat ed with chest CT dated 10/12/2018. The examination is degraded by portable technique. The heart is en larged. The pulmonary vasculature is noncongested. There are low lung volumes and bibasilar atelectas is. Small pleural effusions are noted. No pneumothorax is seen. The skeletal structures are osteopeni c. The bony thorax is grossly intact. IMPRESSION: 1. Cardiomegaly without radiographic evidence of congestive failure. 2. Small pleural effusions with bibasilar atelectasis. Electronically signed by: Steve Mendiola M.D. 01/12/2019 5:15 PM
--- NOTE | 2019-01-12 18:53 | Emergency Department Note ---
Entered by Leisa Mcrae acting as a scribe for History of Present Illness General Chief complaint: Arrhythmia/Palpitations Stated complaint: EKG ABNORMALITY Time Seen by Provider: 01/12/19 14:55 Source: patient History of Present Illness Onset (ago): minute(s) (prior to arrival) Location: chest Pain Consistency: + other (episode) Quality: + other (arrhythmia) Associated symptoms: + denies other symptoms (palpitations), + cough, + shortness of breath and + other (sinus congestion, drainage, chest tightness); no chest pain The patient is a 68 year old female who presents to the Emergency Room with complaints of an episode of arrhythmia starting prior to arrival. The patient states that over the past few days she has had sinus congestion and drainage that has made her have a productive cough. She states that it has made her feel short of breath because her chest feels tight. She states that she went to her PCP today for it and they found her to be in atrial fibrillation with RVR. She notes that she has never had this before and she was sent to the ED for it. The patient notes that she has been on O2 since being sick 5 months ago, but it to come off of it at the end of the month. She notes that she is on Xarelto. The patient denies palpitations and chest pain. Home Medications Home Medications Medication Instructions Recorded Confirmed Type cholecalciferol (vitamin D3) 2,000 unit PO DAILY 06/09/18 01/12/19 History [Vitamin D3] fluticasone propion-salmeterol 1 inh INHALATION BID 06/09/18 01/12/19 History [Advair Diskus] folic acid 1 mg PO DAILY 06/09/18 01/12/19 History hydroxychloroquine 200 mg PO BID 06/09/18 01/12/19 History multivitamin 1 tab PO DAILY 06/09/18 01/12/19 History sertraline 150 mg PO DAILY 06/09/18 01/12/19 History ferrous sulfate [iron] 325 mg PO DAILY 09/17/18 01/12/19 History gabapentin 100 - 200 mg PO HS PRN #0 cap 09/24/18 01/12/19 Rx magnesium oxide 400 mg PO BID #60 tab 09/24/18 01/12/19 Rx metoprolol succinate 25 mg PO HS #30 tab 09/24/18 01/12/19 Rx tramadol 100 mg PO QID PRN #10 tab 09/24/18 01/12/19 Rx atorvastatin 10 mg tablet 10 mg PO HS #30 tab 12/07/18 01/12/19 Rx furosemide 20 mg tablet 20 mg PO DAILY PRN #30 tab 12/07/18 01/12/19 Rx ipratropium-albuterol 0.5 mg-3 3 ml INH Q4H PRN #15 ml 12/07/18 01/12/19 Rx mg(2.5 mg base)/3 mL nebulization soln rivaroxaban 20 mg tablet 20 mg PO DAILY #30 tab 12/07/18 01/12/19 Rx lisinopril 5 mg tablet 5 mg PO QAM #30 tab 12/15/18 01/12/19 Rx levothyroxine 25 mcg PO 2XWK 01/12/19 01/12/19 History levothyroxine [Synthroid] 200 mcg PO DAILY 01/12/19 01/12/19 History prednisone 1 mg tablet 1 mg PO QAM tab 01/12/19 01/12/19 History Allergies Allergy/AdvReac Type Severity Reaction Status Date / Time pollen extracts Allergy Intermediate ASTHMA Verified 01/12/19 16:48 ATTACKS salsalate Allergy Unknown UNKNOWN Verified 01/12/19 16:48 blue dye AdvReac Intermediate SEVERE Verified 01/12/19 16:48 VOMITING doxycycline AdvReac Intermediate VOMITING, Verified 01/12/19 16:48 IMBALANCE duloxetine AdvReac Intermediate SEVERE Verified 01/12/19 16:48 VOMITING leflunomide AdvReac Intermediate SEVERE Verified 01/12/19 16:48 VOMITING tetracycline AdvReac Intermediate CONFUSION,LIGHT Verified 01/12/19 16:48 HEADED, DIZZINESS cefuroxime AdvReac Mild UNCONTROLLED Verified 01/12/19 16:48 DIARRHEA celecoxib AdvReac Mild VOMITING Verified 01/12/19 16:48 clarithromycin AdvReac Mild VOMITING Verified 01/12/19 16:48 pregabalin AdvReac Mild HEADACHE, Verified 12/07/18 10:57 VOMITING Past Med/Surg History Medical History Chronic respiratory failure with hypoxia Asthma DVT (deep venous thrombosis) Fibromyalgia Hypothyroid Obesity Pericardial effusion Pneumonia Pneumonia Pulmonary embolism Rheumatoid arthritis Surgical History History of arthroscopy History of section History of dilation and curettage History of gastric bypass History of herniorrhaphy Family History Grandfather (Maternal) Coronary heart disease [place] Grandfather (Paternal) Coronary heart disease [place] Mother Anxiety Hypertension Myocardial infarction Father Diabetes Hypertension Grandmother Kidney tumor Social History Preferred Language: Japanese Communication Ability: Effective Hvac/R Instructor Required: No Beliefs That Will Affect Care: None marital status: Current Living Situation: Spouse current occupational status: retired Feels Safe at Home: Yes Smoking Status: Never smoker Second Hand Exposure: No ; Hx Alcohol Use: No Hx Substance Use: No Review of Systems See HPI for pertinent positives & negatives. and A total of 10 systems reviewed and were otherwise negative Physical Exam Vital Signs Vital Signs - 24 hr 01/12/19 14:47 01/12/19 15:00 01/12/19 15:15 Temperature 36.5 C Temperature Source Oral Sepsis Recent Fever Within 48 Hours No Sepsis Action Taken by Nursing No Action Required Pulse Rate 90 135 H Pulse Rate from SpO2 Sensor Pulse Rhythm Irregular Respiratory Rate 20 18 Respiratory Effort / Characteristics Non-Labored Non-Labored Respiratory Depth Normal Respiratory Pattern Regular Blood Pressure 109/78 119/90 Blood Pressure Mean 88 99 Pulse Oximetry 94 96 Oxygen Delivery Method Nasal Cannula Room Air Oxygen Flow Rate 2 2 01/12/19 15:17 01/12/19 15:18 01/12/19 15:20 Temperature Temperature Source Sepsis Recent Fever Within 48 Hours Sepsis Action Taken by Nursing Pulse Rate 132 H 133 H 134 H Pulse Rate from SpO2 Sensor Pulse Rhythm Respiratory Rate 21 15 15 Respiratory Effort / Characteristics Respiratory Depth Respiratory Pattern Blood Pressure 119/73 115/81 Blood Pressure Mean 88 92 Pulse Oximetry Oxygen Delivery Method Oxygen Flow Rate 01/12/19 15:25 01/12/19 15:30 01/12/19 15:31 Temperature Temperature Source Sepsis Recent Fever Within 48 Hours Sepsis Action Taken by Nursing Pulse Rate 105 H 104 H 108 H Pulse Rate from SpO2 Sensor Pulse Rhythm Respiratory Rate 19 15 13 Respiratory Effort / Characteristics Respiratory Depth Respiratory Pattern Blood Pressure 90/73 L Blood Pressure Mean 78 Pulse Oximetry Oxygen Delivery Method Oxygen Flow Rate 01/12/19 15:35 01/12/19 15:36 01/12/19 15:40 Temperature Temperature Source Sepsis Recent Fever Within 48 Hours Sepsis Action Taken by Nursing Pulse Rate 121 H 132 H 110 H Pulse Rate from SpO2 Sensor Pulse Rhythm Respiratory Rate 11 L 16 14 Respiratory Effort / Characteristics Respiratory Depth Respiratory Pattern Blood Pressure 118/91 Blood Pressure Mean 100 Pulse Oximetry Oxygen Delivery Method Oxygen Flow Rate 01/12/19 15:45 01/12/19 15:50 01/12/19 15:55 Temperature Temperature Source Sepsis Recent Fever Within 48 Hours Sepsis Action Taken by Nursing Pulse Rate 127 H 120 H 126 H Pulse Rate from SpO2 Sensor Pulse Rhythm Respiratory Rate 17 15 20 Respiratory Effort / Characteristics Respiratory Depth Respiratory Pattern Blood Pressure 115/89 124/97 Blood Pressure Mean 97 106 Pulse Oximetry Oxygen Delivery Method Oxygen Flow Rate 01/12/19 15:56 01/12/19 16:00 01/12/19 16:05 Temperature Temperature Source Sepsis Recent Fever Within 48 Hours Sepsis Action Taken by Nursing Pulse Rate 127 H 128 H Pulse Rate from SpO2 Sensor Pulse Rhythm Respiratory Rate 22 16 15 Respiratory Effort / Characteristics Respiratory Depth Respiratory Pattern Blood Pressure 123/86 123/83 Blood Pressure Mean 98 96 Pulse Oximetry Oxygen Delivery Method Oxygen Flow Rate 01/12/19 16:10 01/12/19 16:15 01/12/19 16:39 Temperature Temperature Source Sepsis Recent Fever Within 48 Hours Sepsis Action Taken by Nursing Pulse Rate 126 H 123 H 114 H Pulse Rate from SpO2 Sensor Pulse Rhythm Respiratory Rate 21 17 18 Respiratory Effort / Characteristics Respiratory Depth Respiratory Pattern Blood Pressure Blood Pressure Mean Pulse Oximetry Oxygen Delivery Method Oxygen Flow Rate 01/12/19 16:45 01/12/19 17:00 01/12/19 17:15 Temperature Temperature Source Sepsis Recent Fever Within 48 Hours Sepsis Action Taken by Nursing Pulse Rate 111 H 103 H 104 H Pulse Rate from SpO2 Sensor 91 H 96 H 110 H Pulse Rhythm Respiratory Rate 16 15 21 Respiratory Effort / Characteristics Respiratory Depth Respiratory Pattern Blood Pressure 111/67 129/101 H Blood Pressure Mean 81 110 Pulse Oximetry 99 98 85 L Oxygen Delivery Method Oxygen Flow Rate 01/12/19 17:17 01/12/19 17:18 01/12/19 17:30 Temperature Temperature Source Sepsis Recent Fever Within 48 Hours Sepsis Action Taken by Nursing Pulse Rate 103 H 92 H 133 H Pulse Rate from SpO2 Sensor 98 H 92 H 96 H Pulse Rhythm Respiratory Rate 16 17 17 Respiratory Effort / Characteristics Respiratory Depth Respiratory Pattern Blood Pressure 124/85 Blood Pressure Mean 98 Pulse Oximetry 99 99 96 Oxygen Delivery Method Oxygen Flow Rate 01/12/19 17:32 01/12/19 17:45 01/12/19 17:46 Temperature Temperature Source Sepsis Recent Fever Within 48 Hours Sepsis Action Taken by Nursing Pulse Rate 96 H 98 H 97 H Pulse Rate from SpO2 Sensor 107 H 92 H 76 Pulse Rhythm Respiratory Rate 21 19 18 Respiratory Effort / Characteristics Respiratory Depth Respiratory Pattern Blood Pressure 147/74 H 117/56 L Blood Pressure Mean 98 76 Pulse Oximetry 98 99 99 Oxygen Delivery Method Oxygen Flow Rate 01/12/19 18:00 01/12/19 18:15 01/12/19 18:30 Temperature Temperature Source Sepsis Recent Fever Within 48 Hours Sepsis Action Taken by Nursing Pulse Rate 108 H 125 H 90 Pulse Rate from SpO2 Sensor 103 H 99 H 84 Pulse Rhythm Respiratory Rate 18 20 19 Respiratory Effort / Characteristics Respiratory Depth Respiratory Pattern Blood Pressure 129/107 H Blood Pressure Mean 114 Pulse Oximetry 94 99 100 Oxygen Delivery Method Oxygen Flow Rate 01/12/19 18:33 Temperature Temperature Source Sepsis Recent Fever Within 48 Hours Sepsis Action Taken by Nursing Pulse Rate 116 H Pulse Rate from SpO2 Sensor 122 H Pulse Rhythm Respiratory Rate 20 Respiratory Effort / Characteristics Respiratory Depth Respiratory Pattern Blood Pressure 114/65 Blood Pressure Mean 81 Pulse Oximetry 100 Oxygen Delivery Method Oxygen Flow Rate GENERAL: She is oriented to person, place, and time. She appears well-developed and well-nourished. She does not appear distressed. HENT: Exam performed. - Head: Normocephalic and atraumatic. - Right Ear: External ear normal. No mastoid tenderness. - Left Ear: External ear normal. No mastoid tenderness. -Mouth/Throat: The oropharynx is clear and moist. No trismus in the jaw. No dental abscesses or uvula swelling. No oropharyngeal exudate or tonsillar abscesses. EYES: Conjunctivae and EOM are normal. Pupils are equal, round, and reactive to light. Right eye exhibits no discharge. Left eye exhibits no discharge. No scleral icterus. NECK: Normal range of motion. Neck supple. No JVD present. No spinous process tenderness present. No carotid bruit present. No rigidity. No tracheal deviation and normal range of motion present. No Brudzinski's sign and no Kernig's sign noted. CV: Tachycardic rate, irregular rhythm, normal heart sounds and intact distal pulses. There is no peripheral edema. Palpable radial pulses bue. PULM/CHEST: Effort normal. Diminished breath sounds bilaterally. No respiratory distress. No stridor. She has no wheezes. She has no rales. Chest Wall: She exhibits no tenderness. ABD: The abdomen is soft. Bowel sounds are normal. She has no distension. No mass is present. There is no tenderness. There is no rebound, no guarding, no Lindquist's sign and no tenderness at McBurney's point. Rovsig negative MUSC/SKEL: Normal range of motion. There is no peripheral edema, tenderness or deformity. LYMPH: No cervical adenopathy. NEURO: She is alert and oriented to person, place, and time. She has normal strength. No cranial nerve deficit or sensory deficit. Coordination and gait normal. GCS eye subscore is 4. GCS verbal subscore is 5. GCS motor subscore is 6. cerbellar tests wnl. SKIN: Skin is pale, warm, and dry. She is not diaphoretic. PSYCH: She has a normal mood and affect. Her behavior is normal. Judgment and thought content normal. Course 1457: Past medical records reviewed. The patient was evaluated in room B3B. A complete history and physical exam was performed. Patient's outpatient EKG showed atrial fibrillation at a rate of 125. QRS and QT-c are within normal limits. No ST elevation or depression. She was placed on the monitor and found to be tachycardic. On an EKG done here, the patient's EKG shows atrial fibrillation at a rate of 137. QRS and QT-c are within normal limits. No ST elevation or depression. She had a large bore IV placed and 10 mg of Cardizem was pushed, as well as a Cardizem drop was started. 1618: The patient's Cardizem was increased to 7.5. 1704: Vital signs are stable on Cardizem drip. Her labs and imaging are within normal limits. Her chest x-ray shows bilateral pleural effusions with no infiltrate. The patient will be admitted to [facility] hospitalist service. I discussed the patient's case with Dr. Garza- [facility] Hospitalist who accepts the patient for admission. Consultations Consultation #1: I discussed the patient's case with Dr. Garza- [facility] Hospitalist who accepts the patient for admission. Time: 17:04 Administered Medications Diltiazem HCl 125 mg/ Dextrose 125 mls @ 5 mls/hr IV .Q24H ALEJANDRA; Protocol Stop: 02/11/19 15:14 Last Titration: 01/12/19 16:24 Dose: 7.5 mg/hr, 7.5 mls/hr Documented by: [id number] Admin: 01/12/19 15:17 Dose: 5 mg/hr, 5 mls/hr Documented by: [id number] Cosigned by: [id number] Sodium Chloride (Nss 1000ml) 1,000 mls @ 80 mls/hr IV .[id number] ALEJANDRA Stop: 02/11/19 15:14 Last Admin: 01/12/19 15:34 Dose: 80 mls/hr Documented by: [id number] Discontinued Medications Aspirin (Aspirin) 324 mg PO NOW STA Stop: 01/12/19 15:00 Last Admin: 01/12/19 15:57 Dose: 324 mg Documented by: [id number] Diltiazem HCl (Cardizem) 10 mg IV NOW STA Stop: 01/12/19 15:07 Last Admin: 01/12/19 15:17 Dose: 10 mg Documented by: [id number] Cosigned by: [id number] Medical Decision Making Medical Records Attestation: I reviewed the patient's medical records. Home Medications Current Medication List: was personally reviewed by me Laboratory Data Attestation: I reviewed the patient's lab results. Result diagrams: 01/12/19 15:00 01/12/19 15:00 Lab Results 01/12/19 01/12/19 01/12/19 Range/Units 15:00 15:00 15:51 WBC 4.65 L (4.8-10.8) K/uL RBC 3.24 L (4.2-5.4) M/uL Hgb 9.7 L (12.0-16.0) g/dL POC Hgb 9.9 L (12.0-16.0) g/dl Hct 31.1 L (37-47) % POC Hct 29 L (37-47) % MCV 96.0 (80-100) fL MCH 29.9 (25-34) pg MCHC 31.2 L (32-36) g/dL RDW Std Deviation 46.6 H (36.4-46.3) fL RDW Coeff of Charmaine 13.3 (11.5-14.5) % Plt Count 278 (130-400) K/uL MPV 9.5 (7.4-10.4) fL Immature Gran % (Auto) 0.2 % Neut % (Auto) 57.0 % Lymph % (Auto) 22.8 % Coles % (Auto) 11.4 % Eos % (Auto) 8.2 % Baso % (Auto) 0.4 % Immature Gran # (Auto) 0.01 (0.00-0.02) K/uL Neut # (Auto) 2.65 (1.4-6.5) K/uL Lymph # (Auto) 1.06 L (1.2-3.4) K/uL Coles # (Auto) 0.53 (0.11-0.59) K/uL Eos # (Auto) 0.38 (0-0.5) K/uL Baso # (Auto) 0.02 (0-0.2) K/uL POC Sodium 142 (135-144) mEq/L Sodium 144 (136-145) mmol/L POC Potassium 3.8 (3.3-5.0) mEq/L Potassium 3.9 (3.5-5.1) mmol/L POC Chloride 105 (101-112) mEq/L Chloride 108 H (98-107) mmol/L Carbon Dioxide 29 (21-32) mmol/L POC Total CO2 24 (24-31) mEq/l Anion Gap 7.0 (3-11) POC Anion Gap 17.0 (16-25) mmol/L POC BUN 12 (7-18) mg/dl BUN 13 (7-18) mg/dl Creatinine 0.91 (0.6-1.2) mg/dl POC Creatinine 0.9 (0.6-1.3) mg/dl Est Cr Clr Drug Dosing 54.8 ml/min Est GFR ( Amer) 76.2 Est GFR (Non-Af Amer) 65.7 BUN/Creatinine Ratio 14.6 (10-20) Glucose 82 (70-99) mg/dl POC Glucose (other) 85 (70-99) mg/dl Calcium 9.1 (8.5-10.1) mg/dl POC Ioniz Calcium Johnie 1.18 (1.12-1.32) mmol/l Magnesium 2.3 (1.8-2.4) mg/dl Troponin I < 0.015 (0-0.045) ng/ml Lipase 305 (73-393) U/L Imaging Data Radiologist's Impression: Radiology results as stated below per my review and the radiologist's interpretation: SINGLE VIEW CHEST CLINICAL HISTORY: Palpitations. FINDINGS: An AP, portable, upright chest radiograph is compared to study dated 09/29/2018 and correlated with chest CT dated 10/12/2018. The examination is degraded by portable technique. The heart is enlarged. The pulmonary vasculature is noncongested. There are low lung volumes and bibasilar atelectasis. Small pleural effusions are noted. No pneumothorax is seen. The skeletal structures are osteopenic. The bony thorax is grossly intact. IMPRESSION: 1. Cardiomegaly without radiographic evidence of congestive failure. 2. Small pleural effusions with bibasilar atelectasis. Electronically signed by: Steve Mendiola M.D. 01/12/2019 5:15 PM ECG Data Attestation: I personally reviewed and interpreted this ECG as follows: Indication: tachycardia Rate (beats per minute): 137 Rhythm: atrial fibrillation Findings: + other (QRS and QT-c are within normal limits); no ST depression and no ST elevation Additional Comments: Repeat EKG: Atrial flutter at a rate of 107. QRS is within normal limits. QT-c is 491. No ST elevation or depression. PVCs are present. Blood Pressure Blood Pressure Findings: Normal blood pressure Blood Pressure Disposition: did not require urgent referral MDM Narrative 1457: Past medical records reviewed. The patient was evaluated in room B3B. A complete history and physical exam was performed. Patient's outpatient EKG showed atrial fibrillation at a rate of 125. QRS and QT-c are within normal limits. No ST elevation or depression. She was placed on the monitor and found to be tachycardic. On an EKG done here, the patient's EKG shows atrial fibrillation at a rate of 137. QRS and QT-c are within normal limits. No ST elevation or depression. She had a large bore IV placed and 10 mg of Cardizem was pushed, as well as a Cardizem drop was started. 1618: The patient's Cardizem was increased to 7.5. 1704: Vital signs are stable on Cardizem drip. Her labs and imaging are within normal limits. Her chest x-ray shows bilateral pleural effusions with no infiltrate. The patient will be admitted to [facility] hospitalist service. I discussed the patient's case with Dr. Garza- [facility] Hospitalist who accepts the patient for admission. Impression & Plan Atrial fibrillation with RVR Critical Care Time Critical Care Time: Yes Total Critical Care Time: 45 I have personally spent 45 minutes of critical care time in the direct management of this patient. This includes bedside care, interpretation of diagnostic studies, and testing, discussion with consultants, patient, and family members, and other required patient management activities. This 45 minutes is in excess of all separately billable procedures. Discharge Plan Visit Data Chief Complaint: Arrhythmia/Palpitations Stated Complaint: EKG ABNORMALITY ED Provider: Jesús Sandra Discharge Problem: Atrial fibrillation with RVR Patient Disposition: Being Evaluated by Hospitalist Discharge Instructions Interventions: ED Discharge Assessment Last Done: 01/12/19 18:36 Forms Stand Alone Forms: My [facility] Prescriptions Prescriptions: No Action lisinopril [Zestril] 5 mg tablet 5 mg PO QAM Qty: 30 RF: 3 ipratropium-albuterol 0.5 mg-3 mg(2.5 mg base)/3 mL solution for nebulization 3 ml INH Q4H PRN (Reason: shortness of breath) Qty: 15 RF: 2 furosemide 20 mg tablet 20 mg PO DAILY PRN (Reason: weight gain) Qty: 30 RF: 2 atorvastatin 10 mg tablet 10 mg PO HS Qty: 30 RF: 5 Xarelto 20 mg tablet 20 mg PO DAILY Qty: 30 RF: 3 prednisone 1 mg tablet 1 mg PO QAM RF: 0 fluticasone propion-salmeterol [Advair Diskus] 250-50 mcg/dose Blister With Device 1 inh INHALATION BID RF: 0 sertraline 100 mg Tablet 150 mg PO DAILY RF: 0 folic acid 1 mg Tablet 1 mg PO DAILY RF: 0 hydroxychloroquine 200 mg Tablet 200 mg PO BID RF: 0 multivitamin Tablet 1 tab PO DAILY RF: 0 cholecalciferol (vitamin D3) [Vitamin D3] 2,000 unit Tablet 2,000 unit PO DAILY RF: 0 ferrous sulfate [iron] 325 mg (65 mg iron) Tablet 325 mg PO DAILY RF: 0 metoprolol succinate 25 mg Tablet Extended Release 24 Hr 25 mg PO HS Qty: 30 RF: 0 magnesium oxide 400 mg (241.3 mg magnesium) Tablet 400 mg PO BID Qty: 60 RF: 0 gabapentin 100 mg Capsule 100 - 200 mg PO HS PRN (Reason: restless legs) Qty: 0 RF: 0 tramadol 100 mg Tablet Extended Release 24 Hr 100 mg PO QID PRN (Reason: pain) Qty: 10 RF: 0 levothyroxine 25 mcg tablet 25 mcg PO 2XWK RF: 0 levothyroxine [Synthroid] 200 mcg tablet 200 mcg PO DAILY RF: 0 Referrals Referrals: Scottie Noyola MD [Primary Care Provider] - The scribe's documentation has been prepared under my direction and personally reviewed by me in its entirety. I confirm that the note above accurately reflects all work, treatment, procedures, and medical decision making performed by me.
[2019-01-12] MEDS ORDERED: ALBUT/IPRATROP 3MG/0.5MG NEB 3 ML VIAL INH PRN (19:24)
[2019-01-12] MEDS ORDERED: TRAMADOL HCL 50 MG TABLET PO PRN (19:24)
[2019-01-12] MEDS ORDERED: FUROSEMIDE 20 MG TAB PO PRN (19:24)
[2019-01-12] MEDS ORDERED: GABAPENTIN 100 MG CAP PO PRN (19:24)
[2019-01-12] MEDS: dilTIAZem HCl 125 MG in DEXTROSE 5% 100 ML IV SCH (19:37)
[2019-01-12] MEDS: RIVAROXABAN 20 MG TAB PO SCH (20:17)
[2019-01-12] MEDS: FLUTICASONE/SALMETEROL 250/50 (ADVAIR) 14 PUFF/1 INHALER INH SCH (21:00)
[2019-01-12] MEDS ORDERED: METOPROLOL SUCC 50MG EXT REL TAB PO SCH (21:00)
[2019-01-12] MEDS ORDERED: ATORVASTATIN 10 MG TAB PO SCH (21:00)
[2019-01-12] MEDS: AMOXICILLIN 500 MG CAP PO SCH (21:01)
[2019-01-12] MEDS: MAGNESIUM OXIDE 400 MG TAB PO SCH (21:02)
[2019-01-12] MEDS: HYDROXYCHLOROQUINE SULFATE 200 MG TAB PO SCH (21:02)
[2019-01-13] MEDS: dilTIAZem HCl 125 MG in DEXTROSE 5% 100 ML IV SCH (02:06)
[2019-01-13 04:23] LABS: Basophils # (auto) 0.02 K/uL (0-0.2); Basophils % (auto) 0.3 %; Eosinophils # (auto) 0.58 K/uL (0-0.5); Eosinophils % (auto) 9.5 %; Hematocrit (blood only) 30.5 % (37-47); Hemoglobin 9.7 g/dL (12.0-16.0); Immature Granulocytes # (auto) 0.01 K/uL (0.00-0.02); Immature Granulocytes % (auto) 0.2 %; Lymphocytes # (auto) 1.02 K/uL (1.2-3.4); Lymphocytes % (auto) 16.7 %; Mean Corpuscular Hgb Conc 31.8 g/dL (32-36); Mean Corpuscular Volume 95.6 fL (80-100); Mean Platelet Volume 9.6 fL (7.4-10.4); Monocytes # (auto) 0.55 K/uL (0.11-0.59); Neutrophils # (auto) 3.94 K/uL (1.4-6.5); Neutrophils % (auto) 64.3 %; Platelet Count 269 K/uL (130-400); RDW Coefficient of Variation 13.5 % (11.5-14.5); RDW Standard Deviation 46.8 fL (36.4-46.3); Red Blood Count 3.19 M/uL (4.2-5.4); White Blood Count 6.12 K/uL (4.8-10.8)
[2019-01-13 04:42] LABS: BUN Creatinine Ratio 15.9 (10-20); Blood Urea Nitrogen 14 mg/dl (7-18); Calcium 8.5 mg/dl (8.5-10.1); Carbon Dioxide 28 mmol/L (21-32); Chloride 108 mmol/L (98-107); Creatinine Clr Calc Pharmacy 57.1 ml/min; Est GFR (African American) 81.6; Est GFR (Non-African American) 70.4; Glucose 93 mg/dl (70-99); Potassium 3.9 mmol/L (3.5-5.1); Sodium 142 mmol/L (136-145)
[2019-01-13 04:53] LABS: Troponin I < 0.015 ng/ml (0-0.045)
[2019-01-13] MEDS ORDERED: LEVOTHYROXINE SODIUM 200 MCG TABLET PO SCH (06:30)
[2019-01-13] MEDS: AMOXICILLIN 500 MG CAP PO SCH ×2 (07:55→16:01)
[2019-01-13] MEDS: HYDROXYCHLOROQUINE SULFATE 200 MG TAB PO SCH (07:55)
[2019-01-13] MEDS: MAGNESIUM OXIDE 400 MG TAB PO SCH (07:55)
[2019-01-13] MEDS: FLUTICASONE/SALMETEROL 250/50 (ADVAIR) 14 PUFF/1 INHALER INH SCH (07:57)
[2019-01-13] MEDS: RIVAROXABAN 20 MG TAB PO SCH (08:02)
[2019-01-13] MEDS ORDERED: FOLIC ACID 1 MG TAB PO SCH (09:00)
[2019-01-13] MEDS ORDERED: predniSONE 1 MG TAB PO SCH (09:00)
[2019-01-13] MEDS ORDERED: FERROUS SULFATE 325 MG TAB PO SCH (09:00)
[2019-01-13] MEDS ORDERED: SERTRALINE HCL 50 MG TABLET PO SCH (09:00)
[2019-01-13] MEDS ORDERED: CHOLECALCIFEROL 1,000 UNITS TAB PO SCH (09:00)
[2019-01-13] MEDS ORDERED: LISINOPRIL 5 MG TAB PO SCH (09:00)
[2019-01-13] MEDS ORDERED: MULTIVITAMIN TAB PO SCH (09:00)
--- NOTE | 2019-01-13 12:51 | Cardiology Consultation ---
Date of Consultation January 13, 2019 Assessment & Plan (1) Atrial flutter with rapid ventricular response: We discussed the diagnosis in detail. She was asymptomatic. She has spontaneously converted. She will likely have a recurrence in the future and she had documented tachycardic atrial arrhythmia in August as well, albeit briefly. Continue anticoagulation for stroke risk reduction. She is already chronically anticoagulated for PE. We discussed long-term treatment strategy such as awaiting recurrence with rate control strategy, versus antiarrhythmic therapy verses consideration for atrial flutter ablation. She can continue this discussion with her primary tax advisor, Dr. Peterson in the outpatient setting. If blood pressure can tolerate, consider titrating beta-beckie for added rate control if she should have recurrence. It was recommended that she obtain outpatient blood pressure cuff to monitor blood pressure/heart rate and that if her heart rate is tachycardic, greater than 100 while at rest, she should contact Dr. Peterson office. (2) Cardiomyopathy: Most recent LV systolic function in September of 2017 was reported as normal, improved from prior. If she has prolonged episodes of atrial flutter with rapid ventricular response, she could have further reduction in her LV systolic function in the future. Continue beta-beckie and SIMONE-inhibitor. (3) Chronic respiratory failure with hypoxia: She appears euvolemic. She require supplemental oxygen. As per pulmonology as an outpatient. Disposition: From a cardiac perspective, she can be discharged home with follow-up with her primary tax advisor, Dr. Peterson. Plan of care discussed with Dr. Kennedy of the primary hospitalist service. Thank you for allowing me to participate in the care of your patient. Please call for any other questions or concerns. Sincerely, Galileo Rivas M.D. History of Present Illness Reason for Consultation: Atrial flutter with RVR Requesting Physician: Dr. Garza Attending Physician: Wesley Kennedy History of Present Illness Mrs. Cleary is a pleasant 68-year-old female with a history significant for cardiomyopathy, systolic CHF, atrial arrhythmia, pericardial effusion status post pericardial window, chronic hypoxic respiratory failure on supplemental oxygen (3 L), rheumatoid arthritis, eosinophilic asthma, psoriatic arthritis, hypothyroidism, PE on anticoagulation therapy, and cavitary pneumonia. Her primary tax advisor is Dr. Peterson. She has been having issues with sinus congestion which is typical for her throughout the year but more specifically in the month of December. This has been ongoing for the past 2 weeks. For the last 1-2 days is started to settle into her chest. She has had a productive cough with yellow sputum. She also has rhinorrhea with yellow mucus. She denies fevers, chills, shortness of breath, chest pain, syncope, near-syncope, palpitations, edema, or bleeding such as melena, hematochezia, or hematuria. She was seen yesterday in her PCPs office and was noted to be tachycardic. ECG there reported as AFib with RVR and she was sent to the ER. In the emergency department, ECG demonstrated atrial flutter with rapid ventricular response. She was put on a diltiazem drip and her heart rate improved. She was completely asymptomatic from the atrial flutter. When attempting to evaluate her earlier this morning, she was with occupational therapy and was still in atrial flutter on telemetry. Shortly thereafter, she converted to sinus rhythm. She did not feel any different with the conversion. Review of systems: As above. Review of systems otherwise negative/unremarkable. Social history: She denies tobacco, alcohol abuse. She lives at home with her . She is unaccompanied. Family history: Grandfather is with CAD but no documented premature CAD in first-degree relatives. Allergies Allergy/AdvReac Type Severity Reaction Status Date / Time pollen extracts Allergy Intermediate ASTHMA Verified 01/12/19 16:48 ATTACKS salsalate Allergy Unknown UNKNOWN Verified 01/12/19 16:48 blue dye AdvReac Intermediate SEVERE Verified 01/12/19 16:48 VOMITING doxycycline AdvReac Intermediate VOMITING, Verified 01/12/19 16:48 IMBALANCE duloxetine AdvReac Intermediate SEVERE Verified 01/12/19 16:48 VOMITING leflunomide AdvReac Intermediate SEVERE Verified 01/12/19 16:48 VOMITING tetracycline AdvReac Intermediate CONFUSION,LIGHT Verified 01/12/19 16:48 HEADED, DIZZINESS cefuroxime AdvReac Mild UNCONTROLLED Verified 01/12/19 16:48 DIARRHEA celecoxib AdvReac Mild VOMITING Verified 01/12/19 16:48 clarithromycin AdvReac Mild VOMITING Verified 01/12/19 16:48 pregabalin AdvReac Mild HEADACHE, Verified 12/07/18 10:57 VOMITING Home Medications Home Medications Medication Instructions Recorded Confirmed Type cholecalciferol (vitamin D3) 2,000 unit PO DAILY 06/09/18 01/12/19 History [Vitamin D3] fluticasone propion-salmeterol 1 inh INHALATION BID 06/09/18 01/12/19 History [Advair Diskus] folic acid 1 mg PO DAILY 06/09/18 01/12/19 History hydroxychloroquine 200 mg PO BID 06/09/18 01/12/19 History multivitamin 1 tab PO DAILY 06/09/18 01/12/19 History sertraline 150 mg PO DAILY 06/09/18 01/12/19 History ferrous sulfate [iron] 325 mg PO DAILY 09/17/18 01/12/19 History gabapentin 100 - 200 mg PO HS PRN #0 cap 09/24/18 01/12/19 Rx magnesium oxide 400 mg PO BID #60 tab 09/24/18 01/12/19 Rx metoprolol succinate 25 mg PO HS #30 tab 09/24/18 01/12/19 Rx tramadol 100 mg PO QID PRN #10 tab 09/24/18 01/12/19 Rx atorvastatin 10 mg tablet 10 mg PO HS #30 tab 12/07/18 01/12/19 Rx furosemide 20 mg tablet 20 mg PO DAILY PRN #30 tab 12/07/18 01/12/19 Rx ipratropium-albuterol 0.5 mg-3 3 ml INH Q4H PRN #15 ml 12/07/18 01/12/19 Rx mg(2.5 mg base)/3 mL nebulization soln rivaroxaban 20 mg tablet 20 mg PO DAILY #30 tab 12/07/18 01/12/19 Rx lisinopril 5 mg tablet 5 mg PO QAM #30 tab 12/15/18 01/12/19 Rx levothyroxine 25 mcg PO 2XWK 01/12/19 01/12/19 History levothyroxine [Synthroid] 200 mcg PO DAILY 01/12/19 01/12/19 History prednisone 1 mg tablet 1 mg PO QAM tab 01/12/19 01/12/19 History Patient History Medical History Chronic respiratory failure with hypoxia Asthma DVT (deep venous thrombosis) Fibromyalgia Hypothyroid Obesity Pericardial effusion Pneumonia Pneumonia Pulmonary embolism Rheumatoid arthritis Surgical History History of arthroscopy History of section History of dilation and curettage History of gastric bypass History of herniorrhaphy Family History Grandfather (Maternal) Coronary heart disease [place] Grandfather (Paternal) Coronary heart disease [place] Mother Anxiety Hypertension Myocardial infarction Father Diabetes Hypertension Grandmother Kidney tumor Social History Preferred Language: Panamanian Communication Ability: Effective Orchestrator Required: No Beliefs That Will Affect Care: None marital status: Current Living Situation: Alone current occupational status: retired Other Information That Helps Us Care for You: No Feels Safe at Home: Yes Safety Concerns: Feels Safe At This Time Smoking Status: Never smoker Do You Dip or Chew Tobacco: No ; Second Hand Exposure: No ; Hx Alcohol Use: Yes Alcohol type: wine Hx Substance Use: No Physical Exam Physical Exam: Gen.: No acute distress. Alert and oriented. HEENT: Anicteric sclera. Neck: No appreciable JVD. No bruits. Normal carotid upstrokes bilaterally. Cardiac: PMI was not palpable . No ventricular heave. Regular. Normal S1-S2. No murmurs, rubs, or gallops. Pulmonary: Decreased breath sounds throughout, especially the right lung field. Otherwise, lungs clear. Abdomen: Soft, nontender, nondistended, with normoactive bowel sounds. No bruits noted. Extremities: 2+ radial pulses bilaterally. 2+ posterior tibialis pulses bilaterally. No edema or cyanosis. Psychiatric: Affect appears appropriate. Results & Data Vital Signs (Past 12 Hours) Vital Signs Temp Pulse Pulse Resp BP Pulse Ox 01/13/19 12:17 36.9 C 72 22 100/53 L 99 01/13/19 07:05 36.6 C 65 16 102/73 100 01/13/19 03:30 36.9 C 106 H 16 126/90 99 01/13/19 00:50 36.8 C 111 H 18 110/72 100 Laboratory Results Laboratory Results - last 24 hr 01/12/19 01/12/19 01/12/19 15:00 15:00 15:51 WBC 4.65 L RBC 3.24 L Hgb 9.7 L POC Hgb 9.9 L Hct 31.1 L POC Hct 29 L MCV 96.0 MCH 29.9 MCHC 31.2 L RDW Std Deviation 46.6 H RDW Coeff of Charmaine 13.3 Plt Count 278 MPV 9.5 Immature Gran % (Auto) 0.2 Neut % (Auto) 57.0 Lymph % (Auto) 22.8 [place] % (Auto) 11.4 Eos % (Auto) 8.2 Baso % (Auto) 0.4 Immature Gran # (Auto) 0.01 Neut # (Auto) 2.65 Lymph # (Auto) 1.06 L [place] # (Auto) 0.53 Eos # (Auto) 0.38 Baso # (Auto) 0.02 POC Sodium 142 Sodium 144 POC Potassium 3.8 Potassium 3.9 POC Chloride 105 Chloride 108 H Carbon Dioxide 29 POC Total CO2 24 Anion Gap 7.0 POC Anion Gap 17.0 POC BUN 12 BUN 13 Creatinine 0.91 POC Creatinine 0.9 Est Cr Clr Drug Dosing 54.8 Est GFR ( Amer) 76.2 Est GFR (Non-Af Amer) 65.7 BUN/Creatinine Ratio 14.6 Glucose 82 POC Glucose (other) 85 Calcium 9.1 POC Ioniz Calcium Johnie 1.18 Magnesium 2.3 Troponin I < 0.015 Lipase 305 TSH 01/12/19 01/13/19 01/13/19 21:51 03:57 03:57 WBC 6.12 RBC 3.19 L Hgb 9.7 L POC Hgb Hct 30.5 L POC Hct MCV 95.6 MCH 30.4 MCHC 31.8 L RDW Std Deviation 46.8 H RDW Coeff of Charmaine 13.5 Plt Count 269 MPV 9.6 Immature Gran % (Auto) 0.2 Neut % (Auto) 64.3 Lymph % (Auto) 16.7 [place] % (Auto) 9.0 Eos % (Auto) 9.5 Baso % (Auto) 0.3 Immature Gran # (Auto) 0.01 Neut # (Auto) 3.94 Lymph # (Auto) 1.02 L [place] # (Auto) 0.55 Eos # (Auto) 0.58 H Baso # (Auto) 0.02 POC Sodium Sodium 142 POC Potassium Potassium 3.9 POC Chloride Chloride 108 H Carbon Dioxide 28 POC Total CO2 Anion Gap 6.0 POC Anion Gap POC BUN BUN 14 Creatinine 0.86 POC Creatinine Est Cr Clr Drug Dosing 57.1 Est GFR ( Amer) 81.6 Est GFR (Non-Af Amer) 70.4 BUN/Creatinine Ratio 15.9 Glucose 93 POC Glucose (other) Calcium 8.5 POC Ioniz Calcium Johnie Magnesium Troponin I < 0.015 < 0.015 Lipase TSH 1.460 Diagnostic Findings Telemetry personally reviewed: Atrial flutter until 10:39 a.m. when she spontaneously converted to sinus rhythm. ECGs personally reviewed: ECG 01/13/2019 at 6:54 a.m.: Atrial flutter with variable AV block. Anterior T -wave inversion. ECG 01/12/2019 at 3:32 p.m.: Atrial flutter with variable AV block. PVC. ECG 01/12/2019 at 3:04 p.m.: Atrial flutter with variable AV block 137 bpm. ECG 01/12/2019 at 1:10 p.m. from PCPs office: Atrial flutter with variable AV block. 125 bpm. Chest x-ray 01/12/2019: Small pleural effusions with bibasilar atelectasis per Radiology. Outpatient echo 10/28/2018: Normal biventricular systolic function. LVEF 55- 60%. Normal wall motion. Mild LVH. Mild left atrial dilation. No pericardial effusion. Medications Administered Current Inpatient Medications Albuterol (Duoneb) 3 ml INH Q4H PRN PRN Reason: shortness of breath Stop: 02/11/19 19:23 Amoxicillin (Amoxil) 500 mg PO TID [facility]; Protocol Stop: 01/22/19 20:59 Last Admin: 01/13/19 07:55 Dose: 500 mg Documented by: Atorvastatin Calcium (Lipitor) 10 mg PO HS [facility] Stop: 02/11/19 20:59 Last Admin: 01/12/19 21:02 Dose: 10 mg Documented by: Ferrous Sulfate (Feosol) 325 mg PO DAILY [facility] Stop: 02/12/19 08:59 Last Admin: 01/13/19 07:56 Dose: 325 mg Documented by: Folic Acid (Folvite) 1 mg PO DAILY [facility] Stop: 02/12/19 08:59 Last Admin: 01/13/19 08:02 Dose: 1 mg Documented by: Furosemide (Lasix) 20 mg PO DAILY PRN PRN Reason: weight gain Stop: 02/11/19 19:23 Last Admin: 01/13/19 07:55 Dose: 20 mg Documented by: Gabapentin (Neurontin) 100 mg PO HS PRN PRN Reason: restless legs Stop: 02/11/19 19:23 Last Admin: 01/12/19 21:01 Dose: 100 mg Documented by: Hydroxychloroquine Sulfate (Plaquenil) 200 mg PO BID [facility] Stop: 02/11/19 20:59 Last Admin: 01/13/19 07:55 Dose: 200 mg Documented by: Diltiazem HCl 125 mg/ Dextrose 125 mls @ 15 mls/hr IV .Q8H20M [facility]; Protocol Stop: 02/11/19 18:05 Last Titration: 01/13/19 07:16 Dose: 15 mg/hr, 15 mls/hr Documented by: Levothyroxine Sodium (Synthroid) 25 mcg PO SuSa@0630 [facility] Stop: 02/15/19 06:29 Levothyroxine Sodium (Synthroid) 200 mcg PO DAILYBB [facility] Stop: 02/12/19 06:29 Last Admin: 01/13/19 06:21 Dose: 200 mcg Documented by: Lisinopril (Zestril) 5 mg PO QAM [facility] Stop: 02/12/19 08:59 Last Admin: 01/13/19 07:55 Dose: 5 mg Documented by: Magnesium Oxide (Mag-Ox) 400 mg PO BID [facility] Stop: 02/11/19 20:59 Last Admin: 01/13/19 07:55 Dose: 400 mg Documented by: Metoprolol Succinate (Toprol Xl) 50 mg PO HS [facility] Stop: 02/11/19 20:59 Last Admin: 01/12/19 21:02 Dose: 50 mg Documented by: Multivitamins (Multivitamin Tab) 1 tab PO DAILY [facility] Stop: 02/12/19 08:59 Last Admin: 01/13/19 07:54 Dose: 1 tab Documented by: Prednisone (Prednisone) 1 mg PO QAM [facility] Stop: 02/12/19 08:59 Last Admin: 01/13/19 07:56 Dose: 1 mg Documented by: Rivaroxaban (Xarelto) 20 mg PO DAILY [facility] Stop: 02/11/19 19:23 Last Admin: 01/13/19 08:02 Dose: 20 mg Documented by: Fluticasone/Salmeterol (Advair Diskus 250/50) 1 puffs INH BID [facility] Stop: 02/11/19 20:59 Last Admin: 01/13/19 07:57 Dose: 1 puffs Documented by: Sertraline HCl (Zoloft) 150 mg PO DAILY [facility] Stop: 02/12/19 08:59 Last Admin: 01/13/19 07:55 Dose: 150 mg Documented by: Tramadol HCl (Ultram) 100 mg PO QID PRN PRN Reason: pain Last Admin: 01/13/19 02:00 Dose: 100 mg Documented by: Vitamin D (Vitamin D3) 2,000 units PO DAILY [facility] Stop: 02/12/19 08:59 Last Admin: 01/13/19 07:54 Dose: 2,000 units Documented by: PG Care Time/CCT Total # of Minutes Spent Total Time Spent with Patient: Total time spent is greater than 50% in coordination of care (as documented) at patient's floor/unit and/or counseling patient: (1) Cardiomyopathy Cardiomyopathy type: other Qualified Code(s): I42.8 - Other cardiomyopathies
[2019-01-16] MEDS ORDERED: LEVOTHYROXINE SODIUM 25 MCG TABLET PO SCH (06:30)
--- NOTE | 2019-01-16 15:00 | Discharge Summary ---
Date of Service January 16, 2019 Admission HPI Per Admitting Provider This is a 68 year old female with a history of PE on xarelto, history of pericardial effusion s/p pericardial window, chronic hypoxic respiratory failure on 2 L NC 02, rheumatoid arthritis, eosinophilic asthma, chronic combined congestive heart failure EF 40-45%, psoriatic arthritis, hypothyroidism, and fibromyalgia who was sent in from her PCP's office after atrial fibrillation with rvr was discovered. Patient states for the last two weeks she has had head congestion. Yesterday the congestion began to settle in her chest. On exam, her pcp noticed she was tachycardic and did an EKG. EKG showed that she was in afib with rvr and she was sent to the ER. In ER EKG showed afib / flutter with rvr at rate of 150. Patient was bolused and started on cardizem drip. She responded nicely to the cardizem drip. Principal Diagnosis a.fib/flutter with RVR - s/p spontaneous conversion to NSR Discharge Exam Constitutional well developed and well nourished; no acute distress and no altered mental status ENMT external ear and nose normal, oropharynx normal maxillary sinus tenderness to palpation Respiratory no respiratory distress Auscultation: lungs clear to auscultation bilaterally Cardiovascular Rate/Rhythm: regular rate and regular rhythm Heart Sounds: normal S1 and normal S2; no murmur Vessels: posterior tibial pulses present and dorsalis pedis pulses present; no JVD Extremities: no edema Gastrointestinal (Abdomen) normal bowel sounds, soft, nontender, no hepatosplenomegaly Psychiatric A+Ox3, euthymic affect Lymphatic no cervical lymphadenopathy Discharge Data Allergies Allergy/AdvReac Type Severity Reaction Status Date / Time pollen extracts Allergy Intermediate ASTHMA Verified 01/12/19 16:48 ATTACKS salsalate Allergy Unknown UNKNOWN Verified 01/12/19 16:48 blue dye AdvReac Intermediate SEVERE Verified 01/12/19 16:48 VOMITING doxycycline AdvReac Intermediate VOMITING, Verified 01/12/19 16:48 IMBALANCE duloxetine AdvReac Intermediate SEVERE Verified 01/12/19 16:48 VOMITING leflunomide AdvReac Intermediate SEVERE Verified 01/12/19 16:48 VOMITING tetracycline AdvReac Intermediate CONFUSION,LIGHT Verified 01/12/19 16:48 HEADED, DIZZINESS cefuroxime AdvReac Mild UNCONTROLLED Verified 08/13/19 16:48 DIARRHEA celecoxib AdvReac Mild VOMITING Verified 01/12/19 16:48 clarithromycin AdvReac Mild VOMITING Verified 01/12/19 16:48 pregabalin AdvReac Mild HEADACHE, Verified 12/07/18 10:57 VOMITING Consultations [facility] - Galileo Rivas MD Hospital Course (1) Atrial flutter with rapid ventricular response: At ER presentation the patient was in rapid a.fib/flutter. Despite such she was hemodynamically stable and compensated from a CHF standpoint. TSH was normal. She was initiated on cardizem infusion and continued on her metoprolol xl. Rates improved with such. On the AM of hospital day #2 she spontaneously converted back to NSR. She was seen in consult by Dr Jean Carlos Rivas. He advised close f/u with her primary backwinder, Dr Peterson, within a week of discharge to ensure she is stable from a rhythm standpoint. Options for care were discussed with the patient including pursuing outpatient monitoring, referral to EP in the event she has recurrent episodes, etc. She remains on xarelto 20mg once daily for anticoagulation and beta beckie. (2) Atrial fibrillation with RVR: (3) Sinusitis, acute maxillary: Amoxicillin x 10 days. (4) Chronic respiratory failure with hypoxia: (5) Asthma: NO exacerbation during her brief stay. (6) Rheumatoid arthritis: (7) Hypothyroid: (8) Pulmonary embolism: Total Time Total Time Spent Total Time Spent (In Minutes): 30 Total Time Includes: Examination of the Patient, Discharge Planning, Medication Reconciliation and Communication With Other Providers (cardiology) Discharge Plan Discharge Items Patient Disposition: Home - Self-Care Reason For Visit: new onset a.fib/a.flutter Discharge Diagnosis: a.fib/flutter - resolved, heart rhythm has returned to normal. Discharge Goals: Diagnostic testing and Therapeutic intervention Activity: Resume your previous activity Non-emergency contact: Primary Care Provider and Mathematical Physicist Call non-emergency contact if: you have any medication questions, your symptoms worsen and your temperature is above 100.5 Follow-up/Referrals: Scottie Noyola MD [Primary Care Provider] - (please see Dr Noyola within 1 week) Vinnie Peterson Jr, MD, [facility] [Physician] - (see Dr Peterson or one of his PAs within 1 week if possible) Diet: Heart Healthy Fluids: 1800ml (7 cups) Addtl Provider Instructions: You were admitted for newly discovered a.fib/flutter. Fortunately you converted back to normal rhythm on the AM of 01/13/19. You were seen by Dr Rivas from cardiology. He recommends close follow-up with Dr Peterson and ongoing use of your metoprolol and your xarelto blood thinner. There is a chance that you could go back into a.fib or a.flutter. We recommend that you check your blood pressure and heart rate regularly at home . If your pulse feels irregular or your heart rate is over [address] Noyola or Dr Peterson know right away. A.fib/flutter is a risk factor for stroke and thus it is good that you are already on xarelto blood thinner. Follow-up - see separate section. Additional recommendations - * amoxicillin for 10 days for your probable sinus infection * prednisone taper for 8 days starting today to help you resolve your sinusitis faster * continue your oxygen as previous Return to [facility] if - * you are concerned you are back in a.fib or a.flutter * you are short of breath more so than normal, you have chest pain, or you have to turn up your oxygen level on your tank * you are concerned about fluid retention * any other concerns Prescriptions: New amoxicillin 500 mg Capsule 500 mg PO TID 10 Days Qty: 30 RF: 0 prednisone 5 mg tablet 5 mg PO DIRECTED Qty: 20 RF: 0 Continued lisinopril [Zestril] 5 mg tablet 5 mg PO QAM Qty: 30 RF: 3 ipratropium-albuterol 0.5 mg-3 mg(2.5 mg base)/3 mL solution for nebulization 3 ml INH Q4H PRN (Reason: shortness of breath) Qty: 15 RF: 2 furosemide 20 mg tablet 20 mg PO DAILY PRN (Reason: weight gain) Qty: 30 RF: 2 atorvastatin 10 mg tablet 10 mg PO HS Qty: 30 RF: 5 Xarelto 20 mg tablet 20 mg PO DAILY Qty: 30 RF: 3 prednisone 1 mg tablet 1 mg PO QAM RF: 0 fluticasone propion-salmeterol [Advair Diskus] 250-50 mcg/dose Blister With Device 1 inh INHALATION BID RF: 0 sertraline 100 mg Tablet 150 mg PO DAILY RF: 0 folic acid 1 mg Tablet 1 mg PO DAILY RF: 0 hydroxychloroquine 200 mg Tablet 200 mg PO BID RF: 0 multivitamin Tablet 1 tab PO DAILY RF: 0 cholecalciferol (vitamin D3) [Vitamin D3] 2,000 unit Tablet 2,000 unit PO DAILY RF: 0 ferrous sulfate [iron] 325 mg (65 mg iron) Tablet 325 mg PO DAILY RF: 0 magnesium oxide 400 mg (241.3 mg magnesium) Tablet 400 mg PO BID Qty: 60 RF: 0 gabapentin 100 mg Capsule 100 - 200 mg PO HS PRN (Reason: restless legs) Qty: 0 RF: 0 tramadol 100 mg Tablet Extended Release 24 Hr 100 mg PO QID PRN (Reason: pain) Qty: 10 RF: 0 levothyroxine 25 mcg tablet 25 mcg PO 2XWK RF: 0 levothyroxine [Synthroid] 200 mcg tablet 200 mcg PO DAILY RF: 0 Changed metoprolol succinate 25 mg Tablet Extended Release 24 Hr 50 mg PO HS Qty: 30 RF: 0 Stand-Alone Forms: [facility]/Other Patient Handouts: ED Afib, ED Paroxysmal Atrial Flutter Discharge Orders: Discharge Order (Routine); Ordered 01/13/19 Ordered By: Wesley Kennedy Admission Data Admit Date/Time: 01/12/19 18:06 Attending Provider: Wesley Kennedy Admit Provider: Wesley Kennedy Primary Care Provider: Scottie Noyola Other Providers: John Garza ; Jean Carlos Rivas Service: Telemetry Other Interventions: Discharge Summary Assessment (RN) Last Done: 01/13/19 15:41 Pending Studies at Discharge: No DC Date/Time DO NOT enter until pt leaves facility: 01/13/19 16:58
== END 2019-01-13 16:58 | disposition home or self-care (01) | DRG 309 ==
LOC: ED 14:43 → 2E 18:06
DX: I48.91 Unspecified atrial fibrillation; J45.909 Unspecified asthma, uncomplicated; I48.92 Unspecified atrial flutter; J82 Pulmonary eosinophilia, not elsewhere classified; Z79.01 Long term (current) use of anticoagulants; J01.00 Acute maxillary sinusitis, unspecified; E03.9 Hypothyroidism, unspecified; Z86.718 Personal history of other venous thrombosis and embolism; J96.11 Chronic respiratory failure with hypoxia; I50.22 Chronic systolic (congestive) heart failure; I42.9 Cardiomyopathy, unspecified

== ENCOUNTER 2019-10-12 03:27 | Inpatient (IN) ==
--- NOTE | 2019-10-12 03:50 | Emergency Department Note ---
History of Present Illness General Chief complaint: Shortness of Breath/Dyspnea Stated complaint: SHORTNESS OF BREATH Time Seen by Provider: 10/12/19 03:28 Source: patient Mode of arrival: EMS Limitations: no limitations History of Present Illness Provider complaint: Shortness of breath Onset (ago): hour(s) 4 Current Pain Intensity: 0 Exacerbated By: + movement Associated symptoms: + cough; no chest pain, no fever/chills and no nausea/vomiting This is a 69-year-old female who presents from home via EMS with a history of asthma and CHF complaining of increased shortness of breath. Per EMS patient stated she originally became short of breath while trying to adjust bedding around bedtime. She reports she had been feeling in her usual state of health earlier in the day. Patient stated the trouble breathing continued and patient cannot get comfortable. They state on their arrival patient's oxygen saturation was in the low to mid 80s and with any movement she would quickly desaturate into the 70s. Patient was placed on nasal cannula and then on a nonrebreather, however patient still appeared to have increased work of breathing and could not maintain oxygen saturations above 90%. EMS then placed the patient on CPAP and had improved oxygenation and work of breathing. Patient denies any recent change in her sputum. States this does not feel like prior asthma exacerbations or like her prior episode of CHF. Patient is anticoagulated. Patient denies any change in medications. Denies fevers or chills, chest pain. Denies any contact with any known coronavirus positive individuals. Denies any other URI symptoms. Denies any lower extremity swelling. Patient does take furosemide daily. Patient here able to give some history although slightly limited as she is only speaking in short phrases at this time. RT at bedside changing patient over to BiPAP. On review of EMR, patient has an echo dated August 2018 which showed a reduced ejection fraction of 40 to 45%. Pt seen during a time of high acuity and national emergency pandemic while wearing PPE. Home Medications Home Medications Medication Instructions Recorded Confirmed Type cholecalciferol (vitamin D3) 2,000 unit PO QAM 06/09/18 10/12/19 History [Vitamin D3] hydroxychloroquine 200 mg PO BID 06/09/18 10/12/19 History multivitamin 1 tab PO QAM 06/09/18 10/12/19 History sertraline 150 mg PO QAM 06/09/18 10/12/19 History ferrous sulfate [iron] 325 mg PO QAM 09/17/18 10/12/19 History gabapentin 100 - 200 mg PO HS PRN #0 cap 09/24/18 10/12/19 Rx furosemide 20 mg tablet 20 mg PO DAILY PRN #30 tab 12/07/18 10/12/19 Rx levothyroxine 25 mcg PO 2XWK 01/12/19 10/12/19 History tramadol 50 mg tablet 50 - 100 mg PO QID PRN #240 tab 03/01/19 10/12/19 History magnesium oxide 400 mg (241.3 mg 400 mg PO QAM tab 03/03/19 10/12/19 History magnesium) tablet metoprolol succinate 100 mg 100 mg PO BID #90 tab 03/19/19 10/12/19 Rx tablet,extended release 24 hr lisinopril 5 mg tablet 5 mg PO DAILY #30 tab 04/23/19 10/12/19 Rx rivaroxaban 20 mg tablet 20 mg PO QPM #30 tab 04/23/19 10/12/19 Rx atorvastatin 10 mg tablet 10 mg PO HS #30 tab 06/25/19 10/12/19 Rx folic acid 1 mg tablet 1 mg PO DAILY #30 tab 10/01/19 10/12/19 Rx levothyroxine 200 mcg tablet 200 mcg PO DAILY #30 tab 10/01/19 10/12/19 Rx prednisone 5 mg tablet 5 mg PO DAILY #30 tab 10/01/19 10/12/19 Rx sulfamethoxazole 800 1 tab PO BID 10 Days #20 tab 10/08/19 10/12/19 Rx mg-trimethoprim 160 mg tablet albuterol sulfate [ProAir 2 inh INHALATION Q4 PRN 10/12/19 10/12/19 History RespiClick] azelastine 1 spray INTRANASAL BID 10/12/19 10/12/19 History fluticasone propion-salmeterol 1 ea INHALATION BID 10/12/19 10/12/19 History [Wixela Inhub] tiotropium bromide [Spiriva 2 puff INHALATION DAILY 10/12/19 10/12/19 History Respimat] Allergies Allergy/AdvReac Type Severity Reaction Status Date / Time pollen extracts Allergy Intermediate ASTHMA Verified 10/12/19 04:01 ATTACKS blue dye Allergy Unknown Verified 10/12/19 04:01 doxycycline AdvReac Intermediate VOMITING, Verified 10/12/19 04:01 IMBALANCE duloxetine AdvReac Intermediate SEVERE Verified 10/12/19 04:01 VOMITING leflunomide AdvReac Intermediate SEVERE Verified 10/12/19 04:01 VOMITING tetracycline AdvReac Intermediate CONFUSION,LIGHT Verified 10/12/19 04:01 HEADED, DIZZINESS cefuroxime AdvReac Mild UNCONTROLLED Verified 10/12/19 04:01 DIARRHEA celecoxib AdvReac Mild VOMITING Verified 10/12/19 04:01 clarithromycin AdvReac Mild VOMITING Verified 10/12/19 04:01 pregabalin AdvReac Mild HEADACHE, Verified 10/12/19 04:01 VOMITING salsalate AdvReac Unknown Nausea Verified 10/12/19 04:01 Past Med/Surg History Medical History Anemia Asthma Atrial fibrillation Atrial fibrillation (Resolved) Atrial flutter (Resolved) Chronic respiratory failure with hypoxia DVT (deep venous thrombosis) (Resolved) LEFT LEG Encounter for pre-operative examination Fibromyalgia H/O varicella Hypertension Hypothyroid Obesity On anticoagulant therapy XARELTO SINCE 06/2018 Osteoarthritis Pericardial effusion (Resolved) Pneumonia HX-LAST TIME 06/2018 [facility] Pneumonia Psoriatic arthritis Pulmonary embolism (Resolved) RIGHT LUNG Restless leg syndrome Rheumatoid arthritis F/U DR HANSEL RODRIGUEZ Surgical History History of arthroscopy History of section History of chest tube placement History of colonoscopy History of dilation and curettage History of esophagogastroduodenoscopy (EGD) History of gastric bypass History of herniorrhaphy History of total knee replacement R/L Family History Grandfather (Maternal) Coronary heart disease DC Grandfather (Paternal) Coronary heart disease DC Mother Anxiety Myocardial infarction Hypertension Family history of reaction to anesthesia SLOW TO WAKE Father Diabetes Hypertension Grandmother Kidney tumor Denies family history of Ovarian cancer Breast cancer Colorectal cancer Social History Preferred Language: Romansh Communication Ability: Effective Manager Construction Required: No Beliefs That Will Affect Care: None marital status: Current Living Situation: Spouse current occupational status: retired Feels Safe at Home: Yes Smoking Status: Never smoker Second Hand Exposure: No ; Hx Alcohol Use: No Hx Substance Use: No Review of Systems See HPI for pertinent positives & negatives. and A total of 10 systems reviewed and were otherwise negative Physical Exam Vital Signs Vital Signs - 24 hr 10/12/19 03:44 10/12/19 03:45 10/12/19 04:19 Temperature 36.7 C Temperature Source Oral Pulse Rate 73 77 Pulse Rate [Right Finger] 63 Pulse Rhythm Regular Pulse Rhythm [Right Finger] Regular Pulse Strength Normal Pulse Strength [Right Finger] Normal Respiratory Rate 24 17 22 Respiratory Effort / Characteristics Spontaneous Labored Non-Labored Spontaneous Respiratory Depth Normal Normal Respiratory Pattern Tachypnea Regular Regular Blood Pressure 114/88 Blood Pressure [Right Arm] 90/69 L Blood Pressure Mean 96 Blood Pressure Mean [Right Arm] 76 Blood Pressure Position Sitting Pulse Oximetry 92 98 94 Oxygen Delivery Method BiPAP BiPAP Oxygen Flow Rate Fraction of Inspired Oxygen 40 Sepsis Recent Fever Within 48 Hours No Sepsis Action Taken by Nursing No Action Required Pulse Oximetry Post Tiitration 10/12/19 05:00 10/12/19 05:37 Temperature Temperature Source Pulse Rate Pulse Rate [Right Finger] 61 Pulse Rhythm Pulse Rhythm [Right Finger] Regular Pulse Strength Pulse Strength [Right Finger] Normal Respiratory Rate 20 Respiratory Effort / Characteristics Non-Labored Spontaneous Respiratory Depth Normal Respiratory Pattern Blood Pressure Blood Pressure [Right Arm] 102/81 Blood Pressure Mean Blood Pressure Mean [Right Arm] 88 Blood Pressure Position Pulse Oximetry Oxygen Delivery Method BiPAP Oxymask Oxygen Flow Rate 6 Fraction of Inspired Oxygen Sepsis Recent Fever Within 48 Hours Sepsis Action Taken by Nursing Pulse Oximetry Post Tiitration 99 GENERAL: alert, ill appearing, well nourished, moderate distress, non-toxic EYE EXAM: normal conjunctiva, PERRL and EOM's grossly intact OROPHARYNX: no exudate, no erythema, lips, buccal mucosa, and tongue normal and mucous membranes are moist NECK: supple, no nuchal rigidity, no adenopathy, non-tender LUNGS: Decreased to auscultation. Normal chest wall mechanics, fine bibasilar rales, increased work of breathing and tachypnea, no retractions HEART: no murmurs, S1 normal and S2 normal ABDOMEN: abdomen soft, non-tender, normo-active bowel sounds, no masses, no rebound or guarding. BACK: Back is symmetrical on inspection and there is no deformity, no midline tenderness, no CVA tenderness. SKIN: no rashes and no bruising UPPER EXTREMITIES: upper extremities are grossly normal. FROM, nml pulses b/l. LOWER EXTREMITIES: No pitting edema. FROM, nml pulses b/l. NEURO EXAM: Normal sensorium, cranial nerves II-XII grossly intact, normal speech, no gross weakness of arms, no gross weakness of legs. Gross sensation intact. Course Course 0350: Patient improving on BiPAP, decreased work of breathing and oxygenation improved into the 90s. 0410: Patient markedly improved on BiPAP at this time, holding oxygen saturations 94%, with decreased work of breathing. Patient somnolent but easily arouses. 0511: Case discussed with Dr. Payne. Administered Medications Atorvastatin Calcium (Lipitor) 10 mg PO HS [facility] Stop: 11/11/19 20:59 Last Admin: 10/12/19 21:08 Dose: 10 mg Documented by: [id number] Ferrous Sulfate (Feosol) 325 mg PO QA ALEJANDRA Stop: 11/11/19 09:59 Last Admin: 10/12/19 10:09 Dose: Not Given Documented by: [id number] Folic Acid (Folvite) 1 mg PO DAILY ALEJANDRA Stop: 11/11/19 09:59 Last Admin: 10/12/19 10:09 Dose: Not Given Documented by: [id number] Gabapentin (Neurontin) 100 mg PO HS ALEJANDRA Stop: 11/11/19 20:59 Last Admin: 10/12/19 21:08 Dose: 100 mg Documented by: [id number] Guaifenesin (Mucinex) 600 mg PO Q12 ALEJANDRA Stop: 11/11/19 09:59 Last Admin: 10/12/19 21:07 Dose: 600 mg Documented by: [id number] Admin: 10/12/19 10:09 Dose: Not Given Documented by: [id number] Hydroxychloroquine Sulfate (Plaquenil) 200 mg PO BID ALEJANDRA Stop: 11/11/19 09:59 Last Admin: 10/12/19 22:12 Dose: 200 mg Documented by: [id number] Admin: 10/12/19 10:34 Dose: 200 mg Documented by: [id number] Levothyroxine Sodium (Synthroid) 200 mcg PO DAILYBB ALEJANDRA Stop: 11/11/19 09:59 Last Admin: 10/12/19 10:09 Dose: Not Given Documented by: [id number] Lisinopril (Zestril) 5 mg PO DAILY [facility] Stop: 11/11/19 09:59 Last Admin: 10/12/19 10:34 Dose: 5 mg Documented by: [id number] Magnesium Oxide (Mag-Ox) 400 mg PO QAM [facility] Stop: 11/11/19 09:59 Last Admin: 10/12/19 10:09 Dose: Not Given Documented by: [id number] Metoprolol Succinate (Toprol Xl) 100 mg PO BID [facility] Stop: 11/11/19 09:59 Last Admin: 10/12/19 21:09 Dose: 100 mg Documented by: [id number] Admin: 10/12/19 10:34 Dose: 100 mg Documented by: [id number] Miscellaneous (Order Awaiting Action) 1 ea N/A QS [facility] Stop: 11/11/19 15:59 Last Admin: 10/12/19 16:45 Dose: Not Given Documented by: [id number] Multivitamins (Multivitamin Tab) 1 tab PO [facility] Stop: 11/11/19 09:59 Last Admin: 10/12/19 10:09 Dose: Not Given Documented by: [id number] Rivaroxaban (Xarelto) 20 mg PO QPM [facility] Stop: 11/11/19 20:59 Last Admin: 10/12/19 21:09 Dose: 20 mg Documented by: [id number] Sertraline HCl (Zoloft) [facility] Stop: 11/11/19 09:20 Last Admin: 10/12/19 10:09 Dose: Not Given Documented by: [id number] Tramadol HCl (Ultram) 50 mg PO QID PRN PRN Reason: Moderate Pain Stop: 11/11/19 09:20 Last Admin: 10/12/19 21:13 Dose: 50 mg Documented by: [id number] Discontinued Medications Piperacillin Sod/Tazobactam (Sod 3.375 gm/ Dextrose) 115 mls @ 28.75 mls/hr IV Q8H [facility]; Protocol Stop: 10/19/19 11:59 Last Admin: 10/12/19 21:06 Dose: 28.8 mls/hr Documented by: [id number] Infusion: 10/12/19 16:42 Dose: 0 mls/hr Documented by: [id number] Admin: 10/12/19 12:15 Dose: 28.8 mls/hr Documented by: [id number] Piperacillin Sod/Tazobactam Sod (Zosyn) 4.5 gm in 120 mls @ 240 mls/hr IV NOW STA Stop: 10/12/19 07:10 Last Infusion: 10/12/19 07:45 Dose: 0 mls/hr Documented by: [id number] Admin: 10/12/19 06:48 Dose: 240 mls/hr Documented by: [id number] Doxycycline Hyclate 100 mg/ (Dextrose) 110 mls @ 50 mls/hr IV Q12H ALEJANDRA Stop: 10/19/19 09:59 Last Admin: 10/12/19 23:10 Dose: 50 mls/hr Documented by: [id number] Infusion: 10/12/19 13:06 Dose: 0 mls/hr Documented by: [id number] Admin: 10/12/19 10:53 Dose: 50 mls/hr Documented by: [id number] Methylprednisolone 125 mg/ (Syringe) 2 mls @ 1.5 mls/min IV NOW ONE Stop: 10/12/19 10:01 Last Admin: 10/12/19 10:53 Dose: 1.5 mls/min Documented by: [id number] Piperacillin Sod/Tazobactam Sod (Zosyn) Confirm Administered Dose 4.5 gm .ROUTE .STK-MED ONE Stop: 10/12/19 06:43 Last Admin: 10/12/19 06:49 Dose: Not Given Documented by: [id number] Prednisone (Prednisone) 10 mg PO DAILY ALEJANDRA Stop: 11/11/19 08:59 Last Admin: 10/12/19 11:59 Dose: Not Given Documented by: [id number] Critical Care Time Critical Care Time: Yes Total Critical Care Time: 42 Critical care of 42 min performed to assess and manage high likelihood of life- threatening respiratory failure, involving labs and imaging performed with assessment to evaluation respiratory failure diagnosis with frequent reassessment. This time includes bedside time, treatment discussions with patient/family/consultants, documentation time and excludes procedure time. Medical Decision Making Differential Diagnosis Differential diagnoses includes but is not limited to pneumonia, bronchitis, COPD/Asthma exacerbation, pneumothorax, pulmonary embolism, congestive heart failure, acute coronary syndrome Medical Records Attestation: I reviewed the patient's medical records. Home Medications Current Medication List: was personally reviewed by me Laboratory Data Attestation: I reviewed the patient's lab results. Result diagrams: 10/12/19 03:30 10/12/19 03:30 Lab Results 10/12/19 10/12/19 10/12/19 Range/Units 03:30 03:30 05:38 WBC 8.45 (4.8-10.8) K/uL RBC 4.97 (4.2-5.4) M/uL Hgb 16.4 H (12.0-16.0) g/dL Hct 49.2 H (37-47) % MCV 99.0 (80-100) fL MCH 33.0 (25-34) pg MCHC 33.3 (32-36) g/dL RDW Std Deviation 47.1 H (36.4-46.3) fL RDW Coeff of Charmaine 13.2 (11.5-14.5) % Plt Count 270 (130-400) K/uL MPV 10.2 (7.4-10.4) fL Immature Gran % (Auto) 0.2 % Neut % (Auto) 65.6 % Lymph % (Auto) 20.6 % Zapata % (Auto) 11.2 % Eos % (Auto) 1.9 % Baso % (Auto) 0.5 % Immature Gran # (Auto) 0.02 (0.00-0.02) K/uL Neut # (Auto) 5.54 (1.4-6.5) K/uL Lymph # (Auto) 1.74 (1.2-3.4) K/uL Zapata # (Auto) 0.95 H (0.11-0.59) K/uL Eos # (Auto) 0.16 (0-0.5) K/uL Baso # (Auto) 0.04 (0-0.2) K/uL Sodium 137 (136-145) mmol/L Potassium 4.5 (3.5-5.1) mmol/L Chloride 98 (98-107) mmol/L Carbon Dioxide 31 (21-32) mmol/L Anion Gap 8.0 (3-11) BUN 28 H (7-18) mg/dl Creatinine 1.47 H (0.6-1.2) mg/dl Est Cr Clr Drug Dosing 33.9 ml/min Est GFR ( Amer) 42.4 Est GFR (Non-Af Amer) 36.6 BUN/Creatinine Ratio 19.0 (10-20) Glucose 91 (70-99) mg/dl Calcium 9.2 (8.5-10.1) mg/dl Magnesium 2.7 H (1.8-2.4) mg/dl Total Bilirubin 0.4 (0.2-1) mg/dl AST 31 (15-37) U/L ALT 25 (12-78) U/L Alkaline Phosphatase 124 H (45-117) U/L Troponin I 0.046 H* (0-0.045) ng/ml NT-Pro-B Natriuret Pep 1848 H (0-900) pg/ml Total Protein 8.0 (6.4-8.2) gm/dl Albumin 3.8 (3.4-5.0) gm/dl Globulin 4.2 H (2.5-4.0) gm/dl Albumin/Globulin Ratio 0.9 (0.9-2) Lipase 236 (73-393) U/L COVID-19 PCR NEGATIVE (Negative) Influenza Type A (PCR) (Neg) Influenza Type B (PCR) (Neg) 10/12/19 Range/Units 05:40 WBC (4.8-10.8) K/uL RBC (4.2-5.4) M/uL Hgb (12.0-16.0) g/dL Hct (37-47) % MCV (80-100) fL MCH (25-34) pg MCHC (32-36) g/dL RDW Std Deviation (36.4-46.3) fL RDW Coeff of Charmaine (11.5-14.5) % Plt Count (130-400) K/uL MPV (7.4-10.4) fL Immature Gran % (Auto) % Neut % (Auto) % Lymph % (Auto) % Zapata % (Auto) % Eos % (Auto) % Baso % (Auto) % Immature Gran # (Auto) (0.00-0.02) K/uL Neut # (Auto) (1.4-6.5) K/uL Lymph # (Auto) (1.2-3.4) K/uL Zapata # (Auto) (0.11-0.59) K/uL Eos # (Auto) (0-0.5) K/uL Baso # (Auto) (0-0.2) K/uL Sodium (136-145) mmol/L Potassium (3.5-5.1) mmol/L Chloride (98-107) mmol/L Carbon Dioxide (21-32) mmol/L Anion Gap (3-11) BUN (7-18) mg/dl Creatinine (0.6-1.2) mg/dl Est Cr Clr Drug Dosing ml/min Est GFR ( Amer) Est GFR (Non-Af Amer) BUN/Creatinine Ratio (10-20) Glucose (70-99) mg/dl Calcium (8.5-10.1) mg/dl Magnesium (1.8-2.4) mg/dl Total Bilirubin (0.2-1) mg/dl AST (15-37) U/L ALT (12-78) U/L Alkaline Phosphatase (45-117) U/L Troponin I (0-0.045) ng/ml NT-Pro-B Natriuret Pep (0-900) pg/ml Total Protein (6.4-8.2) gm/dl Albumin (3.4-5.0) gm/dl Globulin (2.5-4.0) gm/dl Albumin/Globulin Ratio (0.9-2) Lipase (73-393) U/L COVID-19 PCR (Negative) Influenza Type A (PCR) Neg for Influ A (Neg) Influenza Type B (PCR) Neg for Influ B (Neg) Imaging Data Attestation: I personally reviewed and interpreted this imaging study as follows: My Impression: X-ray: I interpreted the following studies. Chest: A single view study of the chest was reviewed and was negative for cardiomegaly, focal infiltrate, effusion, pulmonary edema, or wide mediastinum. No significant change compared to prior. ECG Data Attestation: I personally reviewed and interpreted this ECG as follows: Indication: + SOB/dyspnea Rate (beats per minute): 71 Rhythm: + normal sinus ECG Intervals/blocks: + First degree AV block, + Normal QRS and + Normal QT ECG Inez: + Normal ECG ST segments: + Nonspecific ST abnormalities Additional Comments: poor quality tracing with significant artifact Blood Pressure Blood Pressure Findings: Normal blood pressure MDM Narrative Patient here in severe distress initially was placed on CPAP by EMS. Patient transitioned to BiPAP here and showed improvement. Patient does have a history of CHF as well as asthma. No history of COPD. Patient afebrile and otherwise stable. Patient went very quickly desat when taken off of oxygen, however after being left on BiPAP showed marked decrease work of breathing and oxygen saturations held in the 90s. Patient with no known exposure to coronavirus positive individual and no travel. I do not suspect coronavirus at this time. Patient did have acute kidney injury noted given that her creatinine is higher compared to baseline. No evidence of lower extremity edema. No obvious infiltrate or effusion seen on chest x-ray. Patient was found to have an elevated troponin, although I suspect this is more likely secondary to demand and her increased work of breathing. I do not suspect primary ACS. Patient does take anticoagulation daily and denies skipping any doses, given this I do not suspect acute PE at this time. I feel evolving congestive heart failure is more likely. Patient stated this does not feel like her prior asthma attacks, no wheezing was noted by EMS initially or by myself on presentation here. Patient reported feeling markedly improved with BiPAP and was left on this for several hours. Patient was seen and evaluated by the hospitalist in the emergency room who requested additional COVID testing as a precaution. Prior to going upstairs she was able to be slowly weaned from BiPAP and then placed on an oxygen mask. I do not suspect recurrent pericardial effusion or tamponade. I do not suspect bacteremia/sepsis. An order was placed for continuous cardiac monitoring. The monitor shows a rate of 76 with normal sinus rhythm. Impression & Plan Acute dyspnea, Hypoxia, Elevated troponin, Elevated brain natriuretic peptide (BNP) level, DENY (acute kidney injury) Discharge Plan Visit Data *Final* Discharge Date/Time: 10/12/19 08:46 Chief Complaint: Shortness of Breath/Dyspnea Stated Complaint: SHORTNESS OF BREATH ED Provider: Martine Briceno Discharge Problem: Acute dyspnea, Hypoxia, Elevated troponin, Elevated brain natriuretic peptide (BNP) level, DENY (acute kidney injury) Patient Disposition: Admitted As Inpatient Discharge Instructions Interventions: ED Discharge Assessment Last Done: 10/12/19 08:46
[2019-10-12 03:53] LABS: Basophils # (auto) 0.04 K/uL (0-0.2); Basophils % (auto) 0.5 %; Eosinophils # (auto) 0.16 K/uL (0-0.5); Eosinophils % (auto) 1.9 %; Hematocrit (blood only) 49.2 % (37-47); Hemoglobin 16.4 g/dL (12.0-16.0); Immature Granulocytes # (auto) 0.02 K/uL (0.00-0.02); Immature Granulocytes % (auto) 0.2 %; Lymphocytes # (auto) 1.74 K/uL (1.2-3.4); Lymphocytes % (auto) 20.6 %; Mean Corpuscular Hgb Conc 33.3 g/dL (32-36); Mean Platelet Volume 10.2 fL (7.4-10.4); Monocytes # (auto) 0.95 K/uL (0.11-0.59); Monocytes % (auto) 11.2 %; Neutrophils # (auto) 5.54 K/uL (1.4-6.5); Neutrophils % (auto) 65.6 %; Platelet Count 270 K/uL (130-400); RDW Coefficient of Variation 13.2 % (11.5-14.5); RDW Standard Deviation 47.1 fL (36.4-46.3); Red Blood Count 4.97 M/uL (4.2-5.4); White Blood Count 8.45 K/uL (4.8-10.8)
[2019-10-12 04:10] LABS: Albumin Level 3.8 gm/dl (3.4-5.0); Calcium 9.2 mg/dl (8.5-10.1); Creatinine Clr Calc Pharmacy 33.9 ml/min; Est GFR (African American) 42.4; Est GFR (Non-African American) 36.6; Magnesium 2.7 mg/dl (1.8-2.4); Potassium 4.5 mmol/L (3.5-5.1)
[2019-10-12 04:46] LABS: Albumin Globulin Ratio 0.9 (0.9-2); Bilirubin,Total 0.4 mg/dl (0.2-1); Globulin 4.2 gm/dl (2.5-4.0); Troponin I 0.046 ng/ml (0-0.045)
[2019-10-12 06:31] LABS: Influenza A virus by PCR Neg for Influ A (Neg); Influenza B virus by PCR Neg for Influ B (Neg)
[2019-10-12] MEDS ORDERED: PIPERACILL/TAZOBAC CONSULT ACTIVE PRN (06:36)
[2019-10-12] MEDS ORDERED: PIPERACILLIN/TAZOBACTAM 4.5 GM/120 ML BAG IV STA (06:41)
[2019-10-12] MEDS ORDERED: PIPERACILLIN/TAZOBACTAM 4.5 GM/120ML D5W ONE (06:42)
--- NOTE | 2019-10-12 06:45 | History & Physical Report ---
Date of Service October 12, 2019 Assessment & Plan (1) Acute on chronic respiratory failure with hypoxia: Acute on chronic respiratory failure with hypoxia/history of Pseudomonas pneumonia/asthma/COPD/history of PE on Xarelto/eosinophilic asthma- Off of BiPAP in the ED, patient rapidly declines in oxygen saturation into the upper 70s. Chest x-ray with questionable new pulmonary nodule along right base. Chest x-ray overall looks relatively good pursuit severe hypoxemia. Patient has multiple risk factors for COVID-19, and she will be tested for influenza and COVID-19. [address] her in respiratory isolation and airborne precautions until testing completed. Doxycycline 100 mg IV every 12 hours. Guaifenesin extended release 600 mg p.o. twice daily. Patient is oxygenating satisfactorily on 6 L oxygen mask. Increase prednisone from 5 to [address] on Solu-Medrol IV if COVI D testing is negative Present on Admission?: Yes (2) Elevated troponin: Elevated troponin/paroxysmal atrial fibrillation/hypertension- Troponin 0 0.046 upon admission. The patient will be admitted to telemetry for serial cardiac enzymes, serial EKG's, cardiac rhythm monitoring and a 2-D echocardiogram with Dopplers. Continue lisinopril 5 mg p.o. daily, metoprolol succinate 100 mg p.o. twice daily, furosemide 20 mg p.o. daily. Present on Admission?: Yes (3) Psoriatic arthritis: Increase prednisone from 5 to 10 mg p.o. daily. Present on Admission?: Yes (4) Hyperlipidemia: Continue atorvastatin 10 mg daily Present on Admission?: Yes (5) Eosinophilic asthma: As above. Present on Admission?: Yes (6) History of DVT (deep vein thrombosis): History of DVT/PE- Continue Xarelto Present on Admission?: Yes (7) History of pulmonary embolism: See above Present on Admission?: Yes (8) Atrial fibrillation: See above Present on Admission?: Yes (9) Pseudomonas pneumonia: Place on Zosyn 3.75 mg IV every 8 hours, until source of oxygen desaturation is determined Present on Admission?: Yes (10) Hypothyroid: Continue levothyroxine 30 mcg daily Present on Admission?: Yes Admission and Anticipated Discharge Date Admission Date: October 12, 2019 Anticipated date of discharge: 10/14/19 History of Present Illness Chief Complaint: The patient presents to the emergency department with complaint of acute onset shortness of breath that began several hours prior to arrival, that she reports is unlike previous episodes of asthma/COPD flareups or CHF exacerbations. Primary Care Provider: Trace Noyola MD The patient is a 69-year-old female with a past medical history including pericardial effusion, psoriatic arthritis, osteoarthritis, psoriatic arthritis, hyperlipidemia, hypertension, eosinophilic asthma, history of DVT, history of PE, atrial fibrillation, anemia, rheumatoid arthritis, Pseudomonas pneumonia, pericardial effusion and hypothyroidism. She presents to the emergency department with relatively acute worsening of shortness of breath, that she reports is unlike her previous episodes of asthma and COPD exacerbations or CHF exacerbations. She denies any recent weight gain. She has not any recent travels. She has not had any sick exposures that she is aware of, however, her does go to the grocery store and bank, doctors office and other places on a routine basis. She is relatively immunocompromised on hydroxychloroquine, has a significant pulmonary and cardiac history, and is obese. Allergies Allergy/AdvReac Type Severity Reaction Status Date / Time pollen extracts Allergy Intermediate ASTHMA Verified 10/12/19 04:01 ATTACKS blue dye Allergy Unknown Verified 10/12/19 04:01 doxycycline AdvReac Intermediate VOMITING, Verified 10/12/19 04:01 IMBALANCE duloxetine AdvReac Intermediate SEVERE Verified 10/12/19 04:01 VOMITING leflunomide AdvReac Intermediate SEVERE Verified 10/12/19 04:01 VOMITING tetracycline AdvReac Intermediate CONFUSION,LIGHT Verified 10/12/19 04:01 HEADED, DIZZINESS cefuroxime AdvReac Mild UNCONTROLLED Verified 10/12/19 04:01 DIARRHEA celecoxib AdvReac Mild VOMITING Verified 10/12/19 04:01 clarithromycin AdvReac Mild VOMITING Verified 10/12/19 04:01 pregabalin AdvReac Mild HEADACHE, Verified 10/12/19 04:01 VOMITING salsalate AdvReac Unknown Nausea Verified 10/12/19 04:01 Home Medications Home Medications Medication Instructions Recorded Confirmed Type cholecalciferol (vitamin D3) 2,000 unit PO QAM 06/09/18 10/12/19 History [Vitamin D3] hydroxychloroquine 200 mg PO BID 06/09/18 10/12/19 History multivitamin 1 tab PO QAM 06/09/18 10/12/19 History sertraline 150 mg PO QAM 06/09/18 10/12/19 History ferrous sulfate [iron] 325 mg PO QAM 09/17/18 10/12/19 History gabapentin 100 - 200 mg PO HS PRN #0 cap 09/24/18 10/12/19 Rx furosemide 20 mg tablet 20 mg PO DAILY PRN #30 tab 12/07/18 10/12/19 Rx levothyroxine 25 mcg PO 2XWK 01/12/19 10/12/19 History tramadol 50 mg tablet 50 - 100 mg PO QID PRN #240 tab 03/01/19 10/12/19 History magnesium oxide 400 mg (241.3 mg 400 mg PO QAM tab 03/03/19 10/12/19 History magnesium) tablet metoprolol succinate 100 mg 100 mg PO BID #90 tab 03/19/19 10/12/19 Rx tablet,extended release 24 hr lisinopril 5 mg tablet 5 mg PO DAILY #30 tab 04/23/19 10/12/19 Rx rivaroxaban 20 mg tablet 20 mg PO QPM #30 tab 04/23/19 10/12/19 Rx atorvastatin 10 mg tablet 10 mg PO HS #30 tab 06/25/19 10/12/19 Rx folic acid 1 mg tablet 1 mg PO DAILY #30 tab 10/01/19 10/12/19 Rx levothyroxine 200 mcg tablet 200 mcg PO DAILY #30 tab 10/01/19 10/12/19 Rx prednisone 5 mg tablet 5 mg PO DAILY #30 tab 10/01/19 10/12/19 Rx sulfamethoxazole 800 1 tab PO BID 10 Days #20 tab 10/08/19 10/12/19 Rx mg-trimethoprim 160 mg tablet albuterol sulfate [ProAir 2 inh INHALATION Q4 PRN 10/12/19 10/12/19 History RespiClick] azelastine 1 spray INTRANASAL BID 10/12/19 10/12/19 History fluticasone propion-salmeterol 1 ea INHALATION BID 10/12/19 10/12/19 History [Wixela Inhub] tiotropium bromide [Spiriva 2 puff INHALATION DAILY 10/12/19 10/12/19 History Respimat] Past Med/Surg History Medical History Anemia Asthma Atrial fibrillation Atrial fibrillation (Resolved) Atrial flutter (Resolved) Chronic respiratory failure with hypoxia DVT (deep venous thrombosis) (Resolved) LEFT LEG Encounter for pre-operative examination Fibromyalgia H/O varicella Hypertension Hypothyroid Obesity On anticoagulant therapy XARELTO SINCE 06/2018 Osteoarthritis Pericardial effusion (Resolved) Pneumonia HX-LAST TIME 06/2018 [facility] Pneumonia Psoriatic arthritis Pulmonary embolism (Resolved) RIGHT LUNG Restless leg syndrome Rheumatoid arthritis F/U DR HANSEL RODRIGUEZ Surgical History History of arthroscopy History of section History of chest tube placement History of colonoscopy History of dilation and curettage History of esophagogastroduodenoscopy (EGD) History of gastric bypass History of herniorrhaphy History of total knee replacement R/L Family History Grandfather (Maternal) Coronary heart disease [place] Grandfather (Paternal) Coronary heart disease [place] Mother Anxiety Myocardial infarction Hypertension Family history of reaction to anesthesia SLOW TO WAKE Father Diabetes Hypertension Grandmother Kidney tumor Denies family history of Ovarian cancer Breast cancer Colorectal cancer Social History Preferred Language: Romansh Communication Ability: Effective Education Program Associate Required: No Beliefs That Will Affect Care: None marital status: Current Living Situation: Spouse current occupational status: retired Feels Safe at Home: Yes Smoking Status: Never smoker Second Hand Exposure: No ; Hx Alcohol Use: No Hx Substance Use: No Review of Systems Review of Systems: The patient denies chest pain, palpitations, cough, lower extremity swelling, sore throat, fevers, chills, sweats, weight change, nausea, vomiting, diarrhea , constipation, abdominal pain, pelvic pain, blood in urine or stool, dysuria, urinary frequency or urgency, lightheadedness, dizziness, headache, memory loss, loss of consciousness, rash, abnormal bruising or bleeding, imbalance, focal weakness, numbness or tingling in arms or legs, back pain, or night sweats. The review of systems is otherwise negative other than for that already noted above, and at least 10 systems have been reviewed. Physical Exam Physical Exam: The patient is awake, alert and oriented 3, well developed and well nourished, normocephalic and atraumatic, lying in bed and in mild to moderate respiratory distress as she attempts to talk. HEENT--PERRL, EOMI, mucous membranes and oropharynx very dry. Neck--supple. No JVD. No bruits. Thyroid normal, trachea midline, no adenopathy. Heart--normal S1 and S2. No murmurs, rubs or gallops. Lungs--coarse breath sounds bilaterally, scattered wheezes, with decreased breath sounds at the bases bilaterally. Mild to moderate respiratory distress without accessory muscle use when talks Abdomen--normal bowel sounds and soft. Nontender. Nondistended. Morbidly obese Extremities--no cyanosis or clubbing. No edema. Dermatologic--normal skin turgor, normal color, no abnormal lymph nodes, no rash. Neurologic--cranial nerves II through XII grossly intact. Rheumatologic--normal range of motion. Psychiatric--normal affect. Results & Data Results & Data ([facility]) Vital Signs (Past 12 Hours) Vital Signs Temp Pulse Pulse Resp BP BP Pulse Ox 10/12/19 05:00 61 20 102/81 10/12/19 04:19 63 22 90/69 L 94 10/12/19 03:45 77 17 98 10/12/19 03:44 98.1 F 73 24 114/88 92 Laboratory Results Laboratory Results WBC 8.45 K/uL (4.8-10.8) 10/12/19 03:30 RBC 4.97 M/uL (4.2-5.4) 10/12/19 03:30 Hgb 16.4 g/dL (12.0-16.0) H 10/12/19 03:30 Hct 49.2 % (37-47) H 10/12/19 03:30 MCV 99.0 fL (80-100) 10/12/19 03:30 MCH 33.0 pg (25-34) 10/12/19 03:30 MCHC 33.3 g/dL (32-36) 10/12/19 03:30 RDW Std Deviation 47.1 fL (36.4-46.3) H 10/12/19 03:30 RDW Coeff of Charmaine 13.2 % (11.5-14.5) 10/12/19 03:30 Plt Count 270 K/uL (130-400) 10/12/19 03:30 MPV 10.2 fL (7.4-10.4) 10/12/19 03:30 Immature Gran % (Auto) 0.2 % 10/12/19 03:30 Neut % (Auto) 65.6 % 10/12/19 03:30 Lymph % (Auto) 20.6 % 10/12/19 03:30 [place] % (Auto) 11.2 % 10/12/19 03:30 Eos % (Auto) 1.9 % 10/12/19 03:30 Baso % (Auto) 0.5 % 10/12/19 03:30 Immature Gran # (Auto) 0.02 K/uL (0.00-0.02) 10/12/19 03:30 Neut # (Auto) 5.54 K/uL (1.4-6.5) 10/12/19 03:30 Lymph # (Auto) 1.74 K/uL (1.2-3.4) 10/12/19 03:30 [place] # (Auto) 0.95 K/uL (0.11-0.59) H 10/12/19 03:30 Eos # (Auto) 0.16 K/uL (0-0.5) 10/12/19 03:30 Baso # (Auto) 0.04 K/uL (0-0.2) 10/12/19 03:30 Sodium 137 mmol/L (136-145) 10/12/19 03:30 Potassium 4.5 mmol/L (3.5-5.1) 10/12/19 03:30 Chloride 98 mmol/L (98-107) 10/12/19 03:30 Carbon Dioxide 31 mmol/L (21-32) 10/12/19 03:30 Anion Gap 8.0 (3-11) 10/12/19 03:30 BUN 28 mg/dl (7-18) H 10/12/19 03:30 Creatinine 1.47 mg/dl (0.6-1.2) H 10/12/19 03:30 Est Cr Clr Drug Dosing 33.9 ml/min 10/12/19 03:30 Est GFR ( Amer) 42.4 10/12/19 03:30 Est GFR (Non-Af Amer) 36.6 10/12/19 03:30 BUN/Creatinine Ratio 19.0 (10-20) 10/12/19 03:30 Glucose 91 mg/dl (70-99) 10/12/19 03:30 Calcium 9.2 mg/dl (8.5-10.1) 10/12/19 03:30 Magnesium 2.7 mg/dl (1.8-2.4) H 10/12/19 03:30 Total Bilirubin 0.4 mg/dl (0.2-1) 10/12/19 03:30 AST 31 U/L (15-37) 10/12/19 03:30 ALT 25 U/L (12-78) 10/12/19 03:30 Alkaline Phosphatase 124 U/L (45-117) H 10/12/19 03:30 Troponin I 0.046 ng/ml (0-0.045) H* 10/12/19 03:30 NT-Pro-B Natriuret Pep 1848 pg/ml (0-900) H 10/12/19 03:30 Total Protein 8.0 gm/dl (6.4-8.2) 10/12/19 03:30 Albumin 3.8 gm/dl (3.4-5.0) 10/12/19 03:30 Globulin 4.2 gm/dl (2.5-4.0) H 10/12/19 03:30 Albumin/Globulin Ratio 0.9 (0.9-2) 10/12/19 03:30 Lipase 236 U/L (73-393) 10/12/19 03:30 Influenza Type A (PCR) Neg for Influ A (Neg) 10/12/19 05:40 Influenza Type B (PCR) Neg for Influ B (Neg) 10/12/19 05:40 Code Status & VTE Plan Code Status Full code VTE Prophylaxis Plan VTE Prophylaxis will be ordered: Yes PG Care Time/CCT Total # of Minutes Spent Total Time Spent with Patient: Total time spent is greater than 50% in coordination of care (as documented) at patient's floor/unit and/or counseling patient: Coding Level of Care Code 07738 Initial Inpt Care Lvl 3 Diagnoses Acute on chronic respiratory failure with hypoxia J96.21 Elevated troponin R79.89 Psoriatic arthritis L40.50 Hyperlipidemia E78.5 Eosinophilic asthma J82 History of DVT (deep vein thrombosis) Z86.718 History of pulmonary embolism Z86.711 Atrial fibrillation I48.91 Pseudomonas pneumonia J15.1 Laterality: bilateral Lung location: unspecified part of lung Hypothyroid E03.9 Hypothyroidism type: unspecified (1) Pseudomonas pneumonia Laterality: bilateral Lung location: unspecified part of lung Qualified Code(s): J15.1 - Pneumonia due to Pseudomonas (2) Hypothyroid Hypothyroidism type: unspecified Qualified Code(s): E03.9 - Hypothyroidism, unspecified
--- NOTE | 2019-10-12 07:13 | XRay Report ---
XR chest 1V portable CLINICAL HISTORY: 69 years-old Female presenting with sob. TECHNIQUE: Portable upright AP view of the chest was obtained. COMPARISON: 01/12/2019. FINDINGS: Atherosclerosis of the aortic arch. Cardiac silhouette enlarged. Low lung volumes as on prior exam. B lunting of the costovertebral angles likely relates to chronic bibasilar opacities and trace pleural thickening. No new focal opacity. No large effusion or pneumothorax. Subtle deformity of the lateral left sixth or seventh rib, possibly posttraumatic. Degenerative changes of the thoracic spine. Upper abdomen normal. IMPRESSION: 1. Chronically low lung volumes with suspected bibasilar scarring. No superimposed infiltrate. 2. Cardiomegaly without evidence of volume overload or congestive change. ACT 112: Negative or not required by law. Electronically signed by: Julio Cesar Kauffman M.D. 10/12/2019 7:12 AM
[2019-10-12] MEDS ORDERED: predniSONE 10 MG TABLET PO SCH (09:00)
[2019-10-12] MEDS ORDERED: NITROGLYCERIN SL 0.4 MG/TAB TAB SL PRN (09:21)
[2019-10-12] MEDS ORDERED: ALUMINUM/MAGNESIUM SUSP 30 ML UDC PO PRN (09:21)
[2019-10-12] MEDS ORDERED: MAGNESIUM HYDROXIDE SUSP 30 ML UDC PO PRN (09:21)
[2019-10-12] MEDS ORDERED: methylPREDNISolone 125 MG in SYRINGE 0 ML IV ONE (10:00)
[2019-10-12] MEDS: guaiFENesin 600 MG TABCR PO SCH ×2 (10:09→21:07)
[2019-10-12] MEDS: FERROUS SULFATE 325 MG TAB PO SCH (10:09)
[2019-10-12] MEDS: SERTRALINE HCL 50 MG TABLET PO SCH (10:09)
[2019-10-12] MEDS: FOLIC ACID 1 MG TAB PO SCH (10:09)
[2019-10-12] MEDS: MAGNESIUM OXIDE 400 MG TAB PO SCH (10:09)
[2019-10-12] MEDS: MULTIVITAMIN TAB PO SCH (10:09)
[2019-10-12] MEDS: LEVOTHYROXINE SODIUM 200 MCG TABLET PO SCH (10:09)
[2019-10-12] MEDS: HYDROXYCHLOROQUINE SULFATE 200 MG TAB PO SCH ×2 (10:34→22:12)
[2019-10-12] MEDS: lisinopriL 5 MG TAB PO SCH (10:34)
[2019-10-12] MEDS: METOPROLOL SUCC 50MG EXT REL TAB PO SCH ×2 (10:34→21:09)
[2019-10-12 10:37] LABS: Thyroid Stimulating Hormone 6.99 uIu/ml (0.300-4.500); Troponin I 0.053 ng/ml (0-0.045)
[2019-10-12] MEDS: DOXYCYCLINE HYCLATE 100 MG in DEXTROSE 5% 100 ML IV SCH ×2 (10:53→23:10)
[2019-10-12 11:01] LABS: T4 Free Thyroxine 1.16 ng/dl (0.8-1.6)
[2019-10-12] MEDS: PIPERACILLIN/TAZOBACTAM 3.375 GM in DEXTROSE 5% 100 ML IV SCH ×2 (12:15→21:06)
--- NOTE | 2019-10-12 18:11 | XCELERA ---
[id number]
--- NOTE | 2019-10-12 19:09 | Communication Note ---
Date of Service: October 12, 2019 Patient was seen and examined but admitted the same day therefore I will not be billing for this encounter. Discussed with patient and over the phone. Biggest concern if difficulty with her lifting her head for the last 4 weeks. Associated with rheumatoid flare. Therefore XR cervical spine felx/ext ordered to assess antlato-axial stability - which was normal for this but she has extensive arthritis throughout her cervical spine. Given extensive history of pseudomonas pneumonia CT chest ordered to assess lower right base which showed no evidence of pneumonia. Procalcitonin also discontinued. No pericardial effusion on CT or echo (prior history of requiring pericardial window) COVID-19 negative therefore patient given IV methylprednisone with improvement with her breathing throughout the day. No wheezing on exam by myself but noted this on admission Suspect SOB and hypoxia combination of asthma exacerbation, obesity hypoventilation, PITER, hypoventilation due to neck flexion. Unclear cause of neck flexion abnormality currently and will continue to reassess with steroids.
--- NOTE | 2019-10-12 20:57 | CT Scan Report ---
CT OF THE CHEST WITHOUT IV CONTRAST CLINICAL HISTORY: hypoxia, Hx cavitary lesion, pseudomonas COMPARISON STUDY: Chest CT May 31, 2019. Chest radiograph performed earlier today. CT DOSE: 497.22 mGycm TECHNIQUE: Axial images of the chest were obtained without IV contrast. Images were reviewed in the axial, sagittal, and coronal planes. IV contrast was not administered for this examination. Automat ed exposure control was utilized for the study. A dose lowering technique was utilized adhering to t he principles of ALARA. FINDINGS: No enlarged axillary, mediastinal or hilar lymph nodes are present. Moderate cardiomegaly is noted. This is unchanged. There is no pericardial effusion. Extensive coronary artery calcificatio n is noted. Mild dilatation of the ascending aorta, measuring 4.1 cm, is unchanged. A small hiatal he rnia is noted. Postoperative findings within the proximal stomach are partially imaged. Lung volumes are diminished. This is unchanged. Subpleural opacities reflect atelectasis. A trace right pleural ef fusion is noted. There is no pneumothorax. Postoperative findings within the right lower lobe are not ed. Postoperative appearance is unchanged. There is no consolidation to suggest pneumonia. Groundglas s and linear opacities within lungs reflect atelectasis. There is no consolidation to suggest pneumon ia. No suspicious pulmonary nodules are present. There are calcified right hilar lymph nodes. Several healed left rib fractures are noted. No suspicious lesions within the bony thorax are noted. IMPRESSION: 1. No consolidation to suggest pneumonia. 2. Lung volumes, unchanged. Trace right pleural effusion. No pneumothorax. 3. Moderate cardiomegaly and extensive coronary artery calcification. ACT 112: Negative or not required by law. Electronically signed by: Sesar Evangelista M.D. 10/12/2019 8:56 PM
[2019-10-12] MEDS: ATORVASTATIN 10 MG TAB PO SCH (21:08)
[2019-10-12] MEDS: GABAPENTIN 100 MG CAP PO SCH (21:08)
[2019-10-12] MEDS: RIVAROXABAN 20 MG TAB PO SCH (21:09)
--- NOTE | 2019-10-12 21:09 | XRay Report ---
XR cervical spine w flex/ext CLINICAL HISTORY: atlanto-axial instability COMPARISON STUDY: Cervical spine radiographs January 15, 2016. FINDINGS: Exam was mildly compromised due to difficulty positioning. C6 and C7 are obscured on latera l projections. There is leftward tilt of the head. There is no evidence for C1-C2 instability. No fra cture is shown within visualized portions of the spine. Moderate multilevel degenerative disc disease and facet arthrosis is noted. IMPRESSION: 1. Technically difficult exam but no evidence for C1-C2 instability during flexion or extension. 2. C6 and C7 obscured on lateral projections. No fracture within visualized portions of the cervical spine. 3. Moderate multilevel degenerative disc disease and facet arthrosis within the cervical spine. 4. Persistent leftward tilt of the head, possibly positional. ACT 112: Negative or not required by law. Electronically signed by: Sesar Evangelista M.D. 10/12/2019 9:08 PM
[2019-10-12] MEDS: TRAMADOL HCL 50 MG TABLET PO PRN (21:13)
[2019-10-12] MEDS ORDERED: UMECLIDINIUM BROMIDE 62.5MCG/BLISTER 7 PUFFS/INHALER INH PRN (23:27)
[2019-10-13] MEDS ORDERED: FLUTICASONE/VILANTEROL 200/25MCG 14 PUFFS/INHALER INH SCH ×3 (00:30→09:00)
[2019-10-13] MEDS: ALBUTEROL 0.5% NEB SOLN 2.5 MG/0.5 ML VIAL NEB PRN (01:02)
[2019-10-13] MEDS: WIXELA INH SCH ×3 (01:32→21:25)
--- NOTE | 2019-10-13 05:27 | Electrocardiogram Report ---
Test Reason : Blood Pressure : / mmHG Vent. Rate : 071 BPM Atrial Rate : 071 BPM P-R Int : 258 ms QRS Dur : 118 ms QT Int : 440 ms P-R-T Axes : 000 264 096 degrees QTc Int : 478 ms Sinus rhythm with 1st degree A-V block Right bundle branch block Possible Anterior infarct (cited on or before 12-JAN-2019) Abnormal ECG When compared with ECG of 08-MAR-2019 07:56, Right bundle branch block is now Present Confirmed by Jean Carlos Rivas ([id number]) on 10/13/2019 5:26:54 AM Referred By: REFERRED SELF Confirmed By:Jean Carlos Rivas
[2019-10-13] MEDS: LEVOTHYROXINE SODIUM 200 MCG TABLET PO SCH (05:41)
[2019-10-13 07:08] LABS: Basophils # (auto) 0.02 K/uL (0-0.2); Basophils % (auto) 0.2 %; Eosinophils # (auto) 0.09 K/uL (0-0.5); Hematocrit (blood only) 43.2 % (37-47); Hemoglobin 14.1 g/dL (12.0-16.0); Immature Granulocytes # (auto) 0.02 K/uL (0.00-0.02); Immature Granulocytes % (auto) 0.2 %; Lymphocytes # (auto) 1.48 K/uL (1.2-3.4); Lymphocytes % (auto) 15.8 %; Mean Corpuscular Hemoglobin 32.9 pg (25-34); Mean Corpuscular Hgb Conc 32.6 g/dL (32-36); Mean Corpuscular Volume 100.7 fL (80-100); Mean Platelet Volume 9.9 fL (7.4-10.4); Monocytes # (auto) 1.29 K/uL (0.11-0.59); Monocytes % (auto) 13.8 %; Neutrophils # (auto) 6.44 K/uL (1.4-6.5); Platelet Count 233 K/uL (130-400); RDW Coefficient of Variation 13.3 % (11.5-14.5); RDW Standard Deviation 48.5 fL (36.4-46.3); Red Blood Count 4.29 M/uL (4.2-5.4); White Blood Count 9.34 K/uL (4.8-10.8)
[2019-10-13 07:19] LABS: INR 1.1 (0.9-1.1); Partial Thromboplastin Ratio 1.2; Partial Thromboplastin Time 32.1 Seconds (21.0-31.0); Prothrombin Time 11.9 Seconds (9.0-12.0)
[2019-10-13 07:37] LABS: Albumin Level 3.2 gm/dl (3.4-5.0); BUN Creatinine Ratio 24.4 (10-20); Creatinine Clr Calc Pharmacy 31.8 ml/min; Est GFR (African American) 40.4; Est GFR (Non-African American) 34.8; Magnesium 2.6 mg/dl (1.8-2.4); Potassium 5.1 mmol/L (3.5-5.1)
[2019-10-13 07:42] LABS: Albumin Globulin Ratio 0.9 (0.9-2); Bilirubin,Total 0.4 mg/dl (0.2-1); Globulin 3.4 gm/dl (2.5-4.0); Total Protein 6.6 gm/dl (6.4-8.2)
[2019-10-13] MEDS: FOLIC ACID 1 MG TAB PO SCH (07:56)
[2019-10-13] MEDS: FERROUS SULFATE 325 MG TAB PO SCH (07:56)
[2019-10-13] MEDS: CHOLECALCIFEROL 1,000 UNITS 25 MCG TAB PO SCH (07:56)
[2019-10-13] MEDS: MULTIVITAMIN TAB PO SCH (07:56)
[2019-10-13] MEDS: SERTRALINE HCL 50 MG TABLET PO SCH (07:57)
[2019-10-13] MEDS: MAGNESIUM OXIDE 400 MG TAB PO SCH (07:57)
[2019-10-13] MEDS: guaiFENesin 600 MG TABCR PO SCH ×2 (07:57→21:24)
[2019-10-13] MEDS: HYDROXYCHLOROQUINE SULFATE 200 MG TAB PO SCH ×2 (07:58→22:15)
[2019-10-13] MEDS: SPIRIVA RESPIMAT INH SCH (07:59)
[2019-10-13] MEDS: METOPROLOL SUCC 50MG EXT REL TAB PO SCH ×2 (08:03→21:26)
[2019-10-13] MEDS: lisinopriL 5 MG TAB PO SCH (08:03)
[2019-10-13] MEDS ORDERED: UMECLIDINIUM BROMIDE 62.5MCG/BLISTER 7 PUFFS/INHALER INH SCH (09:00)
[2019-10-13] MEDS ORDERED: predniSONE 20 MG TAB PO SCH (09:00)
[2019-10-13 17:38] LABS: Creatine Kinase MB 4.2 ng/ml (0.5-3.6)
--- NOTE | 2019-10-13 18:00 | Neurology Consultation ---
Date of Consultation October 13, 2019 Assessment & Plan (1) Acute on chronic respiratory failure with hypoxia: (2) Acute dyspnea: Savanna Cleary is a 69 yo woman w/ PMH of anemia, asthma, history of atrial fibrillation, history of DVT/PE on Xarelto, fibromyalgia, hypertension, hypothyroidism, psoriatic arthritis, restless leg syndrome, rheumatoid arthritis on Plaquenil, and history of chronic respiratory failure with hypoxia who presented to [facility] on 10/12/2019 with worsening shortness of breath. # Acute on chronic dyspnea: Given constellation of worsening dyspnea/new diplopia and dysphagia, symptoms could represent new onset myasthenia gravis. DDx includes brainstem pathology, generalized fatigue, pharyngealcervicalbrachial variant GBS. Would recommend the following testing to confirm this diagnosis: - send for binding/blocking/modulating AChR antibodies, MUSK antibodies - will need urgent outpatient EMG (within 1 week) with repetitive stimulation - NIF/VC q6h while awake (goal NIV>-20, VC>1000) -> low threshold to transfer to ICU for BiPAP vs intubation if she goes below this value - if intubation required, recommend IVIG at 0.4mg/kg/day given over 5 days (dX/5) - Speech consult if any bulbar symptoms, NPO except meds until cleared by speech - would obtain MRI brain and C-spine to r/o other lesion as possible cause of symptoms - Could consider trial with mestinon if no other cause of symptoms found Thank you for this interesting consult. Plan of care discussed with primary team. Please call or text with questions. (3) Hypertension: (4) Hyperlipidemia: (5) Asthma: (6) Rheumatoid arthritis: (7) Hypothyroid: (8) Psoriatic arthritis: History of Present Illness Attending Physician: Wesley Craft MD History of Present Illness Savanna Cleary is a 69 yo woman w/ PMH of anemia, asthma, history of atrial fibrillation, history of DVT/PE on Xarelto, fibromyalgia, hypertension, hypothyroidism, psoriatic arthritis, restless leg syndrome, rheumatoid arthritis on Plaquenil, and history of chronic respiratory failure with hypoxia who presented to [facility] on 10/12/2019 with worsening shortness of breath. She was seen in the ED where she was noted to have low O2 sats in the 80s and desat to the 70s with any movement. She was placed on nasal cannula, then a nonrebreather, and then started on BiPAP with improvement in oxygenation and work of breathing. She denied any fevers, chills, chest pain or symptoms of upper respiratory infection. Labs in the ED showed WBC 8.45, hemoglobin 16.4, platelets 270, BUN 28, creatinine 1.47, glucose 91, normal AST/ALT, mildly elevated troponin 0 0.046, elevated BNP 1848, lipase 236, calcium 9.2, mag 2.7. COVID PCR sent and was negative, as well as negative flu a/flu B. Chest x-ray shows chronically low lung volumes with suspected bibasilar scarring, no superimposed infiltrate, cardiomegaly without evidence of volume overload. CT chest shows no consolidation to suggest pneumonia, trace of right pleural effusion, moderate cardiomegaly with extensive coronary artery calcification. Further testing after admission shows no evidence of C1/C2 instability during flexion or extension on cervical spine x-ray, moderate multilevel degenerative disc disease. On examination, she reports that about 4 weeks ago she noticed pain in bilateral hands that slowly spread to bilateral elbows and then up to the bilateral shoulders. Around that time she also started to notice neck pain and felt like her head was drooping forward. About 3 weeks ago, she noticed her left eye wo uld be droopy and she would have associated diplopia and dysphasia. She denies any overt coughing or choking episodes, but has noted that it is more difficult to swallow food. She has never had anything like this in the past. She is continued on her home medications which include Plaquenil 200 mg twice daily, magnesium 400 mg daily, metoprolol 100 mg twice daily, Xarelto 20 mg daily, and home tramadol as needed for pain. She denies any recent illnesses, fevers, infections, rash or changes in medication. Allergies Allergy/AdvReac Type Severity Reaction Status Date / Time pollen extracts Allergy Intermediate ASTHMA Verified 10/12/19 04:01 ATTACKS blue dye Allergy Unknown Verified 10/12/19 04:01 doxycycline AdvReac Intermediate VOMITING, Verified 10/12/19 04:01 IMBALANCE duloxetine AdvReac Intermediate SEVERE Verified 10/12/19 04:01 VOMITING leflunomide AdvReac Intermediate SEVERE Verified 10/12/19 04:01 VOMITING tetracycline AdvReac Intermediate CONFUSION,LIGHT Verified 10/12/19 04:01 HEADED, DIZZINESS cefuroxime AdvReac Mild UNCONTROLLED Verified 10/12/19 04:01 DIARRHEA celecoxib AdvReac Mild VOMITING Verified 10/12/19 04:01 clarithromycin AdvReac Mild VOMITING Verified 10/12/19 04:01 pregabalin AdvReac Mild HEADACHE, Verified 10/12/19 04:01 VOMITING salsalate AdvReac Unknown Nausea Verified 10/12/19 04:01 Home Medications Home Medications Medication Instructions Recorded Confirmed Type cholecalciferol (vitamin D3) 2,000 unit PO QAM 06/09/18 10/12/19 History [Vitamin D3] hydroxychloroquine 200 mg PO BID 06/09/18 10/12/19 History multivitamin 1 tab PO QAM 06/09/18 10/12/19 History sertraline 150 mg PO QAM 06/09/18 10/12/19 History ferrous sulfate [iron] 325 mg PO QAM 09/17/18 10/12/19 History gabapentin 100 - 200 mg PO HS PRN #0 cap 09/24/18 10/12/19 Rx furosemide 20 mg tablet 20 mg PO DAILY PRN #30 tab 12/07/18 10/12/19 Rx levothyroxine 25 mcg PO 2XWK 01/12/19 10/12/19 History tramadol 50 mg tablet 50 - 100 mg PO QID PRN #240 tab 03/01/19 10/12/19 History magnesium oxide 400 mg (241.3 mg 400 mg PO QAM tab 03/03/19 10/12/19 History magnesium) tablet metoprolol succinate 100 mg 100 mg PO BID #90 tab 03/19/19 10/12/19 Rx tablet,extended release 24 hr lisinopril 5 mg tablet 5 mg PO DAILY #30 tab 04/23/19 10/12/19 Rx rivaroxaban 20 mg tablet 20 mg PO QPM #30 tab 04/23/19 10/12/19 Rx atorvastatin 10 mg tablet 10 mg PO HS #30 tab 06/25/19 10/12/19 Rx folic acid 1 mg tablet 1 mg PO DAILY #30 tab 10/01/19 10/12/19 Rx levothyroxine 200 mcg tablet 200 mcg PO DAILY #30 tab 10/01/19 10/12/19 Rx prednisone 5 mg tablet 5 mg PO DAILY #30 tab 10/01/19 10/12/19 Rx sulfamethoxazole 800 1 tab PO BID 10 Days #20 tab 10/08/19 10/12/19 Rx mg-trimethoprim 160 mg tablet albuterol sulfate [ProAir 2 inh INHALATION Q4 PRN 10/12/19 10/12/19 History RespiClick] azelastine 1 spray INTRANASAL BID 10/12/19 10/12/19 History fluticasone propion-salmeterol 1 ea INHALATION BID 10/12/19 10/12/19 History [Wixela Inhub] tiotropium bromide [Spiriva 2 puff INHALATION DAILY 10/12/19 10/12/19 History Respimat] Patient History Medical History Anemia Asthma Atrial fibrillation Atrial fibrillation (Resolved) Atrial flutter (Resolved) Chronic respiratory failure with hypoxia DVT (deep venous thrombosis) (Resolved) LEFT LEG Encounter for pre-operative examination Fibromyalgia H/O varicella Hypertension Hypothyroid Obesity On anticoagulant therapy XARELTO SINCE 06/2018 Osteoarthritis Pericardial effusion (Resolved) Pneumonia HX-LAST TIME 06/2018 [facility] Pneumonia Psoriatic arthritis Pulmonary embolism (Resolved) RIGHT LUNG Restless leg syndrome Rheumatoid arthritis F/U DR HANSEL RODRIGUEZ Surgical History History of arthroscopy History of section History of chest tube placement History of colonoscopy History of dilation and curettage History of esophagogastroduodenoscopy (EGD) History of gastric bypass History of herniorrhaphy History of total knee replacement R/L Family History Grandfather (Maternal) Coronary heart disease [place] Grandfather (Paternal) Coronary heart disease [place] Mother Anxiety Myocardial infarction Hypertension Family history of reaction to anesthesia SLOW TO WAKE Father Diabetes Hypertension Grandmother Kidney tumor Denies family history of Ovarian cancer Breast cancer Colorectal cancer Social History Preferred Language: French Communication Ability: Effective 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 Exam (Neuro) Physical Exam: General Exam: GEN: NAD, sitting in bed. HEENT: No conjunctival injection, no rhinorrhea. CV: RRR, no peripheral edema PULM: Increased work of breathing on NC, using accessory muscles if she talks for a prolonged period of time. Neuro Exam: MS: Awake and Alert. Oriented to person, place, and date. Speech fluent and appropriate without dysarthria or paraphasic errors. Language intact including naming, comprehension, repetition. Cognition and memory grossly intact. Attention intact. No neglect. CN: Visual stanton full. No extinction to double simultaneous stimuli. Unable to visualize fundi on fundoscopic exam. PERRLA OU. EOMI without nystagmus. Facial sensation intact to LT. Facial muscles full and symmetric. Hearing intact to conversation. Uvula midline with symmetric palatal elevation. Shoulder shrug normal. Tongue midline. Head strength 5/5 on flexion/extension. Able to count to 16 with one breath. No clear fatiguable ptosis. MOTOR: Normal bulk and tone. No pronator drift. BUE strength 5-/5 at deltoids, biceps, triceps, wrist flexors and extensors, and hand grasp bilaterally. BLE strength 5-/5 at iliopsoas, hamstrings, quadriceps, tibialis anterior, and ga strocnemius bilaterally. REFLEXES: 1+ at biceps, triceps, brachioradialis, trace patella and absent Achilles bilaterally. Flexor plantar responses bilaterally. SENSORY: Intact to LT without extinction to double simultaneous stimuli. COORDINATION: No dysmetria or ataxia on [id number] and [id number] bilaterally. Normal Ashwin bilaterally. GAIT: deferred given physical status Results & Data ([facility]) Vital Signs (Past 12 Hours) Vital Signs Temp Pulse Pulse Resp BP BP Pulse Ox 10/13/19 15:53 60 10/13/19 14:58 36.5 C 61 16 106/70 96 10/13/19 11:46 36.9 C 59 L 18 90/52 L 96 10/13/19 08:00 57 L 10/13/19 07:04 36.3 C L 55 L 18 91/70 L 98 PG Care Time/CCT Total # of Minutes Spent Total Time Spent with Patient: Total time spent is greater than 50% in co ordination of care (as documented) at patient's floor/unit and/or counseling patient: Coding Level of Care Code 88014 Initial Inpt Care Lvl 3 Diagnoses Acute on chronic respiratory failure with hypoxia J96.21 Acute dyspnea R06.00 Hypertension I10 Hyperlipidemia E78.5 Asthma J45.20 Asthma complication type: unspecified Asthma persistence: intermittent Asthma severity: unspecified severity Rheumatoid arthritis M06.9 Rheumatoid arthritis location: multiple sites Rheumatoid factor presence: unspecified presence Hypothyroid E03.9 Hypothyroidism type: unspecified Psoriatic arthritis L40.50 (1) Rheumatoid arthritis Rheumatoid arthritis location: multiple sites Rheumatoid factor presence: unspecified presence Qualified Code(s): M06.9 - Rheumatoid arthritis, unspecified (2) Hypothyroid Hypothyroidism type: unspecified Qualified Code(s): E03.9 - Hypothyroidism, unspecified (3) Asthma Asthma complication type: unspecified Asthma persistence: intermittent Asthma severity: unspecified severity Qualified Code(s): J45.20 - Mild intermittent asthma, uncomplicated
[2019-10-13 19:36] LABS: Allen Test POS (Pos); Base Excess ABG 0.6 mEq/L (-9-1.8); HCO3 ABG 25 mmol/L (19-24); Oxygen Saturation ABG 95.9 % (90-95); PCO2 ABG 41 mmHg (35-46); PO2 ABG 79 mmHg (80-95); pH ABG 7.41 (7.35-7.45)
--- NOTE | 2019-10-13 19:55 | Critical Care Consultation ---
Date of Consultation October 13, 2019 Assessment & Plan (1) Acute on chronic respiratory failure with hypoxia: 69-year-old female presents with generalized weakness and shortness of breath with concern for compromised airway/hypoventilation in the presence of presumed MG Neuro - Generalized weaknesspresumed myasthenia gravis, myasthenia panel pending -No evidence of C1-C2 instability during flexion or extension on x-ray of cervical spine -obtaining cervical spine and brain MRIs -Neurology consulted, will follow up recs -Patient evaluated for concern for shallow breathing/hypoventilation/respiratory compromise -Currently patient appears to be breathing efficiently, see respiratory for details, no current need for ICU Cardiac - HTNcontinue MTP HLDcontinue atorvastatin CHFEF mildly reduced to 40 to 45% on echo -BNP elevated, would be cautious with fluid intake -Strict I's and O's and daily weights -No pulmonary congestion on imaging Hypotensionwas mildly hypotensive earlier today and concern for adrenal insufficiency as prednisone to been stopped for concern for MG crisis -Now on hydrocortisone every 6, BP appears to have improved Respiratory - Acute on chronic hypoxic respiratory failurehistory of asthma/COPD, PE (on Xarelto), recent Pseudomonas pneumonia -Questionable respiratory compromise given weakness and presumed myasthenia gravis -Respiratory NIF -40, TV 820, ABG unremarkable -Patient appears to have good respiratory drive would not need ICU care at this time, however would continue to monitor closely and transfer if patient decompensates -Continue BiPAP at bedtime and as needed throughout the day -If intubation becomes indicated, consider patient high risk for cervical injury due to RA with extensive arthritis seen on cervical spine x-ray -CT chest unremarkable, small trace like pleural effusion, no consolidations -Continue supplemental oxygen and wean as tolerated, continue to monitor pulse ox GI - N.p.o. for difficulty swallowing, pending speech eval RENAL/LYTES - DENY on CKDcreatinine 1.5 with prior admission baseline 0.9 -Holding SIMONE -Careful with IV fluid resuscitation as patient has CHF and acute on chronic respiratory failure -Avoid nephrotoxins -Continue to monitor with routine BMPs, strict I's and O's - Strict I's and O's ENDO - Hypothyroidcontinue Synthroid RAcontinue Plaquenil HEME - H&H stable ID - No indication for infectious process at this time COVID-19 test negative LINES/IV ACCESS - PIV's DVT PROPHYLAXIS - SCDs, on Xarelto Thank you for allowing us to participate in the care of this patient. Please refer to my attending physician's documentation for any further recommendations. (2) Myasthenia gravis: (3) DENY (acute kidney injury): (4) Atrial fibrillation: (5) Elevated brain natriuretic peptide (BNP) level: (6) Pericardial effusion: (7) History of pulmonary embolism: (8) Asthma: (9) History of DVT (deep vein thrombosis): Supervising Physician Co-Signing Physician Notes Case was discussed with Tyler Phan, and agree with findings and plan as documented in the note. ICU was consulted as patient was having ptosis of the left eye lid. Patient has very complex history of pseudomonal pneumonia in the past and asthma was on Biologics in the past. Hospitalist was concerned that this is possible myasthenia gravis and she might decompensate given it can affect the respiratory muscles. I suggested to do an ABG to see what his her PCO2 at baseline. NIF of -40. Patient will need noninvasive ventilation preferably BiPAP nightly and PRN shortness of breath. If there is any clinical deterioration in her respiratory status will bring her to the ICU for possible monitoring and intubation. If the ABG does not show significant hypercapnia and patient is not in distress we will monitor the patient on the floor. History of Present Illness Attending Physician: Wesley Craft MD History of Present Illness Ms. Cleary is a 69-year-old female with PMH of RA, HLD, HTN, asthma, history of PE, A. fib, psoriatic arthritis, and hypothyroidism who was admitted to the hospital last night for complaints of shortness of breath and generalized weakness. Patient did receive Solu-Medrol for wheezing, suspected COPD exacerbation. There was concern after the patient developed diplopia for myasthenia gravis crisis. ICU was consulted to evaluate for respiratory fatigue and need for monitoring in ICU. Patient was seen and evaluated at the bedside. Patient states that she started developing generalized weakness approximately 5 weeks ago. She has had neck pain and has trouble lifting her head if it falls forward and continually props her head up with pillows. She denies headache, fevers, recent illness, sore throat, chest pain, palpitations, abdominal pain. She does report recent shortness of breath but is not currently short of breath and appears comfortable with nonlabored respiratory effort on exam. There is no evidence of C1-C2 instability during flexion or extension on cervical x-ray, however would obtain MRI of cervical spine and brain given neurological findings. A NIF was performed by respiratory therapist which showed good respiratory effort, and ABG within normal limits. At this time I do not feel that patient requires ICU monitoring, however would continue BiPAP HS and as needed throughout the day. If patient clinically decompensates, would be candidate for ICU monitoring and potential intubation. Please contact us if patient's clinical status changes/decompensates and needs progression of care. Allergies Allergy/AdvReac Type Severity Reaction Status Date / Time pollen extracts Allergy Intermediate ASTHMA Verified 10/12/19 04:01 ATTACKS blue dye Allergy Unknown Verified 10/12/19 04:01 doxycycline AdvReac Intermediate VOMITING, Verified 10/12/19 04:01 IMBALANCE duloxetine AdvReac Intermediate SEVERE Verified 10/12/19 04:01 VOMITING leflunomide AdvReac Intermediate SEVERE Verified 10/12/19 04:01 VOMITING tetracycline AdvReac Intermediate CONFUSION,LIGHT Verified 10/12/19 04:01 HEADED, DIZZINESS cefuroxime AdvReac Mild UNCONTROLLED Verified 10/12/19 04:01 DIARRHEA celecoxib AdvReac Mild VOMITING Verified 10/12/19 04:01 clarithromycin AdvReac Mild VOMITING Verified 10/12/19 04:01 pregabalin AdvReac Mild HEADACHE, Verified 10/12/19 04:01 VOMITING salsalate AdvReac Unknown Nausea Verified 10/12/19 04:01 Home Medications Home Medications Medication Instructions Recorded Confirmed Type cholecalciferol (vitamin D3) 2,000 unit PO QAM 06/09/18 10/12/19 History [Vitamin D3] hydroxychloroquine 200 mg PO BID 06/09/18 10/12/19 History multivitamin 1 tab PO QAM 06/09/18 10/12/19 History sertraline 150 mg PO QAM 06/09/18 10/12/19 History ferrous sulfate [iron] 325 mg PO QAM 09/17/18 10/12/19 History gabapentin 100 - 200 mg PO HS PRN #0 cap 09/24/18 10/12/19 Rx furosemide 20 mg tablet 20 mg PO DAILY PRN #30 tab 12/07/18 10/12/19 Rx levothyroxine 25 mcg PO 2XWK 01/12/19 10/12/19 History tramadol 50 mg tablet 50 - 100 mg PO QID PRN #240 tab 03/01/19 10/12/19 History magnesium oxide 400 mg (241.3 mg 400 mg PO QAM tab 03/03/19 10/12/19 History magnesium) tablet metoprolol succinate 100 mg 100 mg PO BID #90 tab 03/19/19 10/12/19 Rx tablet,extended release 24 hr lisinopril 5 mg tablet 5 mg PO DAILY #30 tab 04/23/19 10/12/19 Rx rivaroxaban 20 mg tablet 20 mg PO QPM #30 tab 04/23/19 10/12/19 Rx atorvastatin 10 mg tablet 10 mg PO HS #30 tab 06/25/19 10/12/19 Rx folic acid 1 mg tablet 1 mg PO DAILY #30 tab 10/01/19 10/12/19 Rx levothyroxine 200 mcg tablet 200 mcg PO DAILY #30 tab 10/01/19 10/12/19 Rx prednisone 5 mg tablet 5 mg PO DAILY #30 tab 10/01/19 10/12/19 Rx sulfamethoxazole 800 1 tab PO BID 10 Days #20 tab 10/08/19 10/12/19 Rx mg-trimethoprim 160 mg tablet albuterol sulfate [ProAir 2 inh INHALATION Q4 PRN 10/12/19 10/12/19 History RespiClick] azelastine 1 spray INTRANASAL BID 10/12/19 10/12/19 History fluticasone propion-salmeterol 1 ea INHALATION BID 10/12/19 10/12/19 History [Wixela Inhub] tiotropium bromide [Spiriva 2 puff INHALATION DAILY 10/12/19 10/12/19 History Respimat] Patient History Medical History Anemia Asthma Atrial fibrillation Atrial fibrillation (Resolved) Atrial flutter (Resolved) Chronic respiratory failure with hypoxia DVT (deep venous thrombosis) (Resolved) LEFT LEG Encounter for pre-operative examination Fibromyalgia H/O varicella Hypertension Hypothyroid Obesity On anticoagulant therapy XARELTO SINCE 06/2018 Osteoarthritis Pericardial effusion (Resolved) Pneumonia HX-LAST TIME 06/2018 [facility] Pneumonia Psoriatic arthritis Pulmonary embolism (Resolved) RIGHT LUNG Restless leg syndrome Rheumatoid arthritis F/U DR HANSEL RODRIGUEZ Surgical History History of arthroscopy History of section History of chest tube placement History of colonoscopy History of dilation and curettage History of esophagogastroduodenoscopy (EGD) History of gastric bypass History of herniorrhaphy History of total knee replacement R/L Family History Grandfather (Maternal) Coronary heart disease [place] Grandfather (Paternal) Coronary heart disease [place] Mother Anxiety Myocardial infarction Hypertension Family history of reaction to anesthesia SLOW TO WAKE Father Diabetes Hypertension Grandmother Kidney tumor Denies family history of Ovarian cancer Breast cancer Colorectal cancer Social History Preferred Language: Tam[place] Communication Ability: Effective Product Development Technician Required: No Beliefs That Will Affect Care: None marital status: Current Living Situation: Spouse current occupational status: retired Feels Safe at Home: Yes Smoking Status: Never smoker Second Hand Exposure: No ; Hx Alcohol Use: No Hx Substance Use: No Review of Systems Review of Systems: All systems reviewed & are unremarkable except as noted in HPI & below Physical Exam Constitutional: + frail appearing and comfortable; no acute distress Eyes: PERRL, conjunctivae normal, anicteric sclerae ENMT: external ear and nose normal, oropharynx normal Neck: trachea midline, no thyromegaly Respiratory: normal respiratory effort, lungs clear to auscultation symmetric chest movement; no labored breathing and not tachypneic Cardiovascular: RRR, no murmur, no edema Heart Sounds: normal S1 and normal S2 Extremities: normal capillary refill; no edema Gastrointestinal (Abdomen): normal bowel sounds, soft, nontender, no hepatosplenomegaly Musculoskeletal: Head/Neck/Chest: normocephalic and + limited ROM of neck Spine: + limited cervical ROM Extremities: strength 5/5 throughout Neurologic: PERRL, EOMI, accommodation nl, no face palsy, no dysarthria Psychiatric: A+Ox3, euthymic affect Results & Data Results & Data ([facility]) Vital Signs (Past 12 Hours) Vital Signs Temp Pulse Pulse Resp BP BP Pulse Ox 10/13/19 19:41 36.6 C 58 L 18 101/71 92 10/13/19 15:53 60 10/13/19 14:58 36.5 C 61 16 106/70 96 10/13/19 11:46 36.9 C 59 L 18 90/52 L 96 10/13/19 08:00 57 L Coding Level of Care Code 67137 Inpt Consult Level 5 Diagnoses Acute on chronic respiratory failure with hypoxia J96.21 Myasthenia gravis G70.00 DENY (acute kidney injury) N17.9 Atrial fibrillation I48.91 Elevated brain natriuretic peptide (BNP) level R79.89 Pericardial effusion I31.3 History of pulmonary embolism Z86.711 Asthma J45.20 Asthma complication type: unspecified Asthma persistence: intermittent Asthma severity: unspecified severity History of DVT (deep vein thrombosis) Z86.718 (1) Asthma Asthma complication type: unspecified Asthma persistence: intermittent Asthma severity: unspecified severity Qualified Code(s): J45.20 - Mild in termittent asthma, uncomplicated
--- NOTE | 2019-10-13 20:24 | Hospitalist Progress Note ---
Date of Service October 13, 2019 Assessment & Plan (1) Acute on chronic respiratory failure with hypoxia: Acute on chronic respiratory failure with hypoxia/history of Pseudomonas pneumonia/asthma/COPD/history of PE on Xarelto/eosinophilic asthma- Initial concern for asthma exacerbation yesterday given wheezing on exam on admission. COVID-[address] chest without acute changes and procalcitonin negative therefore antibiotics discontinued last night given no evidence of pneumonia despite extensive pseudomonas history last year. (2) Myasthenia gravis: Concern for this given respiratory fatigue out of proportion to CT, ABG findings. Now with diplopia and dropping of left eyelid new from yesterday ?exacerbated by solu-medrol. Myasthenia panel sent (send out test) Consult neurology - discussed with Dr Singh. VC and NIF as per ordered by neuro. Discussed with Dr Lai and will consult ICU to be aware of patient if she is to tire overnight she may require elective intubation although diagnosis far from certain. (3) Adrenal insufficiency: Possible diagnosis given chronic prednisone use. Potassium trending up and Na trending down with hypotension. Rx hydrocortisone 50mg IV Q6H (4) Hypotension: Concerning for above adrenal insufficiency with stress dose steroids as above Reduce metoprolol succinate to 50mg BID Discontinue lisinopril (5) Elevated troponin: Elevated troponin/paroxysmal atrial fibrillation/hypertension- Troponin 0 0.046 upon admission. The patient will be admitted to telemetry for serial cardiac enzymes, serial EKG's, cardiac rhythm monitoring and a 2-D echocardiogram with Dopplers. (6) Psoriatic arthritis: Start on hydrocortisone 50mg Q6H for adrenal insufficiency (7) Hyperlipidemia: Continue atorvastatin 10 mg daily (8) Eosinophilic asthma: As above. (9) History of DVT (deep vein thrombosis): History of DVT/PE- Continue Xarelto (10) History of pulmonary embolism: See above (11) Atrial fibrillation: Paroxysmal. Current in NSR. Anticoagulation with Xarelto. (12) Hypothyroid: TSH mildly elevated but free T4 WNL Continue levothyroxine 200 mcg daily Admission and Anticipated Discharge Date Admission Date: October 12, 2019 Subjective Patient reporting new left eye lid intermittent weakness today. Also having some problems swallowing "just not eating food correctly. New onset diplopia although this only occurs close up, this is new for her today. Ongoing neck extensor weakness with pain mainly when she extends her neck. Desaturating significantly on exertion. Ongoing shortness of breath - she reports possible improvement with steroids yesterday but not a large change. No chest pain, cough. No nausea, vomiting or abdominal pain. She prefers to use the BiPAP for breathing despite oxygenation being normal. Revisited history with patient and her . Slowly progressively worsening weakness with extending her head most notable when standing. No other proximal muscle weakness noted but she is spending longer sitting in the chair but has not noticed specific weakness when standing. Prior to today no eye or swallowing difficulty noted. Updated her over the phone. Informed about possible myasthenia gravis diagnosis and lab work was sent but antibodies would take some time to come back. Review of Systems Review of Systems: All systems reviewed & are unremarkable except as noted in HPI & below Constitutional: + fatigue and + malaise; no fever and no chills Eyes: as per Subjective / HPI Ear, Nose, Mouth, Throat: no ear pain Respiratory: + dyspnea and + dyspnea on exertion; no wheezing Neurologic: + localized weakness (neck extension); no loss of sensation Physical Exam Constitutional: well developed and + obese; no acute distress Eyes: + eyelid abnormality (drooping b/l, no unliateral difference noticed), + anicteric sclerae and PERRL; + EOM not intact (fatigue of left eye on prolonged superior vision), normal pupil size and no nystagmus diplopia with near vision eyebrow tremors b/l with intentional eye movements b/l ENMT: Nose: no external nose abnormality Mouth: no lip abnormality and no oropharynx abnormality Neck: trachea midline, no thyromegaly Respiratory: + labored breathing and + uses accessory muscles; + abnormal respiratory effort, no cough and + not able to speak in complete sentence Auscultation: lungs clear to auscultation bilaterally and + diminished lung sounds (throughout b/l); no crackles, no rales and no wheezes Cardiovascular: Rate/Rhythm: regular rate and regular rhythm Heart Sounds: no murmur Extremities: normal capillary refill; no calf tenderness and no pedal edema Gastrointestinal (Abdomen): normal bowel sounds, soft, nontender, no hepatosplenomegaly Skin: no rashes, warm and dry Neurologic: moves all extremities (generalized fatigue, no lateralizing pattern), + focal motor deficit (intact but weak neck extension b/l with muscle pain on palpation) and awake Psychiatric: A+Ox3, euthymic affect Results & Data Results & Data ([facility]) Vital Signs (Past 12 Hours) Vital Signs Temp Pulse Pulse Resp BP BP Pulse Ox 10/13/19 19:41 36.6 C 58 L 18 101/71 92 10/13/19 15:53 60 10/13/19 14:58 36.5 C 61 16 106/70 96 10/13/19 11:46 36.9 C 59 L 18 90/52 L 96 PG Care Time/CCT Total # of Minutes Spent Total Time Spent with Patient: Total time spent is greater than 50% in coordination of care (as documented) at patient's floor/unit and/or counseling patient: Coding Level of Care Code 75363 Subseq Hosp Care Lvl 3 Diagnoses Acute on chronic respiratory failure with hypoxia J96.21 Myasthenia gravis G70.00 Adrenal insufficiency E27.40 Hypotension I95.9 Hypotension type: unspecified hypotension type Elevated troponin R79.89 Psoriatic arthritis L40.50 Hyperlipidemia E78.5 Eosinophilic asthma J82 History of DVT (deep vein thrombosis) Z86.718 History of pulmonary embolism Z86.711 Atrial fibrillation I48.91 Hypothyroid E03.9 Hypothyroidism type: unspecified (1) Hypothyroid Hypothyroidism type: unspecified Qualified Code(s): E03.9 - Hypothyroidism, unspecified (2) Hypotension Hypotension type: unspecified hypotension type Qualified Code(s): I95.9 - Hypotension, unspecified
--- NOTE | 2019-10-13 20:54 | Magnetic Resonance Report ---
MR cervical spine wo con CLINICAL HISTORY: Severe neck pain, multiple sclerosis. TECHNIQUE: Sagittal and axial T1, T2 and STIR images were obtained. COMPARISON STUDY: X-ray study dated 10/12/2019 There are no suspicious areas of marrow replacement. No intrinsic cervical cord lesions are visualize d. The visualized portions of the brainstem reveal increased T2 signal within the leatha. C2-3: There is a mild circumferential disc bulge. There is no spinal or foraminal stenosis C3-4: There is a mild circumferential disc bulge. There is no significant spinal or foraminal stenosi s C4-5: There are no disc bulges or focal herniations. There is no spinal or foraminal stenosis. C5-6 :There is a disc osteophyte complex with mild spinal stenosis and bilateral foraminal narrowing right more severe than left C6-7: There is a disc osteophyte complex with mild spinal stenosis, and bilateral foraminal narrowing right more severe than left C7-T1: There is no evidence of disc bulge or focal herniation. There is no evidence of spinal or fora kvng stenosis. IMPRESSION: 1. Multilevel spondylytic changes 2. C5-C6 and C6-C7 disc osteophyte complexes with secondary mild spinal stenosis and bilateral forami nal narrowing 3. Increased T2 signal within the leatha. ACT 112: Negative or not required by law. Electronically signed by: Josh Carlisle M.D. 10/13/2019 8:53 PM
[2019-10-13] MEDS ORDERED: GADOBUTROL 65ML VIAL IV PRN (21:06)
[2019-10-13] MEDS: ACETAMINOPHEN 325 MG TAB PO PRN (21:23)
[2019-10-13] MEDS: LACTATED RINGER'S 1,000 ML IV SCH (21:23)
[2019-10-13] MEDS: HYDROCORTISONE SOD 50 MG in SYRINGE 0 ML IV SCH (21:24)
--- NOTE | 2019-10-13 21:25 | Magnetic Resonance Report ---
MRI OF THE BRAIN WITHOUT AND WITH IV CONTRAST CLINICAL HISTORY: eyelid drooping, neck weakness possible acute stroke COMPARISON STUDY: No previous studies for comparison. TECHNIQUE: MRI of the brain was performed from the vertex to the skull base utilizing various T1 and T2 weighted sequences. Following the IV administration of 7 mL of Gadavist contrast, additional enhan rivera images were obtained. FINDINGS: Sagittal T1, axial diffusion, proton density and T2 weighted axial, coronal FLAIR, and pre and post a xial T1-weighted images were acquired. These were supplemented with post gadolinium coronal T1 weight ed images. No intra or extra-axial mass lesions are visualized. Axial diffusion-weighted images reveal no evidence of acute or subacute infarction. There is no evidence of ventricular dilatation. Proton density T2-weighted and FLAIR images reveal scattered foci of increased T2 signal within the w chuck matter. In addition there is pontine pallor. While likely small vessel basis, a demyelinating pr ocess could appear similar. There is an equivocal 4 mm right MCA aneurysm. Nonemergent CT angiography of the brain is recommended in follow-up. There is no evidence of pathologic enhancement. IMPRESSION: 1. No evidence of intracranial mass 2. No evidence of acute or subacute infarction 3. Equivocal 4 mm right MCA aneurysm. Nonemergent CT angiography of the brain is recommended in follo w-up 4. Pontine pallor and scattered foci of increased T2 signal within the white matter. While likely a s mall vessel basis, a demyelinating process could appear similar. ACT 112: Negative or not required by law. Electronically signed by: Josh Carlisle M.D. 10/13/2019 9:24 PM
[2019-10-13] MEDS: GABAPENTIN 100 MG CAP PO SCH (22:15)
[2019-10-13] MEDS: ATORVASTATIN 10 MG TAB PO SCH (22:15)
[2019-10-13] MEDS: RIVAROXABAN 20 MG TAB PO SCH (22:15)
[2019-10-13] MEDS: TRAMADOL HCL 50 MG TABLET PO PRN (22:21)
[2019-10-14 02:06] LABS: Appearance Urine Clear (Clear); Bilirubin Urine Negative (Negative); Blood Urine Negative (Negative); Color Urine Yellow; Glucose Urine UA Negative (Negative); Ketones Urine Negative (Negative); Leukocyte Esterase Urine Negative (Negative); Nitrite Urine Negative (Negative); Protein Urine Negative (Negative); Specific Gravity Urine 1.017 (1.000-1.030); Urobilinogen Urine Negative (Negative)
[2019-10-14] MEDS: HYDROCORTISONE SOD 50 MG in SYRINGE 0 ML IV SCH ×4 (02:13→20:22)
--- NOTE | 2019-10-14 05:57 | Electrocardiogram Report ---
Test Reason : Blood Pressure : / mmHG Vent. Rate : 060 BPM Atrial Rate : 060 BPM P-R Int : 252 ms QRS Dur : 122 ms QT Int : 452 ms P-R-T Axes : 018 242 079 degrees QTc Int : 452 ms Sinus rhythm with 1st degree A-V block Right superior axis deviation Possible Anterior infarct (cited on or before 12-JAN-2019) Inferior infarct Abnormal ECG When compared with ECG of 12-OCT-2019 03:40, Right bundle branch block is no longer Present Confirmed by Jean Carlos Rivas ([id number]) on 10/14/2019 5:57:02 AM Referred By: REFERRED SELF Confirmed By:Jean Carlos Rivas
[2019-10-14] MEDS: LEVOTHYROXINE SODIUM 200 MCG TABLET PO SCH (06:18)
[2019-10-14] MEDS: LACTATED RINGER'S 1,000 ML IV SCH (06:20)
[2019-10-14 07:49] LABS: Eosinophils # (auto) 0.01 K/uL (0-0.5); Eosinophils % (auto) 0.1 %; Hematocrit (blood only) 41.7 % (37-47); Hemoglobin 13.6 g/dL (12.0-16.0); Immature Granulocytes # (auto) 0.02 K/uL (0.00-0.02); Immature Granulocytes % (auto) 0.2 %; Lymphocytes # (auto) 0.66 K/uL (1.2-3.4); Mean Corpuscular Hemoglobin 32.6 pg (25-34); Mean Corpuscular Hgb Conc 32.6 g/dL (32-36); Mean Platelet Volume 10.2 fL (7.4-10.4); Monocytes # (auto) 0.57 K/uL (0.11-0.59); Monocytes % (auto) 6.9 %; Neutrophils % (auto) 84.8 %; Platelet Count 227 K/uL (130-400); RDW Coefficient of Variation 13.5 % (11.5-14.5); RDW Standard Deviation 48.4 fL (36.4-46.3); Red Blood Count 4.17 M/uL (4.2-5.4); White Blood Count 8.26 K/uL (4.8-10.8)
[2019-10-14] MEDS: MULTIVITAMIN TAB PO SCH (07:58)
[2019-10-14] MEDS: MAGNESIUM OXIDE 400 MG TAB PO SCH (07:58)
[2019-10-14] MEDS: SERTRALINE HCL 50 MG TABLET PO SCH (07:59)
[2019-10-14] MEDS: FOLIC ACID 1 MG TAB PO SCH (07:59)
[2019-10-14] MEDS: METOPROLOL SUCC 50MG EXT REL TAB PO SCH ×2 (07:59→20:21)
[2019-10-14] MEDS: FERROUS SULFATE 325 MG TAB PO SCH (07:59)
[2019-10-14] MEDS: WIXELA INH SCH ×2 (08:00→20:19)
[2019-10-14] MEDS: SPIRIVA RESPIMAT INH SCH (08:01)
[2019-10-14] MEDS: guaiFENesin 600 MG TABCR PO SCH ×2 (08:01→20:21)
[2019-10-14] MEDS: CHOLECALCIFEROL 1,000 UNITS 25 MCG TAB PO SCH (08:02)
[2019-10-14 08:04] LABS: INR 1.1 (0.9-1.1); Partial Thromboplastin Ratio 1.1; Partial Thromboplastin Time 31.8 Seconds (21.0-31.0)
[2019-10-14] MEDS: HYDROXYCHLOROQUINE SULFATE 200 MG TAB PO SCH ×2 (08:04→20:25)
[2019-10-14 08:14] LABS: Folate (Folic Acid) > 24.00 ng/ml (>5.38); Vitamin B12 571 pg/ml (211-911)
[2019-10-14 08:22] LABS: BUN Creatinine Ratio 34.1 (10-20); Bilirubin,Total 0.4 mg/dl (0.2-1); Calcium 8.4 mg/dl (8.5-10.1); Creatinine Clr Calc Pharmacy 40.1 ml/min; Est GFR (African American) 53.6; Est GFR (Non-African American) 46.3; Globulin 3.1 gm/dl (2.5-4.0); Magnesium 2.5 mg/dl (1.8-2.4); Total Protein 6.1 gm/dl (6.4-8.2)
[2019-10-14] MEDS: LIDOCAINE 5% 1 PATCH TD SCH (13:00)
[2019-10-14] MEDS: ALBUTEROL 0.5% NEB SOLN 2.5 MG/0.5 ML VIAL NEB PRN ×2 (14:32→21:37)
--- NOTE | 2019-10-14 18:13 | Neurology Progress Note ---
Date of Service October 14, 2019 Assessment & Plan (1) Acute on chronic respiratory failure with hypoxia: (2) Acute dyspnea: Savanna Cleary is a 69 yo woman w/ PMH of anemia, asthma, history of atrial fibrillation, history of DVT/PE on Xarelto, fibromyalgia, hypertension, hypothyroidism, psoriatic arthritis, restless leg syndrome, rheumatoid arthritis on Plaquenil, and history of chronic respiratory failure with hypoxia who presented to [facility] on 10/12/2019 with worsening shortness of breath. # Acute on chronic dyspnea: Given constellation of worsening dyspnea/new diplopia and dysphagia, symptoms could represent new onset myasthenia gravis. DDx includes brainstem pathology, generalized fatigue given elevated TSH (but normal free T4), pharyngealcervicalbrachial variant GBS. Given the MRI findings, cannot r/o CLIPPERS. - send for binding/blocking/modulating AChR antibodies, MUSK antibodies (ordered) - will need urgent outpatient EMG (within 1 week) with repetitive stimulation - NIF/VC q6h while awake (goal NIV>-20, VC>1000) -> low threshold to transfer to ICU for BiPAP vs intubation if she goes below this value - if intubation required, recommend starting IVIG at 0.4mg/kg/day given over 5 days - given MRI findings, would recommend obtaining LP with opening pressure, glucose, protein, cell counts, MS panel, cytology - Could consider trial with mestinon if no other cause of symptoms found Thank you for this interesting consult. Plan of care discussed with primary team. Please call or text with questions. (3) Hypertension: (4) Hyperlipidemia: (5) Asthma: (6) Rheumatoid arthritis: (7) Hypothyroid: (8) Psoriatic arthritis: Admission and Anticipated Discharge Date Admission Date: October 12, 2019 Anticipated date of discharge: 10/14/19 Subjective NAEs overnight. Appears to be breathing much more comfortably today on examination. Reports no new neurological symptoms. MRI brain and C-spine obtained overnight and notable for no acute infarct, old hemorrhage in the right basal ganglia, scattered T2 hyperintensities likely representing moderate SVID, and pontine T2 hyperintensity without any associated contrast enhancement. MRI of the C-spine showed multilevel spondylitic changes with mild spinal stenosis at C5-C6 and C6-C7 from bilateral severe neuroforaminal stenosis at those levels; T2 hyperintensity within the leatha is also noted on this image. Review of Systems Review of Systems: 14 point review of systems completed and negative except as in HPI. Results & Data ([facility]) Vital Signs (Past 12 Hours) Vital Signs Temp Pulse Resp BP BP Pulse Ox 10/14/19 15:31 36.6 C 69 22 107/74 95 10/14/19 14:32 72 18 97 10/14/19 12:00 36.3 C L 60 18 107/75 97 10/14/19 07:00 36.3 C L 54 L 18 120/80 100 Exam (Neuro) Physical Exam: General Exam: GEN: NAD, sitting in bed. HEENT: No conjunctival injection, no rhinorrhea. CV: RRR, no peripheral edema PULM: INon-labored on NC Neuro Exam: MS: Awake and Alert. Oriented to person, place, and date. Speech fluent and appropriate without dysarthria or paraphasic errors. Language intact including naming, comprehension, repetition. Cognition and memory grossly intact. Attention intact. No neglect. CN: Visual stanton full. No extinction to double simultaneous stimuli. Unable to visualize fundi on fundoscopic exam. PERRLA OU. EOMI without nystagmus. Facial sensation intact to LT. Facial muscles full and symmetric except for L eye ptosis. Hearing intact to conversation. Uvula midline with symmetric palatal elevation. Shoulder shrug normal. Tongue midline. Head strength 5/5 on flexion/extension. Able to count to 20 with one breath. No clear fatiguable ptosis. MOTOR: Normal bulk and tone. No pronator drift. BUE strength 5-/5 at deltoids, biceps, triceps, wrist flexors and extensors, and hand grasp bilaterally. BLE st rength 5-/5 at iliopsoas, hamstrings, quadriceps, tibialis anterior, and gastrocnemius bilaterally. REFLEXES: 1+ at biceps, triceps, brachioradialis, trace patella and absent Achilles bilaterally. Flexor plantar responses bilaterally. SENSORY: Intact to LT without extinction to double simultaneous stimuli. COORDINATION: No dysmetria or ataxia on [id number]-[id number]-ebia and gwve-zl-gdyw bilaterally. Normal Ashwin bilaterally. GAIT: deferred given physical status PG Care Time/CCT Total # of Minutes Spent Total Time Spent with Patient: Total time spent is greater than 50% in coordination of care (as documented) at patient's floor/unit and/or counseling patient: Coding Level of Care Code 73295 Subseq Hosp Care Lvl 3 Diagnoses Acute on chronic respiratory failure with hypoxia J96.21 Acute dyspnea R06.00 Hypertension I10 Hyperlipidemia E78.5 Asthma J45.20 Asthma severity: unspecified severity Asthma persistence: intermittent Asthma complication type: unspecified Rheumatoid arthritis M06.9 Rheumatoid arthritis location: multiple sites Rheumatoid factor presence: unspecified presence Hypothyroid E03.9 Hypothyroidism type: unspecified Psoriatic arthritis L40.50 (1) Asthma Asthma severity: unspecified severity Asthma persistence: intermittent Asthma complication type: unspecified Qualified Code(s): J45.20 - Mild intermittent asthma, uncomplicated (2) Rheumatoid arthritis Rheumatoid arthritis location: multiple sites Rheumatoid factor presence: unspecified presence Qualified Code(s): M06.9 - Rheumatoid arthritis, unspecified (3) Hypothyroid Hypothyroidism type: unspecified Qualified Code(s): E03.9 - Hypothyroidism, unspecified
--- NOTE | 2019-10-14 18:30 | Pulmonology Progress Note ---
Date of Service October 14, 2019 Assessment & Plan (1) Asthma: CT chest without contrast done 10/12/2019 reviewed: Patient does have elevation of the right hemidiaphragm. No clear infiltrate appreciated. No mediastinal adenopathy. There is calcification of the mediastinal lymph nodes as well as calcification of the pleura. No mass appreciated in the anterior mediastinum --Acute hypoxic respiratory failure Etiology is quite unclear given that the CT chest was negative for any infection Patient is already on anticoagulation for her underlying PE in the past Patient does have mildly reduced EF: 40-45% --> patient does not seem to be volume overloaded Patient has been worked up for myasthenia gravis. Patients with myasthenia do have effect on diaphragmatic muscles. We will wait for the antibodies to come back. Can consider getting vital capacity laying down as well as sniff test f luoroscopy to look at the paradoxical diaphragmatic movement Meanwhile I would recommend patient to be on BiPAP nightly and PRN shortness of breath. If diaphragmatic paralysis or myasthenia gravis is playing a role in her shortness of breath noninvasive ventilation will be helpful. Given on the ABG PCO2 and pH being within normal limits I doubt this is playing a role. --History of asthma Not in exacerbation Continue with inhaled bronchodilators --Obesity with thick neck Probable PITER Recommend outpatient polysomnography --History of DVT and PE in the past On rivaroxaban Plan: Sniff test fluoroscopy has been ordered to look for paradoxical diaphragmatic movement. Although myasthenia gravis affecting diaphragmatic muscle and even paralytic diaphragmatic muscle should not cause hypoxia. It should usually cause hypercapnia and respiratory distress AKA ventilatory failure. Given that the patient's chest CT chest is clean without any signs of infiltrate. Differentials for hypoxia could include PFO versus PE. one would consider bubble echo. VQ scan can be considered but again patient is already on rivaroxaban I do not think it will make any difference. Patient does not need ICU management for the time being. We will continue to follow. Asthma severity: unspecified severity Asthma persistence: intermittent Asthma complication type: unspecified Qualified Code(s): J45.20 - Mild intermittent asthma, uncomplicated (2) DENY (acute kidney injury): (3) Atrial fibrillation: (4) Pericardial effusion: (5) History of pulmonary embolism: (6) History of DVT (deep vein thrombosis): Admission and Anticipated Discharge Date Admission Date: October 12, 2019 Anticipated date of discharge: 10/14/19 Subjective Patient was seen and examined at bedside. No acute distress, no adverse events overnight. Patient used BiPAP for a couple of hours overnight. At the time of examination patient was saturating 97% on 3 L nasal cannula at rest. Patient states her shortness of breath is at baseline. Denies any cough. Denies any chest pain. No dysuria, no diarrhea. Does complain of ptosis of the left eyelid which is usually worse as the day progresses. Review of Systems Review of Systems: All systems reviewed & are unremarkable except as noted in HPI & below Physical Exam Physical Exam: Constitutional: No acute distress HEENT: EOMI, PERRLA, thick neck Respiratory system: Decreased air entry bilaterally, no wheeze, no rhonchi, no crackles CVS: S1-S2 positive, no murmurs or gallops Abdomen: Soft, nontender, nondistended, positive bowel sounds x4 Extremities: +2 pulses bilaterally radialis/ dorsalis pedis, no cyanosis, no edema, no clubbing Neuro: Awake alert oriented x3 Psych: Normal mood and affect G/U: No [place]on Skin: no rashes, warm and dry Lymphatic: no cervical or axillary lymphadenopathy Results & Data Results & Data ([facility]) Vital Signs (Past 12 Hours) Vital Signs Temp Pulse Resp BP BP Pulse Ox 10/14/19 15:31 36.6 C 69 22 107/74 95 10/14/19 14:32 72 18 97 10/14/19 12:00 36.3 C L 60 18 107/75 97 10/14/19 07:00 36.3 C L 54 L 18 120/80 100 10/14/19 06:53 10/14/19 06:53 PG Care Time/CCT Total # of Minutes Spent Total Time Spent with Patient: Total time spent is greater than 50% in coordination of care (as documented) at patient's floor/unit and/or counseling patient: Coding Level of Care Code 18306 Subseq Hosp Care Lvl 3 Diagnoses Asthma J45.20 Asthma severity: unspecified severity Asthma persistence: intermittent Asthma complication type: unspecified DENY (acute kidney injury) N17.9 Atrial fibrillation I48.91 Pericardial effusion I31.3 History of pulmonary embolism Z86.711 History of DVT (deep vein thrombosis) Z86.718
[2019-10-14] MEDS: TRAMADOL HCL 50 MG TABLET PO PRN (19:18)
[2019-10-14] MEDS: ACETAMINOPHEN 325 MG TAB PO PRN (19:18)
[2019-10-14] MEDS: GABAPENTIN 100 MG CAP PO SCH (20:21)
[2019-10-14] MEDS: RIVAROXABAN 20 MG TAB PO SCH (20:21)
[2019-10-14] MEDS: ATORVASTATIN 10 MG TAB PO SCH (20:21)
--- NOTE | 2019-10-14 22:42 | Electrocardiogram Report ---
Test Reason : Blood Pressure : / mmHG Vent. Rate : 054 BPM Atrial Rate : 054 BPM P-R Int : 236 ms QRS Dur : 134 ms QT Int : 474 ms P-R-T Axes : 000 -87 121 degrees QTc Int : 449 ms Sinus bradycardia with 1st degree A-V block Left axis deviation Non-specific intra-ventricular conduction block Cannot rule out Anterior infarct (cited on or before 12-JAN-2019) T wave abnormality, consider lateral ischemia Abnormal ECG When compared with ECG of 13-OCT-2019 06:40, T wave inversion more evident in Lateral leads Confirmed by Jean Carlos Rivas ([id number]) on 10/14/2019 10:42:37 PM Referred By: REFERRED SELF Confirmed By:Jean Carlos Rivas
--- NOTE | 2019-10-15 00:02 | Hospitalist Progress Note ---
Date of Service October 14, 2019 Assessment & Plan (1) Acute on chronic respiratory failure with hypoxia: Acute on chronic respiratory failure with hypoxia/history of Pseudomonas pneumonia/asthma/COPD/history of PE on Xarelto/eosinophilic asthma- Initial concern for asthma exacerbation yesterday given wheezing on exam on admission. COVID-[address] chest without acute changes and procalcitonin negative therefore antibiotics discontinued last night given no evidence of pneumonia despite extensive pseudomonas history last year. (2) Myasthenia gravis: Concern for this given respiratory fatigue out of proportion to CT, ABG findings. Left eyelid dropping for 3 weeks with neck extension weakness for 4 weeks. Appreciate neurology recommendations and follow up with antibody testing. VC 1000 and NIF > -40, continue to check for fatigability BiPAP at night as per insurance underwriter recommendations Neurology note unfortunately seen after she received Xarelto given today but will place on hold assuming lumbar puncture is planned as an inpatient to assess for CLIPPERS. (3) Neck pain: Suspect secondary to weakness of extension. Will consult pain management given severity of this. Lidocaine patch on neck (4) Adrenal insufficiency: Possible diagnosis given chronic prednisone use. Potassium was trending up and Na trending down with hypotension. Hydrocortisone 50mg IV Q6H started 10/12, wean to 25mg IV Q6H. (5) Hypotension: Improved with stress dose steroids and interventions below. Reduced metoprolol succinate to 50mg BID Discontinued lisinopril (6) Elevated troponin: Elevated troponin/paroxysmal atrial fibrillation/hypertension- (7) Psoriatic arthritis: Hydrocortisone as above (8) Hyperlipidemia: Continue atorvastatin 10 mg daily (9) Eosinophilic asthma: As above. (10) History of DVT (deep vein thrombosis): History of DVT/PE- Xarelto on hold due to possible need for lumbar puncture (11) History of pulmonary embolism: See above (12) Atrial fibrillation: Paroxysmal. Current in NSR. Xarelto as above (13) Hypothyroid: TSH mildly elevated but free T4 WNL Continue levothyroxine 200 mcg daily Admission and Anticipated Discharge Date Admission Date: October 12, 2019 Subjective Patient reports similar shortness of breath, fatigue, neck weakness to yesterday. No significant change with steroids. She does note that she usually has neck pain but nothing as severe as it has been for the last 4 weeks. Most notable at insertion of trapezius in base of occiput bilateral. She thinks the pain started getting worse first prior to any weakness noted. She does elaborate on her left eyelid drooping that this was present for the last 3 weeks intermittently. She has found herself watching television and having to manually lift it up. No fevers, chllis, cough or chest pain. Review of Systems Review of Systems: All systems reviewed & are unremarkable except as noted in HPI & below Physical Exam Constitutional: well developed and + obese; no acute distress Eyes: + eyelid abnormality (drooping of left eyelid > right with prolonged sup gaze); normal pupil size and no nystagmus ENMT: Nose: no external nose abnormality Neck: trachea midline, no thyromegaly Respiratory: + uses accessory muscles and able to speak in complete sentences; + abnormal respiratory effort and no cough Auscultation: + diminished lung sounds (throughout b/l); no crackles, no rales and no wheezes Cardiovascular: Rate/Rhythm: regular rate and regular rhythm Heart Sounds: no murmur Extremities: normal capillary refill; no calf tenderness and no pedal edema Gastrointestinal (Abdomen): normal bowel sounds, soft, nontender, no hepatosplenomegaly Musculoskeletal: Pain on palpation of trapezius muscles b/l Skin: no rashes, warm and dry Neurologic: moves all extremities (generalized fatigue, no lateralizing pat tern), + focal motor deficit (intact but weak neck extension b/l with muscle pain on palpation, no change) and awake Psychiatric: A+Ox3, euthymic affect Results & Data Results & Data ([facility]) Vital Signs (Past 12 Hours) Vital Signs Temp Pulse Resp BP BP Pulse Ox 10/14/19 23:25 36.4 C L 71 20 116/79 99 10/14/19 21:38 72 20 97 10/14/19 19:55 36.8 C 76 20 119/76 100 10/14/19 15:31 36.6 C 69 22 107/74 95 10/14/19 14:32 72 18 97 10/14/19 12:00 36.3 C L 60 18 107/75 97 PG Care Time/CCT Total # of Minutes Spent Total Time Spent with Patient: Total time spent is greater than 50% in coordination of care (as documented) at patient's floor/unit and/or counseling patient: Coding Level of Care Code 22875 Subseq Hosp Care Lvl 3 Diagnoses Acute on chronic respiratory failure with hypoxia J96.21 Myasthenia gravis G70.00 Neck pain M54.2 Adrenal insufficiency E27.40 Hypotension I95.9 Hypotension type: unspecified hypotension type Elevated troponin R79.89 Psoriatic arthritis L40.50 Hyperlipidemia E78.5 Eosinophilic asthma J82 History of DVT (deep vein thrombosis) Z86.718 History of pulmonary embolism Z86.711 Atrial fibrillation I48.91 Hypothyroid E03.9 Hypothyroidism type: unspecified (1) Hypothyroid Hypothyroidism type: unspecified Qualified Code(s): E03.9 - Hypothyroidism, unspecified (2) Hypotension Hypotension type: unspecified hypotension type Qualified Code(s): I95.9 - Hypotension, unspecified
[2019-10-15] MEDS: HYDROCORTISONE SOD 25 MG in SYRINGE 0 ML IV SCH ×3 (02:17→13:45)
[2019-10-15] MEDS: LEVOTHYROXINE SODIUM 200 MCG TABLET PO SCH (05:37)
[2019-10-15 06:38] LABS: BUN Creatinine Ratio 28.8 (10-20); Calcium 8.3 mg/dl (8.5-10.1); Creatinine Clr Calc Pharmacy 48.9 ml/min; Est GFR (African American) 67.5; Est GFR (Non-African American) 58.3; Potassium 4.2 mmol/L (3.5-5.1)
[2019-10-15] MEDS: FERROUS SULFATE 325 MG TAB PO SCH (09:09)
[2019-10-15] MEDS: MULTIVITAMIN TAB PO SCH (09:10)
[2019-10-15] MEDS: guaiFENesin 600 MG TABCR PO SCH ×2 (09:10→20:29)
[2019-10-15] MEDS: SERTRALINE HCL 50 MG TABLET PO SCH (09:10)
[2019-10-15] MEDS: METOPROLOL SUCC 50MG EXT REL TAB PO SCH ×2 (09:10→20:33)
[2019-10-15] MEDS: FOLIC ACID 1 MG TAB PO SCH (09:10)
[2019-10-15] MEDS: MAGNESIUM OXIDE 400 MG TAB PO SCH (09:10)
[2019-10-15] MEDS: LIDOCAINE 5% 1 PATCH TD SCH (09:11)
[2019-10-15] MEDS: SPIRIVA RESPIMAT INH SCH (09:11)
[2019-10-15] MEDS: CHOLECALCIFEROL 1,000 UNITS 25 MCG TAB PO SCH (09:11)
[2019-10-15] MEDS: WIXELA INH SCH ×2 (09:12→20:28)
[2019-10-15] MEDS: HYDROXYCHLOROQUINE SULFATE 200 MG TAB PO SCH ×2 (09:17→20:28)
--- NOTE | 2019-10-15 09:17 | Fluoroscopy Report ---
FLUOROSCOPIC SNIFF TEST CLINICAL HISTORY: Assess for diaphragmatic paralysis. COMPARISON STUDY: Chest x-ray and chest CT dated 10/12/2019. FINDINGS: A cine loop from a fluoroscopic sniff test is presented. There is no fluoroscopic image of diaphragmatic paralysis. Diaphragmatic excursion is normal and symmetric. No paradoxical motion is id entified. IMPRESSION: There is no fluoroscopic evidence of diaphragmatic paralysis. Electronically signed by: Steve Mendiola M.D. 10/15/2019 9:16 AM
[2019-10-15] MEDS ORDERED: PYRIDOSTIGMINE BROMIDE 60 MG TAB PO STA (12:43)
--- NOTE | 2019-10-15 12:48 | Hospitalist Progress Note ---
Date of Service October 15, 2019 Assessment & Plan (1) Acute on chronic respiratory failure with hypoxia: Acute on chronic respiratory failure with hypoxia/history of Pseudomonas pneumonia/asthma/COPD/history of PE on Xarelto/eosinophilic asthma- Initial concern for asthma exacerbation yesterday given wheezing on exam on admission. COVID-[address] chest without acute changes and procalcitonin negative therefore antibiotics discontinued last night given no evidence of pneumonia despite extensive pseudomonas history last year. - Likely muscular weakness from MG. (2) Myasthenia gravis: Concern for this given respiratory fatigue out of proportion to CT, ABG findings. Left eyelid dropping for 3 weeks with neck extension weakness for 4 weeks. Appreciate neurology recommendations and follow up with antibody testing. VC 1000 and NIF > -40, continue to check for fatigability BiPAP at night as per computer hardware engineer recommendations -> She feels this helps a lot. - Neurology note unfortunately seen after she received Xarelto given today but will place on hold assuming lumbar puncture is planned as an inpatient to assess for CLIPPERS. - Will need to order for Friday. - Responded to ice pack challenge today. Will give single dose of pyridostigmine to see if this changes her respiratory status. (3) Neck pain: Suspect secondary to weakness of extension. Will consult pain management given severity of this. Lidocaine patch on neck (4) Adrenal insufficiency: Possible diagnosis given chronic prednisone use. Potassium was trending up and Na trending down with hypotension. Hydrocortisone 50mg IV Q6H started 10/12, wean to 25mg IV Q6H. - Wean to 15 mg Q6H today. (5) Hypotension: Improved with stress dose steroids and interventions below. Reduced metoprolol succinate to 50mg BID Discontinued lisinopril (6) Elevated troponin: Elevated troponin/paroxysmal atrial fibrillation/hypertension- (7) Psoriatic arthritis: Hydrocortisone as above (8) Hyperlipidemia: Continue atorvastatin 10 mg daily (9) Eosinophilic asthma: As above. (10) History of DVT (deep vein thrombosis): History of DVT/PE- Xarelto on hold due to possible need for lumbar puncture (11) History of pulmonary embolism: See above (12) Atrial fibrillation: Paroxysmal. Current in NSR. Xarelto as above (13) Hypothyroid: TSH mildly elevated but free T4 WNL Continue levothyroxine 200 mcg daily Admission and Anticipated Discharge Date Admission Date: October 12, 2019 Subjective No change today. She feels her breathing is similar to prior days. Reports no fevers/chills, chest pain, abdominal pain, nausea, or vomiting. Physical Exam Constitutional: WD/WN, vitals as above Eyes: EOM intact bilaterally; no conjunctival abnormality ENMT: external ear and nose normal, oropharynx normal Neck: trachea midline, no thyromegaly normal visual inspection Respiratory: + labored breathing Auscultation: lungs clear to auscultation bilaterally Cardiovascular: RRR, no murmur, no edema Gastrointestinal (Abdomen): Inspection/Auscultation: abdomen normal to inspection; abdomen not distended Musculoskeletal: no cyanosis or clubbing, extremities motor strength 5/5 Skin: no rashes, warm and dry Neurologic: moves all extremities and awake Psychiatric: Orientation: alert, oriented to person and cooperative Results & Data Results & Data ([facility]) Vital Signs (Past 12 Hours) Vital Signs Temp Pulse Pulse Resp BP Pulse Ox 10/15/19 11:52 37.0 C 74 17 119/81 95 10/15/19 09:30 59 L 10/15/19 08:10 36.4 C L 59 L 17 112/72 100 10/15/19 07:26 60 18 100 10/15/19 04:00 36.4 C L 60 18 109/75 100 10/15/19 03:30 57 L 22 98 PG Care Time/CCT Total # of Minutes Spent Total Time Spent with Patient: Total time spent is greater than 50% in coordination of care (as documented) at patient's floor/unit and/or counseling patient: Coding Level of Care Code 65932 Subseq Hosp Care Lvl 3 Diagnoses Acute on chronic respiratory failure with hypoxia J96.21 Myasthenia gravis G70.00 Neck pain M54.2 Adrenal insufficiency E27.40 Hypotension I95.9 Hypotension type: unspecified hypotension type Elevated troponin R79.89 Psoriatic arthritis L40.50 Hyperlipidemia E78.5 Eosinophilic asthma J82 History of DVT (deep vein thrombosis) Z86.718 History of pulmonary embolism Z86.711 Atrial fibrillation I48.91 Hypothyroid E03.9 Hypothyroidism type: unspecified (1) Hypotension Hypotension type: unspecified hypotension type Qualified Code(s): I95.9 - Hypotension, unspecified (2) Hypothyroid Hypothyroidism type: unspecified Qualified Code(s): E03.9 - Hypothyroidism, unspecified
--- NOTE | 2019-10-15 14:02 | Pulmonology Progress Note ---
Date of Service October 15, 2019 Assessment & Plan (1) Acute on chronic respiratory failure with hypoxia: The patient follows with Dr. Damian Lopez from [facility] She carries a diagnosis of eosinophilic asthma * Eosinophils are negative at this time * Home medications include albuterol rescue inhaler, Fluticasone/salmeterol, Spiriva, and Azelastine intranasal spray * No bronchospasm on exam * Oxygenating 100% SaO2 on room air Currently patient is being worked up for myasthenia gravis and antibodies are pending Should be noted the patient is also on prednisone5 mg p.o. daily for her arthritis as managed by rheumatology Previous history of pericardial window and right sided video-assisted thorascopic surgery. A decortication was completed at that time 09/09/2018 There was a question of right elevated hemidiaphragm but sniff test done today reveals no evidence of diaphragmatic paralysis No acute findings on CT scan of the chest 10/12/2019 Echocardiogram reveals left ventricular ejection fraction of 40 to 45% with some paradoxical septal wall motion. Definity ultrasound contrast was administered. No acute findings to explain respiratory failure Fits body habitus for possible obstructive sleep apnea * Continue BiPAP PRN and at night * Suggest polysomnography exam as an outpatient Continue supportive treatment (2) Myasthenia gravis: Patient does not currently have a history of myasthenia gravis Antibodies are currently pending Will await test results (3) Eosinophilic asthma: Negative eosinophils on differential this admission Continue usual meds per Dr. Davis No bronchospasm on exam Oxygenating 100% on room air No acute findings on x-ray or CT chest this admission (4) History of pulmonary embolism: Patient currently anticoagulated Continue anticoagulation with Rivaroxaban (5) Rheumatoid arthritis: Currently on Plaquenil and prednisone 5 mg p.o. daily Continue with outpatient management At this time we will continue supportive therapy and await results of the antibody testing for myasthenia gravis. Encourage out of bed to chair and ambulation as tolerated No acute pulmonary findings. Please refer to Dr. greer's addendum for further recommendations. Rheumatoid arthritis location: multiple sites Rheumatoid factor presence: unspecified presence Qualified Code(s): M06.9 - Rheumatoid arthritis, unspecified Admission and Anticipated Discharge Date Admission Date: October 12, 2019 Anticipated date of discharge: 10/14/19 Supervising Physician Co-Signing Physician Notes I saw and evaluated the patient with Steve staples, and agree with findings and plan as documented in the note. Patient seen and examined at bedside. No acute distress, no adverse events overnight. At the time of examination patient was saturating 100% on 2 L nasal cannula at rest. Not in any respiratory distress. Patient states he used the BiPAP machine last night and it helped her breathe. Sniff test fluoroscopy was done and there was no paradoxical diaphragmatic movement appreciated ruling out diaphragm as a reason for her increased work of breathing. No ptosis of the left eyelid appreciated today. I think the best neck step would be to have patient do pulmonary function test along with supine vital capacity to see if there is any drop in vital capacity. She would also benefit from polysomnography as an outpatient. Subjective Attending: Dr. Lai Patient seen and examined at bedside. She states that her breathing is much better today. She does have occasional periods where she has some wheezes and shortness of breath. At the time my examination she was completely clear with no bronchospasm. She is saturating 100% on room air.Patient denies any chest pain or tightness. She has no specific cough or sputum production.She reports that she successfully completed a sniff test.Aside from fatigue, she has no acute complaints. Summary of labs this admission: No eosinophilia on differential from CBC Lyme antibody is negative COVID-19 negative QuantiFERON gold negative A.m. sputum negative for AFB x3 MRSA screening negative Influenza A and B- HPV not detected Titers and antibodies pending for myasthenia gravis Review of Systems Review of Systems: All systems reviewed & are unremarkable except as noted in HPI & below Physical Exam Physical Exam: GENERAL : No acute distress EYES: No icterus, gaze conjugate NOSE: No evidence of epistaxis MOUTH: No lesions or candidiasis NECK: Supple LUNGS: CTA B/L, no wheezes, rales or rhonchi. No adventitious breath sounds. Inspiratory effort adequate. HEART: Regular, rate controlled ABDOMEN: Soft, NT, ND, BS Present EXTREMITIES: No LE edema, pedal pulses intact NEURO: A&OX3 Results & Data Results & Data ([facility]) Vital Signs (Past 12 Hours) Vital Signs Temp Pulse Pulse Resp BP Pulse Ox 10/15/19 11:52 37.0 C 74 17 119/81 95 10/15/19 09:30 59 L 10/15/19 08:10 36.4 C L 59 L 17 112/72 100 10/15/19 07:26 60 18 100 10/15/19 04:00 36.4 C L 60 18 109/75 100 10/15/19 03:30 57 L 22 98 Laboratory Results 10/14/19 06:53 10/15/19 05:24 Diagnostic Findings FLUOROSCOPIC SNIFF TEST CLINICAL HISTORY: Assess for diaphragmatic paralysis. COMPARISON STUDY: Chest x-ray and chest CT dated 10/12/2019. FINDINGS: A cine loop from a fluoroscopic sniff test is presented. There is no fluoroscopic image of diaphragmatic paralysis. Diaphragmatic excursion is normal and symmetric. No paradoxical motion is identified. IMPRESSION: There is no fluoroscopic evidence of diaphragmatic paralysis. Electronically signed by: Steve Mendiola M.D. 10/15/2019 9:[address] OF THE CHEST WITHOUT IV CONTRAST CLINICAL HISTORY: hypoxia, Hx cavitary lesion, pseudomonas COMPARISON STUDY: Chest CT May 31, 2019. Chest radiograph performed earlier today. CT DOSE: 497.22 mGycm TECHNIQUE: Axial images of the chest were obtained without IV contrast. Images were reviewed in the axial, sagittal, and coronal planes. IV contrast was not administered for this examination. Automated exposure control was utilized for the study. A dose lowering technique was utilized adhering to the principles of ALARA. FINDINGS: No enlarged axillary, mediastinal or hilar lymph nodes are present. Moderate cardiomegaly is noted. This is unchanged. There is no pericardial effusion. Extensive coronary artery calcification is noted. Mild dilatation of the ascending aorta, measuring 4.1 cm, is unchanged. A small hiatal hernia is noted. Postoperative findings within the proximal stomach are partially imaged. Lung volumes are diminished. This is unchanged. Subpleural opacities reflect atelectasis. A trace right pleural effusion is noted. There is no pneumothorax. Postoperative findings within the right lower lobe are noted. Postoperative appearance is unchanged. There is no consolidation to suggest pneumonia. Groundglass and linear opacities within lungs reflect atelectasis. There is no consolidation to suggest pneumonia. No suspicious pulmonary nodules are present. There are calcified right hilar lymph nodes. Several healed left rib fractures are noted. No suspicious lesions within the bony thorax are noted. IMPRESSION: 1. No consolidation to suggest pneumonia. 2. Lung volumes, unchanged. Trace right pleural effusion. No pneumothorax. 3. Moderate cardiomegaly and extensive coronary artery calcification. ACT 112: Negative or not required by law. Electronically signed by: Sesar Evangelista M.D. 10/12/2019 8:56 PM PG Care Time/CCT Total # of Minutes Spent Total Time Spent with Patient: Total time spent is greater than 50% in coordination of care (as documented) at patient's floor/unit and/or counseling patient: 30 minutes [place] [address] Subseq Hosp Care Lvl 3 Patient Type Established Diagnoses Acute on chronic respiratory failure with hypoxia J96.21 Myasthenia gravis G70.00 Eosinophilic asthma J82 History of pulmonary embolism Z86.711 Rheumatoid arthritis M06.9 Rheumatoid arthritis location: multiple sites Rheumatoid factor presence: unspecified presence
[2019-10-15] MEDS: TRAMADOL HCL 50 MG TABLET PO PRN (16:44)
--- NOTE | 2019-10-15 18:03 | Neurology Progress Note ---
Date of Service October 15, 2019 Assessment & Plan (1) Acute on chronic respiratory failure with hypoxia: (2) Acute dyspnea: Savanna Cleary is a 69 yo woman w/ PMH of anemia, asthma, history of atrial fibrillation, history of DVT/PE on Xarelto, fibromyalgia, hypertension, hypothyroidism, psoriatic arthritis, restless leg syndrome, rheumatoid arthritis on Plaquenil, and history of chronic respiratory failure with hypoxia who presented to [facility] on 10/12/2019 with worsening shortness of breath. # Acute on chronic dyspnea: Given constellation of worsening dyspnea/new diplopia and dysphagia, symptoms could represent new onset myasthenia gravis. DDx includes brainstem pathology, generalized fatigue given elevated TSH (but normal free T4), pharyngealcervicalbrachial variant GBS. Given the MRI findings, cannot r/o CLIPPERS. - sent for binding/blocking/modulating AChR antibodies, MUSK antibodies (ordered) - will need urgent outpatient EMG (within 1 week) with repetitive stimulation - NIF/VC q6h while awake (goal NIV>-30, VC>1000) -> low threshold to transfer to ICU for BiPAP vs intubation if she goes below this value - if intubation required, recommend starting IVIG at 0.4mg/kg/day given over 5 days - given MRI findings, would recommend obtaining LP with opening pressure, glucose, protein, cell counts, MS panel, cytology (plan for 10/18/2019) -Start Mestinon trial with 60 mg 3 times daily and monitor for cholinergic side effects -Agree with stress dose steroids given current situation. If myasthenia confirmed, would recommend increasing prednisone to 60 mg daily with a slow taper. Thank you for this interesting consult. Plan of care discussed with primary team. Please call or text with questions. (3) Hypertension: (4) Hyperlipidemia: (5) Asthma: (6) Rheumatoid arthritis: (7) Hypothyroid: (8) Psoriatic arthritis: Admission and Anticipated Discharge Date Admission Date: October 12, 2019 Anticipated date of discharge: 10/14/19 Subjective NAEs overnight. Breathing calmly this afternoon when evaluated. Reports improvement with the icepack test in terms of her diplopia and ptosis in the left eye. Review of Systems Review of Systems: 14 point review of systems completed and negative except as in HPI. Results & Data ([facility]) Vital Signs (Past 12 Hours) Vital Signs Temp Pulse Pulse Resp BP BP Pulse Ox 10/15/19 15:09 37.3 C 80 22 131/85 97 10/15/19 11:52 37.0 C 74 17 119/81 95 10/15/19 09:30 59 L 10/15/19 08:10 36.4 C L 59 L 17 112/72 100 10/15/19 07:26 60 18 100 Exam (Neuro) Physical Exam: General Exam: GEN: NAD, sitting in bed. HEENT: No conjunctival injection, no rhinorrhea. CV: RRR, no peripheral edema PULM: INon-labored on NC Neuro Exam: MS: Awake and Alert. Oriented to person, place, and date. Speech fluent and appropriate without dysarthria or paraphasic errors. Language intact including naming, comprehension, repetition. Cognition and memory grossly intact. Attention intact. No neglect. CN: Visual stanton full. No extinction to double simultaneous stimuli. Unable to visualize fundi on fundoscopic exam. PERRLA OU. EOMI without nystagmus. Facial sensation intact to LT. Facial muscles full and symmetric except for L eye pt osis. Hearing intact to conversation. Uvula midline with symmetric palatal elevation. Shoulder shrug normal. Tongue midline. Head strength 5/5 on flexion/extension. Able to count to 20 with one breath. No clear fatiguable ptosis. MOTOR: Normal bulk and tone. No pronator drift. BUE strength 5-/5 at deltoids, biceps, triceps, wrist flexors and extensors, and hand grasp bilaterally. BLE strength 5-/5 at iliopsoas, hamstrings, quadriceps, tibialis anterior, and gastrocnemius bilaterally. REFLEXES: 1+ at biceps, triceps, brachioradialis, trace patella and absent Achilles bilaterally. Flexor plantar responses bilaterally. SENSORY: Intact to LT without extinction to double simultaneous stimuli. COORDINATION: No dysmetria or ataxia on [id number] and [id number] bilaterally. Normal Ashwin bilaterally. GAIT: deferred given physical status PG Care Time/CCT Total # of Minutes Spent Total Time Spent with Patient: Total time spent is greater than 50% in coordination of care (as documented) at patient's floor/unit and/or counseling patient: Coding Level of Care Code 72446 Subseq Hosp Care Lvl 3 Diagnoses Acute on chronic respiratory failure with hypoxia J96.21 Acute dyspnea R06.00 Hypertension I10 Hyperlipidemia E78.5 Asthma J45.20 Asthma severity: unspecified severity Asthma persistence: intermittent Asthma complication type: unspecified Rheumatoid arthritis M06.9 Rheumatoid arthritis location: multiple sites Rheumatoid factor presence: unspecified presence Hypothyroid E03.9 Hypothyroidism type: unspecified Psoriatic arthritis L40.50 (1) Asthma Asthma severity: unspecified severity Asthma persistence: intermittent Asthma complication type: unspecified Qualified Code(s): J45.20 - Mild intermittent asthma, uncomplicated (2) Rheumatoid arthritis Rheumatoid arthritis location: multiple sites Rheumatoid factor presence: unspecified presence Qualified Code(s): M06.9 - Rheumatoid arthritis, unspecified (3) Hypothyroid Hypothyroidism type: unspecified Qualified Code(s): E03.9 - Hypothyroidism, unspecified
[2019-10-15] MEDS: HYDROCORTISONE SOD 15 MG in SYRINGE 0 ML IV SCH (19:47)
[2019-10-15] MEDS: ALBUTEROL 0.5% NEB SOLN 2.5 MG/0.5 ML VIAL NEB PRN (19:49)
[2019-10-15] MEDS: GABAPENTIN 100 MG CAP PO SCH (20:28)
[2019-10-15] MEDS: ATORVASTATIN 10 MG TAB PO SCH (20:29)
[2019-10-15] MEDS: PYRIDOSTIGMINE BROMIDE 60 MG TAB PO SCH (20:29)
[2019-10-16] MEDS: HYDROCORTISONE SOD 15 MG in SYRINGE 0 ML IV SCH ×4 (02:49→19:51)
[2019-10-16] MEDS: LEVOTHYROXINE SODIUM 200 MCG TABLET PO SCH (06:01)
[2019-10-16] MEDS: LEVOTHYROXINE SODIUM 25 MCG TABLET PO SCH (06:01)
[2019-10-16 07:44] LABS: Hematocrit (blood only) 40.4 % (37-47); Hemoglobin 12.8 g/dL (12.0-16.0); Mean Corpuscular Hemoglobin 32.2 pg (25-34); Mean Corpuscular Hgb Conc 31.7 g/dL (32-36); Mean Corpuscular Volume 101.8 fL (80-100); Mean Platelet Volume 9.6 fL (7.4-10.4); Platelet Count 201 K/uL (130-400); RDW Coefficient of Variation 13.9 % (11.5-14.5); RDW Standard Deviation 51.5 fL (36.4-46.3); Red Blood Count 3.97 M/uL (4.2-5.4)
[2019-10-16] MEDS: FOLIC ACID 1 MG TAB PO SCH (07:56)
[2019-10-16] MEDS: METOPROLOL SUCC 50MG EXT REL TAB PO SCH ×2 (07:56→20:00)
[2019-10-16] MEDS: SERTRALINE HCL 50 MG TABLET PO SCH (07:57)
[2019-10-16] MEDS: guaiFENesin 600 MG TABCR PO SCH ×2 (07:57→19:55)
[2019-10-16] MEDS: MAGNESIUM OXIDE 400 MG TAB PO SCH (07:57)
[2019-10-16] MEDS: PYRIDOSTIGMINE BROMIDE 60 MG TAB PO SCH ×3 (07:57→19:57)
[2019-10-16] MEDS: MULTIVITAMIN TAB PO SCH (07:58)
[2019-10-16] MEDS: FERROUS SULFATE 325 MG TAB PO SCH (07:58)
[2019-10-16] MEDS: CHOLECALCIFEROL 1,000 UNITS 25 MCG TAB PO SCH (07:58)
[2019-10-16] MEDS: LIDOCAINE 5% 1 PATCH TD SCH (07:59)
[2019-10-16] MEDS: WIXELA INH SCH ×2 (08:00→20:00)
[2019-10-16] MEDS: SPIRIVA RESPIMAT INH SCH (08:00)
[2019-10-16] MEDS: HYDROXYCHLOROQUINE SULFATE 200 MG TAB PO SCH ×2 (08:02→20:11)
[2019-10-16 08:13] LABS: BUN Creatinine Ratio 24.6 (10-20); Calcium 8.2 mg/dl (8.5-10.1); Creatinine Clr Calc Pharmacy 58.7 ml/min; Est GFR (African American) 83.4; Est GFR (Non-African American) 71.9; Magnesium 2.4 mg/dl (1.8-2.4); Phosphorus 2.2 mg/dl (2.5-4.9); Potassium 3.8 mmol/L (3.5-5.1)
--- NOTE | 2019-10-16 09:37 | Neurology Progress Note ---
Date of Service October 16, 2019 Assessment & Plan (1) Acute on chronic respiratory failure with hypoxia: (2) Acute dyspnea: Savanna Cleary is a 69 yo woman w/ PMH of anemia, asthma, history of atrial fibrillation, history of DVT/PE on Xarelto, fibromyalgia, hypertension, hypothyroidism, psoriatic arthritis, restless leg syndrome, rheumatoid arthritis on Plaquenil, and history of chronic respiratory failure with hypoxia who presented to [facility] on 10/12/2019 with worsening shortness of breath. # Acute on chronic dyspnea: Given constellation of worsening dyspnea/new diplopia and dysphagia, symptoms could represent new onset myasthenia gravis. DDx includes brainstem pathology, generalized fatigue given elevated TSH (but normal free T4), pharyngealcervicalbrachial variant GBS. Given the MRI findings, cannot r/o CLIPPERS. - pending: binding/blocking/modulating AChR antibodies, MUSK antibodies - will need urgent outpatient EMG (within 1 week) with repetitive stimulation to confirm suspected dx of MG - NIF/VC q6h while awake (goal NIV>-30, VC>1000) -> low threshold to transfer to ICU for BiPAP vs intubation if she goes below this value - if intubation required, recommend starting IVIG at 0.4mg/kg/day given over 5 days - given MRI findings, would recommend obtaining LP with opening pressure, glucose, protein, cell counts, MS panel, cytology (planned for 10/18/2019) -continue Mestinon trial with 60 mg tid, monitor for cholinergic side effects -Agree with stress dose steroids given current situation. If myasthenia confirmed, would recommend increasing prednisone to 60 mg daily with a slow taper. - she is already on plaquenil at home for RA/PA; could consider changing to cellcept but will need to coordinate with rheumatology on best immunosuppressive therapy going forward is MG confirmed. Thank you for this interesting consult. Plan of care discussed with primary team. Please call or text with questions. (3) Hypertension: (4) Hyperlipidemia: (5) Asthma: (6) Rheumatoid arthritis: (7) Hypothyroid: (8) Psoriatic arthritis: Admission and Anticipated Discharge Date Admission Date: October 12, 2019 Anticipated date of discharge: 10/14/19 Subjective NAEs overnight. Currently on mestinon trial today to see if breathing improves. Has been satting well on room air. Reports improvement in diplopia and left eye ptosis since starting mestinon. Most recent NIF/VC -40 and 910 mL. Recommended to have outpt PSG, continue BIPAP at night for likely PITER, have PFTs performed. No diaphragmatic paralysis on imaging 10/15/19. Review of Systems Review of Systems: 14 point review of systems completed and negative except as in HPI. Results & Data ([facility]) Vital Signs (Past 12 Hours) Vital Signs Temp Pulse Pulse Resp BP Pulse Ox 10/16/19 08:00 56 L 10/16/19 07:57 36.7 C 59 L 18 134/79 97 10/16/19 04:13 56 L 18 100 10/16/19 02:46 37.0 C 57 L 20 128/83 98 10/16/19 01:14 58 L 17 100 10/16/19 00:00 37.0 C 62 20 130/83 94 Exam (Neuro) Physical Exam: General Exam: GEN: NAD, sitting in bed. HEENT: No conjunctival injection, no rhinorrhea. CV: RRR, no peripheral edema PULM: INon-labored on NC Neuro Exam: MS: Awake and Alert. Oriented to person, place, and date. Speech fluent and appropriate without dysarthria or paraphasic errors. Language intact including naming, comprehension, repetition. Cognition and memory grossly intact. Attention intact. No neglect. CN: Visual stanton full. No extinction to double simultaneous stimuli. Unable to visualize fundi on fundoscopic exam. PERRLA OU. EOMI without nystagmus. Facial sensation intact to LT. Facial muscles full and symmetric, L eye ptosis resolved. Hearing intact to conversation. Uvula midline with symmetric palatal elevation. Shoulder shrug normal. Tongue midline. Head strength 5-/5 on flexion/extension. Able to count to 20 with one breath. No clear fatiguable ptosis. MOTOR: Normal bulk and tone. No pronator drift. BUE strength 5-/5 at deltoids, biceps, triceps, wrist flexors and extensors, and hand grasp bilaterally. BLE strength 5-/5 at iliopsoas, hamstrings, quadriceps, tibialis anterior, and gastrocnemius bilaterally. REFLEXES: 1+ at biceps, triceps, brachioradialis, trace patella and absent Achilles bilaterally. Flexor plantar responses bilaterally. SENSORY: Intact to LT without extinction to double simultaneous stimuli. COORDINATION: No dysmetria or ataxia on [id number] and [id number] bilaterally. Normal Ashwin bilaterally. GAIT: deferred given physical status PG Care Time/CCT Total # of Minutes Spent Total Time Spent with Patient: Total time spent is greater than 50% in coordination of care (as documented) at patient's floor/unit and/or counseling patient: Coding Level of Care Code 13061 Subseq Hosp Care Lvl 3 Diagnoses Acute on chronic respiratory failure with hypoxia J96.21 Acute dyspnea R06.00 Hypertension I10 Hyperlipidemia E78.5 Asthma J45.20 Asthma complication type: unspecified Asthma persistence: intermittent Asthma severity: unspecified severity Rheumatoid arthritis M06.9 Rheumatoid arthritis location: multiple sites Rheumatoid factor presence: unspecified presence Hypothyroid E03.9 Hypothyroidism type: unspecified Psoriatic arthritis L40.50 (1) Rheumatoid arthritis Rheumatoid arthritis location: multiple sites Rheumatoid factor presence: unspecified presence Qualified Code(s): M06.9 - Rheumatoid arthritis, unspecified (2) Hypothyroid Hypothyroidism type: unspecified Qualified Code(s): E03.9 - Hypothyroidism, unspecified (3) Asthma Asthma complication type: unspecified Asthma persistence: intermittent Asthma severity: unspecified severity Qualified Code(s): J45.20 - Mild intermittent asthma, uncomplicated
--- NOTE | 2019-10-16 12:39 | Pulmonology Progress Note ---
Date of Service October 16, 2019 Assessment & Plan (1) Acute on chronic respiratory failure with hypoxia: CT chest without contrast done 10/12/2019 reviewed: Patient does have elevation of the right hemidiaphragm. No clear infiltrate appreciated. No mediastinal adenopathy. There is calcification of the mediastinal lymph nodes as well as calcification of the pleura. No mass appreciated in the anterior mediastinum --Status post acute hypoxic respiratory failure Etiology is quite unclear given that the CT chest was negative for any infection Patient is already on anticoagulation for her underlying PE in the past Patient does have mildly reduced EF: 40-45% --> patient does not seem to be volume overloaded Patient is being worked up for myasthenia gravis. Patients with myasthenia do have effect on diaphragmatic muscles. Antibodies for MG still pending. Patient to be started on pyridostigmine empirically by the primary team/neurology. Sniff test fluoroscopy was done and there was no paradoxical diaphragmatic movement appreciated which rules out diaphragm is the reason for increased work of breathing. Continue with BiPAP nightly and PRN shortness of breath. --History of asthma Not in exacerbation Continue with inhaled bronchodilators --Obesity with thick neck Probable PITER Recommend outpatient polysomnography --History of DVT and PE in the past On rivaroxaban at home --Hx of RA on Chronic prednisone 5mg and HCQ Plan: Patient is clinically back to baseline with respect to her respiratory symptoms. Saturating well on room air. Patient will benefit from pulmonary function test along with supine vital capacity to see if there is any drop in vital capacity. She would also benefit from polysomnography as an outpatient. Continue with BiPAP nightly and PRN shortness of breath No further recommendations from pulmonary perspective. Recall if needed. Please note the above document was generated using voice recognition software. It may contain grammatical, syntax or spelling errors. (2) Myasthenia gravis: (3) Eosinophilic asthma: (4) History of pulmonary embolism: (5) Rheumatoid arthritis: Rheumatoid arthritis location: multiple sites Rheumatoid factor presence: unspecified presence Qualified Code(s): M06.9 - Rheumatoid arthritis, unspecified Admission and Anticipated Discharge Date Admission Date: October 12, 2019 Anticipated date of discharge: 10/14/19 Subjective Patient seen and examined at bedside. No acute distress, no adverse events overnight. States that the shortness of breath is improved. The weakness of the left eye and the neck has also improved. Good appetite. Denies any chest pain, no palpitations. No cough, no phlegm production. No headache, no dizziness, no blurry vision, no diplopia. Review of Systems Review of Systems: All systems reviewed & are unremarkable except as noted in HPI & below Physical Exam Physical Exam: Constitutional: No acute distress HEENT: EOMI, PERRLA, thick neck Respiratory system: Good air entry bilaterally, no wheeze, no rhonchi, no crackles CVS: S1-S2 positive, no murmurs or gallops Abdomen: Soft, nontender, nondistended, positive bowel sounds x4, reducible periumbilical hernia Extremities: +2 pulses bilaterally radialis/ dorsalis pedis, no cyanosis, no edema, no clubbing Neuro: Awake alert oriented x3 Psych: Normal mood and affect G/U: No [place] Patient was saturating 94% on room air with heart rate of 68 at rest at the time of examination. Skin: no rashes, warm and dry Lymphatic: no cervical or axillary lymphadenopathy Results & Data Results & Data ([facility]) Vital Signs (Past 12 Hours) Vital Signs Temp Pulse Pulse Resp BP Pulse Ox 10/16/19 11:53 36.5 C 61 18 145/83 H 91 10/16/19 08:00 56 L 10/16/19 07:57 36.7 C 59 L 18 134/79 97 10/16/19 04:13 56 L 18 100 10/16/19 02:46 37.0 C 57 L 20 128/83 98 10/16/19 01:14 58 L 17 100 10/16/19 07:12 10/16/19 07:12 PG Care Time/CCT Total # of Minutes Spent Total Time Spent with Patient: Total time spent is greater than 50% in coordination of care (as documented) at patient's floor/unit and/or counseling patient: Coding Level of Care Code 58372 Subseq Hosp Care Lvl 2 Diagnoses Acute on chronic respiratory failure with hypoxia J96.21 Myasthenia gravis G70.00 Eosinophilic asthma J82 History of pulmonary embolism Z86.711 Rheumatoid arthritis M06.9 Rheumatoid arthritis location: multiple sites Rheumatoid factor presence: unspecified presence
[2019-10-16] MEDS: ALBUTEROL 0.5% NEB SOLN 2.5 MG/0.5 ML VIAL NEB PRN ×2 (15:30→19:44)
--- NOTE | 2019-10-16 16:05 | Hospitalist Progress Note ---
Date of Service October 16, 2019 Assessment & Plan (1) Acute on chronic respiratory failure with hypoxia: Acute on chronic respiratory failure with hypoxia/history of Pseudomonas pneumonia/asthma/COPD/history of PE on Xarelto/eosinophilic asthma- COVID-[address] chest without acute changes and procalcitonin negative therefore antibiotics discontinued on same day as admission - Likely muscular weakness from MG. (2) Myasthenia gravis: Suspected; respiratory fatigue out of proportion to CT, ABG findings. Left eyelid dropping for 3 weeks with neck extension weakness for 4 weeks. Improvement with Mestinon. Appreciate neurology recommendations and follow up with antibody testing and urgent EMG VC and NIF stable. Ok to move to med/surg. BiPAP at night - Lumbar puncture planned for Friday - Responded to ice pack challenge 10/14. Mestinon appears to be improving her eyelid drooping and neck weakness although SOB not changed much. (3) Neck pain: Suspect secondary to weakness of extension. Continue lidocaine patch on neck (4) Adrenal insufficiency: Possible diagnosis given chronic prednisone use. Potassium was trending up and Na trending down with hypotension. - Continue hydrocortisone 15 mg Q6H today and switch back to her usual prednisone 5mg PO daily tomorrow. (5) Hypotension: Now resolved off lisinopril, stess dose steroids. Reduced metoprolol succinate to 50mg BID (6) Elevated troponin: Elevated troponin/paroxysmal atrial fibrillation/hypertension- Demand-ischemia (7) Psoriatic arthritis: Steroids as above (8) Hyperlipidemia: Continue atorvastatin 10 mg daily (9) Eosinophilic asthma: As above. (10) History of DVT (deep vein thrombosis): History of DVT/PE- Xarelto on hold for lumbar puncture on Friday (11) History of pulmonary embolism: See above (12) Atrial fibrillation: Paroxysmal. Current in NSR. Xarelto as above (13) Hypothyroid: TSH mildly elevated but free T4 WNL Continue levothyroxine 200 mcg daily Admission and Anticipated Discharge Date Admission Date: October 12, 2019 Anticipated date of discharge: 10/18/19 Subjective Patient appears much improved with Mestinon after seeing her 2 days previously. Moving her head much easier, no eyelid drooping. Appears to be breathing easier and she reports feeling more awake. Finding BiPAP at night helpful although she did note a poor night sleep last night due to her room mate not sleeping. She denies any current chest pain or shortness of breath. No wheezing, abdominal cramps, diarrhea, nausea or vomiting associated with Mestinon use. Updated her over the phone. Review of Systems Review of Systems: All systems reviewed & are unremarkable except as noted in HPI & below Physical Exam Constitutional: well developed and + obese; no acute distress Eyes: no eyelid abnormality (no eyelid drooping), normal pupil size and no nystagmus ENMT: Nose: no external nose abnormality Mouth: no lip abnormality and no o ropharynx abnormality Neck: trachea midline, no thyromegaly Respiratory: + uses accessory muscles and able to speak in complete sentences; + abnormal respiratory effort and no cough Auscultation: + diminished lung sounds (throughout b/l); no crackles, no rales and no wheezes Cardiovascular: Rate/Rhythm: regular rate and regular rhythm Heart Sounds: no murmur Extremities: normal capillary refill; no calf tenderness and no pedal edema Gastrointestinal (Abdomen): normal bowel sounds, soft, nontender, no hepatosplenomegaly Skin: no rashes, warm and dry Neurologic: moves all extremities (generalized fatigue, no lateralizing pattern), + focal motor deficit (intact but weak neck extension b/l with muscle pain on palpation, no change) and awake Psychiatric: A+Ox3, euthymic affect Results & Data Results & Data ([facility]) Vital Signs (Past 12 Hours) Vital Signs Temp Pulse Pulse Resp BP BP Pulse Ox 10/16/19 15:27 36.9 C 67 20 111/74 99 10/16/19 11:53 36.5 C 61 18 145/83 H 91 10/16/19 08:00 56 L 10/16/19 07:57 36.7 C 59 L 18 134/79 97 10/16/19 04:13 56 L 18 100 PG Care Time/CCT Total # of Minutes Spent Total Time Spent with Patient: Total time spent is greater than 50% in c oordination of care (as documented) at patient's floor/unit and/or counseling patient: Coding Level of Care Code 55427 Subseq Hosp Care Lvl 2 Diagnoses Acute on chronic respiratory failure with hypoxia J96.21 Myasthenia gravis G70.00 Neck pain M54.2 Adrenal insufficiency E27.40 Hypotension I95.9 Hypotension type: unspecified hypotension type Elevated troponin R79.89 Psoriatic arthritis L40.50 Hyperlipidemia E78.5 Eosinophilic asthma J82 History of DVT (deep vein thrombosis) Z86.718 History of pulmonary embolism Z86.711 Atrial fibrillation I48.0 Atrial fibrillation type: paroxysmal Hypothyroid E03.9 Hypothyroidism type: unspecified (1) Atrial fibrillation Atrial fibrillation type: paroxysmal Qualified Code(s): I48.0 - Paroxysmal atrial fibrillation (2) Hypothyroid Hypothyroidism type: unspecified Qualified Code(s): E03.9 - Hypothyroidism, unspecified (3) Hypotension Hypotension type: unspecified hypotension type Qualified Code(s): I95.9 - Hypotension, unspecified
[2019-10-16] MEDS: GABAPENTIN 100 MG CAP PO SCH (19:56)
[2019-10-16] MEDS: ATORVASTATIN 10 MG TAB PO SCH (19:57)
[2019-10-16] MEDS ORDERED: SODIUM CHLORIDE 0.65% NA SOLN 45 ML (OCEAN) PRN (20:06)
[2019-10-16] MEDS ORDERED: SODIUM CHLORIDE 0.65% NA SOLN 45 ML (OCEAN) ONE (20:10)
[2019-10-17] MEDS: LEVOTHYROXINE SODIUM 25 MCG TABLET PO SCH (06:28)
[2019-10-17] MEDS: LEVOTHYROXINE SODIUM 200 MCG TABLET PO SCH (06:28)
[2019-10-17] MEDS: MAGNESIUM OXIDE 400 MG TAB PO SCH (08:47)
[2019-10-17] MEDS: FOLIC ACID 1 MG TAB PO SCH (08:47)
[2019-10-17] MEDS: FERROUS SULFATE 325 MG TAB PO SCH (08:47)
[2019-10-17] MEDS: guaiFENesin 600 MG TABCR PO SCH ×2 (08:48→20:19)
[2019-10-17] MEDS: PYRIDOSTIGMINE BROMIDE 60 MG TAB PO SCH ×3 (08:48→20:18)
[2019-10-17] MEDS: MULTIVITAMIN TAB PO SCH (08:49)
[2019-10-17] MEDS: SPIRIVA RESPIMAT INH SCH (08:49)
[2019-10-17] MEDS: WIXELA INH SCH ×2 (08:50→20:19)
[2019-10-17] MEDS: predniSONE 5 MG TAB PO SCH (08:50)
[2019-10-17] MEDS: HYDROXYCHLOROQUINE SULFATE 200 MG TAB PO SCH ×2 (08:50→20:18)
[2019-10-17] MEDS: METOPROLOL SUCC 50MG EXT REL TAB PO SCH ×2 (08:51→20:18)
[2019-10-17] MEDS: CHOLECALCIFEROL 1,000 UNITS 25 MCG TAB PO SCH (08:51)
[2019-10-17] MEDS: SERTRALINE HCL 50 MG TABLET PO SCH (08:52)
[2019-10-17] MEDS: LIDOCAINE 5% 1 PATCH TD SCH (08:53)
--- NOTE | 2019-10-17 13:11 | Neurology Progress Note ---
Date of Service October 17, 2019 Assessment & Plan (1) Acute on chronic respiratory failure with hypoxia: (2) Acute dyspnea: Savanna Cleary is a 69 yo woman w/ PMH of anemia, asthma, history of atrial fibrillation, history of DVT/PE on Xarelto, fibromyalgia, hypertension, hypothyroidism, psoriatic arthritis, restless leg syndrome, rheumatoid arthritis on Plaquenil, and history of chronic respiratory failure with hypoxia who presented to [facility] on 10/12/2019 with worsening shortness of breath. # Acute on chronic dyspnea: Given constellation of worsening dyspnea/new diplopia and dysphagia, symptoms could represent new onset myasthenia gravis. DDx includes brainstem pathology, generalized fatigue given elevated TSH (but normal free T4), pharyngealcervicalbrachial variant GBS. Given the MRI findings, cannot r/o CLIPPERS. - pending: binding/blocking/modulating AChR antibodies, MUSK antibodies - will need urgent outpatient EMG (within 1 week) with repetitive stimulation to confirm suspected dx of MG - NIF/VC q6h while awake (goal NIV>-30, VC>1000) -> low threshold to transfer to ICU for BiPAP vs intubation if she goes below this value - if intubation required, recommend starting IVIG at 0.4mg/kg/day given over 5 days - given MRI findings, would recommend obtaining LP with opening pressure, glucose, protein, cell counts, MS panel, cytology to r/o CLIPPERS (planned for 10/18/2019) -continue Mestinon trial with 60 mg tid, monitor for cholinergic side effects -Agree with stress dose steroids given current situation. If myasthenia confirmed, would recommend increasing prednisone to 60 mg daily with a slow taper. - she is already on plaquenil at home for RA/PA; could consider changing to cellcept but will need to coordinate with rheumatology on best immunosuppressive therapy going forward if MG confirmed. - she should follow up in neurology clinic this week for EMG and with myself on 10/22/19 to discuss further management of likely new MG diagnosis (can be in person or via telehealth) Thank you for this interesting consult. Plan of care discussed with primary team. Please call or text with questions. (3) Hypertension: (4) Hyperlipidemia: (5) Asthma: (6) Rheumatoid arthritis: (7) Hypothyroid: (8) Psoriatic arthritis: Admission and Anticipated Discharge Date Admission Date: October 12, 2019 Anticipated date of discharge: 10/18/19 Subjective Reports doing much better since being on the mestinon. Has not had much further diplopia or ptosis since starting. Denies any side effects to medication. Review of Systems Review of Systems: 14 point review of systems completed and negative except as in HPI. Results & Data ([facility]) Vital Signs (Past 12 Hours) Vital Signs Temp Pulse Pulse Resp BP Pulse Ox 10/17/19 07:25 36.5 C 65 18 127/88 93 10/17/19 03:15 55 L 24 97 Exam (Neuro) Physical Exam: General Exam: GEN: NAD, sitting in bed. HEENT: No conjunctival injection, no rhinorrhea. CV: RRR, no peripheral edema PULM: INon-labored on NC Neuro Exam: MS: Awake and Alert. Oriented to person, place, and date. Speech fluent and appropriate without dysarthria or paraphasic errors. Language intact including naming, comprehension, repetition. Cognition and memory grossly intact. A ttention intact. No neglect. CN: Visual stanton full. No extinction to double simultaneous stimuli. Unable to visualize fundi on fundoscopic exam. PERRLA OU. EOMI without nystagmus. Facial sensation intact to LT. Facial muscles full and symmetric, L eye ptosis resolved. Hearing intact to conversation. Uvula midline with symmetric palatal elevation. Shoulder shrug normal. Tongue midline. Head strength 5-/5 on flexion/extension. Able to count to 20 with one breath. No clear fatiguable ptosis. MOTOR: Normal bulk and tone. No pronator drift. BUE strength 5-/5 at deltoids, biceps, triceps, wrist flexors and extensors, and hand grasp bilaterally. BLE strength 5-/5 at iliopsoas, hamstrings, quadriceps, tibialis anterior, and gastrocnemius bilaterally. REFLEXES: 1+ at biceps, triceps, brachioradialis, trace patella and absent Achilles bilaterally. Flexor plantar responses bilaterally. SENSORY: Intact to LT without extinction to double simultaneous stimuli. COORDINATION: No dysmetria or ataxia on [id number] and [id number] bilaterally. Normal Ashwin bilaterally. GAIT: deferred given physical status PG Care Time/CCT Total # of Minutes Spent Total Time Spent with Patient: Total time spent is greater than 50% in coordination of care (as documented) at patient's floor/unit and/or counseling patient: Coding Level of Care Code 84961 Subseq Hosp Care Lvl 3 Diagnoses Acute on chronic respiratory failure with hypoxia J96.21 Acute dyspnea R06.00 Hypertension I10 Hyperlipidemia E78.5 Asthma J45.20 Asthma severity: unspecified severity Asthma persistence: intermittent Asthma complication type: unspecified Rheumatoid arthritis M06.9 Rheumatoid arthritis location: multiple sites Rheumatoid factor presence: unspecified presence Hypothyroid E03.9 Hypothyroidism type: unspecified Psoriatic arthritis L40.50 (1) Asthma Asthma severity: unspecified severity Asthma persistence: intermittent Asthma complication type: unspecified Qualified Code(s): J45.20 - Mild intermittent asthma, uncomplicated (2) Rheumatoid arthritis Rheumatoid arthritis location: multiple sites Rheumatoid factor presence: unspecified presence Qualified Code(s): M06.9 - Rheumatoid arthritis, unspecified (3) Hypothyroid Hypothyroidism type: unspecified Qualified Code(s): E03.9 - Hypothyroidism, unspecified
[2019-10-17] MEDS: ALBUTEROL 0.5% NEB SOLN 2.5 MG/0.5 ML VIAL NEB PRN (20:11)
[2019-10-17] MEDS: ACETAMINOPHEN 325 MG TAB PO PRN (20:16)
[2019-10-17] MEDS: GABAPENTIN 100 MG CAP PO SCH (20:18)
[2019-10-17] MEDS: ATORVASTATIN 10 MG TAB PO SCH (20:19)
--- NOTE | 2019-10-17 23:55 | Hospitalist Progress Note ---
Date of Service October 17, 2019 Assessment & Plan (1) Acute on chronic respiratory failure with hypoxia: Acute on chronic respiratory failure with hypoxia/history of Pseudomonas pneumonia/asthma/COPD/history of PE on Xarelto/eosinophilic asthma- COVID-[address] chest without acute changes and procalcitonin negative therefore antibiotics discontinued on same day as admission - Likely muscular weakness from MG given improvement with Mestinon. (2) Myasthenia gravis: Suspected; respiratory fatigue out of proportion to CT, ABG findings. Left eyelid dropping for 3 weeks with neck extension weakness for 4 weeks. Improvement with Mestinon. Appreciate neurology recommendations and follow up with antibody testing and urgent EMG VC and NIF stable. Ok to move to med/surg. BiPAP at night - Lumbar puncture planned for Friday. Continue off Xarelto (last dose 10/13) - Responded to ice pack challenge 10/14. Mestinon appears to be improving her eyelid drooping and neck weakness. - Overnight pulse oximetry off BiPAP and morning ABG to see if she qualifies for home BiPAP coming out of hospital. (3) Neck pain: Suspect secondary to weakness of extension. Continue lidocaine patch on neck (4) Adrenal insufficiency: Possible diagnosis given chronic prednisone use. Potassium was trending up and Na trending down with hypotension. - Restarted on prednisone 5mg PO daily, discussed with Dr Singh and would only go up to 60mg once EMG testing done as outpatient (5) Hypotension: Now resolved off lisinopril. Reduced metoprolol succinate to 50mg BID due to bradycardia (6) Elevated troponin: Elevated troponin/paroxysmal atrial fibrillation/hypertension- Demand-ischemia (7) Psoriatic arthritis: Steroids as above (8) Hyperlipidemia: Continue atorvastatin 10 mg daily (9) Eosinophilic asthma: As above. (10) History of DVT (deep vein thrombosis): History of DVT/PE- Xarelto on hold for lumbar puncture on Friday (11) History of pulmonary embolism: See above (12) Atrial fibrillation: Paroxysmal. Current in NSR. Xarelto as above (13) Hypothyroid: TSH mildly elevated but free T4 WNL Continue levothyroxine 200 mcg daily Admission and Anticipated Discharge Date Admission Date: October 12, 2019 Subjective Continue improvement with Mestinon. No eyelid drooping apparent. She is concerned about going home without BiPAP. Still with some respiratory muscle weakness. Neck weakness and pain improving daily. No fevers, chills, cough. Updated her over the phone. All questions answered. Review of Systems Review of Systems: All systems reviewed & are unremarkable except as noted in HPI & below Physical Exam Constitutional: well developed and + obese; no acute distress Eyes: no eyelid abnormality (no eyelid drooping), normal pupil size and no nystagmus ENMT: Nose: no external nose abnormality Mouth: no lip abnormality and no oropharynx abnormality Neck: trachea midline, no thyromegaly Respiratory: + uses accessory muscles and able to speak in complete sentences; + abnormal respiratory effort and no cough Auscultation: + diminished lung sounds (throughout b/l); no crackles, no rales and no wheezes Cardiovascular: Rate/Rhythm: regular rate and regular rhythm Heart Sounds: no murmur Extremities: normal capillary refill; no calf tenderness and no pedal edema Gastrointestinal (Abdomen): normal bowel sounds, soft, nontender, no hepatosplenomegaly Skin: no rashes, warm and dry Neurologic: moves all extremities, + focal motor deficit (improved b/l neck extension weakness) and awake Speech / Cognition: normal speech Psychiatric: A+Ox3, euthymic affect Results & Data Results & Data ([facility]) Vital Signs (Past 12 Hours) Vital Signs Temp Pulse Pulse Pulse Resp BP Pulse Ox 10/17/19 23:17 66 10/17/19 21:55 70 10/17/19 20:15 74 125/85 10/17/19 20:11 73 18 91 10/17/19 15:23 36.8 C 74 16 116/77 92 Pulse Ox 10/17/19 23:17 89 L 10/17/19 21:55 93 10/17/19 20:15 10/17/19 20:11 10/17/19 15:23 PG Care Time/CCT Total # of Minutes Spent Total Time Spent with Patient: Total time spent is greater than 50% in coordination of care (as documented) at patient's floor/unit and/or counseling patient: Coding Level of Care Code 45372 Subseq Hosp Care Lvl 3 Diagnoses Acute on chronic respiratory failure with hypoxia J96.21 Myasthenia gravis G70.00 Neck pain M54.2 Adrenal insufficiency E27.40 Hypotension I95.9 Hypotension type: unspecified hypotension type Elevated troponin R79.89 Psoriatic arthritis L40.50 Hyperlipidemia E78.5 Eosinophilic asthma J82 History of DVT (deep vein thrombosis) Z86.718 History of pulmonary embolism Z86.711 Atrial fibrillation I48.0 Atrial fibrillation type: paroxysmal Hypothyroid E03.9 Hypothyroidism type: unspecified (1) Hypotension Hypotension type: unspecified hypotension type Qualified Code(s): I95.9 - Hypotension, unspecified (2) Atrial fibrillation Atrial fibrillation type: paroxysmal Qualified Code(s): I48.0 - Paroxysmal atrial fibrillation (3) Hypothyroid Hypothyroidism type: unspecified Qualified Code(s): E03.9 - Hypothyroidism, unspecified
[2019-10-18] MEDS: LEVOTHYROXINE SODIUM 200 MCG TABLET PO SCH (04:57)
[2019-10-18 06:42] LABS: Base Excess ABG 5.2 mEq/L (-9-1.8); HCO3 ABG 29 mmol/L (19-24); Oxygen Saturation ABG 93.9 % (90-95); PCO2 ABG 38 mmHg (35-46); PO2 ABG 65 mmHg (80-95)
[2019-10-18 06:46] LABS: Allen Test Pos (Pos)
--- NOTE | 2019-10-18 10:00 | Fluoroscopy Report ---
FL lumbar puncture diagnostic CLINICAL HISTORY: 69 years-old Female presenting with Concern for MS versus myasthenia gravis, on Xar elto discontinued on Friday. COMPARISON: Brain MR from 10/13/2019. PROCEDURE: The procedure, risks and benefits were discussed with the patient including the risk of spinal headac he, bleeding and infection. The patient agreed to the procedure and informed written consent was obta ined. The procedure was performed by Dr. Kauffman following a timeout. The L3-4 interlaminar space was initially targeted and subsequently the L4-5 interlaminar space. Skin overlying the space was prepped and draped in the usual aseptic fashion and local anesthesia was ach ieved with 1% lidocaine. Under intermittent fluoroscopic guidance, a 20-gauge x 3 1/2 in. Sprotte nee dle utilized. The thecal sac was not accessed given the degree of levoscoliotic curvature and extensive multilevel degenerative change. Some oozing of blood was noted at the skin surface at the two needle insertion s ites. Some blood was also noted in the spinal needle. The patient tolerated the procedure well. There were no significant immediate complications. Fluoroscopy dosage (mGy): Not available. Fluoroscopy time: 1.8 minutes. Number or time of high level fluoroscopy (HLF), digital spot, or digital subtraction images: 1. IMPRESSION: 1. Unsuccessful fluoroscopic guided lumbar puncture secondary to the degree of scoliosis and degener ative change. 2. Mild bleeding at the skin surface and within the needle may suggest suboptimal reversal of antico agulation. Consider a longer time course between this continuation of the medicine and repeat lumbar puncture if a future lumbar puncture is considered. The report will be called/faxed according to standard departmental protocol. ACT 112: Negative or not required by law. Electronically signed by: Julio Cesar Kauffman M.D. 10/18/2019 9:59 AM
[2019-10-18] MEDS: WIXELA INH SCH ×2 (10:15→22:11)
[2019-10-18] MEDS: SPIRIVA RESPIMAT INH SCH ×2 (10:16→22:23)
[2019-10-18] MEDS: MAGNESIUM OXIDE 400 MG TAB PO SCH (10:17)
[2019-10-18] MEDS: FERROUS SULFATE 325 MG TAB PO SCH (10:17)
[2019-10-18] MEDS: FOLIC ACID 1 MG TAB PO SCH (10:17)
[2019-10-18] MEDS: guaiFENesin 600 MG TABCR PO SCH ×2 (10:18→22:16)
[2019-10-18] MEDS: PYRIDOSTIGMINE BROMIDE 60 MG TAB PO SCH ×3 (10:18→22:16)
[2019-10-18] MEDS: MULTIVITAMIN TAB PO SCH (10:19)
[2019-10-18] MEDS: predniSONE 5 MG TAB PO SCH (10:19)
[2019-10-18] MEDS: METOPROLOL SUCC 50MG EXT REL TAB PO SCH ×2 (10:19→22:21)
[2019-10-18] MEDS: CHOLECALCIFEROL 1,000 UNITS 25 MCG TAB PO SCH (10:20)
[2019-10-18] MEDS: SERTRALINE HCL 50 MG TABLET PO SCH (10:21)
[2019-10-18] MEDS: LIDOCAINE 5% 1 PATCH TD SCH (10:25)
[2019-10-18] MEDS: HYDROXYCHLOROQUINE SULFATE 200 MG TAB PO SCH ×2 (10:25→22:19)
[2019-10-18] MEDS: ACETAMINOPHEN 325 MG TAB PO PRN (10:32)
[2019-10-18] MEDS: TRAMADOL HCL 50 MG TABLET PO PRN (13:02)
[2019-10-18] MEDS ORDERED: TRAMADOL HCL 50 MG TABLET PO PRN (14:06)
[2019-10-18] MEDS: TRIAMCINOLONE ACET NASAL SPRAY 10.8ML BTL NAE SCH (15:43)
[2019-10-18] MEDS: ALBUTEROL 0.5% NEB SOLN 2.5 MG/0.5 ML VIAL NEB PRN (19:14)
--- NOTE | 2019-10-18 20:48 | Hospitalist Progress Note ---
Date of Service October 18, 2019 Assessment & Plan (1) Myasthenia gravis: Suspected diagnosis. Ptosis for several weeks prior to admission and cervical musculature weakness. Symptoms all dramatically improved with mestinon TID. Appreciate neurology consult. Unfortunately could not obtain LP today to r/o MS, encephalitis, other diagnoses. Myasthenia antibody testing pending. Patient to have EMG testing as outpatient later this week with neurology. Continue NIF / VC checks q6h. Thus far values are stable/acceptable. Cont BIPAP at HS. Unfortunately AM abg today does not qualify her for home BIPAP at time of d/c. (2) Myalgia: Uncertain cause. Does not seem to be myasthenia related. Recent TSH slightly elevated but doubt is the cause. Recent B12, CPK wnl. Recent COVID-19 testing negative. Check sed rate in am. 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 Cont lidoderm, tramadol prn. Takes 100mg of latter prn at home. (4) Hypotension: Resolved. SIMONE on hold. Cont BB. (5) Elevated troponin: Demand-ischemia in setting of illness. (6) Psoriatic arthritis: Cont 5mg prednisone daily Cont plaquenil (7) Hyperlipidemia: Continue atorvastatin 10 mg daily recent CPK and LFTs wnl (8) Eosinophilic asthma: Stable. recent CT chest without infiltrates. Cont usual inhalers/nebs. O2 sats during this stay have been acceptable. Again she needs night-time O2 based on overnight oximetry study last pm. Will need this arranged at d/c. (9) History of DVT (deep vein thrombosis): resume xarelto in AM tomorrow (s/p LP attempts today) (10) History of pulmonary embolism: resume xarelto in am tomorrow (11) Atrial fibrillation: resume xarelto in am cont BB (12) Hypothyroid: Continue levothyroxine as previous TSH minimally elevated this admission would repeat as outpatient in 4 weeks if still high then adjust dose of levothyroxine (13) DVT prophylaxis: resume xarelto in am PT, OT both recommending rehab - she is hesitant for such I recommended it to her today left message for , Kaiden, on 10/18/19 care d/w neurology today as well Admission and Anticipated Discharge Date Admission Date: October 12, 2019 Subjective patient went for fluoro-guided LP and despite multiple attempts unsuccessful at obtaining CSF. I saw the patient post-LP and she denied any headache. her main complaints were - very tired today, weak - attributes it to poor sleep overnight. "achy all over" - muscles, joints. states that ptosis and other symptoms she had been having at home are resolved w/ mestinon. does not want to return to rehab. reports some mild CRESPO - no worse than previous. no cough. Review of Systems Constitutional: no fever and no chills Ear, Nose, Mouth, Throat: + nasal discharge (clear); no dysphagia Cardiovascular: no chest pain Gastrointestinal: no abdominal pain Physical Exam Constitutional: no acute distress and no altered mental status ENMT: external ear and nose normal, oropharynx normal Respiratory: normal respiratory effort, lungs clear to auscultation Auscultation: + diminished lung sounds (bases) Cardiovascular: Rate/Rhythm: regular rate and regular rhythm Heart Sounds: normal S1 and normal S2; no murmur Vessels: posterior tibial pulses present and dorsalis pedis pulses present; no JVD Extremities: no edema Gastrointestinal (Abdomen): normal bowel sounds, soft, nontender, no hepatosplenomegaly Percussion/Palpation: + hernia (midline - reducible ) Skin: no rashes, warm and dry Neurologic: with upward gaze for 20 sec to inducible ptosis; strength (proximal and distal) 5/5 x 4 exts Results & Data Results & Data ([facility]) Vital Signs (Past 12 Hours) Vital Signs Temp Pulse Resp BP Pulse Ox 10/18/19 19:16 92 H 18 90 10/18/19 15:18 36.9 C 70 16 114/79 92 Laboratory Results Laboratory Results - last 24 hr 10/18/19 06:32 ABG pH 7.50 H ABG pCO2 38 ABG pO2 65 L ABG HCO3 29 H ABG O2 Saturation 93.9 ABG Base Excess 5.2 H Dalton Test Pos Barometric Pressure 733.4 Oxygen Given ROOM AIR PG Care Time/CCT Total # of Minutes Spent Total Time Spent with Patient: Total time spent is greater than 50% in coordination of care (as documented) at patient's floor/unit and/or counseling patient: Coding Level of Care Code 84835 Subseq Hosp Care Lvl 2 Diagnoses Myasthenia gravis G70.00 Myalgia M79.10 Neck pain M54.2 Hypotension I95.9 Hypotension type: unspecified hypotension type Elevated troponin R79.89 Psoriatic arthritis L40.50 Hyperlipidemia E78.2 Hyperlipidemia type: mixed hyperlipidemia Eosinophilic asthma J82 History of DVT (deep vein thrombosis) Z86.718 History of pulmonary embolism Z86.711 Atrial fibrillation I48.0 Atrial fibrillation type: paroxysmal Hypothyroid E03.9 Hypothyroidism type: unspecified DVT prophylaxis Z29.9 (1) Hypotension Hypotension type: unspecified hypotension type Qualified Code(s): I95.9 - Hypotension, unspecified (2) Hyperlipidemia Hyperlipidemia type: mixed hyperlipidemia Qualified Code(s): E78.2 - Mixed hyperlipidemia (3) Atrial fibrillation Atrial fibrillation type: paroxysmal Qualified Code(s): I48.0 - Paroxysmal atrial fibrillation (4) Hypothyroid Hypothyroidism type: unspecified Qualified Code(s): E03.9 - Hypothyroidism, unspecified
[2019-10-18] MEDS: ATORVASTATIN 10 MG TAB PO SCH (22:16)
[2019-10-18] MEDS: GABAPENTIN 100 MG CAP PO SCH (22:17)
[2019-10-19 05:34] LABS: Basophils # (auto) 0.01 K/uL (0-0.2); Basophils % (auto) 0.1 %; Eosinophils # (auto) 0.37 K/uL (0-0.5); Eosinophils % (auto) 5.3 %; Hematocrit (blood only) 41.9 % (37-47); Hemoglobin 13.8 g/dL (12.0-16.0); Immature Granulocytes # (auto) 0.03 K/uL (0.00-0.02); Immature Granulocytes % (auto) 0.4 %; Lymphocytes # (auto) 1.71 K/uL (1.2-3.4); Lymphocytes % (auto) 24.5 %; Mean Corpuscular Hemoglobin 32.7 pg (25-34); Mean Corpuscular Hgb Conc 32.9 g/dL (32-36); Mean Corpuscular Volume 99.3 fL (80-100); Mean Platelet Volume 9.6 fL (7.4-10.4); Monocytes # (auto) 0.65 K/uL (0.11-0.59); Monocytes % (auto) 9.3 %; Neutrophils % (auto) 60.4 %; Platelet Count 195 K/uL (130-400); RDW Coefficient of Variation 13.9 % (11.5-14.5); RDW Standard Deviation 49.7 fL (36.4-46.3); Red Blood Count 4.22 M/uL (4.2-5.4); White Blood Count 6.97 K/uL (4.8-10.8)
[2019-10-19 05:54] LABS: BUN Creatinine Ratio 19.1 (10-20); Calcium 8.4 mg/dl (8.5-10.1); Creatinine Clr Calc Pharmacy 60.9 ml/min; Est GFR (African American) 87.1; Est GFR (Non-African American) 75.2; Potassium 3.7 mmol/L (3.5-5.1)
[2019-10-19] MEDS: LEVOTHYROXINE SODIUM 200 MCG TABLET PO SCH (05:58)
[2019-10-19] MEDS: WIXELA INH SCH (08:47)
[2019-10-19] MEDS: SPIRIVA RESPIMAT INH SCH (08:47)
[2019-10-19] MEDS: TRIAMCINOLONE ACET NASAL SPRAY 10.8ML BTL NAE SCH (08:48)
[2019-10-19] MEDS: METOPROLOL SUCC 50MG EXT REL TAB PO SCH (08:50)
[2019-10-19] MEDS: guaiFENesin 600 MG TABCR PO SCH (08:51)
[2019-10-19] MEDS: PYRIDOSTIGMINE BROMIDE 60 MG TAB PO SCH ×2 (08:51→15:06)
[2019-10-19] MEDS: CHOLECALCIFEROL 1,000 UNITS 25 MCG TAB PO SCH (09:49)
[2019-10-19] MEDS: FOLIC ACID 1 MG TAB PO SCH (09:50)
[2019-10-19] MEDS: MAGNESIUM OXIDE 400 MG TAB PO SCH (09:50)
[2019-10-19] MEDS: FERROUS SULFATE 325 MG TAB PO SCH (09:50)
[2019-10-19] MEDS: predniSONE 5 MG TAB PO SCH (09:51)
[2019-10-19] MEDS: SERTRALINE HCL 50 MG TABLET PO SCH (09:51)
[2019-10-19] MEDS: HYDROXYCHLOROQUINE SULFATE 200 MG TAB PO SCH (09:51)
[2019-10-19] MEDS: MULTIVITAMIN TAB PO SCH (09:51)
[2019-10-19] MEDS: LIDOCAINE 5% 1 PATCH TD SCH (10:17)
--- NOTE | 2019-10-19 11:08 | Neurology Progress Note ---
Date of Service October 19, 2019 Assessment & Plan (1) Myasthenia gravis: This patient probably has myasthenia gravis. Acetylcholine receptor antibodies and other associated antibody tests are pending. She is responding well to Mestinon and should continue with this medication. Pontine Pallor appreciated on recently completed brain MRI likely due to microvascular ischemic change. No associated abnormal postcontrast enhancement. Brainstem encephalitis and demyelinating disorders probably unlikely. Lumbar puncture under fluoroscopy was unsuccessful. Can hold off on further attempts at lumbar puncture at this time given patient's clinical stability and good clinical response to Mestinon thus far. Probable incidental 4 mm MCA aneurysm identified on MRI as well. Nonemergent outpatient CT angiography should be obtained. Patient will follow-up with Dr. Singh in the outpatient setting for ongoing neurological care. Subjective Follow-up for suspected myasthenia gravis The patient reports continued improvement in her diplopia, ptosis, neck weakness, and shortness of breath with Mestinon. She denies experiencing any side effects such as excessive drooling or diarrhea. Acetylcholine receptor antibodies as well as muSK antibodies and striated muscle antibodies are pending. An attempt at lumbar puncture with fluoroscopy guidance yesterday was unsuccessful. Patient's brain MRI completed on October 12 revealed pontine taller likely due to microvascular ischemic change. There was no associated abnormal postcontrast enhancement. A demyelinating and/or inflammatory process has been under consideration. See Dr. Singh's previous follow-up notes for details. The brain MRI had also suggested an equivocal 4 mm right MCA aneurysm with a suggestion for nonemergent follow-up CT angiography. Review of Systems Eyes: no diplopia and no eye pain Musculoskeletal: no myalgia Neurologic: no headache(s) and no abnormal speech Results & Data ([facility]) Vital Signs (Past 12 Hours) Vital Signs Temp Pulse Pulse Pulse Resp BP BP 10/19/19 07:25 36.6 C 71 16 116/81 10/19/19 03:38 59 L 18 10/18/19 23:17 36.4 C L 65 18 132/92 Pulse Ox 10/19/19 07:25 92 10/19/19 03:38 95 10/18/19 23:17 95 Exam (Neuro) Physical Exam: The patient is alert and fully oriented. Attention and concentration are normal. Patient exhibits a normal spontaneous speech pattern. Speech is fluent and non-dysarthric. Normal comprehension of vocabulary. Visual stanton full to confrontation. Visual acuity normal. Pupils equal round react to light and accommodation. Eye movements normal. There is no ptosis, nystagmus, or ophthalmoplegia. There is no facial weakness. Tongue and palate move well and are midline. Patient exhibits normal muscle strength and tone for all 4 limbs. Coding Level of Care Code 62544 Subseq Hosp Care Lvl 2 Diagnoses Myasthenia gravis G70.00
[2019-10-19 15:15] VITALS: TEMP 98.8; O2SAT 91
[2019-10-19 15:23] VITALS: BP 132/92; PULSE 65
--- NOTE | 2019-10-19 16:19 | Discharge Summary ---
Date of Service date of admission - October 12, 2019 date of discharge - October 19, 2019 Admission HPI Per Admitting Provider The patient is a 69-year-old female with a past medical history including pericardial effusion, psoriatic arthritis, osteoarthritis, psoriatic arthritis, hyperlipidemia, hypertension, eosinophilic asthma, history of DVT, history of PE, atrial fibrillation, anemia, rheumatoid arthritis, Pseudomonas pneumonia, pericardial effusion and hypothyroidism. She presents to the emergency department with relatively acute worsening of shortness of breath, that she reports is unlike her previous episodes of asthma and COPD exacerbations or CHF exacerbations. She denies any recent weight gain. She has not any recent travels. She has not had any sick exposures that she is aware of, however, her does go to the grocery store and bank, doctors office and other places on a routine basis. She is relatively immunocompromised on hydroxychloroquine, has a significant pulmonary and cardiac history, and is obese. Principal Diagnosis suspected myasthenia gravis Discharge Exam Constitutional no acute distress and no altered mental status ENMT external ear and nose normal, oropharynx normal Respiratory normal respiratory effort, lungs clear to auscultation Auscultation: + diminished lung sounds (bases) Cardiovascular Rate/Rhythm: regular rate and regular rhythm Heart Sounds: normal S1 and normal S2; no murmur Vessels: posterior tibial pulses present and dorsalis pedis pulses present; no JVD Extremities: no edema Gastrointestinal (Abdomen) normal bowel sounds, soft, nontender, no hepatosplenomegaly Percussion/Palpation: + hernia (midline - reducible ) Skin no rashes, warm and dry Neurologic moves all extremities; no focal motor deficits no inducible ptosis of either eye with prolonged upward gaze Discharge Data Allergies Allergy/AdvReac Type Severity Reaction Status Date / Time pollen extracts Allergy Intermediate ASTHMA Verified 10/12/19 04:01 ATTACKS doxycycline AdvReac Intermediate VOMITING, Verified 10/12/19 04:01 IMBALANCE duloxetine AdvReac Intermediate SEVERE Verified 10/12/19 04:01 VOMITING leflunomide AdvReac Intermediate SEVERE Verified 10/12/19 04:01 VOMITING tetracycline AdvReac Intermediate CONFUSION,LIGHT Verified 10/12/19 04:01 HEADED, DIZZINESS cefuroxime AdvReac Mild UNCONTROLLED Verified 10/12/19 04:01 DIARRHEA celecoxib AdvReac Mild VOMITING Verified 10/12/19 04:01 clarithromycin AdvReac Mild VOMITING Verified 10/12/19 04:01 pregabalin AdvReac Mild HEADACHE, Verified 10/12/19 04:01 VOMITING pineapple AdvReac Unknown Unknown Verified 10/19/19 15:17 salsalate AdvReac Unknown Nausea Verified 10/12/19 04:[address] [facility] Neurology Inspector Air Carrier/Pulmonary Pain Management PT/OT Ordered Studies 1. CT chest wo con - IMPRESSION: 1. No consolidation to suggest pneumonia. 2. Lung volumes, unchanged. Trace right pleural effusion. No pneumothorax. 3. Moderate cardiomegaly and extensive coronary artery calcification. 2. MR brain wo/w con - IMPRESSION: 1. No evidence of intracranial mass 2. No evidence of acute or subacute infarction 3. Equivocal 4 mm right MCA aneurysm. Nonemergent CT angiography of the brain is recommended in follow-up 4. Pontine pallor and scattered foci of increased T2 signal within the white matter. While likely a small vessel basis, a demyelinating process could appear similar. 3. MR cervical spine wo con - IMPRESSION: 1. Multilevel spondylytic changes 2. C5-C6 and C6-C7 disc osteophyte complexes with secondary mild spinal stenosis and bilateral foraminal narrowing 3. Increased T2 signal within the leatha. 4. FL sniff test - IMPRESSION: There is no fluoroscopic evidence of diaphragmatic paralysis. 5. FL lumbar puncture diagnostic - unsuccessful LP attempt by radiology. 6. echocardiogram - EF 40-45%; grade 2 diastolic dysfunction. 7. overnight oximetry study - significant and frequent desaturations. Hospital Course (1) Myasthenia gravis: Extensive work-up for her presenting respiratory symptoms (dyspnea, etc) showed no primary pulmonary based cause. Shortly after admission it became more clear that the patient's symptoms were neurological in origin. She had eyelid ptosis, cervical musculature weakness, etc that were concerning for myasthenia gravis. These symptoms had been present for several weeks pre-admission. She was evaluated by pulmonary and neurology for her respiratory/neurological symptoms. She was started on mestinon TID and her ptosis, respiratory symptoms, etc all dramatically improved. An LP under fluoro was attempted by radiology to r/o MS, encephalitis, and other diagnoses but unfortunately could not be obtained. Suspicion for these diagnoses, however, was very low. Myasthenia antibody testing was pending at time of discharge. Patient to have EMG testing as outpatient with [facility] neurology shortly after discharge to assist with diagnosis. Patient had frequent NIF / Vital capacity checks throughout her stay and these were normal. Pulmonary advised night-time BIPAP and she tolerated this well throughout the stay. Unfortunately an AM abg did not qualify her for home BIPAP at time of d/c. Overnight oximetry study did show frequent desaturation and, at minimum, needs nocturnal O2. Formal sleep study will be needed in near-future as PITER is highly suspected. While at rehab would recommend continued use of BIPAP since it provided patient considerable benefit while hospitalized. Continue use of mestinon 60mg TID. (2) Myalgia: Patient periodically complained of this during the stay. Did not seem to be myasthenia related. Recent TSH slightly elevated (6.99) but doubt it was the cause. Recent B12, CPK wnl. Recent COVID-19 testing negative. Sed rate was normal as well. Recommend repeat TSH as outpatient in 4 weeks and if still high then consider adjustment of synthroid. 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 Cont lidoderm, tramadol prn. (4) Hypotension: Resolved shortly after admission with holding her SIMONE and lowering the dose of her beta beckie. (5) Elevated troponin: Demand-ischemia rather than ACS. (6) Psoriatic arthritis: Cont 5mg prednisone daily Cont plaquenil (7) Hyperlipidemia: Continue atorvastatin 10 mg daily recent CPK and LFTs wnl (8) Eosinophilic asthma: Stable during the stay and without exacerbation. recent CT chest without infiltrates. Cont usual inhalers/nebs. O2 sats during this stay have been acceptable. Again she needs night-time O2 based on overnight oximetry study. recommend outpatient sleep study as well. (9) History of DVT (deep vein thrombosis): xarelto was held for her attempted LP but can be resumed on day of discharge. (10) History of pulmonary embolism: resume xarelto at discharge (11) Atrial fibrillation: resume xarelto cont BB at reduced dose of 50mg BID (12) Hypothyroid: Continue levothyroxine as previous TSH minimally elevated this admission would repeat as outpatient in 4 weeks if still high then adjust dose of levothyroxine (13) Chronic combined systolic and diastolic CHF (congestive heart failure): was compensated during the stay. beta beckie dose was reduced due to bradycardia and low BPs (from 100mg BID to 50mg BID). SIMONE also held due to low-normal BPs. Ideally SIMONE is resumed in the future due to depressed EF of 40-45%. she takes lasix prn edema/weight gain. check daily weights at rehab. Total Time Total Time Spent Total Time Spent (In Minutes): 45 Total Time Includes: Examination of the Patient, Discharge Planning, Medication Reconciliation and Communication With Other Providers Discharge Plan Discharge Items Patient Disposition: Transfer Inpatient Rehab Fac Reason For Visit: ACUTE RESP FAILURE Discharge Diagnosis: Suspected myasthenia gravis - improved with mestinon Activity: Resume your previous activity Non-emergency contact: Primary Care Provider and Neurologist Call non-emergency contact if: you have any medication questions, your symptoms worsen and you have a fever Follow-up/Referrals: Scottie Noyola MD [Primary Care Provider] - Daphne Singh MD [Physician] - 12/29/19 1:15 pm (Please, follow up at [facility] Neurology Office with Dr. Singh on December 28 at 1:30 pm (arrive 1:15 pm). *The office is located at [address] [place] [address] in [place]. If you have any questions, call the office at [phone]. A NURSE FROM THIS OFFICE WILL CALL YOU, IF AN EARLIER APPOINTMENT CAN BE ARRANGED. ) Diet: Heart Healthy Fluids: 1800ml (7 cups) Addtl Attending Provider Instructions: Patient presented with acute respiratory failure. She was tested for COVID-[address] and [address] chest did not show pneumonia or pulmonary edema/fluid. Exact etiology of her respiratory complaints, fatigue, etc was initially uncertain but ultimately felt to be due to developing myasthenia gravis. She was seen in consult by neurology and pulmonary. She was trialed on mestinon 60mg three times daily and immediately had rapid improvement in ptosis (droopy eyelids), neck muscle weakness, and respiratory symptoms highly suggestive of myasthenia gravis. Recommendations - 1. continue mestinon 60mg three times daily 2. continue vital capacity checks and NIF readings every 6 hours (to ensure adequate neuromuscular function of respiratory muscles and diaphragm) 3. BIPAP at bedtime, 10/5, 30% FiO2 and with naps 4. needs to see Dr Snigh on 10/22/[address] [facility] Neurology for EMG testing 5. 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 manager medical (patient with CHF, EF 40-45%) Pending Studies at Discharge: Yes Studies:: labs for Myasthenia gravis Stand-Alone Forms: [facility] Skilled Items Patient informed of condition?: Yes DNR: No Discharge Level of Care: Acute rehab Communicable Disease: No Discharge Prognosis: Improving Lines: None Urinary Catheter: No Medications and DC Order Prescriptions: New pyridostigmine bromide 60 mg Tablet 60 mg PO TID Qty: 180 RF: 5 triamcinolone acetonide [Nasacort] 55 mcg Aerosol,[place] 2 spray XUAN DAILY Qty: 1 RF: 0 lidocaine 5 % Adhesive Patch,Medicated 2 patch transdermal QAM Qty: 60 RF: 0 albuterol sulfate 2.5 mg/0.5 mL Solution For Nebulization 2.5 mg NEB Q6H PRN (Reason: cough, wheeze, shortness of breath) Qty: 1 RF: 0 Continued Xarelto 20 mg tablet 20 mg PO QPM Qty: 30 RF: 5 atorvastatin 10 mg tablet 10 mg PO HS Qty: 30 RF: 5 folic acid 1 mg tablet 1 mg PO DAILY Qty: 30 RF: 5 levothyroxine [Synthroid] 200 mcg tablet 200 mcg PO DAILY Qty: 30 RF: 5 prednisone 5 mg tablet 5 mg PO DAILY Qty: 30 RF: 5 furosemide 20 mg tablet 20 mg PO DAILY PRN (Reason: weight gain) Qty: 30 RF: 2 tramadol 50 mg tablet 50 - 100 mg PO QID PRN (Reason: Pain) Qty: 240 RF: 0 magnesium oxide 400 mg (241.3 mg magnesium) tablet 400 mg PO QAM RF: 0 sertraline 100 mg Tablet 150 mg PO QAM RF: 0 hydroxychloroquine 200 mg Tablet 200 mg PO BID RF: 0 multivitamin Tablet 1 tab PO QAM RF: 0 cholecalciferol (vitamin D3) [Vitamin D3] 2,000 unit Tablet 2,000 unit PO QAM RF: 0 ferrous sulfate [iron] 325 mg (65 mg iron) Tablet 325 mg PO QAM RF: 0 gabapentin 100 mg Capsule 100 - 200 mg PO HS PRN (Reason: restless legs) Qty: 0 RF: 0 levothyroxine 25 mcg tablet 25 mcg PO 2XWK RF: 0 fluticasone propion-salmeterol [Wixela Inhub] 250-50 mcg/dose blister with device 1 ea INHALATION BID RF: 0 ProAir RespiClick 90 mcg/actuation aerosol powdr breath activated 2 inh INHALATION Q4 PRN (Reason: Shortness Of Breath Or Wheezing) RF: 0 azelastine 137 mcg (0.1 %) aerosol,spray 1 spray INTRANASAL BID RF: 0 Spiriva Respimat 1.25 mcg/actuation mist 2 puff INHALATION DAILY RF: 0 Changed metoprolol succinate 100 mg tablet extended release 24 hr 50 mg PO BID Qty: 90 RF: 3 Discontinued lisinopril [Zestril] 5 mg tablet 5 mg PO DAILY Qty: 30 RF: 5 sulfamethoxazole-trimethoprim [Bactrim DS] 800-160 mg tablet 1 tab PO BID 10 Days Qty: 20 RF: 0 Discharge Orders: Discharge Order (Routine); Ordered 10/19/19 Ordered By: Wesley Wynn/Other Patient Handouts: Chest Lung Problems Admission Data Admit Date/Time: 10/12/19 06:25 Attending Provider: Wesley Kennedy Admit Provider: Adi Payne Primary Care Provider: Scottie Noyola Other Providers: Adi Payne ; Daphne Singh ; Amanda Lai ; Lorelei Zendejas ; [facility] Other Interventions: Discharge Summary Assessment (RN) Last Done: 10/19/19 15:22 DC Date/Time DO NOT enter until pt leaves facility: 10/19/19 17:21 Coding Level of Care Code D/C Day Management >30 mins Diagnoses Myasthenia gravis G70.00 Myalgia M79.10 Neck pain M54.2 Hypotension I95.9 Hypotension type: unspecified hypotension type Elevated troponin R79.89 Psoriatic arthritis L40.50 Hyperlipidemia E78.2 Hyperlipidemia type: mixed hyperlipidemia Eosinophilic asthma J82 History of DVT (deep vein thrombosis) Z86.718 History of pulmonary embolism Z86.711 Atrial fibrillation I48.0 Atrial fibrillation type: paroxysmal Hypothyroid E03.9 Hypothyroidism type: unspecified Chronic combined systolic and diastolic CHF (congestive heart failure) I50.42
[2019-10-19 18:49] LABS: Anti-Striated Muscle POSITIVE (NEGATIVE); Receptor Binding Ab 9.55 nmol/L
--- NOTE | 2019-10-21 11:30 | Communication Note ---
Date of Service: October 21, 2019 Patient was not seen during this admission.
[2019-10-22 02:25] LABS: Receptor Binding Ab 9.9 nmol/L
== END 2019-10-19 17:21 | DRG 56 ==
LOC: ED 03:27 → SUATTDRO 06:25 → 2S 06:25 → 3E 10-16 17:44 → 2N 10-19 07:40